=== PATIENT | male | born 1930 | race Caucasian/White ===

== ENCOUNTER 2017-08-23 04:38 | Inpatient (IN) | payer MEDICARE ==
[2017-08-23] VITALS (33 sets, daily range): BP systolic 50–165; BP diastolic 20–92
[~2017-08-23] VITALS: Ht 182.9 cm; Wt 110.2 kg
[~2017-08-23 04:38] MED LIST: ALLEGRA ALLERG180 MG PO; ASPIR 8181 MG PO; CRESTOR10 MG PO; FLOMAX0.4 MG PO; HYDROCODONE-AP1 EAC6 PO; LOVAZA1000 MG PO; NORCO 5-325 TA1 EACH PO; PROBENECID-COL1 EACH PO; SILVADENE20 GM TP; TOPROL XL25 MG PO
[2017-08-23 05:17] LABS: POC CA IONIZED 3.8 mg/dL (4.5-5.3); POC CREATININE 1.6 mg/dL (0.6-1.3); POC HEMOGLOBIN 13.3 g/dL (12.0-17.0); POC POTASSIUM 4.4 mmol/L (3.5-4.9)
[2017-08-23 05:17] LABS: ABSOLUTE EOSINOPHILS 0.1 thou/uL (0.0-0.7); ABSOLUTE LYMPHOCYTES 0.5 thou/uL (0.8-5.3); ABSOLUTE NEUTROPHILS 2.6 thou/uL (1.6-8.1); BASOPHILS 0.4 %; EOSINOPHILS 1.8 %; HEMATOCRIT 42.3 % (42.0-52.0); MCH 29.4 pg (26.0-34.0); MCV 89.1 fL (80.0-100.0); MONOCYTES 0.5 %; MPV 7.8 fl. (7.2-11.1); NUCLEATED RBCS 0 /100WBC; PLATELET COUNT* 182 thou/uL (150-400); POLYS 81.3 %; RBC 4.75 mil/uL (4.50-6.00); RDW-CV 14.2 % (10.5-14.5); WBC 3.2 thou/uL (4.0-11.0)
[2017-08-23] MEDS ORDERED: GABAPENTIN 100100 MG PO (05:26)
[2017-08-23 05:27] LABS: ANION GAP 8 mmol/L (7-16); BUN 28 mg/dL (7-18); CALCIUM 8.8 mg/dL (8.5-10.1); CHLORIDE 102 mmol/L (98-107); CO2 26 mmol/L (21-32); CREATININE 1.6 mg/dL (0.6-1.3); GLUCOSE 127 mg/dL (70-99); POTASSIUM 4.6 mmol/L (3.5-5.1); SODIUM 136 mmol/L (136-145)
[2017-08-23 05:28] LABS: PROTIME 10.2 Seconds (9.20-11.50)
[2017-08-23] MEDS ORDERED: ALEVE220 M1 PO (05:29)
[2017-08-23 05:38] LABS: ALBUMIN 3.2 g/dL (3.4-5.0); ALKALINE PHOSPHATASE 68 U/L (46-116); LIPASE 115 U/L (73-393); NT-PRO BRAIN NAT PEPTIDE 294 pg/mL (<300); SGOT 14 U/L (15-37); SGPT 16 U/L (30-65); TOTAL BILIRUBIN 0.6 mg/dL (<0.1-1.0); TOTAL PROTEIN 6.6 g/dL (6.4-8.2); TROPONIN-I LEVEL <0.06 ng/mL (<0.06)
[2017-08-23 07:57] LABS: URINE BILIRUBIN NEGATIVE (Negative); URINE BLOOD NEGATIVE (Negative); URINE CLARITY CLEAR; URINE COLOR YELLOW; URINE GLUCOSE-RANDOM NEGATIVE (Negative); URINE KETONES NEGATIVE (Negative); URINE LEUKOCYTES-REFLEX NEGATIVE (Negative); URINE NITRITE-REFLEX NEGATIVE (Negative); URINE PROTEIN NEGATIVE (Negative); URINE UROBILINOGEN 0.2 E.U./dl (0.2-1.0)
--- NOTE | 2017-08-23 08:39 | NUR ---
DR CALL RETURNED CALL. SPOKE WITH HIM IN REGARDS TO PATIENT UNABLE TO STAND AND DR CALL STATED TO DO THE STANDING XRAY WITH PATIENT IN UP RIGHT POSITION. INFORMATION FORWARDED TO [facility]
[2017-08-23 08:52] LABS: URINE POTASSIUM-RANDOM 50.2 mmol/L
--- NOTE | 2017-08-23 10:20 | EKG ---
[place] [address] ELECTROCARDIOGRAM REPORT Name: VICTORIA SANTIZO Room: [address] ADM IN 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
--- NOTE | 2017-08-23 11:50 | NUR ---
PATIENT ADMITTED TO THE UNIT AT 0951. PATIENT AOX4, ANXIOUS. PAIN RATED AT 8/10 IN ABDOMEN, GENERALIZED. ABDOMEN FIRM TO PALPATION. ORDERS FOR CENTRAL LINE AND MCQUEEN CATHETER NOTED FROM ER. ATTEMPTED MCQUEEN PLACEMENT X2. HOSPIALIST NOTIFIED THAT MCQUEEN WAS UNABLE TO BE OBTAINED. ORDERS FOR UROLOGY CONSULT, BRANDON MANJARREZ RETURNED CALL AND ORDERED TO TRY COUDE CATHETER, BUT PAITENT SOON AFTER LEFT FOR SURGERY AND WAS UNABLE TO ATTEMPT. CENTRAL LINE PLACEMENT POSSIBLY IN OR PER ANESTHESIOLOGY. CONSENT FOR SURGERY SIGNED. BLOOD CONSENT SIGNED IN CASE OF NEED. BLOOD PRESSURES SOFT, LEVOPHED ON STANDBY. RING AND GLASSES GIVEN TO PATIENT'S SPOUSE WHILE IN SURGERY. PATIENT'S FAMILY HAD TO STEP OUT OF ROOM FOR XRAYS, SURGERY CAME TO GET PATIENT BEFORE FAMILY COULD BE LET BACK IN. UPDATED THAT PHYSICIAN WILL TYPICALLY GIVE UPDATES POST SURGERY IN THE ICU WAITING ROOM. PATIENT LEFT UNIT AT 1053 IN BED WITH OR STAFF AND ALL SIDE RAILS UP.
[2017-08-23 13:08] LABS: HEMATOCRIT 35.5 % (42.0-52.0)
[2017-08-23 13:09] LABS: HEMOGLOBIN 11.9 gm/dL (14.0-18.0)
[2017-08-23 13:12] LABS: INR 1.1; PROTIME 10.8 Seconds (9.20-11.50)
[2017-08-23 16:09] LABS: HEMATOCRIT 35.2 % (42.0-52.0); HEMOGLOBIN 11.8 gm/dL (14.0-18.0); MCH 29.8 pg (26.0-34.0); MCHC 33.4 g/dL (28.0-37.0); MCV 89.1 fL (80.0-100.0); NUCLEATED RBCS 0 /100WBC; PLATELET COUNT* 169 thou/uL (150-400); RBC 3.95 mil/uL (4.50-6.00); RDW-CV 14.3 % (10.5-14.5); WBC 5.5 thou/uL (4.0-11.0)
[2017-08-23 16:13] LABS: BE -9.4 mmol/L (-2 to +3); HCO3 16.7 mmol/L (22.0-26.0); PO2 80.3 mmHg (75.0-100.0)
[2017-08-23 16:17] LABS: ALBUMIN 2.2 g/dL (3.4-5.0); CALCIUM 6.7 mg/dL (8.5-10.1); CREATININE 1.5 mg/dL (0.6-1.3); MAGNESIUM 1.3 mg/dL (1.8-2.4); POTASSIUM 5.6 mmol/L (3.5-5.1); TOTAL BILIRUBIN 0.6 mg/dL (<0.1-1.0); TOTAL PROTEIN 4.8 g/dL (6.4-8.2)
[2017-08-23 16:18] LABS: pH 7.272 (7.340-7.450)
[2017-08-23 16:49] LABS: ABSOLUTE LYMPHOCYTES 0.8 thou/uL (0.8-5.3); ABSOLUTE MONOCYTES 0.2 thou/uL (0.0-1.2); ABSOLUTE NEUTROPHILS 4.5 thou/uL (1.6-8.1)
[2017-08-23 16:50] LABS: PLATELET ESTIMATE ADEQUATE
[2017-08-23 19:25] LABS: HEMOGLOBIN 11.9 gm/dL (14.0-18.0); MCH 29.4 pg (26.0-34.0); MCV 89.2 fL (80.0-100.0); MPV 8.1 fl. (7.2-11.1); NUCLEATED RBCS 0 /100WBC; PLATELET COUNT* 234 thou/uL (150-400); RBC 4.04 mil/uL (4.50-6.00); RDW-CV 14.3 % (10.5-14.5); WBC 12.3 thou/uL (4.0-11.0)
[2017-08-23 19:28] LABS: CREATININE 1.8 mg/dL (0.6-1.3); POTASSIUM 5.3 mmol/L (3.5-5.1)
[2017-08-23 19:37] LABS: TROPONIN-I LEVEL 2.07 ng/mL (<0.06)
--- NOTE | 2017-08-23 19:37 | NUR ---
PATIENT RETURNED FROM SURGERY ON VENTILATOR. PULMONARY CONSULTED. ORDERS FOR XRAY AND ABG TO AND TO CALL THEM WITH RESULTS. ORDERS FOR RESTRAINTS AT THAT TIME, BILATERAL SOFT WRIST RESTRAINTS APPLIED. POST ABG, NO CHANGES TO VENTILATOR SETTINGS PER PULMONARY, BUT TO START D5 0.225 NS WITH 2 AMPS OF BICARB, INITIATED. PATIENT ON NEOSYNEPHRINE UPON ARRIVING TO THE FLOOR, BUT TITRATED OFF IMMEDIATELY FOR HYPERTENSION WITH SYSTOLIC >170. FAMILY ALLOWED TO SEE PATIENT, UPDATED BY SURGICAL TEAM. AROUND 1400, PATIENT MIDLY BRADYCARDIC WITH HYPOTENSION. LEVOPHED STARTED PER PRN ORDERS WITH IMPROVEMENTS. PATIENT AROUND 1615 BEGAN TO BERT TO LOW 40S WITH BLOOD PRESSURES 40S/20S. VASOPRESSIN INTITATED PER PRN ORDERS, QUICKLY MAXED OUT. DR MORRELL NOTIFIED. ORDERS FOR STAT EKG, CARDIOLOGY CONSULT. CARDIOLOGY CONSULTED WHO STATED TO SUPPORT PATIENT'S VITALS WITH PRESSORS FOR NOW, AND IF PATIENT CONTINUES TO BE BRADYCARDIC, DROP BELOW 40S TO EXTERNALLY PACE AND CALL THEM BACK FOR TEMPORARY PACER INSERTION. SURGERY NOTIFIED OF PATIENT DECLINE. ORDERS FOR AMP BICARB, CALCIUM GLUCONATE, STAT ECHO ENTERED. DRY MOP MAKER NOTIFIED ABOUT STAT ECHO TO PAGE TECH IN. EXTERNAL ELECTRODES PLACED ON PATIENT. ATROPINE IN CART CLOSE BY. PATIENT VITALS STABLE ON PRESSORS AT THIS TIME. REFER TO MEDICATION TITRATION. REPORT GIVEN TO BARRY Rose RN.
[2017-08-23 19:59] LABS: ABSOLUTE LYMPHOCYTES 1.4 thou/uL (0.8-5.3); ABSOLUTE MONOCYTES 0.6 thou/uL (0.0-1.2); ABSOLUTE NEUTROPHILS 10.3 thou/uL (1.6-8.1)
[2017-08-23 20:00] LABS: PLATELET ESTIMATE ADEQUATE
[2017-08-23 20:03] LABS: MAGNESIUM 1.4 mg/dL (1.8-2.4); PHOSPHORUS* 3.3 mg/dL (2.5-4.9)
[2017-08-24] VITALS (34 sets, daily range): BP systolic 91–158; BP diastolic 37–61
[2017-08-24 04:06] LABS: ABSOLUTE LYMPHOCYTES 0.5 thou/uL (0.8-5.3); ABSOLUTE MONOCYTES 0.4 thou/uL (0.0-1.2); ABSOLUTE NEUTROPHILS 14.3 thou/uL (1.6-8.1); BASOPHILS 0.2 %; EOSINOPHILS 0.2 %; HEMATOCRIT 34.3 % (42.0-52.0); HEMOGLOBIN 11.1 gm/dL (14.0-18.0); LYMPHOCYTES 3.3 %; MCH 29.2 pg (26.0-34.0); MCHC 32.4 g/dL (28.0-37.0); MCV 90.1 fL (80.0-100.0); MONOCYTES 2.8 %; MPV 8.3 fl. (7.2-11.1); NUCLEATED RBCS 0 /100WBC; PLATELET COUNT* 218 thou/uL (150-400); POLYS 93.5 %; RBC 3.81 mil/uL (4.50-6.00); RDW-CV 14.4 % (10.5-14.5); WBC 15.2 thou/uL (4.0-11.0)
[2017-08-24 04:38] LABS: CALCIUM 6.6 mg/dL (8.5-10.1); CREATININE 1.9 mg/dL (0.6-1.3); MAGNESIUM 2.3 mg/dL (1.8-2.4); TOTAL BILIRUBIN 0.4 mg/dL (<0.1-1.0); TOTAL PROTEIN 4.9 g/dL (6.4-8.2)
[2017-08-24 04:39] LABS: POTASSIUM 4.3 mmol/L (3.5-5.1)
[2017-08-24 04:40] LABS: PHOSPHORUS* 3.5 mg/dL (2.5-4.9)
--- NOTE | 2017-08-24 05:06 | NUR ---
PT. REMAINS SEDATED ON VERSED GTT ON VENTILATOR. EPI AND LEVOPHED GTT'S CONTINUE TO INFUSE. PT. CAN GET VERY RESTLESS/AGITATED WITH STIMULI. ARTERIAL LINE IS VERY POSITIONAL. PT. IS ABLE TO ANSWER QUESTIONS BY SHAKING HEAD YES/NO. IN AND OUT OF AFIB ON MONITOR. WILL CONTINUE TO MONITOR.
--- NOTE | 2017-08-24 08:22 | CON ---
[address] [address] CONSULTATION Name: VICTORIA SANTIZO Rose Room: [address] IN M.R.#: [id number] Admission: 08/23/17 Attend Phys: Bora Ortega Discharge: Date of : 31 Report #: [id number] THIS REPORT FOR: //name// CC: Eliot Rosenberg DATE OF SERVICE: 08/23/2017 Consult has been requested by Dr. Coburn. INDICATION FOR CONSULTATION: Acute respiratory failure, postop/ventilator management. HISTORY OF PRESENT ILLNESS: This is an 86-year-old gentleman with past medical history is as mentioned below. This does include a history of coronary artery disease and he has had stents in his heart. The patient, however, does not have a history of respiratory disease and there is no known history of smoking. The patient now presented to the Emergency Room overnight, was complaining of severe abdominal pain. There was some chest discomfort reported as well initially; however, primarily the patient had abdominal pain. The patient was evaluated with a CTA chest, abdomen and pelvis. There were no major abnormalities in his chest detected. The patient, however, was noted to have possible bowel perforation and did go to the OR and have an ex-lap today. 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 The patient is reported to have rather been hypotensive. At this time, he is maintaining blood pressure on 150/80. He is not on any pressors and he is ventilating and oxygenating adequately. He is on 50% FiO2 with 5 of PEEP on the ventilator. The patient is on the ventilator and therefore is unable to provide a further history or review of systems. PAST MEDICAL HISTORY: Coronary artery disease, status post stents. I do not have any measure of his left ventricular ejection fraction available at this time, hypertension, hyperlipidemia, syncope. SOCIAL HISTORY: There is no known history of smoking, ethanol abuse or drug abuse. Obviously, I am unable to ask the patient directly. No family was also available immediately. CURRENT MEDICATIONS: List in [employer] reviewed. HOME MEDICATIONS: List also is in [employer], reviewed. ALLERGIES: EGGS, PENICILLIN AND SULFONAMIDE ANTIBIOTICS ARE [place] [address] CONSULTATION Name: VICTORIA SANTIZO Room: [address]#: [id number] Admission: 08/23/17 Attend Phys: Bora Ortega Discharge: Date of : 31 Report #: [id number] FAMILY HISTORY: There is no pertinent family history known at this time. PHYSICAL EXAMINATION: GENERAL: He is drowsy, partially arousable, has just come from the OR. VITAL SIGNS: Has a pulse of 95 and a blood pressure of 150/80, he was saturating 100% on a tidal volume of 750 with an AC rate of 12, FiO2 of 50%, and PEEP of 5, O2 saturation was 100, he was overbreathing the ventilator at 14, afebrile with a temperature of 36.8. HEENT: Head is normocephalic and atraumatic. Pupils are equal and reactive. There is an endotracheal tube in place. NECK: Does not show raised JVP, asymmetry, mass or lymph nodes. CHEST: Symmetrical on inspection and palpation. Expansion on auscultation, chest is clear. HEART: Regular. There is no murmur. ABDOMEN: Soft. There is an open surgical wound noted. EXTREMITIES: Lower extremities show no edema, no calf tenderness. SKIN: Dry and intact. NEUROLOGICAL: He did move all extremities bilaterally equally and spontaneously. The neurological examination; however, is limited at this time. DIAGNOSTIC DATA: The patient's preop chest x-ray from this morning shows mild scarring with no other major abnormality. There may be mild atelectasis at bilateral lung bases as well. I have ordered a chest x-ray now postop, which is pending at this time. Postop arterial blood gases are also pending. ASSESSMENT AND PLAN: 1. Acute respiratory failure postoperative. At this time, I agree with keeping the patient on the ventilator. I understand he may need to go the OR again. We will continue current ventilator settings. Obtain a chest x-rays and ABGs and then reassess the ventilator. Recommend initially going ahead and starting him on a fentanyl drip as well as p.r.n. Versed. If this sedation is not sufficient, then can add propofol later. The patient is noted to have a central line. 2. 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 The patient is status post OR. He is on broad spectrum antibiotics, which are ordered by the Surgery Service. I understand the plan is to take him back to the OR in the next couple of days, would defer IV fluids to the surgery/primary service. The patient is noted to be on a Protonix infusion as well. I would defer to the primary service. 3. Deep vein thrombosis prophylaxis. Suggest sequential compression devices. 4. An upper gastrointestinal bleed may have been suspected. The patient is critically ill at this time. [address] [address] CONSULTATION Name: VICTORIA SANTIZO [facility]#: [id number] Admission: 08/23/17 Attend Phys: Bora Ortega Discharge: Date of : 31 Report #: [id number] Total time spent providing critical care to this patient today is 36 minutes. <ELECTRONICALLY SIGNED> By: Daniella Hein MD 08/24/17 0822 1559 0032Asrikanth Lowe MD /nt
[2017-08-24 09:20] LABS: BE -6.5 mmol/L (-2 to +3); HCO3 18.5 mmol/L (22.0-26.0); PCO2 34.8 mmHg (35.0-45.0); PO2 99.1 mmHg (75.0-100.0); pH 7.343 (7.340-7.450)
--- NOTE | 2017-08-24 10:15 | 2DMMODE ---
[place] [address] 2 D/M-MODE ECHOCARDIOGRAM Name: DARLYNVICTORIA M Room: [address] ADM IN [facility]#: [id number] Admission: 08/23/17 Attend Phys: Eric Rosenberg Discharge: Date of : 31 Date of Service: 08/24/17 1015 Report #: [id number] THIS REPORT FOR: //name// APPROVED REPORT Study performed: 08/23/2017 20:18:56 EXAM: Comprehensive 2D, Doppler, and color-flow Echocardiogram Patient Location: In-Patient Room #: 003 Status: stat BSA: 2.29 HR: 78 bpm BP: 135/41 mmHg Rhythm: NSR Other Information Study Quality: Good Indications Arrhythmia Bowel perforation 2D Dimensions LVEF(%): 57.71 (>50%) IVSd: 13.30 (7-11mm) LVOT Diam: 20.84 (18-24mm) LVDd: 37.44 mm PWd: 15.91 (7-11mm) Ascending Ao: 35.88 (22-36mm) LVDs: 26.29 (25-40mm) Aortic Root: 31.87 mm Aaron's LVEF: 57.71 % Volumes Left Atrial Volume (Systole) LA ESV Index: 24.10 mL/m2 Aortic Valve AoV Peak Chuckie.: 1.88 m/s AO Peak Gr.: 14.17 mmHg LVOT Max P.66 mmHg AO Mean Gr.: 7.74 mmHg LVOT Mean P.96 mmHg LVOT Max V: 1.47 m/s AO V2 VTI: 31.72 cm LVOT Mean V: 0.90 m/s NATY (VTI): 2.84 cm2 LVOT V1 VTI: 26.40 cm AI Cataño: 2.24 m/s2 AI PHT: 416.80 [place] [address] 2 D/M-MODE ECHOCARDIOGRAM Name: CLAUDIOENRIQUEVICTORIA M Room: [address] IN ..#: [id number] Admission: 08/23/17 Attend Phys: Eric Rosenberg Discharge: Date of : 31 Date of Service: 08/24/17 1015 Report #: [id number] Mitral Valve E/A Ratio: 0.82 MV Decel. Time: 186.47 ms MV E Max Chuckie.: 1.04 m/s MV PHT: 54.08 ms MVA (PHT): 4.07 cm2 TDI E/Lateral E': 9.45 E/Medial E': 8.00 Medial E' Chuckie.: 0.13 m/s Lateral E' Chuckie.: 0.11 m/s Pulmonary Valve PV Peak Chuckie.: 1.37 m/s PV Peak Gr.: 7.46 mmHg Tricuspid Valve TR Peak Gr.: 33.42 mmHg RVSP: 38.00 mmHg Left Ventricle The left ventricle is normal size. There is normal LV segmental wall motion. Mild concentric left ventricular hypertrophy. Left ventricular systolic function is normal. LVEF is 55-60%. Grade I - abnormal relaxation pattern. Right Ventricle The right ventricle is normal size. The right ventricular systolic function is normal. Atria Left atrium is mildly dilated. The right atrium size is normal. Aortic Valve The aortic valve is normal in structure. Mild aortic regurgitation. There is no aortic valvular stenosis. Mitral Valve The mitral valve is normal in structure. Trace mitral regurgitation. No evidence of mitral valve stenosis. Tricuspid Valve The tricuspid valve is normal in structure. Mild tricuspid regurgitation. The RVSP is 35-40 mmHg[place] [address] 2 D/M-MODE ECHOCARDIOGRAM Name: VICTORIA SANTIZO Room: [address]#: [id number] Admission: 08/23/17 Attend Phys: Eric Rosenberg Discharge: Date of : 31 Date of Service: 08/24/17 1015 Report #: [id number] The pulmonary valve is normal in structure. There is no pulmonic valvular regurgitation. Great Vessels The aortic root is normal in size. IVC is not well visualized. Pericardium There is no pericardial effusion. <Conclusion> The left ventricle is normal size. Mild concentric left ventricular hypertrophy. Left ventricular systolic function is normal. LVEF is 55-60%. Grade I - abnormal relaxation pattern. Left atrium is mildly dilated. Mild aortic regurgitation. Mild tricuspid regurgitation. The RVSP is 35-40 mmHg. <ELECTRONICALLY SIGNED> By: Narinder Jones MD, FACC 08/24/17 1015 1015 1015 Narinder Jones MD, FACC /INF
--- NOTE | 2017-08-24 10:50 | EKG ---
[place] [address] ELECTROCARDIOGRAM REPORT Name: CLAUDIOENRIQUEVICTORIA Rose Room: [address] ADM IN M.R.#: [id number] Admission: 08/23/17 Attend Phys: Bora Ortega Discharge: Date of : 31 Report #: [id number] THIS REPORT FOR: //name// [facility] Test Date: 2017-08-23 Test Time: 19:02:57 Pat Name: VICTORIA SANTIZO Department: Room: [address] Gender: M Emotionally Impaired Teacher: REPLACED BY [facility] : 1930 Requested By: Giuseppe Coburn Order Number: [id number] Juan MD: Nick Maldonado Measurements Intervals [place] Rate: 67 P: 16 MS: 143 QRS: 16 QRSD: 94 T: 1 QT: 395 QTc: 417 Interpretive Statements Sinus rhythm Inferior infarct, old Compared to ECG 08/23/2017 04:59:48 No significant changes Electronically Signed On 08-24-2017 10:50:04 CDT by Nick Maldonado [email or web address] <ELECTRONICALLY SIGNED> By: Nick Maldonado MD, [facility] 08/24/17 1050 01 01 Nick Maldonado MD, [facility] /EPI
--- NOTE | 2017-08-24 11:00 | NUR ---
SPOKE WITH SON HERMES AT BEDSIDE. PT LIVES AT HOME WITH HIS LINH. HERMES IS PT'S DPOA, COPY OF DOCUMENT ON THE CHART. HE SAID SEVERAL YEARS AGO THE PT WAS IN THE HOSPITAL FOR 4 DAYS AND AT DISCHARGE IT WAS RECOMMENDED THAT PT GO TO SNF, PT'S INSISTED HE COME HOME. HERMES WANTS TO MAKE SURE THAT HE IS INVOLVED WITH ANY DISCUSSIONS ABOUT DISCHARGE NEEDS, HE SAID THAT PT'S WON'T LET PT ANSWER ANY QUESTIONS IF SHE IS PART OF THE DISCUSSION. ASSURED SON THAT CASE MGT WILL WORK WITH PATIENT AND SON THRU OUT THIS HOSPITAL STAY.
[2017-08-24 13:17] LABS: BE -3.4 mmol/L (-2 to +3); HCO3 22.3 mmol/L (22.0-26.0); PCO2 42.4 mmHg (35.0-45.0); pH 7.338 (7.340-7.450)
--- NOTE | 2017-08-24 17:20 | NUR ---
PT TO SURGERY VIA BED ACCOMPANIED BY OR STAFF AT 1520.
[2017-08-25] VITALS (69 sets, daily range): BP systolic 82–152; BP diastolic 32–72
[2017-08-25 05:05] LABS: BE -2.5 mmol/L (-2 to +3); HCO3 22.3 mmol/L (22.0-26.0); PO2 103.8 mmHg (75.0-100.0); pH 7.376 (7.340-7.450)
--- NOTE | 2017-08-25 06:51 | NUR ---
SLOW PROGRESSION TOWARDS GOALS, SEE COMPUTERIZED ASSESSMENT CHARTING FOR FURTHER DETAILS, REMAINS ON VERSED GTT 6MG/HR VIA INFUSION PUMP FOR SEDATION, RESTING QUIELTY WITH EYES CLOSED, EXCEPT WITH ANY TYPE STIMULATION, RESTLESS/AGITATED GRIMACING AND FROWNING WITH TACTILE STIMULI, FENTANYL 50MCG IVP X3 PRN THIS SHIFT, FENTANYL SOMEWHAT HELPFUL TO DECREASE AGITATION, GRIMACING, AND RESTLESSNESS, B/P DECREASES WITH FENTANYL IVP, REMAINS ON LEVOPHED GTT TITRATED INCREASED DURING SHIFT FROM 14MCG/MIN TO 17MCG/MIN, HEPATIC STATLOCK AND DRESSING CHANGED DURING NOC, SEE I/O DOCUMENTATION FOR DRAINAGE AMOUNTS, SR WITH PVC TRACING BUNGY JUMP MASTER, NO CHANGE IN VENTILATOR SETTINGS DURING NOC BY RT, BED REMAINS IN LOW AND LOCKED POSITION, BED ALARM ON FOR SAFETY, TURNED/REPOSITONED Q2 AND PRN.
[2017-08-25 07:06] LABS: HEMATOCRIT 28.6 % (42.0-52.0); HEMOGLOBIN 9.7 gm/dL (14.0-18.0); MCH 29.8 pg (26.0-34.0); MCV 87.6 fL (80.0-100.0); MPV 8.6 fl. (7.2-11.1); NUCLEATED RBCS 0 /100WBC; RBC 3.26 mil/uL (4.50-6.00); RDW-CV 14.5 % (10.5-14.5); WBC 10.4 thou/uL (4.0-11.0)
[2017-08-25 07:09] LABS: CALCIUM 6.2 mg/dL (8.5-10.1); CREATININE 1.8 mg/dL (0.6-1.3)
--- NOTE | 2017-08-25 07:36 | CON ---
[address] [address] CONSULTATION Name: DARLYNVICTORIA Rose Room: [address] IN .R.#: [id number] Admission: 08/23/17 Attend Phys: Bora Ortega Discharge: Date of : 31 Report #: [id number] THIS REPORT FOR: //name// CC: Eliot Rosenberg DATE OF SERVICE: 08/24/2017 INFECTIOUS DISEASE CONSULTATION ATTENDING PHYSICIAN: Eric Rosenberg DO REASON FOR EVALUATION: Peritonitis as a result of transverse colon perforation complicated by septic shock. HISTORY OF PRESENT ILLNESS: Chart reviewed, the patient examined. This is an 86-year-old gentleman, with known vasculopathy, previous myocardial infarctions, who has a longstanding constipation as well apparently, who developed progressive and severe epigastric type pain over the course of the few hours prior to his admission. He was quite ill on presentation. Evaluation to exclude aortic dissection was undertaken and he was found to have a pneumoperitoneum that led to emergent surgery. He was confirmed to have a transverse colon perforation perhaps in the setting of malignancy. He was seen postoperatively in the intensive care unit. He is on pressor support ventilation. He has been started on broad spectrum therapy with ceftriaxone, metronidazole and fluconazole. He is scheduled to undergo additional operative second look procedure this afternoon. ALLERGIES: LISTED TO PENICILLIN AND SULFA. CURRENT MEDICATIONS: Include ceftriaxone, fluconazole, pantoprazole, insulin lispro, ipratropium and albuterol inhaler, metronidazole, p.r.n. analgesics and antiemetics, norepinephrine. PAST MEDICAL HISTORY: As described above, hypertension, high cholesterol, prostatic hypertrophy. SOCIAL HISTORY: Former smoker, 5-pack-year history. FAMILY HISTORY: Noncontributory. REVIEW OF SYSTEMS: Not obtainable. PHYSICAL EXAMINATION: GENERAL: He is supine. He is intubated at this point. He has got a central line in the left chest. He has got a Valdez catheter. [place] [address] CONSULTATION Name: VICTORIA SANTIZO Rose Room: [address]#: [id number] Admission: 08/23/17 Attend Phys: Bora Ortega Discharge: Date of : 31 Report #: [id number] drain. He has got a wound VAC in place. VITAL SIGNS: Temperature 98.7, pulse 77, respirations 13, blood pressure 135/49. SKIN: Warm. HEENT: Unremarkable. LUNGS: Diminished breath sounds. Few scattered crackles. HEART: Regular. I do not appreciate any murmur. ABDOMEN: Somewhat tense. He has got the wound VAC in place with some abdominal wall edema. GENITOURINARY: Deferred. RECTAL: Deferred. LABORATORY DATA: ABGs: pH 7.338, pCO2 of 42.4, pO2 of 87.0 and FiO2 of 35%. Blood cultures sterile thus far. Operative cultures in progress. CBC from this morning, white count of 15.2, H and H and 34.3, platelets of 218. Prealbumin of 16.8, lipase of 144. Electrolytes: Sodium 132, potassium 4.3, chloride 100, bicarbonate is 19, anion gap of 13, BUN and creatinine 27 and 1.9, glucose of 495, total protein 4.9, albumin of 2.0. Estimated GFR of 34. LFTs unremarkable. Lactic acid 5.6, it is actually down from 7.4. Intraabdominal operative fluid collection culture showed many white cells, no organisms seen. Chest x-ray, bibasilar linear subsegmental atelectasis, early infiltrate potentially. 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 ASSESSMENT: Peritonitis secondary to perforated abdominal viscus, agree with empiric broad spectrum therapy, certainly likely there has been breach of the sterility and likely slow healing of that site be concerned about polymicrobial infection. We will await those culture results and see how he does clinically, efforts to wean off support and we will follow perioperatively. <ELECTRONICALLY SIGNED> By: Sergio Adkins MD 08/25/17 0736 1345 [id number] Adkins MD /nt
--- NOTE | 2017-08-25 08:13 | NUR ---
PATIENT CARE ASSUMED AT 0700. PATIENT REMAINS SEDATED ON VERSED AT 6MG/HR ON VENTILATOR. LEVOPHED RUNNING AT 17 MCG/MIN UPON ASSUMING CARE. TITRATED TO 15 MCG/MIN AT THIS TIME. REFER TO VITAL SIGNS. AFEBRILE. PATIENT CALM AT THIS TIME, BUT DOES BECOME RESTLESS WITH MINOR STIMULATION. NO STOOL NOTED IN ILEOSTOMY AT THIS TIME. MIDLINE INCISION REMAINS APPROXIMATED WITH FAVIOLA VAC IN PLACE. CHOLEY TUBE WITH SMALL AMOUNT OF DARK BROWN LIQUID OUTPUT. BILATERAL SPENCER DRAINS WITH SMALL PINK DRAINAGE. NO SIGNS/SYMPTOMS OF INFECTION NOTED AROUND MULTIPLE DRAIN SITES. ANIA CATHETER CARE GIVEN. URINE NOTED TO BE DARK RUDOLPH IN COLOR. NOTED THAT HOSPITALIST WOULD LIKE TO ADDRESS IF SURGERY WANTS TO GO AHEAD WITH BREATHING TRIAL TODAY. WILL CONTINUE WITH CURRENT PLAN OF CARE.
[2017-08-25 08:23] LABS: ABSOLUTE EOSINOPHILS 0.1 thou/uL (0.0-0.7); ABSOLUTE LYMPHOCYTES 0.4 thou/uL (0.8-5.3); ABSOLUTE MONOCYTES 0.2 thou/uL (0.0-1.2); ABSOLUTE NEUTROPHILS 9.7 thou/uL (1.6-8.1); METAMYELOCYTES 2 %; MYELOCYTES 1 %
[2017-08-25 08:24] LABS: PLATELET COUNT* 133 thou/uL (150-400); PLATELET ESTIMATE ADEQUATE
--- NOTE | 2017-08-25 10:32 | CON ---
[facility] [address] [place] [address] CONSULTATION Name: VICTORIA SANTIZO Room: [address] IN ..#: [id number] Admission: 08/23/17 Attend Phys: Bora Ortega Discharge: Date of : 32 Report #: [id number] THIS REPORT FOR: //name// CC: Eliot Rosenberg INDICATION: Hypotension, shock, elevated troponin and history of coronary artery disease in patient with perforated bowel. HISTORY OF PRESENT ILLNESS: The patient is an 86-year-old gentleman who was admitted to the hospital yesterday with acute abdominal pain. Noninvasive studies confirmed a perforated viscus. The patient underwent emergent surgery. 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 He underwent right hemicolectomy and exploratory laparotomy as well as cholecystostomy with tube placement. Postoperatively, the patient had significant hypotension and episodes of bradycardia. The patient was placed on multiple pressors including vasopressin, Levophed and epinephrine. He remains on Levophed and epinephrine at this time at lower doses. He has a stable heart rate and blood pressure at this time. He is intubated and unresponsive. PAST MEDICAL HISTORY: 1. Coronary artery disease with percutaneous coronary intervention remotely. 2. . 3. Dyslipidemia. 4. BPH. ALLERGIES: PENICILLIN, SULFA and EGGS. HOME MEDICATIONS: Aspirin 325 mg daily, probenecid, colchicine tablets daily, Mily 180 mg daily, gabapentin 100 mg t.i.d., metoprolol succinate 25 mg as directed, Aleve one tablet p.r.n., Lovaza 1000 mg daily, Crestor 10 mg daily, Flomax 0.4 mg daily. REVIEW OF SYSTEMS: Not obtainable. PHYSICAL EXAMINATION: VITAL SIGNS: Blood pressure 135/49, pulse 77 and regular. GENERAL: The patient is intubated and unresponsive. HEENT: Head is normocephalic, atraumatic. NECK: Without obvious jugular venous distention. CHEST: Clear anteriorly. CARDIAC: Reveals a regular rhythm with normal S1 and S2. I do not appreciate gallop or murmur. ABDOMEN: Reveals absence of bowel sounds. EXTREMITIES: Show no edema. Peripheral pulses 2+ [place] [address] CONSULTATION Name: VICTORIA SANTIZO Room: [address] IN [facility]#: [id number] Admission: 08/23/17 Attend Phys: Bora Ortega Discharge: Date of : 31 Report #: [id number] SKIN: Warm and dry. LABORATORY DATA: A 12-lead EKG shows sinus rhythm with inferior Q-waves suggestive of old inferior infarct. Labs are reviewed. Electrolytes stable. BUN 29, creatinine 1.9. Troponin initially less than 0.06, subsequently 0.13, 2.07 and now 2.32. IMPRESSION AND RECOMMENDATIONS: 1. Elevated troponin, likely due to strain and underlying coronary artery disease. Doubt this represents true acute coronary syndrome. An echocardiogram verifies normal left ventricular systolic function at this time. The patient had been on daily aspirin prior to admission to the hospital. We will follow clinically at this time. No indication or need for catheterization or intervention. 2. Hypotension. The patient's blood pressure has been low in the setting of probable sepsis and septic shock. He has responded to pressor agents as well as volume resuscitation. I believe he could continue to receive volume resuscitation as needed. 3. History of dyslipidemia, currently not a problem. Would resume statin agent down the road when he is able to take oral medications. 4. Perforated viscus, status post operative intervention yesterday, the patient appears more stable today. There is a concern that he needs to have a reexploration and washout. Certainly, he is at higher risk due to his underlying coronary disease, although I do not believe he is in the setting of acute coronary syndrome at this time. I do not believe he is at prohibitive risk from a cardiac standpoint to proceed with washout. Would support blood pressure as you are doing now with pressor agents and continued volume resuscitation. We will follow. <ELECTRONICALLY SIGNED> By: Narinder Jones MD, FACC 08/25/17 1032 1027 1516Micsander Jones MD, FACC /nt
--- NOTE | 2017-08-25 11:00 | NUR ---
Nutrition: Pt sedated on versed, on vent. Admitted with bowel perf. Pt had surgery, is now closed up, ileostomy placed, 2 SPENCER drains, magan tube. Uday score 11. Per ICU rounds, will trial tomorrow. Apparently, physician does not want any IV nutrition for [address] will follow up for POC on 08/28/17.
--- NOTE | 2017-08-25 17:16 | NUR ---
PATIENT PROGRESSING TOWARDS GOALS. ABLE TO TITRATE LEVOPHED DOWN TO 2 MCG/MIN AND VERSED TO 3 MG/HR. PATIENT VERY AWAKE, RESTLESS. PRN ATIVAN GIVEN ONCE FOR AGITATION. ONE 500ML NS BOLUS GIVEN PER CARDIOLOGY. NO OTHER ACUTE EVENTS THIS SHIFT. WEANING TRIAL IN AM IF PATIENT CAN BE TITRATED OFF SEDATION.
[2017-08-26] VITALS (26 sets, daily range): BP systolic 95–136; BP diastolic 41–56
[2017-08-26 03:40] LABS: HEMATOCRIT 25.7 % (42.0-52.0); HEMOGLOBIN 8.8 gm/dL (14.0-18.0); MCHC 34.2 g/dL (28.0-37.0); MCV 87.6 fL (80.0-100.0); MPV 8.3 fl. (7.2-11.1); RBC 2.94 mil/uL (4.50-6.00); RDW-CV 14.6 % (10.5-14.5); WBC 10.4 thou/uL (4.0-11.0)
[2017-08-26 04:04] LABS: ALBUMIN 1.5 g/dL (3.4-5.0); CALCIUM 6.7 mg/dL (8.5-10.1); CREATININE 1.9 mg/dL (0.6-1.3); MAGNESIUM 2.3 mg/dL (1.8-2.4); POTASSIUM 4.1 mmol/L (3.5-5.1); TOTAL BILIRUBIN 0.3 mg/dL (<0.1-1.0); TOTAL PROTEIN 4.6 g/dL (6.4-8.2)
--- NOTE | 2017-08-26 06:23 | NUR ---
OXYGYEN SATURATION DECREASED HIGH 80'S WITH GOOD PLETH NOTED, SUCTIONED MULTIPLE TIMES VIA INLINE TUBE, THICK GREEN SECRETIONS SUCTIONED OUT, NO CHANGE IN OXYGEN SATURATION POST SUCTIONING, RT TO ROOM TO EVALUATE PT, FIO2 INCREASED FROM 30% TO 60% TO MAINTAIN SAO2 =>92%, ABG DRAWN FROM ART LINE BY RT, AWAITING RESULTS. LEVOPHED GTT REMAINS OFF, B/P MAP =>60, VERSED GTT OFF ALSO AT THIS TIME FOR AM T-TUBE WEANING TRIAL.
[2017-08-26 06:25] LABS: BE -3.7 mmol/L (-2 to +3); HCO3 20.3 mmol/L (22.0-26.0); PCO2 32.8 mmHg (35.0-45.0); PO2 66.7 mmHg (75.0-100.0); pH 7.409 (7.340-7.450)
[2017-08-26 12:43] LABS: BE -3.9 mmol/L (-2 to +3); HCO3 18.4 mmol/L (22.0-26.0); PCO2 24.5 mmHg (35.0-45.0); pH 7.493 (7.340-7.450)
[2017-08-26 12:51] LABS: PO2 184.6 mmHg (75.0-100.0)
[2017-08-26 16:50] LABS: BE -4.2 mmol/L (-2 to +3); HCO3 19.1 mmol/L (22.0-26.0); PCO2 29.2 mmHg (35.0-45.0); PO2 102.6 mmHg (75.0-100.0); pH 7.434 (7.340-7.450)
--- NOTE | 2017-08-26 20:02 | NUR ---
PT OFF SEDATION SINCE 39908/26/17. PT HAD 2 EPISODES OF AWAKENESS DURING THE DAY. PRN PAIN MEDICATION AND 1 IVP VERSED GIVEN THROUGHOUT THE DAY TO KEEP THE PATIENT COMFORTABLE. PT ABLE TO NOD HEAD AND SQUEEZE HANDS WHEN ASKED QUESTIONS. PT NODED THAT HE IS IN PAIN. ASSESSMENT CHARTED. VSS THROUGHOUT THE DAY. TUBE FEEDING STARTED THIS AFTERNOON WITH ZERO RESIDUAL AT THIS POINT. THE RATE IS SET AT 10 ML/HR AND PATIENT APPEARS TO BE TOLERATING WITHOUT DIFFICULTY. NO TRIAL TODAY DUE TO INCREASED OXYGEN DEMANDS THIS MORNING.
[2017-08-27] VITALS (19 sets, daily range): BP systolic 97–141; BP diastolic 36–62
[2017-08-27 03:49] LABS: HEMATOCRIT 28.9 % (42.0-52.0); HEMOGLOBIN 9.6 gm/dL (14.0-18.0); MCH 29.7 pg (26.0-34.0); MCHC 33.2 g/dL (28.0-37.0); MCV 89.4 fL (80.0-100.0); MPV 8.6 fl. (7.2-11.1); RBC 3.24 mil/uL (4.50-6.00); RDW-CV 14.9 % (10.5-14.5); WBC 9.6 thou/uL (4.0-11.0)
[2017-08-27 04:08] LABS: ALBUMIN 1.6 g/dL (3.4-5.0); CALCIUM 6.7 mg/dL (8.5-10.1); CREATININE 1.9 mg/dL (0.6-1.3); MAGNESIUM 2.6 mg/dL (1.8-2.4); POTASSIUM 5.4 mmol/L (3.5-5.1); TOTAL BILIRUBIN 0.5 mg/dL (<0.1-1.0); TOTAL PROTEIN 4.3 g/dL (6.4-8.2)
[2017-08-27 04:23] LABS: BE -8.7 mmol/L (-2 to +3); PCO2 30.6 mmHg (35.0-45.0); PO2 86.9 mmHg (75.0-100.0); pH 7.337 (7.340-7.450)
[2017-08-28] VITALS (17 sets, daily range): BP systolic 127–160; BP diastolic 56–80
[2017-08-28 03:10] LABS: HEMATOCRIT 27.2 % (42.0-52.0); HEMOGLOBIN 9.1 gm/dL (14.0-18.0); MCH 29.6 pg (26.0-34.0); MCHC 33.6 g/dL (28.0-37.0); MCV 88.1 fL (80.0-100.0); MPV 8.8 fl. (7.2-11.1); RBC 3.09 mil/uL (4.50-6.00); RDW-CV 14.7 % (10.5-14.5); WBC 9.5 thou/uL (4.0-11.0)
[2017-08-28 03:39] LABS: CALCIUM 7.7 mg/dL (8.5-10.1); CREATININE 1.8 mg/dL (0.6-1.3); POTASSIUM 4.5 mmol/L (3.5-5.1)
[2017-08-28 10:28] LABS: BE -6.5 mmol/L (-2 to +3); HCO3 18.2 mmol/L (22.0-26.0); PCO2 33.4 mmHg (35.0-45.0); PO2 95.8 mmHg (75.0-100.0); pH 7.355 (7.340-7.450)
--- NOTE | 2017-08-28 10:40 | NUR ---
SPOKE WITH AT BEDSIDE, DISCUSSED ROLE OF CASE MGT WITH HER. ASKING ABOUT DISCHARGE NEEDS, SHE SAID HE HAD HOME HEALTH LAST FALL AFTER A HOSPITAL STAY. EXPLAINED THAT PT WILL MOST LIKELY NEED A REHAB STAY SOMEWHERE PRIOR TO RETURNING HOME AND SHE IS IN AGREEMENT. SHE LIVES IN [place] AND WOULD LIKE HIM TO BE CLOSE BY SHE DOESN'T DRIVE LONG DISTANCES. TOLD HER WE WOULD DISCUSS OPTIONS IN MORE DETAIL PT IMPROVES. PT ON WEANING TRIAL NOW WITH POSSIBLE EXTUBATION TODAY. PT AWAKE AND NODDING TO QUESTIONS NOW.
--- NOTE | 2017-08-28 22:41 | NUR ---
RECEIVED REPORT AND ASSUMED CARE OF PT AT 1900. PT EXTUBATED AT 1130 AM TODAY. PT ALERT TO PERSON ONLY. FAMILY HERE TO SEE PT AND LEFT AT 2200. AT 2220 PT YELLING LOUDLY. ENTERED PT'S ROOM TO ASSESS. PT PULLUD OF OTOMY BAG. PT PULLED OUT CENTRAL LINE AND NG TUBE. PT COMPLETELY BATHED, BED CHANGE DONE, OSTOMY POUCH REPLACED. PT UNCOOPERATIVE ATTEMPTING TO GET OUT OF BED. ATTEMPTS TO REORIENT PT UNSUCESSFUL. PT PLACED IN BILATERAL SOFT WRIST RESTRAINTS TO MAINTAIN DRAINS, OSTOMIES, FOLY AND O2. DR MORRELL PAGED FOR ORDERS.
[2017-08-29] VITALS (13 sets, daily range): BP systolic 111–146; BP diastolic 50–98
[2017-08-29 04:38] LABS: HEMOGLOBIN 9.5 gm/dL (14.0-18.0); MCH 29.3 pg (26.0-34.0); MCV 86.4 fL (80.0-100.0); MPV 9.4 fl. (7.2-11.1); RBC 3.24 mil/uL (4.50-6.00); WBC 10.9 thou/uL (4.0-11.0)
[2017-08-29 04:47] LABS: CALCIUM 7.4 mg/dL (8.5-10.1); MAGNESIUM 2.8 mg/dL (1.8-2.4); POTASSIUM 3.6 mmol/L (3.5-5.1)
--- NOTE | 2017-08-29 07:48 | PATH ---
[address] [address] PATHOLOGY RPT PROCEDURE Name: VICTORIA SANTIZO Room: [address] IN .R.#: [id number] Admission: 08/23/17 Date of : 31 Discharge: Report #: [id number] Path Case #: [id number] [facility] Accession Number: [id number] . 01 Material submitted: . COLON AND DUODENUM . 01 Clinician provided ICD-10: n . 01 Clinical history: . Perforated bowel . 02 Diagnosis: Colon and duodenum: - ULCERATED COLONIC ADENOCARCINOMA FORMING A MASS MEASURING 3.2 X 1.3 CM IN TRANSVERSE COLON, WITH TRANSMURAL INVASION INTO PERICOLIC FAT AND INVOLVING PERFORATION SITE/INKED SURFACES OF TISSUES ADHESED TO GASTRIC ANTRUM/DUODENUM, WITH PROXIMAL AND DISTAL SURGICAL MARGINS WIDELY FREE OF INVOLVEMENT. - Nineteen benign pericolic lymph nodes (0/19). - Benign terminal ileum, and appendix. (see comment) . Surgical Pathology Cancer Case Summary . Colon and Rectum: Resection, Including Transanal Disk Excision of Rectal Neoplasms . Procedure Right hemicolectomy Other (specify): Partial gastric antral/duodenectomy . Tumor Site Right (ascending) colon . Tumor Size Greatest dimension (centimeters): 3.2 cm . Macroscopic Tumor Perforation Present . Histologic Type Adenocarcinoma . Histologic Grade G2: Moderately differentiated . Tumor Extension Tumor invades the visceral peritoneum ([place] [address] PATHOLOGY RPT PROCEDURE Name: VICTORIA SANTIZO Room: [address] IN [facility].#: [id number] Admission: 08/23/17 Date of : 31 Discharge: Report #: [id number] Path Case #: [id number] serosal surface through areas of inflammation) . Margins All margins are uninvolved by invasive carcinoma, high-grade dysplasia, intramucosal adenocarcinoma, and adenoma . Margins examined: Proximal, distal, and mesenteric Distance of invasive carcinoma from closest margin: 5.0 cm Specify closest margin: Mesenteric . Proximal Margin Uninvolved by invasive carcinoma Distance of tumor from margin: 15.0cm . Distal Margin Uninvolved by invasive carcinoma Distance of tumor from margin: 25.0 cm . Radial or Mesenteric Margin Uninvolved by invasive carcinoma Distance of tumor from margin (required only for rectal tumors): 5.0 cm . Treatment Effect No known presurgical therapy . Lymphovascular Invasion Present Small vessel lymphovascular invasion . Perineural Invasion Not identified . Tumor Budding > 10 Number of tumor buds in 1 "hotspot" field (specify total number in area=0.785 mm2): High score (10 or more) . Type of Polyp in Which Invasive Carcinoma Arose None identified . Tumor Deposits Not identified . Regional Lymph Nodes . Number of Lymph Nodes Involved: 0 . Number of Lymph Nodes Examined: [address] [address] PATHOLOGY RPT PROCEDURE Name: VICTORIA SANTIZO Room: 003- ADM IN M.R.#: [id number] Admission: 08/23/17 Date of : 31 Discharge: Report #: [id number] Path Case #: [id number] . Pathologic Stage Classification (pTNM, AJCC 8th Edition) . Primary Tumor (pT) pT4a: Tumor invades through the visceral peritoneum (including gross perforation of the bowel through tumor and continuous invasion of tumor through areas of inflammation to the surface of the visceral peritoneum) or invades or adheres to adjacent organ or structure . Regional Lymph Nodes (pN) pN0: No regional lymph node metastasis . Additional Pathologic Findings: Two adenomas . Other Polyps: One hyperplastic polyp QRQ/08/28/2017 . 02 Comment: The tumor has a cup-like endophytic nature and has extensive tumor budding. The tumor is staged as pT4a, as it is seen to extend directly into the perforation site, involving inked edges of tissues which is contiguous with the adhesed antral/duodenal tissues. Perforation/fistula does not extend completely through to the antral/duodenal luminal/mucosal aspect, although it extends into the submucosal tissues very close to it. Grossly visualized nodularity seen intraoperatively in the antral/duodenal mucosa, is seen to represent Keegan's glands hyperplasia. A hyperplastic polyp is noted incidentally in a section of the distal colonic margin (A2), and several tubular adenomas without high-grade dysplasia are seen in the "small colonic polyps" sections (A15). The tumor is noted to be associated with a prominent Crohn's-like response and if mismatch repair/microsatellite instability testing is desired, it can be subsequently requested and performed on any of blocks A9-A14. . The tumor site of transverse colon is confirmed per review of Dr. Ramirez's operative report dated 08/23/17. A[address] Andrew Santacruz, who agrees with the diagnosis. (JARROD:mgjennyfer/collin; 08/28/17) . 02 Electronically signed: . Reed Carson MD, Pathologist NPI- [id number] . 01 Gross description: . Received fresh from the operating room accompanied by a label marked "colon and duodenum" is a segment of colon and attached duodenum/antral tissue. Dr. 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 Dimensions of both segments of bowel will be obtained after fixation and there is no evidence of neoplasia on the serosal surfaces although the bowel is brownish to greenish discolored around the attachment site/fistula region. The segment of colon as well as duodenum/antral tissue are longitudinally opened and an ulcerated fairly flat but cup-like mass is noted in the colonic tissue with evidence of fistula through it to the attached duodenum/antrum. The specimen is demonstrated to Dr. Ramirez intraoperatively and is then submitted for fixation prior to further examination. . Gross Intraoperative Consultation: (Kirk Carson M.D.) . Colon and duodenum: - Ulcerated discrete mass in colon likely representing colonic adenocarcinoma, associated with fistula into attached benign-appearing duodenal/antral tissue. . Results are relayed to Dr. Ramirez intraoperatively, and a note entered into the medical record. (JARROD:db; 08/23/2017) . Gross intraoperative consultation performed at [facility], [address], [place] [address]. . The specimen has been previously opened by Dr. Carson prior to entering pathology. The segment of colon (cecum/ascending and transverse) measures 42.0 cm in length with a circumference ranging from 5.0 cm-11.5 cm. There is a stump of terminal ileum (2.5 cm in length by 2.3 cm in diameter). There is an appendix present (5.0 x 0.7 cm). The duodenal/antral tissue is attached to the distal ascending colon. The attached tissue measures 13.7 x 5.0 x 4.2 cm. There is prominent fat extending the entire length of colon which ranges in thickness from 4.0 cm-and 7.0 cm. There is prominent omentum attached to the distal end of colon, 30.0 x 13.0 x 3.0 cm. . The serosa of the attached stomach/duodenum, shows patchy steen-green exudate and fibrinous adhesions. The serosa of the colon is pink, glistening, with vague areas of green discoloration. . There is a slightly ulcerated, rough surfaced and red stout lesion of the distal ascending colon (possible hepatic flexure) that measures approximately 2.0 x 1.1 x 0.3 cm. The lesion is 15.0 cm distal to the proximal terminal ileum margin, 25.0 cm proximal to the distal colonic margin and 5.0 cm to the nearest mesenteric margin. There is a red-brown and slightly green and roughened appearance of the mucosa adjacent to the colonic lesion which spans 3.2 x 1.3 cm. [place] [address] PATHOLOGY RPT PROCEDURE Name: VICTORIA SANTIZO Room: [address] IN [facility]#: [id number] Admission: 08/23/17 Date of : 31 Discharge: Report #: [id number] Path Case #: [id number] contiguous duodenal/antral tissue. A probe is inserted into this region and there is a prominent macro perforation which is probed patent. There is no fistula between colon lumen and lumen of duodenum/antrum. The contiguous duodenum/antrum appears loosely attached to the serosa of the colon via suture material. Further examination of this area reveals minimal attachment via adhesions. The serosa surrounding the perforation is inked black. There are multifocal polyps of the distal colon that range in size from 0.1 cm-0.3 cm. The polyps clear the nearest distal margin by 5.0 cm or greater. There are no other mucosal lesions or masses of the colon. . The antral/duodenal mucosa is stout, brown and glistening. There are no masses or lesions grossly identified. There is no gross evidence of a fistula. Sectioning the appendix reveals no gross lesions. Sectioning the contiguous colonic fat reveals several lymph node candidates ranging in size from 0.2 cm-0.7 cm. Sectioning the omentum reveals no gross lesions. Central Office Equipment Installer sections are submitted A1-A26 . A1 proximal margin (terminal ileum) A2 distal colonic margin A3 mesenteric margin A4 probable proximal gastric margin A5 probable distal duodenal margin A6-A8 perforation A9-A14 colonic lesion and adjacent roughened mucosa, entire A15 small colonic polyps A16-A19 antral/duodenal A20 appendix A21-A25 whole lymph node candidates A26 omentum, direct sales representative . (CULLEN; 08/24/2017) /LBQ . 02 Pathologist provided ICD-10: C18.2, K63.3 . 02 CPT . 072371 Performed at: [address], [place] [address] MD Fei Minor MD Phone: [phone] Performed at: 02 [facility] [address], [place], [place] [address] MD Reed Carson MD Phone: [phone]
[2017-08-29 08:30] LABS: ALBUMIN 2.1 g/dL (3.4-5.0); DIRECT BILIRUBIN 0.1 mg/dL (<0.1-0.3); TOTAL BILIRUBIN 0.3 mg/dL (<0.1-1.0); TOTAL PROTEIN 5.3 g/dL (6.4-8.2)
--- NOTE | 2017-08-29 10:37 | NUR ---
PT EXTUBATED YESTERDAY. SPOKE WITH PT, HE IS ALERT AND ANSWERING QUESTIONS. BRIEFLY DISCUSSED ROLE OF CASE MGT WITH PATIENT. PT TOLERATING CLEAR LIQUIDS, HE SAID HE IS NOT HAVING ANY PAIN.
--- NOTE | 2017-08-29 11:17 | NUR ---
ASSUMED CARE FROM MYKE MCCOY AT 1100. PATIENT AWAKE, ALERT IN BED. DENIES PAIN/NEEDS FOR MEDICATIONS.
--- NOTE | 2017-08-29 17:23 | NUR ---
PATIENT PROGRESSING TOWARDS GOALS. MORE ORIENTED THROUGHOUT DAY. AOX4, BUT REMAINS FORGETFUL. 1:1 SITTER ORDERED FOR WHEN FAMILY IS NOT PRESENT TO ENSURE PATIENT DOES NOT PULL AT DRAINS. PAIN CONTROLLED THIS SHIFT. X2 PRN DOSES OF PO HYDROCODONE GIVEN. PATIENT UP IN CHAIR FROM LUNCH TO DINNER, AND TOLERATED WELL. TRACING NSR ON THERAPEUTIC RECREATION SPECIALIST. BLOOD PRESSURES NORMOTENSIVE. O2 SAT ADEQUATE ON 2L NC. AFEBRILE THROUGHOUT SHIFT. TOLERATING CLEAR LIQUIDS, ATE 75% OF LUNCH, THEN LATER ATE THE REMAINING. ATE 100% OF DINNER. NO NAUSEA/VOMITING NOTED. OSTOMY PRODUCING MODERATE LIQUID BROWN STOOL. REFER TO I&O FOR DRAIN OUTPUTS. MIDLINE INCISION REMAINS WELL APPROXIMATED, WITH SCANT AMOUNT OF SEROSANGUINOUS DRIANAGE, NO PINK OR IRRITATION AROUND SUTURES NOTED. FAMILY PRESENT THROUGHOUT THE DAY. DENIES FURTHER NEEDS FROM NURSING STAFF. AGREEABLE TO CARE PLAN AT THIS TIME.
[2017-08-30] VITALS (9 sets, daily range): BP systolic 104–156; BP diastolic 49–67
[2017-08-30 03:11] LABS: HEMATOCRIT 28.4 % (42.0-52.0); HEMOGLOBIN 9.5 gm/dL (14.0-18.0); MCH 29.3 pg (26.0-34.0); MCHC 33.6 g/dL (28.0-37.0); MCV 87.4 fL (80.0-100.0); MPV 8.9 fl. (7.2-11.1); RBC 3.25 mil/uL (4.50-6.00); RDW-CV 14.7 % (10.5-14.5); WBC 18.1 thou/uL (4.0-11.0)
[2017-08-30 03:20] LABS: CALCIUM 6.9 mg/dL (8.5-10.1); CREATININE 1.6 mg/dL (0.6-1.3); MAGNESIUM 2.3 mg/dL (1.8-2.4); POTASSIUM 3.7 mmol/L (3.5-5.1)
--- NOTE | 2017-08-30 09:29 | NUR ---
PATIENT CARE ASSUMED AT 0700. PATIENT AWAKE, AOX4, BUT FORGETFUL AND REPEATS HIMSELF FREQUENTLY. TRACING NSR ON STEAM CLEANER. ON 2L NC WITH SAT >94% UPON ASSUMING CARE. AFEBRILE. PO HYDROCODONE GIVEN FOR PAIN OF 2/10 THIS AM. PAIN NOT DECREASED, PRN FENTANTYL GIVEN. PATIENT O2 SAT DROPPED BELOW 90%. TITRATED TO 4L NC. OTHERWISE, PATIENT REMAINS ALERT, BPS STABLE. UP IN CHAIR FOR BREAKFAST. REMAINS ON CLEAR LIQUIDS AT THIS TIME PER SURGERY, BUT WILL ADVANCE TO FULL LIQUIDS FOR LUNCH. REQUIRED EXTENSIVE ASSISTANCE DURING MEALS PATIENT IS UNCOORDINATED AND WEAK. REPORTS HE HAS A ROTATOR CUFF ISSUE ON HIS RIGHT ARM, IS LESS ABLE TO USE THAT SIDE. TOLERATED CLEAR LIQUIDS FINE WITH NO NAUSEA/VOMITING. BATH GIVEN, HAIR WASHED, MCQUEEN CARE GIVEN. 1:1 SITTER PRESENT WHEN FAMILY IS NOT HERE PER SURGERY TO ENSURE PATIENT DOES NOT PULL AT DRAINS. DONWGRADED TO M/S TELEMETRY STATUS. FAMILY HERE AT THIS TIME. DENIES FURTHER CONCERNS ABOUT PATIENT CARE.
--- NOTE | 2017-08-30 10:07 | PATH ---
[address] [address] PATHOLOGY RPT PROCEDURE Name: VICTORIA SANTIZO Room: [address] IN M.R.#: [id number] Admission: 08/23/17 Date of : 31 Discharge: Report #: [id number] Path Case #: [id number] [facility] Accession Number: [id number] . 01 Material submitted: . PART A: EPIPLOIC APPENDAGE PART B: TERMINAL ILEUM . 01 Clinical history: . Pre-op diagnosis: Open abdominal wound Post-op diagnosis: Status post perforated bowel . 02 Diagnosis: A. Epiploic appendage: - Benign fat with mild acute and chronic serositis and fibrous encapsulated granulomatous and cystic nodular focus typical of fat necrosis. . B. Terminal ileum, segmental resection: - Segment of benign small intestine with moderate active inflammation and ischemic features at stapled marginal aspect and with mild acute serositis. See comment. LBQ/08/28/2017 . 02 Comment: Active inflammation and ischemic features of the mucosa are seen only in the section taken from the stapled margin (B1). (JARROD:db; 08/28/2017) . 02 Electronically signed: . Reed Carson MD, Pathologist NPI- [id number] . 01 Gross description: . A. The specimen is received in formalin, labeled "Victoria Santizo, epiploic appendage". Received is a segment of yellow-stout lobulated tissue measuring 2.7 x 1.7 x 1.3 cm in greatest dimensions. Sectioning reveals a unilocular cystic structure measuring 1.2 cm filled with yellow gelatinous fluid. The specimen is submitted representatively in cassette A1. . B. The specimen is received in formalin, labeled "Victoria Santizo, terminal ileum". Received is an unoriented segment of small bowel measuring 8.7 cm in length by up to 2.5 cm in diameter. One margin is stapled closed and the opposite margin is open. The serosal surface is dusky pink-steen and smooth in appearance. The attached mesenteric fat measures up to 2.9 cm in thickness. The specimen is opened along the antimesenteric line to reveal light stout mucosa with normal mucosal folding. No distinct nodules, lesions, or perfor[place] [address] PATHOLOGY RPT PROCEDURE Name: VICTORIA SATNIZO Room: [address] IN M.R.#: [id number] Admission: 08/23/17 Date of : 31 Discharge: Report #: [id number] Path Case #: [id number] The specimen is submitted representatively as follows: . B1 stapled margin B2 open margin B3 access service representative cross-sections of mucosa. (CAA; 08/25/2017) QAC/QAC . 02 Pathologist provided ICD-10: K65.8, K52.9 . 02 CPT . 236425, 416792 Performed at: 01 [facility] [address], [place] [id number] MD Fei Minor MD Phone: [phone] Performed at: 02 [facility] [address], [place], [place] [id number] MD Reed Carson MD Phone: [phone]
--- NOTE | 2017-08-30 11:55 | NUR ---
PER PREVIOUS DISCUSSION WITH , SHE IS AGRREABLE TO SNF AND HER FIRST CHOICE WOULD BE [facility]. CALLED AND LEFT FOR SON HERMES (WHO IS THE DPOA) OF 'S REQUEST. ASKED HIM TO CALL ME BACK TO DISCUSS OTHER SNF OPTIONS HE MIGHT HAVE. CALLED [facility], THEY MAY HAVE SEVERAL BEDS IN A FEW DAYS. FAXED PRELIMINARY REFERRAL INFO TO [facility].
--- NOTE | 2017-08-30 17:22 | NUR ---
PATIENT CONTINUES TO PROGRESS TOWARDS GOALS. REMAINS AOX4, FORGETFUL. PAIN MEDICATION GIVEN X1 THIS SHIFT. PATIENT DENIES PAIN AT THIS TIME. WAS ABLE TO REST THROUGHOUT SHIFT. UP IN CHAIR FROM BREAKFAST UNTIL AFTER DINNER. PATIENT DOWNGRADED TO MED/TELE STATUS. AWAITING BED PLACEMENT. DENIES FURTHER NEEDS AT THIS TIME.
--- NOTE | 2017-08-30 19:47 | NUR ---
LATE ENTRY 08/30/2017; 0530: PT A+O*4 AT HANDOFF, REPORT RECEIVED AT 1925 FROM [facility]. 1:1 SITTER AT BEDSIDE TO ENSURE PT DOES NOT PULL OUT LINES. SPENCER DRAINS TO RUQ AND LUQ, JERRY DRAIN AND BOTH OSTOMIES INTACT, MIDLINE INCISION DRSG CLEAN, DRY, INTACT. PT TRAING NSR W/ PACs AND PVCs ON THE MONITOR, BP WNL. UOP IN MCQUEEN RUDOLPH, ILEOSTOMY OUTPUT BROWN-GREENISH AND WATERY. PT FORGETFUL WHEN HE FIRST AWAKENS, BUT IS ABLE TO BE RE-ORIENTED EASILY. ABLE TO TOLERATE PO INTAKE, NO VOMITING OR COUGH. TURNS Q2H. FLANGE TO COLOSTOMY CHANGED THIS SHIFT. CALL JIMMY IN REACH.
[2017-08-31] VITALS: BP 139/56
[2017-08-31 04:00] VITALS: BP 159/71
--- NOTE | 2017-08-31 06:44 | NUR ---
ASSUMED CARE OF PT AFTER RECEIVING REPORT FROM FANY STRINGER. PT IN BED, A+O*4, CALM, DENIED ANY PAIN. REMAINS ON 2L NC 02, O2 SATS = 93-96% . RUQ JERRY DRAIN HAS SOME GREEN DRAINAGE. OSTOMY BAGS INTACT, MIDLINE INCISION INTACT, MCQUEEN INTACT. PT TRACING NSR WITH PVCS. PT DROWSY, FAMILY AT BEDSIDE. CALL LIGHT IN REACH, PT WILL CONT ON Q2H TURNS.
[2017-08-31 08:58] LABS: HEMATOCRIT 33.2 % (42.0-52.0); MCH 28.8 pg (26.0-34.0); MCV 87.2 fL (80.0-100.0); MPV 8.8 fl. (7.2-11.1); NUCLEATED RBCS 0 /100WBC; PLATELET COUNT* 241 thou/uL (150-400); RBC 3.81 mil/uL (4.50-6.00); WBC 18.9 thou/uL (4.0-11.0)
[2017-08-31 09:21] LABS: CALCIUM 7.7 mg/dL (8.5-10.1); CREATININE 1.4 mg/dL (0.6-1.3); MAGNESIUM 2.5 mg/dL (1.8-2.4); PHOSPHORUS* 2.8 mg/dL (2.5-4.9); POTASSIUM 3.7 mmol/L (3.5-5.1)
[2017-08-31 09:35] LABS: ABSOLUTE LYMPHOCYTES 1.9 thou/uL (0.8-5.3); ABSOLUTE MONOCYTES 0.8 thou/uL (0.0-1.2); ABSOLUTE NEUTROPHILS 16.3 thou/uL (1.6-8.1); ANISOCYTOSIS 1+; PLATELET ESTIMATE ADEQUATE; POIKILOCYTOSIS 1+
--- NOTE | 2017-08-31 11:26 | NUR ---
ASSUMED CARES OF PT AT 0754. REPORT FROM ICU CHRIS (NIGHT NURSE) AT 0708. PT ARRIVED IN BED AND LEFT IN HALLWAY ALONE SINCE ROOM WAS NOT READY AND IN PROCESS OF BEING CLEANED. PT ASSESSES AND VITALS TAKEN. PT TRANSFERRED TO BED/GLIDE SHEETS. PT A&O X4, OCC. FORGETFUL. REPORTED BY ICU PT HR SR/SB WITH PVC'S. O2 NC 2-4L TO KEEP STATS WNL. MCQUEEN CATH FOR BPH/RETENTION. MULTIPLE TUBES FROM ABD, 2 SPENCER DRAINS, ILIOSTOMY, COLOSTOMY, ALL PATENT AND FUNCTIONING. EDEMA LE BILATERALLY 2+, SCROTUM 3+ EDEMA. PT UP TO CHAIR 2-3 ASSIST. SCD'S AND YELLOW SOCKS IN PLACE. RIGHT UPPER ARM 20 GAUGE IV PATENT TO ABT THERAPY. ACCU CHECKS AND HOURLY ROUNDING CONTINUE. PAIN WELL CONTROLLED AT THIS TIME. AFEBRILE, PERRLA, PLEASANT, COOPERATIVE. MEDS TAKEN WELL PO. PT TO TRANSFER TO TELEMETRY FOR MONITORING. PT PROGRESSING TOWARDS GOAL. WILL CONTINUE TO MONITOR.
--- NOTE | 2017-08-31 12:40 | NUR ---
TX FROM [facility] RM 106 T0 RM 201 2W REPORT GIVEN PATIENT BROUGHT TO FLOOR FROM CT VIA BED FAMILY WAITNG IN RM PATIENT REPOSITIONED IN BED AND ORIENTED TO CALL LIGHT PATIENT DENIES PAIN AT THIS TIME
[2017-08-31 16:00] VITALS: BP 141/62
[2017-08-31 20:00] VITALS: BP 144/50
[2017-09-01] VITALS: BP 139/66
[2017-09-01 04:00] VITALS: BP 156/58
--- NOTE | 2017-09-01 04:16 | NUR ---
ASSUMED PT CARE AT 1930, PT IS A&OX4, PT DENIES ANY PAIN OR NEEDS AT THIS TIME. PT MOANS WHEN BEING REPOSITIONED, BUT DENIES THE WANT FOR PAIN MEDICATION. PT IS LETHARGIC BUT EASILY AROUSABLE. TRACING NSR ON THE MONITOR, ON 3L NC SATTING MID TO HIGH 90'S. PT HAS IVF INFUSING PER MAY. PT HAD MULTIPLE DRAINS, [address], RUQ AND LUQ. PT HAS A COLOSTOMY, WELL AN ILEOSTOMY. ILEOSTOMY IS NOT DRAINING ANYTHING. PT ALSO HAS A BILLIARY DRAIN, BILI DRAIN DRESSING IS SATURATED, DRESSING HAS BEEN CHANGED TWICE THIS SHIFT. DRESSING IS SATURATED LIGHT YELLOW TO GREEN IN COLOR, NO ODER PRESENT. PT HAS A MIDLINE INCSIION, INCISION IS CLEAN AND APROXIMATED WELL, INCISION HAS SMALL AMOUNTS OF DRAINAGE PRESENT NEAR UMBILICUS. PT IS ON A FULL LIQUID DIET AND TOLERATING IT WELL. BED IN LOW POSITION, CALL LIGHT IN REACH, BED ALARM ON, YELLOW ARM BAND AND SOCKS IN PLACE. HOURLY ROUNDING COMPLETED FOR PT SAFETY.
[2017-09-01 05:22] LABS: ALBUMIN 1.8 g/dL (3.4-5.0); CALCIUM 7.2 mg/dL (8.5-10.1); CREATININE 1.1 mg/dL (0.6-1.3); POTASSIUM 3.8 mmol/L (3.5-5.1); TOTAL BILIRUBIN 0.4 mg/dL (<0.1-1.0); TOTAL PROTEIN 4.2 g/dL (6.4-8.2)
[2017-09-01 12:00] VITALS: BP 144/50
--- NOTE | 2017-09-01 13:04 | NUR ---
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 HE THEN UNDERWENT 2ND SURGERY ON 08/24/17, WITH EXPLORATORY LAPAROTOMY, PERITONEAL LAVAGE, EGD, END ILEOSTOMY, SMALL BOWEL RESECTION, MUCOUS FISTULA AND REPAIR OF PRIMARY VENTRAL HERNIA - PER DR CROOKS. PATIENT WAS INITIALLY SITTING UP IN CHAIR, BUT THEN TRANSFERRED BACK TO BED WITH 2 PERSON MODERATE ASSISTANCE. HIS AND [id number] WERE AT BEDSIDE, AND INCLUDED WITH TEACHING. PATIENT FAIRLY DROWSY, WITH LIMITED ATTENTION TO TEACHING. FAMILY INSTRUCTED ON POUCH EMPTYING, POUCH CHANGE AND BRIEFLY REVIEWED DIETARY IMPLICATIONS & SUPPLIES. ENROLLED IN [facility] PROGRAM. HE WILL GO TO SNF, PRIOR TO HOME WITH HOME HEALTH. DR CROOKS IN DURING VISIT, ASSESSED INCISION AND ILEOSTOMY DURING POUCH CHANGE. HE ADVISED PATIENT AND FAMILY OF BIOPSY RESULTS, & THEY HAVE ALREADY TALKED TO DR. ZEPEDA (ONCOLOGY). ABDOMEN ROUNDED, SLIGHTLY DISTENDED, SOFT. MIDLINE ABDOMINAL INCISION WELL APPROXIMATED WITH MATILDA, WITH MODERATE AMOUNT OF SLIGHTLY CLOUDY SEROSANGUINEOUS DRAINAGE FROM DISTAL ASPECT OF INCISION. NO ODOR. NO ERYTHEMA. CHOLECYSTOMY TUBE RUQ WITH MODERATE AMOUNT OF BILE DRAINAGE. SPENCER DRAIN RUQ WITH SCANT BROWN DRAINAGE, SPENCER DRAIN LEFT ABDOMEN WITH LARGE AMOUNT OF YELLOW SEROUS DRAINAGE. INCISION & DRAINS CLEANSED WELL WITH WOUND CLEANSER, DRY DRESSINGS APPLIED. ILEOSTOMY STOMA RUQ APPROXIMATELY 1 1/4 INCHES, BEEFY RED, MOIST, SLIGHTLY EDEMATOUS, PROTRUDES WELL. MUCOCUTANEOUS INCISION WELL APPROXIMATED, PERISTOMAL SKIN INTACT. DRAINING MODERATE AMOUNTS OF LIQUID BROWN STOOL. MUCOUS FISTULA (NON-FUNCTIONING DISTAL LIMB) TO LEFT ABDOMEN IS APPROXIMATELY 1 INCH, PINK, MOIST, EDEMATOUS WITH MUCOCUTANEOUS INCISION INTACT. PERISTOMAL SKIN INTACT, NO OUTPUT. REAPPLIED POUCH FOR NOW, POSSIBLE RETAINED STOOL OR MUCUS TO DRAIN, BUT EXPLAINED TO FAMILY THAT HE WILL LIKELY JUST NEED A DRESSING OVER SITE. WHILE CHANGING POUCH, NOTED INTACT STOOLS IN POUCH. PATIENT CURRENTLY ON TOPROL XL. DR CROOKS & DR. DURBIN AWARE.
[2017-09-01 16:45] VITALS: BP 150/62
--- NOTE | 2017-09-01 18:42 | NUR ---
ASSUMED PT CARE AROUND 0900 PT IS ALERT AND ORIENTED X 4 PT DENIES PAIN OR SOA, PT IS UP WITH ASSIST X 2 TO CHAIR PT IS A FALL RISK BED ALARM IS ON, PT IS SR ON THE MONITOR, PT HAS 3 DRAINS MIDLINE INSICION WITH MATILDA NO SIGNS OF INFECTION NOTED, OSTOMY NURSE SAW PT AND EDUCATED PT AND FAMILY ON CARING FOR BOTH OSTOMYS, PT INFORMED THIS NURSE THAT PT TAKES GABAPENTIN AT NIGHT ONLY AND HAS A HOME MEDICATION THAT WAS NOT STARTED THIS NURSE PAGED PHYSICIAN AND OBTAINED ORDERS TO START HOME MEDICATION AND CHANGE GABAPENTIN TO HS, SENT HOME MED TO PHARMACY TO BE LABELED AND NOW IS IN PT BIN, PT IS Q 2 TURN, WILL CONTINUE TO MONITOR
[2017-09-01 20:00] VITALS: BP 136/57
[2017-09-02] VITALS (7 sets, daily range): BP systolic 123–154; BP diastolic 42–61
--- NOTE | 2017-09-02 05:03 | NUR ---
PT CARE ASSUMED AFTER REPORT. ASSESSMENT COMPLETE. SR ON MONITOR. O2 2L NC. ILEOSTOMY AND COLOSTOMY BAGS INTACT. DRAINS X3. MCQUEEN TO DD. MIDLINE INCISION DRESSING WITH MIN DRAINAGE. IV SL. FLUSHES WELL. FALL PRECAUTIONS IN PLACE INCLUDING BED ALARM. CALL LIGHT IN REACH. BED IN LOWEST POSITION. AT BEDSIDE. SLOW TO PROGRESS TOWARDS GOALS.
[2017-09-02 06:04] LABS: ABSOLUTE EOSINOPHILS 0.2 thou/uL (0.0-0.7); ABSOLUTE LYMPHOCYTES 1.1 thou/uL (0.8-5.3); ABSOLUTE MONOCYTES 0.7 thou/uL (0.0-1.2); ABSOLUTE NEUTROPHILS 9.5 thou/uL (1.6-8.1); BASOPHILS 0.2 %; EOSINOPHILS 1.9 %; HEMATOCRIT 28.9 % (42.0-52.0); HEMOGLOBIN 9.6 gm/dL (14.0-18.0); LYMPHOCYTES 9.4 %; MCH 29.1 pg (26.0-34.0); MCHC 33.2 g/dL (28.0-37.0); MCV 87.6 fL (80.0-100.0); MONOCYTES 5.8 %; MPV 8.8 fl. (7.2-11.1); NUCLEATED RBCS 0 /100WBC; PLATELET COUNT* 243 thou/uL (150-400); POLYS 82.7 %; RBC 3.29 mil/uL (4.50-6.00); RDW-CV 14.6 % (10.5-14.5); WBC 11.5 thou/uL (4.0-11.0)
[2017-09-02 06:11] LABS: ALBUMIN 1.6 g/dL (3.4-5.0); CALCIUM 7.3 mg/dL (8.5-10.1); CREATININE 1.2 mg/dL (0.6-1.3); MAGNESIUM 1.8 mg/dL (1.8-2.4); PHOSPHORUS* 2.6 mg/dL (2.5-4.9); POTASSIUM 3.7 mmol/L (3.5-5.1); TOTAL BILIRUBIN 0.3 mg/dL (<0.1-1.0); TOTAL PROTEIN 4.8 g/dL (6.4-8.2)
--- NOTE | 2017-09-02 09:27 | NUR ---
ASSUMED CARE OF PT THIS AM AROUND 0715- CARDICA MONITOR IN PLACE ORDERED, TRACING SR- UPON ASSESSMENT PT NOTED TO BE RESTING IN BED, AT SIDE- PT A&O X4, BUT DROWSY- OSTOMY BAG IN PLACE WITH BROWN/DARK LIQUID STOOL NOTED, STOMA BEEFY RED, WITH NOMAL PROTRUSION- ILEOSTOMY IN RUQ INTACT DRANINNG APPROPRIATELY-CHOLECYSTOSTOMY DRAIN IN PLACE WITH BILIOUS DRAINAGE NOTED- MUCOUS FISTULA NOTED TO LUQ- BED REST IN PLACE WITH Q 2 HOUR TURNS INDICATED- MCQUEEN IN PLACE D/D BLODD TINGED URINE- LCTA, DIMINSHED IN BASES- RESP EVEN AND UN-LABORED- OCCASSIONAL COUGH NOTED- VSS, 91% ON 3L VA NC- ABDOMEN WITH SLIGHT DISTENTION, SOFT, TENDER- MIDLINE INCISSION NOTED WITH DRESSING INTACT, MINIMAL DRAINGE NOTED TO BOTTOM- FULL LIQUID DIET IN PALCE, POOR PO INTAKE NOTED THIS AM, WITH ASSISTANCE-IV NOTED TO RIGHT UE INTACT AND SL- BS MONITORED ORDERED, SSI PRESCRIBED- PT C/O PAIN TO ABDOMEN THIS AM, PRN HYDROCODONE GIVEN THIS AM AT 0823- PT REPORTS MEDICATIONS TO BE EFFECTIVE- CALL LIGHT AND PERSONAL BELONGINGS WITH IN REACH- HOURLY ROUNDS IN PLACE R/T SAFETY/NEEDS- ALL NEEDS MET AT THIS TIME-WCTM
--- NOTE | 2017-09-02 17:00 | NUR ---
PT CURRENTLY RESTING IN BED, AT SIDE VISITING- HANDBELL CHOIR DIRECTOR IN PLACE ORDERED, TRACING SR- IV NOED TO RUE INTACT AND SL, IV ABT GIVEN THIS SHIFT PRESCIBED- DRAINS IN PLACE AND DRAINGING EFFECTIVLY INDICATED-CLOSTOMY IN PLACE WITH LOOSE STOOL CONTINUED-Q [address] INDICATED- POOR PO INTAKE NOTED THIS SHIFT WITH MEALS, BOOST WITH MEALS AND ENCOURAGED- SURGERY PHYSICIAN HERE TO ASSESS AND CHANGED DRESSING TO MID LINE INCISSION- CALL LIGHT AND PERSONAL BELONGINGS WITH IN REACH- HOURLY ROUNDS IN PLACE R/T SAFETY/NEEDS- ALL NEEDS MET AT THIS TIME-WCTM
[2017-09-03] VITALS: BP 146/61
[2017-09-03 04:00] VITALS: BP 166/64
--- NOTE | 2017-09-03 05:26 | NUR ---
PT CARE ASSUMED AFTER REPORT. ASSESSMENT COMPLETE. SR ON MONITOR. MID LINE INCISION DRESSING C/D/I. DRAINS X3 IN PLACE AND DRAINING FLUIDS. MCQUEEN TO DD WITH BLOOD TINGED URINE. O2 3L NC. DENIES NEED FOR PAIN MEDICATION. FALL PRECUTIONS IN PLACE INCLUDING BED ALARM. CALL LIGHT IN REACH. BED IN LOWEST POSITION. SLOW TO PROGRESS TOWARDS GOALS.
[2017-09-03 07:48] VITALS: BP 164/69
[2017-09-03 08:05] LABS: HEMATOCRIT 31.4 % (42.0-52.0); HEMOGLOBIN 10.4 gm/dL (14.0-18.0); MCH 28.9 pg (26.0-34.0); MCV 87.6 fL (80.0-100.0); MPV 8.7 fl. (7.2-11.1); RBC 3.58 mil/uL (4.50-6.00); RDW-CV 15.2 % (10.5-14.5); WBC 11.8 thou/uL (4.0-11.0)
[2017-09-03 08:10] LABS: CALCIUM 7.6 mg/dL (8.5-10.1); CREATININE 1.2 mg/dL (0.6-1.3); MAGNESIUM 1.7 mg/dL (1.8-2.4); POTASSIUM 4.2 mmol/L (3.5-5.1)
--- NOTE | 2017-09-03 08:48 | NUR ---
ASSUMED CARE OF PT THIS AM AROUND 0715- AFTER SCHOOL COORDINATOR IN PLACE ORDERED, TRACING SR- UPON ASSESSMENT PT NOTED TO BE RESTING IN BED, AT SIDE VISTING- PT A&O X3- MCQUEEN IN PLACE D/D BLOOD TINGED URINE- COLOSTOMY IN PLACE WITH LIQUID BROWN STOOL NOTED- BED REST IN PLACE WITH Q 2HOUR TURNS- LCTA, DIMINISHED IN BASES- RESP EVEN AND UN-LABORED- VSS, O2 SAT 95% ON 3L VIA NC- ABDOMEN TENDER/SLIGHT DISTENTION- RIGHT CHOLECYSTOSTOMY DRIN WITH BILOUS DRAINGE- MIDLINE INCISSION WITH DRESSING IN PLACE, NO VISIBLE DRAINAGE NOTED- +1 BLE EDEMA NOTED, LEG ELEVATION IN PLACE- SCD'S IN PLACE INDICATED- IV NOTED TO RUE INTACT AND SL- VANC TROUGH THIS AM NOTED AT 19, SCHEDULED VANC IV GIVEN PRESCIBED- BS MONITORED ORDERED, SSI PRESCIBED- ASSISTANCE WITH MEALS PER NOTED, POOR PO INTAKE NOTED THIS AM WITH BREAKAST-PT C/O PAIN TO ABDOMEN THIS AM, PRN HYDROCODONE GIVEN AT 0812- CALL LIGHT AND PERSONAL BELONGINGS WITH IN REACH- HOURLY CHECKS IN PLACE R/T SAFETY/NEEDS- ALL NEEDS MET AT THIS TIME-WCTM
[2017-09-03 11:30] VITALS: BP 139/55
--- NOTE | 2017-09-03 12:17 | NUR ---
OSTOMY NURSE- PATIENT REMAINS DROWSY, MINIMAL PARTICIPATION IN OSTOMY CARE & TEACHING. AT BEDSIDE, ATTENTIVE DURING TEACHING. FAMILY HAD MISUNDERSTOOD, & TOOK ALL SUPPLIES & PATTERN HOME, REPLACED SUPPLIES, PATTERN & INSTRUCTIONS AT BEDSIDE. ABDOMEN REMAINS ROUNDED, SOFT. MIDLINE ABDOMINAL INCISION WELL APPROXIMATED WITH MATILDA. MINIMAL TO MODERATE PINK SEROSANGUINEOUS DRAINAGE FROM UPPER ASPECT & LOWER ASPECT. DR NOLAN IN DURING DRESSING CHANGE, ASSESSED INCISION AND STOMAS. CHOLECYSTOSTOMY TUBE RUQ DRAINING MODERATE AMOUNTS OF BILOUS FLUID. SPENCER DRAIN RUQ DRAINING SMALL AMOUNTS DARK REDDISH BROWN DRAINAGE. SPENCER DRAIN LEFT ABDOMEN DRAINING SMALL AMOUNTS OF YELLOW SEROUS FLUID. ILEOSTOMY STOMA APPROXIMATELY 1 1/4 INCHES, PROTRUDES SLIGHTLY, BEEFY RED, MOIST. MUCOCUTANEOUS INCISION WELL APPROXIMATED, PERISTOMAL SKIN INTACT. DRAINING MODERATE AMOUNTS OF BROWN LIQUID STOOL, AND LARGE AMOUNT OF FLATUS. MUCOUS FISTULA LUQ WITH SCANT STOOL & MUCUS. AREA CLEANSED WELL, VASELINE AND GAUZE ISLAND DRESSING APPLIED. REVIEWED DIETARY IMPLICATIONS AGAIN WITH . HE IS ADVANCING TO SOFT FOOD AT LUNCH. DISCUSSED MEASURES TO REDUCE FLATUS, INCLUDING AVOIDING STRAWS IF POSSIBLE, AND FOODS TO THICKEN STOOL. ANTICIPATE DISCHARGE TO SNF SOON FOR REHAB, THEN HOME WITH HOME HEALTH.
--- NOTE | 2017-09-03 15:14 | NUR ---
PT SHANAEJim RESTING IN BED SIDE RECLINER, AT SIDE VISTING- PT NOTED TO BE WORKING WITH PT PRESCIBED, TOLERATING WELL- BEVERAGE DISTILLER IN PLACE ORDERED, TRACING SR- IV TO RUE IN PLACE, IV ABT GIVEN THIS SHIFT PRESCIBED-OSTOMY NURSE HERE THIS SHIFT TO CHANGE COLOSTOMY BAG WITH EDUCATION GIVEN TO AND WRITTEN EDUCATION PROVIDED-ALL DRESSINGS TO ABDOMEN CHANGED PER OSTOMY NURSE THIS SHIFT- COLOSTOMY CONTINUES WITH BROWN LIQUID, STOMA PROTRUDING/BEEFTY RED- MUCOUS FISTULA PPLIANSE REMOVED PER OSOMY NURSE THIS SHIFT WITH VASALINE GAUZE APPLIED AND SECURED WITH TAPE- BLOOD CULTURES REMAIN NEGATIVE THIS SHIFT, NO GROWTH RESULTED WIT UA- DIET ADVANCED PER SURGERY THIS SHIFT TO SOFT/LOW RESIDULE DIET, FAIR PO INTAKE NOTED- BS CONTINUE TO BE MONITORED WITH SSI PRESCIBED- CALL LIGHT AND PERSONAL BELONGINGS WITH IN REACH- FREQUENT CHECKS IN PLACE R/T SAFETY/NEEDS- ALL NEEDS MET AT THIS TIME-WCTM
[2017-09-03 16:00] VITALS: BP 108/52
[2017-09-03 20:00] VITALS: BP 118/55
[2017-09-04] VITALS (8 sets, daily range): BP systolic 102–168; BP diastolic 51–72
--- NOTE | 2017-09-04 05:12 | NUR ---
PT CARE ASSUMED AFTER REPORT. ASSESSMENT COMPLETE. SR ON MONITOR. COLOSTOMY INTACT AND FUNCTIONING. DRAINS X3 DRAINING. MIDLINE INCISION DRESSING WITH SMALL AMOUNT OF DRAINAGE. O2 2L NC. PT REMOVES O2 AND DESATS TO MID TO UPPER 80'S. MCQUEEN TO DD. BLOOD TINGED. PT REPORTS HE IS ALLERGIC TO EGG WHITES. NOTED IN DIET ORDER. FALL PRECAUTIONS IN PLACE INCLUDING BED ALARM. CALL LIGHT IN REACH. BED IN LOWEST POSITION. PRN PAIN MEDICATION GIVEN PER PT REQUEST. FEBRILE OVERNIGHT. SLOW TO PROGRESS TOWARDS GOALS.
[2017-09-04 09:02] LABS: ABSOLUTE BASOPHILS 0.1 thou/uL (0.0-0.2); ABSOLUTE EOSINOPHILS 0.3 thou/uL (0.0-0.7); ABSOLUTE LYMPHOCYTES 1.2 thou/uL (0.8-5.3); ABSOLUTE NEUTROPHILS 8.6 thou/uL (1.6-8.1); BASOPHILS 0.5 %; EOSINOPHILS 2.4 %; HEMATOCRIT 31.5 % (42.0-52.0); HEMOGLOBIN 10.3 gm/dL (14.0-18.0); LYMPHOCYTES 10.6 %; MCH 28.7 pg (26.0-34.0); MCHC 32.6 g/dL (28.0-37.0); MONOCYTES 9.3 %; MPV 8.5 fl. (7.2-11.1); NUCLEATED RBCS 0 /100WBC; PLATELET COUNT* 336 thou/uL (150-400); POLYS 77.2 %; RBC 3.58 mil/uL (4.50-6.00); RDW-CV 14.7 % (10.5-14.5); WBC 11.1 thou/uL (4.0-11.0)
[2017-09-04 09:30] LABS: ALBUMIN 1.9 g/dL (3.4-5.0); CALCIUM 7.3 mg/dL (8.5-10.1); CREATININE 1.3 mg/dL (0.6-1.3); MAGNESIUM 1.6 mg/dL (1.8-2.4); PHOSPHORUS* 2.6 mg/dL (2.5-4.9); POTASSIUM 4.2 mmol/L (3.5-5.1); TOTAL BILIRUBIN 0.5 mg/dL (<0.1-1.0); TOTAL PROTEIN 5.1 g/dL (6.4-8.2)
--- NOTE | 2017-09-04 09:33 | NUR ---
Anticipate dc within the next few days. CM left VM for Pt's son, Jose Martin, to confirm choice of skilled facility at dc. Awaiting call back. wants [facility]. Following.
--- NOTE | 2017-09-04 19:30 | NUR ---
PT HAD COUGHED AND PINKISH DRAINAGE NOTED SOAKING THROUGH BANDAGES CALLED SURGERY AND TOLD DR MORAN WELL THAT THE PT FELT A 'POP' SURGEON CAME UP AND CHANGED DRESSING ABD PADS DENIES ANY REAL 'PAIN' AT THIS TIME NO EVIDENCE OF DEHISCENCE AT THIS TIME BUT POSSIBLITY SO CT TO BE DONE PT NEEDS NEW LINE D/T IV IN RAKESH INFILTRATED PT IS A VERY HARD STICK AND NO 'GOOD' ONES TO GET AT THIS TIME PLAN FOR A PICC OR CENTRAL, RIGHT SUBCLVAIAN PUT IN BY SURGEON FLUSHES WELL WITH BLOOD RETURN IV ABT STARTED AGAIN CT WAITING ON PT AFTER BUT PT IS 2 PERSON TRANSFER ANOTHER BOTTLE OF CONTRAST GIVEN TO PT BEFORE [address] CAME UP TO GET PT PT DID NOT GET BACK UNTIL ABOUT 1845, [address]
--- NOTE | 2017-09-04 19:46 | NUR ---
PT WITH EMESIS THIS EVENING PROBABLY AFTER CONTRAST FOR CT PT IS ALERT AND ORIENTED X2-3 VERY WEAK C/O ABD PAIN TEACHING TO USE SPLINT WITH COUGHING CONT WITH 2-3 L OF O2 NC HOB ELEVATED ALL DRAINS DRAINING APPROPRIATELY AT BEDSIDE RIGHT TRIPLE SUBCLAVIAN DONE D/T POOR PERIPHERAL ACCESS RIGHT ARM WITH SWELLING FROM INFILTRATED IV CALL LIGHT IN REACH NO CONCERNS FROM PT HAS A LOT OF QUESTIONS
[2017-09-05] VITALS (19 sets, daily range): BP systolic 120–168; BP diastolic 42–89
--- NOTE | 2017-09-05 00:13 | NUR ---
ASSUMED PT CARE AT 1930, PT IS A&OX4, CAN BE CONFUSED AND FORGETFUL. BUT IS EASILY REDIRECTED. PT IS TRACING NSR ON THE MONITOR, ON 3L NC SATTING MID TO LOW 90'S. PT HAS A MIDLINE INCISION CLOSED BY MATILDA. DRESSING WAS SATURATED AT THE START OF THIS RN'S SHIFT. THIS RN UNCOVERED WOUND TO CHANGE DRESSING AND SAW WOUND TO BE MORE OPENED THAN EXPECTED. AND STILL SEEPING PINK DRAINAGE. THIS RN RECOVERED WOUND AND CALLED STANDPIPE TENDER SURGEON. TO REPORT FINDINGS AND NEW CT RESULTS THAT STATED ABDOMINAL WOUND WAS "NEAR COMPLETE DEHISENCE" SURGEON GAVE ORDERS AND STATED SHE WOULD BE IN TO SEE THE PT. ABDOMINAL BINDER IN PLACE PER ORDERS. PT HAS 2 SPENCER DRAINS IN PALCE, WELL A BILIARY DRAIN. THOSE DRESSING WERE CHANGED WELL. PT SIGNED CONSENT FORMS. PT WAS TAKEN DOWN FOR EMERGENCY SURGERY AT 2340.
--- NOTE | 2017-09-05 04:25 | NUR ---
PT O ICU AT 0315 FROM PACU. PT HAS PREVENA PUMP OVER MILINE INCISION. MUCUS FISTULA, ILEOSTOMY, BILATERAL SPENCER DRAINS AND CHOLEY TUBE INTACT. ABDOMINAL BINDER ON. PT N BIPAP, O2 SAT > 96%. HEART RATE AND BLOOD PRESSURE WITHIN NORMAL LIMITS. SITTER AT BEDSIDE TO MAINTAIN CENTRAL LINE, MCQUEEN CATHETER, OSTOMIES AND MEDICAL EQUIPMENT INTACT. PT FREQUENTLY PULLS OFF BIPAP. DOES NOT REDIRECT.
[2017-09-05 07:52] LABS: HEMATOCRIT 34.3 % (42.0-52.0); HEMOGLOBIN 11.2 gm/dL (14.0-18.0); MCH 28.7 pg (26.0-34.0); MCHC 32.5 g/dL (28.0-37.0); MCV 88.3 fL (80.0-100.0); MPV 7.8 fl. (7.2-11.1); NUCLEATED RBCS 0 /100WBC; PLATELET COUNT* 369 thou/uL (150-400); RBC 3.89 mil/uL (4.50-6.00); WBC 19.1 thou/uL (4.0-11.0)
[2017-09-05 08:02] LABS: CALCIUM 7.4 mg/dL (8.5-10.1); CREATININE 1.4 mg/dL (0.6-1.3)
--- NOTE | 2017-09-05 08:12 | NUR ---
[facility] is unable to accept Pt at dc.
[2017-09-05 09:03] LABS: ABSOLUTE EOSINOPHILS 0.2 thou/uL (0.0-0.7); ABSOLUTE LYMPHOCYTES 0.4 thou/uL (0.8-5.3); ABSOLUTE MONOCYTES 0.6 thou/uL (0.0-1.2); PLATELET ESTIMATE ADEQUATE
--- NOTE | 2017-09-05 09:31 | NUR ---
AT 0730 PT DROWSY, ALERT TO PERSON. BIPAP IN PLACE PT SATTING AT 99%. AT 0905 PT ALERT TO PERSON, PLACE AND TIME. BIPAP TAKEN OFF. PT PLACED ON 4L NC SATTING AT 95%. PT MOANING SAYING "OH BOY". PT C/O OF ABDOMINAL PAIN. PRN FENTANYL ADMININSTERED PER MAY. PT HAS THE HICCUPS. FAMILY REPORTS PT GETS THEM AT HOME FREQUENTLY. VSS. TEMP 99.0 AXILLARY. BED REFRIGERATION ENGINEER IN PLACE. TRACING ST HR 104. ABDOMINAL BINDER IN PLACE PER ORDERS. WILL CONTINUE PLAN OF CARE.
--- NOTE | 2017-09-05 10:03 | NUR ---
PT TITRATED UP TO 5L NC CURRENT OXYGEN SATURATION 93%. PT USING MOUTH SWABS. CALLED SURGERY ASKED IF PT CAN BE STARTED ON CLEAR LIQUIDS TODAY, ORDERS RECEIVED FOR CLEAR LIQUIDS. WILL CONTINUE PLAN OF CARE.
--- NOTE | 2017-09-05 10:30 | NUR ---
PT RETURNED TO SURGERY LAST NIGHT AND TRANSFERRED TO ICU FOR RECOVERY. SPOKE WITH DTR-IN-LAW AT THE BEDSIDE, SHE HAS NO QUESTIONS ABOUT PLAN OF CARE. FAMILY CONTINUES TO PLAN ON PT GOING TO SNF WHEN STABLE FOR DISCHARGE.
--- NOTE | 2017-09-05 11:42 | NUR ---
PT VOMITED ABOUT 10-15ML GREEN BILE. SURGERY CALLED. RECEIVED ORDERS TO MAKE NPO AND IF MORE VOMITING OCCURS INSERT AN NG TUBE. PT HAS HAD 2 SIPS OF WATER OTHERWISE HAS BEEN NPO. PT HAD REFUSED WATER WHEN OFFERED. WILL CONTINUE TO MONITOR
--- NOTE | 2017-09-05 17:11 | NUR ---
PT NPO. NG DRAINING. PT A/O X'S 3. PT MOANING AT TIMES IN PAIN. PRN FENTANYL ADMININSTERED PER MAY. HOLES INSERTED INTO ABDOMINAL BINDER PER SURGERY ORDERS. PT 92-94% ON 4L NC. PT IMPULSIVE, STARTED TO PULL OUT NG TUBE.
[2017-09-06] VITALS (19 sets, daily range): BP systolic 105–139; BP diastolic 43–69
[2017-09-06 04:09] LABS: ABSOLUTE BASOPHILS 0.2 thou/uL (0.0-0.2); ABSOLUTE LYMPHOCYTES 0.7 thou/uL (0.8-5.3); ABSOLUTE MONOCYTES 1.8 thou/uL (0.0-1.2); ABSOLUTE NEUTROPHILS 15.4 thou/uL (1.6-8.1); BASOPHILS 0.9 %; EOSINOPHILS 0.1 %; HEMATOCRIT 31.5 % (42.0-52.0); HEMOGLOBIN 10.3 gm/dL (14.0-18.0); LYMPHOCYTES 4.1 %; MCH 28.7 pg (26.0-34.0); MCHC 32.7 g/dL (28.0-37.0); MCV 87.6 fL (80.0-100.0); MONOCYTES 9.8 %; MPV 8.4 fl. (7.2-11.1); NUCLEATED RBCS 0 /100WBC; PLATELET COUNT* 334 thou/uL (150-400); POLYS 85.1 %; RBC 3.59 mil/uL (4.50-6.00); RDW-CV 15.1 % (10.5-14.5); WBC 18.1 thou/uL (4.0-11.0)
[2017-09-06 04:26] LABS: CALCIUM 7.1 mg/dL (8.5-10.1); CREATININE 1.9 mg/dL (0.6-1.3); MAGNESIUM 1.8 mg/dL (1.8-2.4); PHOSPHORUS* 4.2 mg/dL (2.5-4.9); POTASSIUM 4.6 mmol/L (3.5-5.1)
--- NOTE | 2017-09-06 10:20 | NUR ---
PATIENT IS NOW TELE STATUS PER SURGERY AND PETROS
--- NOTE | 2017-09-06 11:47 | NUR ---
DR CROOKS ROUNDED ON PATIENT, WOULD LIKE TO KEEP PATIENT IN ICU ONE MORE DAY, CHANGED BACK TO ICU STATUS
--- NOTE | 2017-09-06 12:48 | NUR ---
PATIENT CONTINUALLY REPEATING THAT DR CROOKS WANTS PATIENT TO STAY IN ICU, EXPLAINED TO HER THAT HE WASN'T MOVING TODAY AND NURSE IS AWRE OF DR RICE ORDERS, PATIENT COMPLAINS OF TROUBLE BREATHING, SATS 96%, RECEIVING BREATHING TREATMENT NOW, PATIENT SEEMS TO BE ANXIOUS, INSTRUCTED TO TAKE SLOW DEEP BREATHS AND CALM HIMSELF. COUGHING UP GREEN THICK MUCOUS, SUCTIONING SELF. FENTANYL AVAILABLE FOR PAIN BUT PATIENT BECOMES LOOPY AND STARTLES FROM SLEEP AFTER HAVING, WILL CONTINUE TO MONITOR.
--- NOTE | 2017-09-06 13:53 | NUR ---
Nutrition: Per RN, surgery ordered TPN (without lipids) to start tonight. Would recommend goal of 100mL/hr to meet 85% of caloric needs and up to 114% of protein needs. See RD Assessment form for details.
--- NOTE | 2017-09-06 16:16 | NUR ---
PATIENT IS PROGRESSING WELL TOWARDS GOALS. NO DRAINAGE FROM MUCOUS FISTULA OR COLOSTOMY BAG. RIGHT SPENCER DRAIN DRAINING A LOT, LEFT SPENCER DRAIN MINIMAL DRAINAGE. PATIENT HAS HAD SOME NAUSEA AND HEARTBURN TODAY, ZOFRAN GIVEN ONE TIME. FENTANYL GIVEN FOR PAIN THROUGHOUT THE DAY BUT MAKES PATIENT LOOPY. AT BEDSIDE KEEPING PATIENT CALM AND NOT PULLING AT TUBES. NG TO LIS AND STARTING TO SLOW DOWN ON OUTPUT BY END OF SHIFT. SUGARS HAVE REMAINED NORMAL THROUGHOUT SHIFT AND PATIENT HAS BEEN ORIENTED X 4 BUT FORGET AT TIMES ESPEICIALLY WITH PAIN MEDS. SLEEPING AT THIS TIME, DENIES PAIN, NAUSEA OR SHORTNESS OF AIR. VITALS WNL, 4 LITERS O2. BED IN LOWEST POSITION, CALL LIGHT IN REACH, BED ALARM ON, WILL CONTINUE TO MONITOR.
--- NOTE | 2017-09-06 17:30 | NUR ---
ASSUMED CARE OF PATIENT AT BEDSIDE NO DITRESS NOTED.
[2017-09-07] VITALS (18 sets, daily range): BP systolic 113–148; BP diastolic 38–80
--- NOTE | 2017-09-07 03:37 | NUR ---
PT. SUDDENLY BECAME CONFUSED/AGGRESSIVE, GRABBED THIS NURSES ARM WHEN ATTEMPTING TO PREVENT PT. FROM PULLING NG TUBE OUT. ABLE TO COMMUNICATE HIS NAME AND UNDERSTANDS HE IS AT [facility]. RESTRAINED DUE TO AGGRESSION/CONFUSION. WILL CONTINUE TO MONITOR.
--- NOTE | 2017-09-07 04:16 | NUR ---
PT. VERY UPSET ABOUT NOT BEING ABLE TO DRINK WATER. ALSO STATED HE FEELS LIKE A "DONKEY". GARBLED SPEECH, HARD TO UNDERSTAND. RESTRAINED AT THIS TIME, HALDOL GIVEN PER PRN ORDER.
[2017-09-07 04:25] LABS: ABSOLUTE BASOPHILS 0.1 thou/uL (0.0-0.2); ABSOLUTE EOSINOPHILS 0.2 thou/uL (0.0-0.7); ABSOLUTE LYMPHOCYTES 0.9 thou/uL (0.8-5.3); ABSOLUTE MONOCYTES 1.3 thou/uL (0.0-1.2); ABSOLUTE NEUTROPHILS 10.4 thou/uL (1.6-8.1); BASOPHILS 0.6 %; EOSINOPHILS 1.3 %; HEMATOCRIT 25.8 % (42.0-52.0); HEMOGLOBIN 8.4 gm/dL (14.0-18.0); LYMPHOCYTES 7.1 %; MCH 28.4 pg (26.0-34.0); MCHC 32.5 g/dL (28.0-37.0); MCV 87.2 fL (80.0-100.0); MONOCYTES 10.3 %; NUCLEATED RBCS 0 /100WBC; PLATELET COUNT* 308 thou/uL (150-400); POLYS 80.7 %; RBC 2.96 mil/uL (4.50-6.00); RDW-CV 15.5 % (10.5-14.5); WBC 12.9 thou/uL (4.0-11.0)
[2017-09-07 04:39] LABS: CALCIUM 6.6 mg/dL (8.5-10.1); CREATININE 1.9 mg/dL (0.6-1.3); PHOSPHORUS* 3.4 mg/dL (2.5-4.9); POTASSIUM 3.8 mmol/L (3.5-5.1)
--- NOTE | 2017-09-07 06:18 | NUR ---
PT. HAS FILLED UP 4 PREVANA WOUND VAC CANISTERS WITHIN THIS SHIFT. HAS FILLED THE LAST 3 WITHIN 1.5 HOURS. SURGERY NOTIFIED.
[2017-09-07 08:08] LABS: URINE BILIRUBIN NEGATIVE (Negative); URINE BLOOD 3+ (Negative); URINE CLARITY CLEAR; URINE COLOR YELLOW; URINE GLUCOSE-RANDOM NEGATIVE (Negative); URINE KETONES NEGATIVE (Negative); URINE LEUKOCYTES-REFLEX NEGATIVE (Negative); URINE NITRITE-REFLEX NEGATIVE (Negative); URINE PROTEIN 1+ (Negative); URINE SPECIFIC GRAVITY 1.025 (1.005-1.030); URINE UROBILINOGEN 0.2 E.U./dl (0.2-1.0)
[2017-09-07 08:15] LABS: BACTERIA-REFLEX 1-9 Few /HPF (None Seen); CASTS None Seen /LPF (None Seen); CRYSTALS None Seen /LPF (None Seen); MUCUS None Seen strn/LPF (None Seen); SQUAMOUS 4-10 Moderate /LPF (0-3); URINE RBC >20 Many /HPF (0-2); URINE WBC-REFLEX 0-5 Rare /HPF (0-5)
[2017-09-07 08:17] LABS: URINE POTASSIUM-RANDOM 34.1 mmol/L
[2017-09-07 12:17] LABS: HEMATOCRIT 24.9 % (42.0-52.0); HEMOGLOBIN 8.2 gm/dL (14.0-18.0)
--- NOTE | 2017-09-07 17:53 | NUR ---
PATIENT SOMEWHAT PROGRESSING TOWARDS GOALS. REMAINS AOX4, STILL RESTLESS AND AGITATED AT TIMES. PULLS AT LINES AT TIMES, BUT REORIENTED BETTER THROUGHOUT THE DAY. PATIENT APPEARS TO BE FRUSTRATED WITH BEING IN THE HOSPITAL FOR A LENGTHY PERIOD OF TIME. ONE 3 SECOND RUN OF SVT NOTED. METOPROLOL ORDERED AND GIVEN, NO RUNS OF SVT NOTED SINCE. TRACING NSR ON WEB DEVELOPMENT DIRECTOR WITH RATE 70-90. NORMOTENSIVE. AFEBRILE THROUGHOUT SHIFT. PAIN AT TIMES, CONTROLLED WITH PRN FENTANYL X3 DOSES TODAY. MIDLINE INCISION WITH LION VAC CANNISTER CHANGED X3 THIS SHIFT. SURGERY PRESENT AT THIS TIME AND IS AWARE. RESEARCH PROGRAM COORDINATOR NOTIFIED FOR MORE CANNISTERS. ILEOSTOMY BAG CHANGED THIS EVENING. AT BEDSIDE TODAY, 1:1 SITTER PRESENT FOR DIE POLISHER.
[2017-09-08] VITALS (19 sets, daily range): BP systolic 116–1321; BP diastolic 36–83
--- NOTE | 2017-09-08 02:03 | NUR ---
ASSUMED CARE OF PT FROM [facility]. PT HAS SITTER AT BESIDE, INTERMITTENT EPISODES OF FRUSTRATION AND AGGRESSIVE BEHAVIOR, HALDOL ADMIN, NOW PT APPEARS NOT REALITY BASED. KEEPS REACHING FOR NGT. REDIRECTED BY STAFF, ALTHOUGH IN ONE INSTANCE STRUCK AT STAFF. BED BATH GIVEN IN AN EFFORT TO PROVIDE COMFORT. PT WANTED TO CALL THE SON, REORIENTED TO TIME. IV ABX PER ORDERS, TPN AT 70ML/HR. TURNS Q2H, R SPENCER DRAIN EMPTIED, PREVENA CANNISTER CHANGED, DRAINAGE SEROSANGUINOUS; BINDER REMAINS INTACT. IRRREGULAR SINUS ARRHYTHMIA ON THE MONITOR WITH MULTI-FOCAL PVCs.
[2017-09-08 04:20] LABS: ALBUMIN 1.4 g/dL (3.4-5.0); CALCIUM 7.1 mg/dL (8.5-10.1); CREATININE 1.9 mg/dL (0.6-1.3); MAGNESIUM 2.2 mg/dL (1.8-2.4); POTASSIUM 3.8 mmol/L (3.5-5.1); TOTAL BILIRUBIN 0.3 mg/dL (<0.1-1.0)
[2017-09-08 04:37] LABS: HEMATOCRIT 25.8 % (42.0-52.0); HEMOGLOBIN 8.4 gm/dL (14.0-18.0); MCH 28.7 pg (26.0-34.0); MCHC 32.5 g/dL (28.0-37.0); MCV 88.3 fL (80.0-100.0); MPV 8.5 fl. (7.2-11.1); RBC 2.92 mil/uL (4.50-6.00); RDW-CV 15.1 % (10.5-14.5); WBC 9.9 thou/uL (4.0-11.0)
--- NOTE | 2017-09-08 08:56 | NUR ---
SURGERY OKAY IT PT SITS IN CHAIR. PT ORDERS PLACED.
--- NOTE | 2017-09-08 10:10 | NUR ---
WOUND CARE NOTE: DUE TO A HIGH OUTPUT FROM THE PREVENA WOUND VAC. ADAPTOR WAS USED AND PLACED PATIENT ON A VAC ULTA. PREVENA DRESSING LEFT IN PLACE. JUST SWITCHED TO A VAC ULTA.
--- NOTE | 2017-09-08 10:27 | NUR ---
PT 100% ON 3L NC. PT TITRATED TO 2L NC. SURGERY OKAY WITH PT TO GET OUT OF BED. PT CONSULT PLACED. PT UP WITH MAX ASSIST TO CHAIR. WAFFLE CUSHION IN PLACE. PT GIVEN BATH. NEW ABDOMINAL BINDER APPLIED PREVIOUS BINDE SOILED. HOLES CUT IN BINDER PER SURGER FOR OSTOMIES. PT DENIES PAIN. PT IS IMPULSIVE ATTEMPTING TO PULL OUT NG TUBE. NG TUBE DID SUCTION ABOUT 5-10 ML CLEAR FLUID AFTER PT HAD CONGESTED COUGH. OTHERWISE NO DRANINAGE FROM NG TUBE. SURGERY OKAY WITH CLAMPING NG TUBE, ORDERS ARE TO KEEP NG TUBE IN PLACE. AT BEDSIDE. 50 ML PREVINA WOUND VAC TAKEN OFF BY WOUND CARE NURSE AND 500ML WOUND VAC APPLIED PER SURGERY REQUEST.
--- NOTE | 2017-09-08 14:12 | NUR ---
PT. HAS BEEN ON HOLD SINCE 09/05 DUE TO TRANSFER TO ICU. CALLED ICU TO CHECK ON HIS STATUS AND HE IS NOT APPROPRIATE FOR O.T. AT THIS TIME BUT P.T. HAS BEEN RESUMED. WILL CHECK ON PT. NEXT WEEK TO SEE IF HE IS APPROPRIATE.
--- NOTE | 2017-09-08 14:29 | NUR ---
500ML PREVENA WOUND VAC SUCTION AT 75 PER SURGERY.
--- NOTE | 2017-09-08 15:20 | NUR ---
PT TITRATED TO 2L NC SATTING AT 92-94% WHILE SLEEPING.
--- NOTE | 2017-09-08 17:40 | NUR ---
PT SAT IN CHAIR FOR ABOUT 3.5 HOURS. LITTLE OUTPUT FROM WOUND VAC. NG TUBE CLAMPED. SURGERY NOTIFIED F WOUND VAC OUTPUT AND SETTINGS. PT SLEPT OFF AND ON THIS SHIFT. PT SHOWS SOME IMPULSIVITY. AT BEDSIDE FROM 0700 TO ABOUT [address] WILL ATTEMT SWALLOW EVAL TOMORROW.
[2017-09-09] VITALS (18 sets, daily range): BP systolic 91–159; BP diastolic 44–92
[2017-09-09 03:55] LABS: ABSOLUTE BASOPHILS 0.1 thou/uL (0.0-0.2); ABSOLUTE EOSINOPHILS 0.2 thou/uL (0.0-0.7); ABSOLUTE LYMPHOCYTES 1.1 thou/uL (0.8-5.3); ABSOLUTE NEUTROPHILS 7.3 thou/uL (1.6-8.1); BASOPHILS 0.6 %; EOSINOPHILS 2.2 %; HEMATOCRIT 24.6 % (42.0-52.0); HEMOGLOBIN 8.2 gm/dL (14.0-18.0); LYMPHOCYTES 11.2 %; MCH 29.1 pg (26.0-34.0); MCHC 33.3 g/dL (28.0-37.0); MCV 87.5 fL (80.0-100.0); MONOCYTES 10.7 %; MPV 8.4 fl. (7.2-11.1); NUCLEATED RBCS 0 /100WBC; PLATELET COUNT* 276 thou/uL (150-400); POLYS 75.3 %; RBC 2.81 mil/uL (4.50-6.00); RDW-CV 15.2 % (10.5-14.5); WBC 9.7 thou/uL (4.0-11.0)
[2017-09-09 04:07] LABS: CALCIUM 7.6 mg/dL (8.5-10.1); CREATININE 1.7 mg/dL (0.6-1.3); MAGNESIUM 2.2 mg/dL (1.8-2.4); PHOSPHORUS* 2.3 mg/dL (2.5-4.9); POTASSIUM 3.7 mmol/L (3.5-5.1)
--- NOTE | 2017-09-09 05:52 | NUR ---
PROGRESSING TOWARDS GOALS, AWAKE ALL NOC, SITTER REMAINS AT BEDSIDE 1:1 FOR SAFETY AND EMOTIONAL SUPPORT, ATTEMPTING TO PULL AT NG TUBE, EASILY REDIRECTABLE MOST OF THE TIME, FREQUENT VERBAL REDIRECTION PROVIDED TO PRENT PULLING OUT TUBES AND LINES, DIVERSIONAL ACTIVITIES PROVIDED, ALERT TO SELF, STATES YEAR IS "1799", FOLLOWING SIMPLE COMMANDS, MUMBLING WITH GARBLED SPEECH AT TIMES, CONVERSATIVE PLACES RESIDED IN PAST AND PAST FAMILY HISTORY, REQUESTING H20 TO DRINK AND FOOD, EDUCATED NPO STATUS MULTIPLE TIMES PRN, NON COMBATIVE THIS SHIFT, SAO2 =>90% ON OXYGEN 2L PER NC, ILEOSTOMY WITH GREEN MUCOUS THICK STOOL EMPTIED 200CC THIS AM, BILIARY TUBE 300CC BROWN STICKY DRAINAGE EMPTIED THIS AM, RIGHT SPENCER DRAIN EMPTIED X2 THIS SHIFT FOR TOTAL OUTPUT OF 190CC SANGUINOUS FLUID, MINIMAL LESS THAN 10CC DRAINAGE LEFT SPENCER DRAIN, DRESSING MIDLINE INCISION REMAINS C/D/I WITH WOUND VAC WITHOUT LEAK NOTED, LOW GRADE TEMP 99.5 AXILLARY MIDDLE NOC NORMALIZED TEMP THIS AM WITHOUT INTERVENTIONS, FREQUENT ORAL CARE PROVIDED Q2 AND PRN, REPOSITIONING Q2 AND PRN TO PROMOTE COMFORT AND PROMOTE SKIN INTEGRITY, C/O ABD PAIN X1 UNABLE TO RATE PAIN USING NUMERICAL PAIN SCALE, STATED PAIN TO ABD "BURING LIKE FIRE" FENTANYL 50MCG IVP GIVEN X1 EFFECTIVE FOR PAIN CONTROL PER PT VERBALIZATION. REMAINS NSR WITH OCCASIONAL PVC'S TRACING [employer] INSTALLER. CALL LIGHT REMAINS IN REACH.
--- NOTE | 2017-09-09 08:12 | NUR ---
PT ALERT TO PERSON AND YEAR. PT STATES HE IS IN AN "ADMINISTRATIVE BUILDING" PT REORIENTED AND ENCOURAGED TO USE COMMUNICATION BOARD. WHEN CAME IN PT ORIENTED TO PERSON , YEAR AND MONTH. PT MORE TALKATIVE THIS AM. VSS. AFEBRILE. NG TUBE CLAMPED. NPO. ABDOMINAL BINDER IN PLACE. SITTER AT PT'S BEDSIDE FOR IMPULSIVETY. PO MEDICATIONS HELD PT NPO. PT 96% ON 2L . PT HAS CONGESTED/LOOSE COUGH WITH CLEAR MUCOUS.
--- NOTE | 2017-09-09 13:37 | NUR ---
PT SAT IN CHAIR FOR ABOUT 2 HOURS. WORKED WITH PT AND WENT BACK TO CHAIR. PT C/O OF ABDOMINAL PAIN DURING PT. PRN FENTANYL ADMININSTERED PER EMAR.
--- NOTE | 2017-09-09 18:27 | NUR ---
JONNA USED TEMORARILY TO PREVENT PT FROM PICKING AT TUBES. TUBE FEEDING INFUSING PER DR ORDERS.
--- NOTE | 2017-09-09 21:26 | OP ---
[facility] [address] [place] [address] OPERATIVE REPORT Name: VICTORIA SANTIZO Room: [address] IN .R.#: [id number] Admission: 08/23/17 Attend Phys: Bora Ortega Discharge: Date of : 31 Report #: [id number] THIS REPORT FOR: //name// CC: Eliot Rosenberg DATE OF SERVICE: 09/05/2017 PREOPERATIVE DIAGNOSIS: Fascial dehiscence. POSTOPERATIVE DIAGNOSIS: Fascial dehiscence. PROCEDURES: 1. Reopening of recent laparotomy. 2. Ventral hernia repair with biologic mesh. SURGEON: Angi Ramirez M.D. GLUE MOUNTER OPERATOR: Odalys Benjamin DO. ESTIMATED BLOOD LOSS: 5 mL. COMPLICATIONS: None intraoperatively. ANESTHESIA: GET. SPECIMENS: None. DESCRIPTION OF PROCEDURE: Full informed consent obtained preoperatively. Full discussion of risks, benefits and alternatives and questions answered. The patient and family understood the risk of bleeding, infection, reoperation, hernia recurrence, injury to surrounding structures, bowel injury, anastomotic leak, missed pathology, chronic pain, mesh complications and catastrophic complications up to . They understood and wished to proceed. The patient was taken to the operating room. We chose for this procedure because with dehiscence, I wanted to make sure it did not progress to full evisceration, and therefore, I scheduled emergent procedure. The patient was taken to the operating room. We prepped and draped in standard sterile fashion. Timeout performed, all in agreement. We began by removing phong from the midline and open the abdomen. Of note, all contents were serosanguineous. I mobilized the small bowel, which had begun forming thick adhesions at this time. Around the contents of the small bowel and back towards the GJ and duodenal stump, I saw no evidence of [place] [address] OPERATIVE REPORT Name: VICTORIA SANTIZO Room: [address] IN [facility].#: [id number] Admission: 08/23/17 Attend Phys: Bora Ortega Discharge: Date of : 31 Report #: [id number] I returned my attention to the midline hernia. Given the wide separation of the fascia, I chose to proceed with ventral hernia repair with mesh. The Phasix was chosen, 20 x 25 cm. Given matching size of the hernia and the hernia being somewhat smaller at 2 cm, smaller in all dimensions. I placed Prolene at 8 places on the mesh and then I used stab incisions to take full-thickness bites, brought out with a NickLuana at all places. This will bring it in an underlay manner. I felt this was prudent given the very weak appearance of the fascia to what was seen and my desire to not create very extremely large soft tissue flaps. Prior to anchoring these down, I did place 2 pieces of Seprafilm beneath it to prevent adhesions to the midline mesh. A small angle was trimmed in to make sure there was no entrapment around the ileostomy. Next, I placed additional interrupted full-thickness bites wherever there were large gaps through the peritoneum, posterior fascia and the mesh. Next, I made sure there were no entrapped contents by palpation. I used 0 PDS to close the fascia in a running manner. It came together well. I irrigated the wound copiously. I brought the skin together with phong and placed a Prevena wound VAC over the top. Sponge, needle and instrument counts were correct at the end of the case. The patient tolerated it well. <ELECTRONICALLY SIGNED> By: Angi Ramirez MD 09/09/17 2126 [id number] Ramirez MD /nt
--- NOTE | 2017-09-09 21:29 | OP ---
[facility] [address] [place] [address] OPERATIVE REPORT Name: VICTORIA SANTIZO Room: [address] IN M.R.#: [id number] Admission: 08/23/17 Attend Phys: Bora Ortega Discharge: Date of : 31 Report #: [id number] THIS REPORT FOR: //name// CC: Eliot Rosenberg DATE OF SERVICE: 08/24/2017 PREOPERATIVE DIAGNOSES: Recent laparotomy and sepsis with perforation. POSTOPERATIVE DIAGNOSES: Recent laparotomy and sepsis with perforation. PROCEDURES: 1. Exploratory laparotomy with opening of recent laparotomy-THIS WAS A PLANNED SECOND LOOK PROCEDURE 2. Peritoneal lavage. 3. EGD. 4. End ileostomy. 5. Small bowel resection. 6. Mucous fistula. 7. Repair of primary ventral hernia. SURGEON: Angi Ramirez MD FIELD TECH: Odalys Benjamin DO ESTIMATED BLOOD LOSS: 20. COMPLICATIONS: None. ANESTHESIA: GET. SPECIMENS: 1. Small bowel. 2. Peritoneal culture for fungus. FINDINGS: No evidence of leak on EGD at level of gastrojejunostomy. DESCRIPTION OF PROCEDURE: Full informed consent obtained preoperatively. Full discussion of risks, benefits, alternatives and questions answered. The patient and family understood. They wished to proceed. He was taken to the operating room. We prepped and draped in standard sterile fashion. We removed the ABThera wound VAC. Timeout performed, all in agreement. I explored the abdomen. I saw no evidence of any ongoing succuss or drainage. We irrigated with several liters of warm normal saline after first taking peritoneal cultures [address] [place] [address] OPERATIVE REPORT Name: VICTORIA SANTIZO Room: [address] IN .R.#: [id number] Admission: 08/23/17 Attend Phys: Bora Ortega Discharge: Date of : 31 Report #: [id number] for fungus. Next, we performed EGD advancing the Olympus EGD down to the esophagus and stomach. Up to and through the anastomosis, I pushed the anastomosis beneath saline and insufflated the stomach with good distension. There was no leak anywhere around the anastomosis. Next, we reexplored the abdomen. Duodenal stump appeared okay without any evidence of injury or ischemia. There was no ischemia around the anastomosis either. Next, I made stab incisions to bring out the ileostomy and the mucous fistula on the right and left sides of the abdomen respectively. Additional small bowel did need to be resected in order for the ileostomy to lay with good profile. I used clamps and 0 silk ties to take small bowel mesentery and would later transect small bowel sharply with scissors to send off a portion of small bowel. We closed the fascia with 0 PDS. Near the umbilicus, there was a ventral hernia approximately 4 x 5 cm. This was closed with [id number] stitches of 0 PDS and it did come together securely. We irrigated the abdomen copiously and closed with phong and placed a Prevena wound VAC. Prior to this, a 19-Belizean SPENCER was laid on the right side at the level of the duodenal stump and on the left side just above the gastrojejunostomy. I performed a methodical wound exploration and saw no evidence of any retained foreign bodies and our count was correct. Next, we matured the ileostomy in Ashlyn manner with 3-0 Vicryl on the mucous fistula as well and they laid flat. Sponge, needle, instrument counts correct at the end of the case. The patient tolerated well. <ELECTRONICALLY SIGNED> By: Angi Ramirez MD 09/09/17 2129 [id number] [id number] Solo Ramirez MD /nt
--- NOTE | 2017-09-09 21:32 | OP ---
[facility] [address] [place] [address] OPERATIVE REPORT Name: VICTORIA SANTIZO Room: [address] IN .R.#: [id number] Admission: 08/23/17 Attend Phys: Bora Ortega Discharge: Date of : 31 Report #: [id number] THIS REPORT FOR: //name// CC: ADEBAYO Rosenberg DATE OF SERVICE: 08/23/2017 PRIMARY PHYSICAN: Dr. Adebayo Kaye. PREOPERATIVE DIAGNOSIS: Perforated viscus. 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 SURGEON: Angi Ramirez M.D. GLOBAL POSITION SYSTEM TECHNICIAN: Odalys Benjamin DO. ESTIMATED BLOOD LOSS: 350. COMPLICATIONS: None. FINDINGS: Focal ulcer of transverse colon with fistula at the duodenum with perforation and adebayo stool spillage as well as diffuse mesenteric adenopathy at the root of the mesentery and a distended gallbladder. PROCEDURES: 1. Exploratory laparotomy. 2. Extended right hemicolectomy, left in discontinuity. 3. Antrectomy and Billroth II with handsewn gastrojejunostomy anastomosis. 4. Cholecystostomy tube placement. 5. Washout of the abdomen. 6. Peritoneal lavage. 7. The ABThera wound VAC placement. ANESTHESIA: GET. SPECIMENS: As above. Open intraoperatively with Dr. Carson, suggestive of colon cancer with perforation. DESCRIPTION OF PROCEDURE: Full informed consent obtained preoperatively. Full discussion of the risks, benefits, alternatives with family and the patient. They understood and wished to proceed. He was taken to the operating room. We prepped and draped in standard sterile fashion. We began with a midline [facility] [address] [place] [address] OPERATIVE REPORT Name: VICTORIA SANTIZO Room: [address] IN .R.#: [id number] Admission: 08/23/17 Attend Phys: Bora Ortega Discharge: Date of : 31 Report #: [id number] incision, entered safely into the abdomen. After pulling back omentum, adebayo stool was noted, which was covering the superior side of the colon and duodenum. We entered into this cavity, assessed the area. It appeared to be likely a very firm rock hard process within the colon. I explored the remainder of the abdomen. I did not feel any liver or abdominal wall evidence of metastasis, however, diffuse mesenteric firmness small bowel mesentery also was noted . I began with right hemicolectomy taking down the white line of Toldt, lateral to medial, took down the mesoappendix, ligated the ileocolic pedicle after first identifying the duodenum with 0 Vicryl and vessel sealer. Transverse colon was from the omentum. I made a small window beneath the terminal ileum as well as the transverse colon. They were divided with a green load BYRON stapler. Mesentery was taken up to that point of critical dissection. Next, I turned my attention to the duodenum, the short gastrics from the stomach, entered in the lesser sac, lesser omentum was taken down, kocherized with the duodenum. With very meticulous dissection to its full extent head of the pancreas was revealed small mesenteric bleed from the loop with Joshua was tied off with 3-0 Vicryl. Relatively vigorous bleeding from the loop of Joshua tied off with 3-0 Vicryl without complication. I was able to take the first portion of the duodenum and he had a plane around it. Common bile duct was visualized and protected. A green load BYRON stapler was fired across this to transect it as well as across the greater curvature of the stomach to transect the stomach. Specimen was opened up on the back table with Dr. Carson suggestive of colon cancer, perforating into the duodenum. We irrigated copiously, made sure it was hemostatic. Next brought over a loop of small bowel approximately 20 cm distal to the ligament of Treitz up to the greater curvature. A 2-layer handsewn gastrojejunostomy was performed with 3-0 silk for the back wall 3-0 Vicryl for the anterior and posterior interval in running fashion and interrupted 3-0 silks for the anterior outer wall. It was palpably patent. I milked contents past it without any evidence of leak. I ran the small bowel, saw no evidence of any other injuries. The ileostomy and transverse colon were left in discontinuity given his relatively critical status, and my wish to return to the OR in 24 hours for repeat irrigation. Gallbladder appeared very inflamed. I could tell, this would become an issue during his hospital stay, which likely will be very long. A cholecystostomy tube 12-Belarusian was placed within this and brought out through the right anterior abdominal wall. We irrigated with several liters of warm normal saline, made sure there was no evidence of any bleeding. ABThera wound VAC was placed without complication. Sponge, needle, instrument counts were correct at the end of the case. The patient tolerated well. <ELECTRONICALLY SIGNED> By: Angi Ramirez MD 09/09/17 2132 1535 [id number] Ramirez MD /nt
[2017-09-10] VITALS (18 sets, daily range): BP systolic 122–181; BP diastolic 41–83
--- NOTE | 2017-09-10 01:25 | NUR ---
NOVASOURCE RENAL 10CC/HR TRICKLE FEED VIA NG VIA TUBE FEEDING PUMP INFUSING PER ORDER, GASTRIC RESIDUAL INCREASING THROUGHOUT SHIFT, FROM 145CC TO 220CC, DENIES NAUSEA, NO EMESIS, REGLAN 10MG IVP GIVEN X1 PRN TO INCREASE GASTRIC EMPTYING. WILL CONTINUE TO MONITOR.
[2017-09-10 05:41] LABS: HEMOGLOBIN 8.2 gm/dL (14.0-18.0); MCH 28.7 pg (26.0-34.0); MCHC 32.9 g/dL (28.0-37.0); MCV 87.3 fL (80.0-100.0); MPV 8.8 fl. (7.2-11.1); RBC 2.87 mil/uL (4.50-6.00); RDW-CV 15.2 % (10.5-14.5); WBC 11.4 thou/uL (4.0-11.0)
--- NOTE | 2017-09-10 05:58 | NUR ---
PROGRESSING TOWARDS GOALS, ALERT TO SELF, ALSO TO PLACE AND TIME INTERMITTENTLY, RESTLESS, CONFUSED, IMPULSIVE BEGINNING NOC, DIFFICULT TO REDIRECT, ATIVAN 0.5MG IVP GIVEN X1 WITH MINIMAL RESULTS, ATIVAN APPEARED TO INCREASE CONFUSION, SITTER REMAINS AT BEDSIDE 1:1 THROUGHOUT NOC TO PROVIDE SAFETY, C/O ABD PAIN X2 WITH GAURDING NOTED, PT UNABLE TO RATE PAIN LEVEL USING NUMERICAL PAIN SCALE, DESCRIBED PAIN "BURNING LIKE FIRE", FENTANYL 50MCG IVP X2 WITH EFFECTIVE RESULTS PER PT VERBALIZED NO FURTHER PAIN ON RE-EVALUATION AND DECREASED RESTLESSNESS NOTED, REGLAN 10MG IVP PRN GIVEN X1 FOR INCREASED GASTRIC RESIDUALS 220CC, REGLAN HELPFUL GASTRIC RESIDUAL DECREASED THIS AM TO 80CC, DENIES NAUSEA, NO EMESIS THIS SHIFT, NOVASOURCE RENAL TRICKLE FEEDING VIA NG CONTINUES THROUGHOUT NOC VIA NG TUBE, CHEST XRAY DONE THIS AM PER ORDER, SAO2 =>96% ON 2L PER NC, COUGHING UP THICK WHITE SPUTUM, NSR TRACING IC DESIGNER STANDARD CELLS, FREQUENT ORAL CARE PROVIDED Q2 AND PRN, RESTING QUIELTY WITH EYES CLOSED INTERMITTENTLY DURING NOC FOR APROX 15 MIN INTERVERALS, EMOTIONAL SUPPORT PROVIDED, DIVERSIONAL ACTIVITIES PROVIDED. ABDOMINAL MIDLINE DRESSING WITH WOUND VAC REMAINS C/D/I,
[2017-09-10 06:00] LABS: ALBUMIN 1.7 g/dL (3.4-5.0); CALCIUM 7.7 mg/dL (8.5-10.1); CREATININE 1.7 mg/dL (0.6-1.3); MAGNESIUM 2.1 mg/dL (1.8-2.4); POTASSIUM 3.9 mmol/L (3.5-5.1); TOTAL BILIRUBIN 0.3 mg/dL (<0.1-1.0); TOTAL PROTEIN 4.7 g/dL (6.4-8.2)
--- NOTE | 2017-09-10 07:41 | NUR ---
PATIENT CARE ASSUMED AT 0700. PAITENT AT THIS TIME ONLY ALERT TO SELF, RESTLESS BY REDIRECTABLE. DENIES PAIN AT THIS TIME. WHEN ASKED "HOW ARE YOU DOING?" PATIENT STATED "IM DOING WONDERFUL." MULTIPLE DRAINS NOTED AND ARE STILL IN PLACE. NG TUBE REMAINS MARKED AT 60 CM. SKIN CHECKED AND REMAINS FREE OF PRESSURE INJURY. HEELS FLOATED OFF THE BED, HEELS REMAIN INTACT. TPN RUNNING @85 ML/HR PER EMAR. TUBE FEEDING AT 10 ML/HR PER ORDERS, RESIDUAL 125 AND REMAIN INFUSING AT THIS TIME. MOST OF RESIDUAL APPEARS TO BE STOMACH BILE. GOALS FOR TODAY INCLUDE INCREASING ACTIVITY (GET UP INTO CHAIR), TOLERATING NUTRITION, MAINTAINING DRAINS, AND MAINTAINING SAFETY/COMFORT.
--- NOTE | 2017-09-10 12:06 | NUR ---
DR CROOKS ORDERED TO DECREASE TPN TO 75 ML/HR, INCREASE TUBE FEEDING TO 20ML/HR. RESIDUAL 100. IMPLEMENTED.
--- NOTE | 2017-09-10 17:25 | NUR ---
PATIENT PROGRESSING TOWARDS GOALS. UP IN CHAIR THROUGHOUT MOST OF SHIFT. WAS ATTEMPTING TO REORIENT PATIENT TO NIGHTS/DAYS, BUT PATIENT HAD DEEP CONTINUOUS SLEEP FOR THE FIRST TIME IN MANY DAYS SITTING UP IN CHAIR. UP IN CHAIR MOST OF SHIFT, STILL REMAINS IN CHAIR AT THIS TIME WITH WAFFLE CUSHION UNDERNEATH HIM. NO NEW ACUTE CONCERNS NOTED THIS SHIFT. PRESENT AT BEDSIDE ALL DAY.
[2017-09-11] VITALS (8 sets, daily range): BP systolic 119–143; BP diastolic 39–60
--- NOTE | 2017-09-11 06:17 | NUR ---
PROGRESSING TOWARDS GOALS, SITTER REMAINS AT BEDSIDE FOR SAFETY, INTERMITTENT CONFUSION, EASILY REORIENTED MOST OF THE TIME, NEEDS REDIRECTION KEEP NG TUBE AND LINES IN PLACE, MELATONIN GIVEN PER ORDER X1 VIA NG TUBE FOR SLEEP, RESTING INTERMITTENTLY WITH EYES CLOSED DURING NOC FOR APROX 20 MIN TIME INTERVALS, HYDROCODONE 10/325MG VIA NG TUBE GIVEN X2 FOR ABDOMINAL PAIN WITH EFFECTIVE PAIN MANAGEMENT, TRICKLE TUBE FEEDING VIA NG INFUSING BY PUMP AT 20CC/HR PER ORDER, HIGH GASTRIC RESIDUAL 345CC NOTED, DENIES NAUSEA, NO EMESIS, REGLAN GIVEN IVP PRN X2 TO INCREASE GASTRIC EMPTYING, REGLAN HELPFUL TO DECREASE GASTRIC RESIDUAL TO 135CC THIS AM, ABLE TO COUGH UP MODERATE AMOUNT OF THICK WHITE SPUTUM, SA02 =>96% THIS SHIFT WITH OXYGEN 2L PER NC, NSR OCCASIONAL PAC'S AND PVC'S TRACING FELTER TENNIS BALLS, MIDLINE ABD DRESSING WITH WOUND VAC REMAINS C/D/I, DIVERSIONAL ACTIVITIES PROVIDED, FREQUENT ORAL CARE Q2 HOURS AND PRN, REPOSITIONING Q2 AND PRN TO PROMOTE SKIN INTEGRITY AND COMFORT.
[2017-09-11 07:39] LABS: CALCIUM 7.7 mg/dL (8.5-10.1); CREATININE 1.7 mg/dL (0.6-1.3); POTASSIUM 3.7 mmol/L (3.5-5.1)
--- NOTE | 2017-09-11 07:58 | NUR ---
RESIDUAL FROM NG TUBE FEEDING WAS 30ML.
--- NOTE | 2017-09-11 09:23 | NUR ---
TRANSFER PT TO ROOM [address].
--- NOTE | 2017-09-11 16:18 | NUR ---
INSTRUCTED BY DR. ORLANDO TO STOP TPN WHEN THIS BAG IS FINISHED.
--- NOTE | 2017-09-11 23:44 | NUR ---
[facility] CARE OF PT AT 1900. PT IS ALERT BUT CONFUSED AT TIMES. VSS. PERRLA. NO COMPLAINTS OF PAIN. PT HAS A SITTER OR FAMILY MEMBER WITH HIM AT ALL TIMES. PT IS ON 2 LITERS O2. PT HAS AN NG TUBE IN PLACE AND IS GETTING NEPRO TUBE FEEDING AT 35 ML/HR WITH 150 ML H2O FLUSH EVERY 6 HOURS. PT HAS AN ILEOSTOMY WITH A SMALL AMOUNT OF GREEN DRAINAGE. PT ALSO HAS A MUCOUS FISTULA WITH A SMALL AMOUNT OF GREEN DRAINAGE. PT HAS A SPENCER DRAIN ON UPPER LEFT AND UPPER RIGHT ABDOMAN WITH A SMALL AMOUNT OF SEROUS DRAINAGE IN EACH ONE OF THEM. PT HAS A MIDLINE INCISION THAT HAS NOT BEEN ASSESSED YET BUT DRESSING IS SATURATED. PT IS IN SINUS RYTHM ON THE TELEMETRY. PT IS RESTING COMFORTABLY IN BED. RESPIRATIONS ARE EVEN AND NONLABORED. WILL CONTINUE TO MONITOR PT.
[2017-09-12 00:10] VITALS: BP 160/68
--- NOTE | 2017-09-12 02:01 | NUR ---
PTS TUBE FEEDING RESIDUAL WAS 500 ML AT 0100. TUBE FEEDING STOPPED AT 200 ML PUT BACK INTO PTS STOMACH.
[2017-09-12 04:04] VITALS: BP 143/66
[2017-09-12 04:49] LABS: MCH 28.8 pg (26.0-34.0); MPV 8.8 fl. (7.2-11.1); RBC 2.97 mil/uL (4.50-6.00); RDW-CV 15.2 % (10.5-14.5)
[2017-09-12 04:53] LABS: HEMATOCRIT 25.9 % (42.0-52.0); HEMOGLOBIN 8.5 gm/dL (14.0-18.0); MCHC 33.1 g/dL (28.0-37.0); NUCLEATED RBCS 0 /100WBC; PLATELET COUNT* 257 thou/uL (150-400); WBC 10.4 thou/uL (4.0-11.0)
[2017-09-12 04:56] LABS: CALCIUM 8.3 mg/dL (8.5-10.1); CREATININE 1.6 mg/dL (0.6-1.3); MAGNESIUM 1.9 mg/dL (1.8-2.4); PHOSPHORUS* 3.4 mg/dL (2.5-4.9); POTASSIUM 3.5 mmol/L (3.5-5.1)
[2017-09-12 05:40] LABS: ABSOLUTE EOSINOPHILS 0.4 thou/uL (0.0-0.7); ABSOLUTE LYMPHOCYTES 1.2 thou/uL (0.8-5.3); ABSOLUTE MONOCYTES 0.3 thou/uL (0.0-1.2); ABSOLUTE NEUTROPHILS 8.4 thou/uL (1.6-8.1); ANISOCYTOSIS 1+; PLATELET ESTIMATE ADEQUATE; POIKILOCYTOSIS 1+
--- NOTE | 2017-09-12 06:25 | NUR ---
TUBE FEEDING RESTARTED AT 0500
[2017-09-12 11:30] VITALS: BP 149/63
[2017-09-12 16:00] VITALS: BP 105/47
--- NOTE | 2017-09-12 19:21 | NUR ---
PATIENT RESTING IN BED. AROUSABLE BUT SLEEPY TODAY. TOLERATING FEEDINGS AT 30ML/HR. VITAL SIGNS STBAEL ANDPATIENT IN NO APPARENT DISTRESS. WOUND CARE PER SURGERY. DRAINS DOCUMENTED. HOURLY ROUNDING COMPLETED FOR PATIENT SAFETY.
[2017-09-13] VITALS (7 sets, daily range): BP systolic 115–132; BP diastolic 48–63
--- NOTE | 2017-09-13 00:33 | NUR ---
ASSUMED CARE OF PT AT 1900. PT IS VERY SLEEPY. NO COMPLAINTS OF PAIN. PERRLA. VSS. DRESSING ON ABDOMAN WAS CHANGED DO TO SATURATION. MOSTLY SEROUS DRAINAGE FROM SURGICAL WOUND. CENTRAL LINE DRESSING CHANGED WELL. PT IS ON A 1:1 SITTER. PT IS BEING TURNED EVERY 2 HOURS. PT HAS A MCQUEEN. PT IS IN SINUS RYTHM ON THE TELEMETRY. PT IS RESTING COMFORTABLY IN BED. RESPIRATIONS ARE EVEN AND NONLABORED. WILL CONTINUE TO MONITOR PT.
--- NOTE | 2017-09-13 16:25 | NUR ---
CM SPOKE TO THE PATIENT AND SPOUSE TO DISCUSS ANY QUESTIONS OR CONCERNS THAT THEY MAY HAVE, AND DISCARGE PLANNING NEEDS. PATIENT'S SPOUSE INFORMS THAT SHE WOUL STILL LIKE TO HAVE THE PATIENT GO TO [facility] AT D/C, BUT IT IS UNCLEAR WHEN HE WILL DISCHARGE AT THIS POINT. CM WILL REMAIN AVAILABLE TO ASSIST AND FOLLOW NEEDED.
--- NOTE | 2017-09-13 17:22 | NUR ---
PT SOMEWHAT PROGRESSING TOWARDS GOALS THIS SHIFT. ABLE TO INCREASE TUBE FEEDING TO 35ML/HR. PT HAVING RESIDUALS AROUND 150-180 MLS. PT UP TO RECLINER THIS SHIFT WITH MAX ASSIST X2. PT TOLERATED FOR ABOUT 20 MINUTES AND DEMANDED TO BE BACK IN BED. PT UNABLE TO STAND TO HELP WITH TRANSFER BACK TO BED AND REQUIRED LIFT DEVICE FOR TRANSFER. AT BEDSIDE. SITTER AT BEDSIDE UNTIL 1450 TODAY AND NO SITTER PROVIDED THE REMAINDER OF SHIFT. NO OTHER CONCERNS AT THIS TIME. CLWR. WCTM.
[2017-09-14 04:00] VITALS: BP 112/53
[2017-09-14 05:10] LABS: CALCIUM 7.7 mg/dL (8.5-10.1); CREATININE 1.8 mg/dL (0.6-1.3); MAGNESIUM 1.7 mg/dL (1.8-2.4); PHOSPHORUS* 2.8 mg/dL (2.5-4.9); POTASSIUM 3.6 mmol/L (3.5-5.1)
--- NOTE | 2017-09-14 07:54 | NUR ---
Pt had some restlessness overnight. Medicated for c/o pain at 2200, appeared comfortable afterwards on reassessment. VSS. Checked residuals twice: 170 mls at 2230, and 150 mls at 0600. Repositioned q2h, sitter at bedside for online banking specialist. stayed in room overnight. Will continue to monitor.
[2017-09-14 08:20] VITALS: BP 116/49
[2017-09-14 13:17] VITALS: BP 117/58
--- NOTE | 2017-09-14 16:41 | NUR ---
ASSUMED CARE OF PT SAT 0730. PT RESTING IN BED. AT BEDSIDE. PT A&0X3-4, FORGETFUL AND CONFUSED AT TIMES. PT TRACING SR THROUGHOUT SHIFT. ON 2L NC SAT UPPER 90'S. DENIES ANY SHORTNESS OF BREATH. PT COMPLAINED OF RUQ PAIN. TREATED WITH PRN HYDROCODONE WITH COMPLETE RELIEF. NG IN PLACE WELL MULTIPLE DRAINS. REFER TO CHARTING. TUBE FEEDING RUNNING AT 35 ML/HR. RESIDUALS 100-125. UNABLE TO ADVANCE TO GOAL OF 50 ML/HR. 1:1 SITTER AT BEDSIDE WHEN FAMILY IS NOT AROUND DUE TO PT BEING IMPULSIVE AND PULLING AT TUBES, ETC. SURGERY HERE THIS AM AND CHANGED MIDLINE INCISION DRESSING. LITTLE DRAINAGE NOTED. MCQUEEN TO DEPENDENT DRAINAGE. PT WORKED WITH PHYSICAL THERAPY TODAY. TOLERATED FAIR. PT SAT ON EDGE OF BED FOR SHORT PERIOD OF TIME. PT UP WITH MAX ASSIST. SPEECH THERAPY SEEN PT AND HOPES TO DO A VIDEO SWALLOW TOMORROW 09/15. PT SLOWLY PROGRESSING TOWARDS GOALS. MAGNESIUM REPLACED PER IV. AWAITING REDRAW AT THIS TIME. PT RESTED MOST OF AFTERNOON. AM ASSESSMENT CHARTED. MEDICATIONS PER MAY. PT REPOSITIONED EVERY 2 HOURS FOR COMFORT. HOURLY ROUNDING OBSERVED. BED IN LOW POSITION. BED ALARM IN PLACE. FALL PRECAUTIONS IN PLACE. CALL LIGHT WITHIN REACH. WILL CONTINUE PLAN OF CARE.
[2017-09-14 16:42] VITALS: BP 131/56
[2017-09-14 20:19] VITALS: BP 112/57
[2017-09-15] VITALS: BP 112/45
[2017-09-15 04:00] VITALS: BP 127/47
[2017-09-15 05:31] LABS: ABSOLUTE BASOPHILS 0.1 thou/uL (0.0-0.2); ABSOLUTE EOSINOPHILS 0.5 thou/uL (0.0-0.7); ABSOLUTE LYMPHOCYTES 1.3 thou/uL (0.8-5.3); ABSOLUTE MONOCYTES 1.1 thou/uL (0.0-1.2); ABSOLUTE NEUTROPHILS 8.5 thou/uL (1.6-8.1); BASOPHILS 0.9 %; EOSINOPHILS 4.5 %; HEMATOCRIT 24.8 % (42.0-52.0); HEMOGLOBIN 8.1 gm/dL (14.0-18.0); LYMPHOCYTES 11.3 %; MCH 28.3 pg (26.0-34.0); MCHC 32.8 g/dL (28.0-37.0); MCV 86.3 fL (80.0-100.0); MONOCYTES 9.2 %; MPV 8.9 fl. (7.2-11.1); NUCLEATED RBCS 0 /100WBC; PLATELET COUNT* 371 thou/uL (150-400); POLYS 74.1 %; RBC 2.87 mil/uL (4.50-6.00); RDW-CV 15.7 % (10.5-14.5); WBC 11.5 thou/uL (4.0-11.0)
[2017-09-15 05:45] LABS: ALBUMIN 1.8 g/dL (3.4-5.0); CALCIUM 7.8 mg/dL (8.5-10.1); CREATININE 1.7 mg/dL (0.6-1.3); MAGNESIUM 2.3 mg/dL (1.8-2.4); PHOSPHORUS* 2.7 mg/dL (2.5-4.9); POTASSIUM 3.2 mmol/L (3.5-5.1); TOTAL BILIRUBIN 0.2 mg/dL (<0.1-1.0); TOTAL PROTEIN 5.7 g/dL (6.4-8.2)
--- NOTE | 2017-09-15 07:44 | NUR ---
Pt restless for much of the night, but did sleep for about an hour straight on at least 2 occasions. stayed in room overnight. Medicated once for c/o Rt flank pain; see MAR. Good cough effort, productive of mod amt sputum on occasion. Continues to have 150 ml residual. TF remains at 35 ml/hr with goal of 50. Will continue to monitor.
[2017-09-15 08:00] VITALS: BP 132/52
[2017-09-15 11:30] VITALS: BP 130/66
[2017-09-15 16:00] VITALS: BP 132/51
--- NOTE | 2017-09-15 18:12 | NUR ---
VSS, PT IS PROGRESSING TOWARDS GOAL, PT IS A&O3 AND IS SLEEPIY, PT IS HAS MCQUEEN ON PLACE AND IS DRAING, PT IS ON RA AND IS TRACING SR ON THE MONITOR, TUBE FEEDING IS RUNNING IN AT 40 ML/HR, PT DENIES ANY PAIN,, HAS BEEN UP TO CHAIR FOR LUNCH, HOURLY ROUNDS COMPLETED, PT IS UP TO BEDSIDE WITH 1-2,
--- NOTE | 2017-09-15 18:56 | NUR ---
VSS, PT IS PROGRESSING TOWARDS GOAL, SITTER IN ROOM, HOURLY ROUNDS COMPLETED.
[2017-09-15 20:00] VITALS: BP 132/56
--- NOTE | 2017-09-15 20:00 | NUR ---
RECEIVED REPORT AND ASSUMED CARE OF PT. ASSESSMENT COMPLETED. PT ALERT AND COOPERATIVE. ORIENTED TO PERSON BUT WANTING TO KNOW WHEN HE COULD BE PUT INTO THE CAR. NG INPLACE WITH TUBE FEEDING INFUSING AT 40 CC/HR. T-TUBE TO DD, BILE DRAINAGE NOTED. SPENCER X2 COMPRESSED WITH YELLOW CLOUDY FLUID. ILEOSTOMY PATENT WITH LT BROWN LIQ STOOL. DRAINAGE BAG TO LT ABD EMTRY. MIDLINE DRSG WITH SEROUS DRAINAGE NOTED. TELEMETRY ON SHOWING SR. STAYING AT BED ASSISTING NEEDED. WILL HAVE SITTER IN ROOM WHEN PT GOES TO SLEEP. WILL CONT TO MONITOR AND ASSIST NEEDED.
--- NOTE | 2017-09-15 21:00 | NUR ---
MCQUEEN WITH DK RED URINE AND LOW URINE OUTPUT. MANUALLY IRRIGATED CATHETER UNTIL CLEAR PINK TINGED, NO CLOTS NOTED. CONCERNED THAT CATHETER GOT PULLED WHEN PT HAD TEST EARLIER. REASSURANCE GIVEN.
--- NOTE | 2017-09-15 22:30 | NUR ---
TUBE FEEDING RESIDUAL CHECKED FOR 150 CC. HS MEDS GIVEN PER NG. HOLDING FEEDING NOW AND DID NOT REINSTILL THE RESIDUAL.
[2017-09-16] VITALS: BP 132/59
[2017-09-16 04:00] VITALS: BP 144/47
[2017-09-16 05:28] LABS: HEMOGLOBIN 8.3 gm/dL (14.0-18.0); MCH 28.9 pg (26.0-34.0); MCHC 33.3 g/dL (28.0-37.0); MCV 86.8 fL (80.0-100.0); MPV 9.4 fl. (7.2-11.1); RBC 2.89 mil/uL (4.50-6.00); RDW-CV 15.7 % (10.5-14.5); WBC 10.6 thou/uL (4.0-11.0)
[2017-09-16 05:55] LABS: ALBUMIN 1.9 g/dL (3.4-5.0); CALCIUM 7.9 mg/dL (8.5-10.1); CREATININE 1.7 mg/dL (0.6-1.3); MAGNESIUM 2.1 mg/dL (1.8-2.4); POTASSIUM 3.4 mmol/L (3.5-5.1); TOTAL BILIRUBIN 0.2 mg/dL (<0.1-1.0); TOTAL PROTEIN 5.9 g/dL (6.4-8.2)
--- NOTE | 2017-09-16 07:01 | NUR ---
AWAKE FREQ TALKING, ABLE TO CARRY ON A CONVERSATION BUT NOT ORIENTED. CONCERNED THAT PT IS IN PAIN DUE TO RESTLESSNESS AND TALKING, REASSURANCE GIVEN TO HER. URINE IN MCQUEEN CONT TO BE DK RED. HELD TUBE FEEDING X 2HR AND THEN RESTARTED. TELEMETRY SHOWING SR. NO CHANGE IN ASSESSMENT. HOURLY ROUNDING OBSERVED. ACHEIVED HS GOALS OF COMFORT AND SAFETY.
[2017-09-16 08:00] VITALS: BP 120/49
--- NOTE | 2017-09-16 08:00 | NUR ---
VSS, ASSUMED CARE IN THE AM, ASSESSMENT PERFORMED AND CHARTED, FALL PRECAUTION IN PLACE AND CALL LIGHT IN REACH, PT IS UP WITH WITH 1-2 WITH GAIT BELT AND WALKER, PT HAS NG TUBE FEEDING GOING IN AT 40ML/HR, RESEIDUAL IN NG TUBE WAS 220ML THIS AM, PT IS ALERT TO SELF BUT OTHERWISE IS CONFUSED, PT IS ON RA AND TRACING SR ON THE MONITOR, PT SEEMS TO HAVE SOME PAIN IN HIS RIGHT ARM BUT UNABLE TO RATE THAT PAIN, PT GOAL IS TO SIT UP IN CHAIR, IMPROE FEEDING RATE AND IMPROVE WOUND HEALING WILL FOLLOW WITH PLAN OF CARE.FOLLOW IN PLACE AND IS DRAINING,
[2017-09-16 11:31] VITALS: BP 133/49
[2017-09-16 15:46] VITALS: BP 131/47
[2017-09-16 16:25] LABS: BE -4.9 mmol/L (-2 to +3); HCO3 18.3 mmol/L (22.0-26.0); PCO2 27.6 mmHg (35.0-45.0); PO2 73.5 mmHg (75.0-100.0); pH 7.439 (7.340-7.450)
[2017-09-16 20:00] VITALS: BP 142/55
[2017-09-17] VITALS: BP 118/41
[2017-09-17 04:00] VITALS: BP 134/59
--- NOTE | 2017-09-17 04:59 | NUR ---
A&O X2, IMPUSIVE AND CONFUSED. NG TUBE WITH CONSTITANT FEEDING AT 40ML/H. SR SR ON THE MONITOR. RA. UP WITH MAX ASSIST. VITALS WNL. SEE MAR. SEE CHARTING. FALL PRECAUTIONS IN PLACE. HOURLY ROUNDING FOR SAFETY.
[2017-09-17 05:33] LABS: HEMOGLOBIN 8.5 gm/dL (14.0-18.0); MCH 28.3 pg (26.0-34.0); MCHC 32.8 g/dL (28.0-37.0); MCV 86.3 fL (80.0-100.0); MPV 9.5 fl. (7.2-11.1); NUCLEATED RBCS 0 /100WBC; PLATELET COUNT* 422 thou/uL (150-400); RBC 3.01 mil/uL (4.50-6.00); RDW-CV 16.2 % (10.5-14.5); WBC 12.7 thou/uL (4.0-11.0)
[2017-09-17 05:59] LABS: MAGNESIUM 2.1 mg/dL (1.8-2.4)
[2017-09-17 06:24] LABS: ALBUMIN 2.1 g/dL (3.4-5.0); CALCIUM 7.9 mg/dL (8.5-10.1); CREATININE 1.6 mg/dL (0.6-1.3); POTASSIUM 4.2 mmol/L (3.5-5.1); TOTAL BILIRUBIN 0.2 mg/dL (<0.1-1.0); TOTAL PROTEIN 5.7 g/dL (6.4-8.2)
[2017-09-17 06:35] LABS: ABSOLUTE EOSINOPHILS 0.4 thou/uL (0.0-0.7); ABSOLUTE LYMPHOCYTES 1.3 thou/uL (0.8-5.3); ABSOLUTE MONOCYTES 0.6 thou/uL (0.0-1.2); ABSOLUTE NEUTROPHILS 10.4 thou/uL (1.6-8.1); ATYPICAL LYMPHS 1 %; PLATELET ESTIMATE ADEQUATE
[2017-09-17 08:11] VITALS: BP 125/69
--- NOTE | 2017-09-17 08:30 | NUR ---
VSS, ASSUMED CARE IN THE AM, ASSESSMENT PERFORMED AND CHARTED, FALL PRECAUTIONS INPLACE AND CALL LIGHT IN REACH, PT IS ALET TO SELF BUT OTHERWISE IS CONFUSED, PT SEEMS TO BE IN SOME DISCOMFURT BUT IS UNABLE TO TELL ME, IS AT BEDSIDE AND NG TUBE FEEDING IS IN PLACE AND IS RUNNING 40 ML/HR, MCQUEEN IN PLACE AND IS DRAINING, PT IS TRACING SR ON THE MONITOR, ON RA AND IS UP TO BSC WITH 1-2 HELP, PT GOAL IS TO WORK WITH PT/OT/SP ANS ALSO SIT UP TO CHAIR,
[2017-09-17 11:35] VITALS: BP 134/54
[2017-09-17 15:31] VITALS: BP 141/57
--- NOTE | 2017-09-17 17:30 | NUR ---
VSS, PT IS PROGRESSING TOWARDS GOAL, PT IS A&O2 BUT IS SLEEPY AND FORGETFUL, NG TUBE IS RUNNIG AT 40HR AND RESIDUAL CHECK WAS 250 ML. PT IS TRACING SR ON THE MONITOR, ON RA AND IS A Q2 TURN, PTHAS MCQUEEN IN PLACE AND IS DRAINING, PT IS IN BED WITH CALL LIGHT IN REACH AND IS AT BEDSIDE, WILL FOLLOW WITH PLAN OF CARE AND HOURLY ROUNDS COMPLETED.
[2017-09-17 20:10] VITALS: BP 137/51
[2017-09-18] VITALS: BP 140/50
[2017-09-18 04:00] VITALS: BP 128/66
[2017-09-18 05:04] LABS: ABSOLUTE BASOPHILS 0.1 thou/uL (0.0-0.2); ABSOLUTE EOSINOPHILS 0.6 thou/uL (0.0-0.7); ABSOLUTE MONOCYTES 0.9 thou/uL (0.0-1.2); ABSOLUTE NEUTROPHILS 8.8 thou/uL (1.6-8.1); EOSINOPHILS 4.8 %; HEMATOCRIT 25.8 % (42.0-52.0); HEMOGLOBIN 8.5 gm/dL (14.0-18.0); LYMPHOCYTES 15.9 %; MCH 28.5 pg (26.0-34.0); MCHC 32.9 g/dL (28.0-37.0); MCV 86.5 fL (80.0-100.0); MONOCYTES 7.1 %; MPV 9.2 fl. (7.2-11.1); NUCLEATED RBCS 0 /100WBC; PLATELET COUNT* 396 thou/uL (150-400); POLYS 71.2 %; RBC 2.98 mil/uL (4.50-6.00); RDW-CV 15.9 % (10.5-14.5); WBC 12.4 thou/uL (4.0-11.0)
[2017-09-18 05:30] LABS: MAGNESIUM 1.9 mg/dL (1.8-2.4); PHOSPHORUS* 2.1 mg/dL (2.5-4.9)
--- NOTE | 2017-09-18 05:44 | NUR ---
PT ALERT TO SELF, CONFUSED AT TIMES NEEDS REORITATION. PT SR ON THE MONITOR. PT MAX ASSIST TO CHAIR.Q2 TURNS. RA. IVF. NG TUBE. VITALS WNL. SEE MAR. SEE CHARTING. FALL PRECAUTIONS IN PLACE. HOURLY ROUNDING FOR SAFETY.
[2017-09-18 06:00] LABS: ALBUMIN 2.1 g/dL (3.4-5.0); CALCIUM 8.3 mg/dL (8.5-10.1); CREATININE 1.6 mg/dL (0.6-1.3); POTASSIUM 3.8 mmol/L (3.5-5.1); TOTAL BILIRUBIN 0.2 mg/dL (<0.1-1.0); TOTAL PROTEIN 5.7 g/dL (6.4-8.2)
[2017-09-18 08:00] VITALS: BP 136/83
--- NOTE | 2017-09-18 11:21 | NUR ---
CM faxed intial referral to [facility]. Roxana from [facility] here to eval, Pt continues to be acutely ill, [facility] [place]
[2017-09-18 11:30] VITALS: BP 152/61
[2017-09-18 16:00] VITALS: BP 138/57
--- NOTE | 2017-09-18 19:12 | NUR ---
ASSUMED PT CARE AT 0730, FULL ASSESMENT DONE CHARTED. A/O X1-2, FORGETFUL OF SITUATION, DENIES PAIN, VSS, SR ON THE MONITOR. MCQUEEN IN PLACE DRAINING DARK YELLOW URINE, SPENCER DRAINS DRAINING VERY SMALL AMOUNT OF SANCHEZ LIQUID, ILIOSTOMY DRAINING LIGHT BROWN LIQUID STOOL, MUCUS DRAIN DRAINING BRWONISH GREEN LIQUID. NG IN PLACE TO RIGHT NARE WITH TUBE FEEDING AT 40/HR. PT UP TO CHAIR WITH PT TODAY, TOLERATING IT WELL. PT PLEASANT TODAY, TIRED, NOT PULLING AT TUBES, AT BEDSIDE MOST OF THE DAY. PT RESTING IN THE CHAIR AT THIS TIME. FALL PRECATUIONS IN PLACE.
[2017-09-18 20:40] VITALS: BP 140/61
[2017-09-19] VITALS: BP 136/55
[2017-09-19 04:00] VITALS: BP 133/61
--- NOTE | 2017-09-19 08:12 | NUR ---
PT IS ABLE TO COMMUNICATE HIS NEEDS TO STAFF WITH MINOR DIFFICULTY; HE IS CONFUSED AT TIMES. HE HAS DENIED THE NEED FOR PAIN MEDICATION UP TO THIS TIME. MCQUEEN, SPENCER DRAINS X2, ILEOSTOMY, BILI-DRAIN, AND MUCUS FISTULA DRAIN ARE ALL PATENT. ABD BINDER IS PATENT; ABD DRESSINGS ARE C/D/I UP TO THIS TIME. NG TUBE IS PATENT; NEPRO TUBE FEEDING IS RUNNING AT 50/HR AT HTIS TIME PER MD ORDER FOR MAX GOAL INTAKE HOURLY AMOUNT.
[2017-09-19 08:20] VITALS: BP 130/55
[2017-09-19 11:30] VITALS: BP 117/46
--- NOTE | 2017-09-19 11:37 | NUR ---
ASSUMED CARE OF PT AT 0730. PT RESTING IN BED. AT BEDSIDE. PT A&0X3, FORGETFUL AT TIMES. PT DENIES ANY PAIN OR SHORTNESS OF BREATH AT THIS TIME. PT TRACING SR ON THE CLOSING COORDINATOR. ON RA SAT UPPER 90'S. ILLEOSTOMY TO DEPENDENT DRAINAGE. MCQUEEN TO DEPENDENT DRAINAGE. IVF. PT UP WITH MAX ASSIST OF 2, HOB AT 30 DEGREES AT ALL TIMES. SURGERY HERE THIS AM AND CHANGED MIDLINE DRESSING. SPENCER DRAINS AND MUCOUS FISTULA IN PLACE. NEPRO TUBE FEEDS AT 50ML/HR-GOAL MET. AM ASSESSMENT CHARTED. MEDICATIONS PER MAR IN NG TUBE. PT REPOSITIONED EVERY 2 HOURS FOR COMFORT. HOURLY ROUNDING OBSERVED. BED IN LOW POSITION. BED ALARM IN PLACE. FALL PRECAUTIONS IN PLACE. CALL LIGHT WITHIN REACH. WILL CONTINUE PLAN OF CARE.
[2017-09-19 15:48] LABS: URINE BILIRUBIN NEGATIVE (Negative); URINE BLOOD 3+ (Negative); URINE CLARITY CLOUDY; URINE COLOR RED; URINE GLUCOSE-RANDOM NEGATIVE (Negative); URINE KETONES NEGATIVE (Negative); URINE LEUKOCYTES 1+ (Negative); URINE NITRITE NEGATIVE (Negative); URINE PROTEIN 2+ (Negative); URINE SPECIFIC GRAVITY <= 1.005 (1.005-1.030); URINE UROBILINOGEN 0.2 E.U./dl (0.2-1.0)
[2017-09-19 15:52] LABS: ABSOLUTE BASOPHILS 0.1 thou/uL (0.0-0.2); ABSOLUTE EOSINOPHILS 0.7 thou/uL (0.0-0.7); ABSOLUTE LYMPHOCYTES 1.8 thou/uL (0.8-5.3); ABSOLUTE MONOCYTES 0.8 thou/uL (0.0-1.2); BASOPHILS 0.5 %; HEMATOCRIT 27.1 % (42.0-52.0); HEMOGLOBIN 8.5 gm/dL (14.0-18.0); LYMPHOCYTES 13.7 %; MCHC 31.3 g/dL (28.0-37.0); MCV 89.7 fL (80.0-100.0); MONOCYTES 6.3 %; MPV 9.3 fl. (7.2-11.1); NUCLEATED RBCS 0 /100WBC; PLATELET COUNT* 408 thou/uL (150-400); POLYS 74.5 %; RBC 3.02 mil/uL (4.50-6.00); RDW-CV 17.2 % (10.5-14.5); WBC 13.4 thou/uL (4.0-11.0)
[2017-09-19 15:56] LABS: CALCIUM 7.7 mg/dL (8.5-10.1); CREATININE 1.5 mg/dL (0.6-1.3); POTASSIUM 3.8 mmol/L (3.5-5.1)
[2017-09-19 16:00] VITALS: BP 125/50
[2017-09-19 16:25] LABS: URINE RBC >20 Many /HPF (0-2)
[2017-09-19 16:26] LABS: AMORPHOUS URATES Moderate /LPF (None Seen); BACTERIA 1-9 Few /HPF (None Seen); CASTS None Seen /LPF (None Seen); MUCUS None Seen strn/LPF (None Seen); SQUAMOUS 0-3 Few /LPF (0-3); URINE WBC 0-5 Rare /HPF (0-5)
--- NOTE | 2017-09-19 17:07 | NUR ---
NO ACUTE CHANGES THROUGHOUT SHIFT. REFER TO CHARTING. UROLOGY CONSULTED FOR HEMATURIA. BRANDON MANJARREZ HERE TO SEE PT AND REPLACED MCQUEEN CATHETER WITH 16F COUDE AND IRRIGATED IT. URINALYSIS SENT DOWN WELL. AWAITING RESULTS. INTERVENTIONAL RADIOLOGY CONSULTED FOR POSSIBLE G TUBE OR J TUBE. PT TOLERATING NEPRO TUBE FEEDS AT 50ML/HR. RESIDUALS ARE BELOW 90. MULTIPLE DRAINS IN PLACE. REFER TO CHARTING. PT UP WITH MAX ASSIST OF 2. PT UP TO RECLINER TODAY WITH PHYSICAL THERAPY AND PHYSICAL THERAPY PUT PT BACK IN BED THIS EVENING. IVF. MCQUEEN AND ILLEOSTOMY TO DEPENDENT DRAINAGE. PT CONTINUES TO BE ON RA SAT UPPER 90'S. DENIES ANY SHORTNESS OF BREATH. CONTINUES TO TRACE SR ON THE DINING ROOM MANAGER. PT A&0X2-3, FORGETFUL AND CONFUSED AT TIMES. AT BEDSIDE THROUGHOUT SHIFT. PT SON HERE THIS AFTERNOON AND HAD QUESTIONS FOR SURGERY, STATING PT IS NOT RELAYING INFORMATION ACCURATELY. SURGERY NOTIFIED AND DR MORAN UP HERE TO SPEAK WITH FAMILY AND ANSWER QUESTIONS. MEDICATIONS PER MAR. PT REPOSITIONED EVERY 2 HOURS FOR COMFORT. HOURLY ROUNDING OBSERVED. BED IN LOW POSITION. BED/CHAIR ALARM IN PLACE. FALL PRECAUTIONS IN PLACE. CALL LIGHT WITHIN REACH. WILL CONTINUE PLAN OF CARE.
[2017-09-19 19:45] VITALS: BP 120/42
[2017-09-20] VITALS: BP 139/47
[2017-09-20 04:00] VITALS: BP 101/58
[2017-09-20 05:23] LABS: CALCIUM 7.4 mg/dL (8.5-10.1); CREATININE 1.6 mg/dL (0.6-1.3); POTASSIUM 3.8 mmol/L (3.5-5.1)
--- NOTE | 2017-09-20 05:43 | NUR ---
RECEIVED REPORT AND ASSUMED CARE AT 1900. VSS. CARDIAC MONITOING IN PLACE. PT DENIES ANY COMPLAINTS OF PAIN. PT HAS NG TUBE IN R NARE, SPENCER DRAIN X2, BILI-DRAIN, ILLEOSTOMY. PT BEING SEEN BY SURGERY FOR INCISION CARE. PT REPOSITIONED EVERY 2 HOURS, MEDICATIONS ADMINISTERED PER ORDERS. PT HAVING PRODUCTIVE COUGH AND HICCUPS PERIODICALLY THROUGH THE NIGHT. PT HOB KEPT ELEVATED 30 DEGREES OR MORE. HOURLY ROUNDING COMPLETED AND ALL NEEDS MET. PT HAS MAG-3 RENAL SCAN ORDERED, NO LASIX 24HRS PRIOR TO PROCEDURE. WILL CONTINUE TO MONITOR FOR REMAINDER OF THE SHIFT
[2017-09-20 08:00] VITALS: BP 115/42
--- NOTE | 2017-09-20 11:06 | NUR ---
Roxana from [facility] here to check in on Pt. Plan to continue to follow, Pt does not qualify for SNF at this time d/t, the fact that Pt has 2 SPENCER drains, Pt continues to have a NG tube (facility can accept Peg tube), Pt has been requiring a sitter when his is not in the room. GI consult placed for possible tube feeding leaking through SPENCER drain. Spoke with Dr Rosenberg regarding LTAC, CM to discuss with surgery to determine POC. Following.
[2017-09-20 12:33] VITALS: BP 130/42
--- NOTE | 2017-09-20 12:35 | NUR ---
ASSUMED CARE OF PATIENT THIS AM AT 0730. PATIENT IS ALERT AND ORIENTED X 3. PATIENT REORIENTED TO SITUATION. PATIENT INITALLY DENIED PAIN BUT LATER C/O A HEADACHE. PATIENT MEDICATED FOR HOBSON THIS AM AND LATER VERBALIZED RELIEF. PATIENT WORKED WITH PT AND OT AND IS UP UN THE CHAIR AT THIS TIME. IR CONTACTED TO PLACE J TUBE. IR NOT ALBE TO PLACE JTUBE AND DR KNIGHT NOTIFIED. GI CONSULTED AND IN TO SEE PATIENT. THEY WERE ALSO UNABLE TO PLACE TUBE. SURGERY NOTIFIED. PLANS FOR PATIENT TO SEE SPEECH THERAPIST TO ATTEMPT ORAL FEEDINGS. FAMILY IS IN AT THE BEDSIDE. TELE SHOWS NSR. TUBE FEEDING IS OFF AT THIS TIME. RADIOLOGY SCAN SCHEDULED FOR TODAY. ALL DRAINS PRESENT AND TO DD. MUCOUS OSTOMY BAG CHANGED. WILL CONTINUE TO MONITOR.
[2017-09-20 16:02] VITALS: BP 127/73
[2017-09-20 19:30] VITALS: BP 113/51
[2017-09-21] VITALS (7 sets, daily range): BP systolic 104–140; BP diastolic 44–51
--- NOTE | 2017-09-21 03:39 | NUR ---
RECEIVED REPORT AND ASSUMED CARE AT 1900. VSS. CARDIAC MONITORING IN PLACE. PT DENIES ANY COMPLAINTS OF PAIN. ASSESSMENT COMPLETED CHARTED. DISCUSSED PLAN OF CARE WITH PT, VERBALIZED UNDERSTANDING. MEDICATION ADMINISTERED PER ORDERS. POSITION CHANGED EVERY 2 HOURS. HOURLY ROUNDING COMPLETED AND ALL NEEDS MET. PT HAS NG TUBE, SPENCER DRAIN X2, BILI-DRAIN, ILLEOSTOMY, COLOSTOMY/MUCOUS FISTULA, MCQUEEN CATH. PT UP MAX ASSIST, ON RA. PT REPORTS HICCUPS, PRN MEDICATION ADMIN. PT REPORTS DECREASE IN HICCUPS. PT IS ACCU CHECK Q6H. NURSING WILL CONTINUE TO MONITOR FOR REMAINDER OF THE SHIFT
--- NOTE | 2017-09-21 11:00 | NUR ---
ASSUMED CARE OF PT AFTER REPORT AT 0730.PT IS ALERT AND ORIENTED X 2-3.PT ON ROOM AIR. SR ON TELE. PT CENTRAL LINE INFUSING WELL. PT NGT PATENT AND INTACT. PT WITH ILEOSTOMY AND COLOSTOMY.SPENCER DRAIN X2 AND BILI DRAIN MAINTAINED ON NEGATIVE PRESSURE.SEEN BY SURGERY FOR INCISION CARE. COMPLAINS OF GENERALIZED PAIN WITH PAIN SCALE OF 3/10 AND PT DOES NOT WANT PAIN MEDS OF THE MOMENT. CALL LIGHT WITHIN REACH. WILL CONTINUE TO MONITOR PT.
--- NOTE | 2017-09-21 14:50 | NUR ---
RECEIVED CONSULT FOR POSSIBLE REHAB ADMISSION. CONSULT HAS BEEN ACKNOWLEDEGED BY SALES ROUTE DRIVER AND DR. MALDONADO. PATIENT HAS HAD LONG HOSPITAL STAY AND IS S/P MULTIPLE ABDOMINAL SXS FOR COLON CA NOW WITH COLOSTOMY AND ILEOSTOMY. PT HAS DYSPHAGIA AND HAS AN NG TUBE FOR FEEDING NOW WITH ASPIRATION PNUEMONIA. FEEDING TUBE NEEDED BUT GI CANNOT PLACE BECAUSE OF ABDOMINAL ANATOMY CHANGES AFTER SX AND OPEN ABDOMINAL WOUND WITH MESH CLOSURE. POSSIBLE SX PLACEMENT OF G TUBE PENDING. PT IS EXTREMELY DEBILITATED HE HAS BEEN PARTICIPATING IN THERAPIES ABLE HOWEVER IS STILL REQUIRING A SITTER WHEN IS NOT PRESENT. PT WILL NEED REHAB ONCE MEDICALLY STABLE. WILL FOLLOW ALONG WITH PT TO SEE HOW HE PROGRESSES MEDICALLY AND WITH THERAPIES TO SEE IF PT ABLE TO TOLERATE ACUTE REHAB ONCE MEDICALLY STABLE. THANK YOU FOR THIS REFERRAL.
--- NOTE | 2017-09-21 18:47 | NUR ---
PT A&0 X3. PT ON RA WITH 02 SAT OF 95%. PT IV LINE PATENT AND INTACT. CONTINUOUS FEEDING TOLERATED WELL.RELATIVE CLAIMED PT HAD A ONE TIME EPISODE OF PROJECTILE VOMITING AND WITH BRIGHT YELLOW VOMITUS NOTED-DR KNIGHT INFORMED. SEEN BY SPEECH THERAPIST. TRIED ICE CHIPS BUT CANNOT BE TOLERATED.ABDOMINAL XRAY DONE. PT REQUEST FOR GENERALIZED PAIN AND PAIN MEDS GIVEN. FOR VIDEO SWALLOW VASHTI. CALL LIGHT WITHIN REACH. WILL CONTINUE TO MONITOR PT.
--- NOTE | 2017-09-21 19:45 | NUR ---
RECEIVED REPORT AND ASSUMED CARE OF PT, ASSESSMENT COMPLETED. ASSISTED REPOSITIONING IN BED. ILEOSTOMY PATENT. MUCOUS FISTULA WITH DRAINAGE BAG, NO DRAINAGE. T-TUBE WITH BILE DRAINAGE. SPENCER X2 SM AMT CLOUDY DRAINAGE. ABD BINDER ON. HAVING FREQ COUGH WITH CLEARING THROAT. STATES HE IS HAVING SM AMT OF THROW UP BUT ATTEMPTED TO REASSURE HER IT IS SECRETIONS FROM LUNGS. TOLERATING TUBE FEEDING AT 50 CC/HR. TELEMETRY ON SHOWING SR. STAYING AT BEDSIDE. WILL CONT TO MONITOR AND ASSIST NEEDED.
[2017-09-22 03:30] VITALS: BP 126/44
[2017-09-22 04:54] LABS: ABSOLUTE BASOPHILS 0.1 thou/uL (0.0-0.2); ABSOLUTE EOSINOPHILS 0.3 thou/uL (0.0-0.7); ABSOLUTE LYMPHOCYTES 1.6 thou/uL (0.8-5.3); ABSOLUTE MONOCYTES 0.8 thou/uL (0.0-1.2); ABSOLUTE NEUTROPHILS 7.1 thou/uL (1.6-8.1); BASOPHILS 0.9 %; HEMATOCRIT 22.7 % (42.0-52.0); HEMOGLOBIN 7.7 gm/dL (14.0-18.0); LYMPHOCYTES 16.3 %; MCH 29.2 pg (26.0-34.0); MCV 85.9 fL (80.0-100.0); MPV 8.5 fl. (7.2-11.1); NUCLEATED RBCS 0 /100WBC; POLYS 71.8 %; RBC 2.64 mil/uL (4.50-6.00); RDW-CV 15.9 % (10.5-14.5); WBC 9.9 thou/uL (4.0-11.0)
[2017-09-22 04:58] LABS: PLATELET COUNT* 269 thou/uL (150-400)
[2017-09-22 05:21] LABS: ALBUMIN 1.9 g/dL (3.4-5.0); CALCIUM 7.6 mg/dL (8.5-10.1); CREATININE 1.5 mg/dL (0.6-1.3); POTASSIUM 3.2 mmol/L (3.5-5.1); TOTAL BILIRUBIN 0.3 mg/dL (<0.1-1.0)
[2017-09-22 05:23] LABS: MAGNESIUM 1.8 mg/dL (1.8-2.4); PHOSPHORUS* 2.7 mg/dL (2.5-4.9)
--- NOTE | 2017-09-22 07:12 | NUR ---
PT CONFUSED AND TALKING TO SELF. 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 NO SITTER AT BEDSIDE, PT IS NOT PULLING AT TUBES. TOLERATING TUBE FEEDING. PASSING LG AMT OF FLATUS PER ILEOSTOMY. TELEMETRY CONT TO SHOW SR. NO CHANGE IN ASSESSMENT. HS GOALS OF REST AND SAFETY ACHIEVED. HOURLY ROUNDING OBSERVED.
[2017-09-22 08:00] VITALS: BP 186/51
--- NOTE | 2017-09-22 11:00 | NUR ---
ASSUMED CARE OF PT AFTER REPORT AT 0730. PT A&OX4. VSS, PHYSICAL ASSESSMENT COMPLETED AND CHARTED. PT ON RA WITH O2 SAT OF 95%. SR ON TELE. PT IV LINE INFUSING WELL. WITH NASOGASTRIC TUBE PATENT AND INTACT CONNECTED TO CONTUINUOS FEEDING. WITH COLOSTOMY AND ILEOSTOMY BAG IN PLACED. WITH BILI BAG DRAINING TO YELLOWISH OUTPUT. WITH SPENCER X2 MAINTAINED ON NEGATIVE PRESSURE-CREAMY COLORED DISCHARGE NOTED. WITH FC DRAINING TO BLOODY URINE. FOR VIDEO SWALLOW TODAY. COMPLAINED OF GENERALIZED PAIN WITH PAIN SCALE OF 3/10.CALL LIGHT WITHIN REACH. WILL CONTINUE TO MONITOR PT.
--- NOTE | 2017-09-22 14:11 | NUR ---
CM spoke with surgery, plan drain removal soon, Pt passed swallow study. Plan SNF v rehab dc early next week. Updated Roxana with [facility] of Pt's progress.
[2017-09-22 15:26] VITALS: BP 130/45
--- NOTE | 2017-09-22 18:45 | NUR ---
PT A&OX4. VSS. SR ON TELE. CHANGED STATUS TO MED SURG.PT PASSED VIDEO SWALLOW. NGT REMOVED PER ORDER. STARTED ON PUREE WITH NECTAR -THICK LIQUIDS-ABLE TO TOLERATE WELL. MEDS CRUSHED IN AND GIVEN WITH PUREE.PERIPHERAL LINE INSERTED PER ORDER. SEEN BY OT & PT. SEEN BY URO-BLOODY URINE ON MCQUEEN CATHETER AWARE. CALL LIGHT WITHIN REACH. WILL CONTINUE TO MONITOR PT.
[2017-09-22 20:00] VITALS: BP 126/49
[2017-09-23] VITALS: BP 121/71
--- NOTE | 2017-09-23 05:32 | NUR ---
ASSUMED PT CARE AT 1930. ASSESSMENT COMPLETED CHARTED. NO C/O PAIN OR DISCOMFORT EXCEPT WHILE GIVING HIM POTASSIUM IV AND MADE PT NAUSEOUS. IN ROOM WITH PATIENT, MIDLINE STILL IN PER HIMS DOC, RIGHT WRIST IV PATIENT AND IVF RUNNING. PT RESTING IN BED, A & O X 4, SLIGHTLY CONFUSED YET MORE ORIENTATED THAN A FEW WEEKS AGO. WILL CONTINUE TO MONITOR.
[2017-09-23 07:58] VITALS: BP 170/59
--- NOTE | 2017-09-23 09:46 | NUR ---
ASSUMED CARE OF PT THIS AM AROUND 0715- M/S STATUS MAINTAINED- UPON ASSESSMENT PT NOTED TO BE RESTING IN BED SLEEPING, BUT ARROUSABLE- PT A&O 2-3 WITH NOTED INTERMITENT CONFUSSION- PT STATES THIS MORNING THAT HEN IS TIRED AND IS SLOWLEY SLIPPING AWAY- MAX ASIST X2 WITH TRANSFERS, Q [address] INDICATED- EXPIRATORY WHEEZING NOTED, BR TX PER RT PRESCIBED THIS AM- VSS, O2 SAT 97% ON RA- ABDOMEN FIRM/ROUND/NO-TENDER- MIDLINE INCISSION WITH DRESSIGN IN PLACE, MINIMAL SATURATION NOTED WITH BINDER IN PLACE, DRESSING TO BE CHANGED PER SURGERY- RLQ COLOSTOMY NOTED INTACT WITH YELLOW/BROWN LIQUID STOOL NOTED- ILEOSTOMY IN PLACE NO DRAINAGE NOTED-MCQUEEN IN PLACE DRAINING BLOOD TINGED URINE, REPORTED TO HAVE HAD CLOT ON PRIOR SHIFT IN CATH TUBING- BILARY DRIN IN PLACE, BROWN DRAINAGE NOTED- SPENCER DRAINS IN PLACE, NO DRAINGE NOTED THIS AM- PUREE DIET WITH NECTAR LIQUIDS IN PLACE PRESCIBED, ASSIST WITH MEALS PER , POOR PO INTAKE NOTED THIS AM WITH BREAKFAST- PT DENIES ANY C/O PAIN/DISCOMFORT THIS AM- CALL LIGHT AND PERSONAL BELONGINGS WITH IN REACH- HOURLY ROUNDS IN PLACE R/T SAFETY/NEEDS- ALL NEEDS MET AT THIS TIME-WCTM
--- NOTE | 2017-09-23 10:57 | NUR ---
PT TRANSFERED FROM 205 TO 305 VIA BED AT 1030. REPORT HAS BEEN RECEIVED. ASSESSMENT CHARTED. PT IS RESTING. AT THE BEDSIDE. WILL CONTINUE TO MONITOR.
[2017-09-23 11:33] LABS: HEMATOCRIT 23.2 % (42.0-52.0); HEMOGLOBIN 7.7 gm/dL (14.0-18.0); MCH 28.9 pg (26.0-34.0); MCHC 33.2 g/dL (28.0-37.0); MPV 9.4 fl. (7.2-11.1); NUCLEATED RBCS 0 /100WBC; PLATELET COUNT* 255 thou/uL (150-400); RBC 2.66 mil/uL (4.50-6.00); RDW-CV 16.3 % (10.5-14.5); WBC 8.4 thou/uL (4.0-11.0)
[2017-09-23 12:00] VITALS: BP 131/55
[2017-09-23 12:47] LABS: ABSOLUTE EOSINOPHILS 0.5 thou/uL (0.0-0.7); ABSOLUTE LYMPHOCYTES 1.3 thou/uL (0.8-5.3); ABSOLUTE MONOCYTES 1.1 thou/uL (0.0-1.2); ABSOLUTE NEUTROPHILS 5.5 thou/uL (1.6-8.1); PLATELET ESTIMATE ADEQUATE
[2017-09-23 12:49] LABS: ANISOCYTOSIS 1+
[2017-09-23 16:00] VITALS: BP 119/45
[2017-09-23 21:00] VITALS: BP 138/58
[2017-09-24] VITALS: BP 130/55
--- NOTE | 2017-09-24 05:54 | NUR ---
RESTING QUIETLY IN BED AT THIS TIME AT BEDSIDE. TYLENOL GIVEN X1 AND HELPFUL. HAS ABD BINDER ON AROUND FISTULA BAG AND ILEOSTOMY BAG. ILEOSTOMY BAG HAD 250ML OF LOOSE LIGHT BROWN STOOL. MEDIUM AMOUNT OF DARK BROWN FORMED STOOL NOTED UNDER FISTULA BAG. SMALL AMOUNT OF DRAINAGE NOTED IN SPENCER DRAINS. BILI DRAINAGE BAG HAD LARGE AMOUNT OF DARK GREEN DRAINAGE. MCQUEEN CATHETER PATENT WITH CLEAR YELLOW URINE. REPOSITIONED SEVERAL TIME DURING NIGHT. INCISIONAL DRESSING HALF SATURATED WITH YELLOWISH DRAINAGE, CHANGED. CALL LIGHT WITHIN REACH.
[2017-09-24 08:00] VITALS: BP 140/61
[2017-09-24 08:15] LABS: HEMATOCRIT 24.5 % (42.0-52.0); HEMOGLOBIN 8.2 gm/dL (14.0-18.0); MCH 28.8 pg (26.0-34.0); MCHC 33.5 g/dL (28.0-37.0); MPV 8.5 fl. (7.2-11.1); RBC 2.84 mil/uL (4.50-6.00); RDW-CV 16.1 % (10.5-14.5); WBC 7.9 thou/uL (4.0-11.0)
[2017-09-24 08:18] LABS: CALCIUM 8.1 mg/dL (8.5-10.1); CREATININE 1.5 mg/dL (0.6-1.3); POTASSIUM 3.7 mmol/L (3.5-5.1)
--- NOTE | 2017-09-24 16:33 | NUR ---
PT UP IN CHAIR MOST OF AFTERNOON. PT PLEASANTLY CONFUSED AT TIMES BUT EASILY REDIRECTED. MUCUS FISTULA AND ILEOSTOMY DRAINING APPROPRIATELY. ABD BINDER IN PLACE. POOR APPETITE. PT REPORTS OCASSIONAL ABD PAIN. IVF INFUSING
[2017-09-24 17:00] VITALS: BP 117/57
[2017-09-24 23:41] VITALS: BP 118/56
--- NOTE | 2017-09-25 05:50 | NUR ---
ASSESSMENT COMPLETE. PT SLEPT MOST OF THE NIGHT. TURNED Q2 FOR SKIN INTEGRITY. PT IS ON ROOM AIR WITH ADEQAUTE SATS. DENIES NEED FOR PAIN MEDS. IV FLUIDS INFUSING. DRAINS AND ABDOMINAL BINDER IN PLACE. ACCU CHECK QS. MCQUEEN IN PLACE WITH ADEQAUTE OUTPUT. PT IS UP ONE ASSIST WITH GAIT BELT TO CHAIR. SEE ASSESSMENT AND VITALS FOR OTHER DETAILS. BED ALARM ON, CALL LIGHT WITHIN REACH. WILL CONTINUE PLAN OF CARE
[2017-09-25 07:40] VITALS: BP 140/60
--- NOTE | 2017-09-25 13:02 | NUR ---
SW followed up with pt and pt as pt moved to med surg from [facility]. Pt expressed not feeling well today; pt mentioned that pt was able to participate in therapies but that he was worn out now. SW discussed dc planning/placement and pt said she'd heard about inpt rehab and pt said she did not feel pt would be able to tolerate 3 hrs of therapy a day, pt said she would rather [facility] SNF because pt felt pt would need more time and that pt has been through more medically now than before.... SW discussed referral for SNF with Roxana from [facility] and they are continuing to follow pt situation but said that they weren't able to meet pt needs initially. Pt said that Roxana was going to meet with them but said she would meet with them tomorrow. SW to continue to follow to assist with safe dc planning/finalizing dc placement.
[2017-09-25 17:27] VITALS: BP 127/56
--- NOTE | 2017-09-25 17:32 | NUR ---
PATIENT IS ALERT AND ORIENTED TIMES 2-3, PLEASANT AND COOPERATIVE. AT BEDSIDE TODAY. IV FLUIDS RUNNING IM LEFT WRIST. NO COMPLAINTS OF PAIN TODAY. VITAL SIGNS STABLE ON ROOM AIR. UP TO CHAIR PART OF THE DAY. CALL LIGHT IS IN REACH, BED ALARM ON, AT BEDSIDE. WILL CONTINUE TO MONITOR.
[2017-09-25 23:45] VITALS: BP 115/46
--- NOTE | 2017-09-26 05:54 | NUR ---
ASSESSMENT COMPLETE. PT SLEPT THROUGH THE NIGHT WITHOUT ANY CONCERNS. AT BEDSIDE. IV FLUIDS INFUSING. Q2 TURN. FALL RISK, BED ALARM ON. SEE ASSESSMENT AND VITALS FOR OTHER DETAILS. CALL LIGHT WITHIN REACH, WILL CONTINUE PLAN OF CARE.
[2017-09-26 09:00] VITALS: BP 129/63
--- NOTE | 2017-09-26 15:02 | NUR ---
Pt not ready to dc today due to medical status and pending inpt rehab or SNF acceptance. SW to continue to follow to assist with finalizing safe dc plan/placement.
--- NOTE | 2017-09-26 16:10 | NUR ---
PATIENT SITTING UP IN CHAIR FROM AFTERNOON TILL EVENING. CHOLEY TUBE DC'D BY SURGERY THIS AM. FREQUENT CHECKS TO ABD REGARDING WHERE CHOLEY TUBE WAS DC'D, REQUEST MADE PER SURGERY. DC OF SPENCER DRAINS IN THE NEXT FEW DAYS PER SURGERY. MCQUEEN DC'D PER UROLOGY AT APPROX 1000, PATIENT BLADDER SCANNED AT 1500 AND ONLY 168MLS NOTED IN BLADDER. PATIENT COUGHING UP CLEAR SPUTUM THIS AM, SURGERY WAS AWARE THAT THIS FINDING WAS NOT NEW WHILE ROUNDING. PATIENT THIS AFTERNOON COUGHING UP YELLOW BILE. DR. DOWELL WAS NOTIFIED AND CAME TO SEE PATIENT. DR. DOWELL STATED HE WOULD NOTIFY DR. CROOKS, NO NEW ORDERS RECEIVED AT THIS TIME. DR. MORRELL ALSO MADE AWARE, NO NEW ORDERS. PATIENT EVAULATED FOR REHAB THIS AFTERNOON.
--- NOTE | 2017-09-26 16:12 | NUR ---
CONTINUEING TO FOLLOW PT ALONG WITH DR. MALDONADO. PT NOW PARTICIPATING BETTER WITH THERAPIES AND IS OOB SITTING UP AND AMBULATING SHORT DISTANCES. SPOKE WITH PT AND SPOUSE BOTH STATE THEY ARE INTERESTED IN ACUTE REHAB AND UNDERSTAND QUALIFICATIONS AND ARE IN AGREEMENT. PT WOULD BENEFIT FROM ACUTE REHAB ONCE MEDICALLY STABLE AND IF ABLE TO TOLERATE 3 HOURS OF THERAPY. WILL CONTINUE TO FOLLOW.
[2017-09-26 16:16] VITALS: BP 126/50
[2017-09-27 01:02] VITALS: BP 126/59
--- NOTE | 2017-09-27 05:41 | NUR ---
ASSESSMENT COMPLETE. PT SLEPT GOOD THROUGH THE NIGHT. PT TURNED Q2 FOR SKIN INTEGRITY. PT UNABLE TO URINATE DURING THE NIGHT. LAST BLADDER SCAN AT 0500 SHOWED GREATER THAN 700ML OF URINE. MCQUEEN PLACED, 16F COUDE USED. PT REPORTS FEELING BETTER AFTER PLACEMENT. PT NPO FOR SWALLOW STUDY TODAY. PT HAS IV IN LEFT WRIST WITH FLUIDS INFUSING. DRAINS AND ABD BINDER IN PLACE. PT IS FALL RISK, BED ALARM ON. AT BEDSIDE. SEE ASSESSMENT AND VITALS FOR OTHER DETAILS. CALL LIGHT WITHIN REACH, WILL CONTINUE PLAN OF CARE
[2017-09-27 08:59] VITALS: BP 139/61
[2017-09-27 15:41] VITALS: BP 110/47
--- NOTE | 2017-09-27 17:24 | NUR ---
PATIENT CAME TO THE FLOOR TODAY FROM THE ICU IN STABLE CONDITION. MO COMPLAINTS OF ANY KIND AT THIS TIME. PATIENT IS UP ANGEL IN ROOM AND HAS BEEN AMBULATING IN THE [place]ALLWAYS WITH . FLUIDS RUNNING IN LEFT FORARM ALONG WITH ANTIBIOTICS. VITAL SIGNS ARE STABLE ON ROOM AIR. CALL LIGHT IS IN REACH, WILL CONTINUE TO MONITOR.
--- NOTE | 2017-09-27 17:26 | NUR ---
PATIENT HAS BEEN ALERT TODAY, VERY PLEASANT. UP IN THE CHAIR MOST OF THE DAY. AND FAMILY HAVE BEEN AT BEDSIDE. SOME COMPLAINTS OF DISCOMFORT AROUND MCQUEEN, LEVSIN HAS BEEN GIVEN AND SEEMS TO HELP. VITAL SIGNS HAVE BEEN STABLE ON ROOM AIR. CALL LIGHT IS IN REACH, CHAIR ALARM IS ON, WILL CONTINUE TO MONITOR.
[2017-09-27 20:00] VITALS: BP 128/52
[2017-09-28 05:06] LABS: ALBUMIN 2.2 g/dL (3.4-5.0); CALCIUM 7.7 mg/dL (8.5-10.1); CREATININE 1.5 mg/dL (0.6-1.3); TOTAL BILIRUBIN 0.4 mg/dL (<0.1-1.0); TOTAL PROTEIN 6.1 g/dL (6.4-8.2)
--- NOTE | 2017-09-28 05:55 | NUR ---
ASSUMED CARE OF PATIENT AT 1900 THE PATIENT O2 SAT IS MAINTAINED ON RA SPOUSE REMAINS AT BEDSIDE THE ROUTINE REGIMEN CONTINUES TO BE EFFECTIVE FOR SX MANAGEMENT NIGHT UNEVETFUL PATIENT CONTINUES TO PROGRESS TOWARDS GOALS ABDOMEN BINDER REMAINS IN PLACE OSTOMY X 2 PRESENT RECEIVED PRN FOR BLADDER SPASM X 1 DOSE AT 0200 SAFETY INTERVENTIONS CONTINUE BED LOWERED WHEELS LOCKED CALL LIGHT IN REACH SIDE RAILS UP REPORT TO BE GIVEN TO ONCOMING MYKE
[2017-09-28 10:26] VITALS: BP 123/50
--- NOTE | 2017-09-28 11:02 | NUR ---
SW followed up on pt dc planning for today. SW spoke with Roxana from [facility] who said that they would be able to accept pt today. SW spoke with [facility] who said that they will be able to confirm if pt is accepted to rehab this afternoon. Pt nurse aware. SW to continue to follow.
[2017-09-28] MEDS ORDERED: ARICEPT 5 MG TAB5 MG PO (12:23)
[2017-09-28] MEDS ORDERED: CHLORASEPTIC20 M1 PO (12:24)
[2017-09-28] MEDS ORDERED: NAMENDA 10 MG T10 MG PO (12:25)
[2017-09-28] MEDS ORDERED: LEVSIN0.125 MG PO (12:25)
[2017-09-28] MEDS ORDERED: PROTONIX40 M1 PO (12:26)
[2017-09-28] MEDS ORDERED: TUMS PO (12:27)
[2017-09-28 15:02] VITALS: BP 123/50
--- NOTE | 2017-09-28 16:00 | NUR ---
PATIENT IS ALERT AND ORINETED TO SELF AND SITUATION MOST OF THE TIME. COMPLAINS OF PAIN AT TIMES WITH MCQUEEN. VITAL SIGNS ARE STABLE ON ROOM AIR. DISCHARGE INSTRUCTIONS GIVEN. REPORT CALLED TO REHAB UNIT. BELONGINGS GATHERED UP BY FAMILY AND NURSING STAFF. TRANSPORTED TO ROOM 322.
[2017-09-28 16:03] VITALS: BP 123/50
--- NOTE | 2017-10-10 16:58 | CON ---
[address] [address] CONSULTATION Name: VICTORIA SANTIZO Room: [address] [place] .R.#: [id number] Admission: 08/23/17 Attend Phys: Bora Ortega Discharge: 09/28/17 Date of : 32 Report #: [id number] THIS REPORT FOR: //name// CC: Eliot Rosenberg DICTATED BY: Eda Souza [facility] DATE OF SERVICE: 09/20/2017 Please note, at the time of this dictation, the patient was seen and physically examined by myself. REASON FOR CONSULTATION: Placement of a PEG tube. HISTORY OF PRESENT ILLNESS: This is an 86-year-old male who presented to the Emergency Room on 08/23/2017 with evaluation of his abdominal pain and near syncopal episode. He had been having significant abdominal pain after eating dinner. He tried some Pepto-Bismol, had a lot of gas. He went to the bathroom in the middle of the night and when he got back in bed, he had kind of fell into bed and his then called 911 with that. The patient had been having a lot of epigastric pain on a daily basis for several months and he was taking Aleve twice a day along with the baby aspirin daily. In asking the patient, he has never had an EGD or colonoscopies done in the past. It was noted on admission that he had some free air in his abdomen, but he was very reluctant to have surgery. Once patient then underwent surgery in which they found a malignant-appearing transverse colon perforation with fistulization to the duodenum. When they performed an exploratory laparotomy, they did an extended right hemicolectomy, antrectomy and Billroth II with handsewn gastrojejunostomy anastomosis. Cholecystostomy tube was placed, washout of the abdomen and peritoneal lavage and ABThera wound VAC was placed. At the time of surgery, it was highly suggestive of colon cancer. 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 In reviewing the patient's chart, it was noted also too that a complete mesh was placed over his abdomen and Surgery initially had consulted IR. IR deferred back to the hospitalist saying that they would not be able to do it. So, therefore, they deferred back to GI. 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 Therefore, GI would not be able to place this gastrostomy tube. ALLERGIES: PENICILLIN, SULFA, AND EGG. MEDICATIONS: From home included Neurontin, naproxen, omega-3, aspirin, Mily, Toprol, Crestor, [place]chicine [place] [address] CONSULTATION Name: DARLYNVICTORIA Rose Room: [address] [place] M.R.#: [id number] Admission: 08/23/17 Attend Phys: Bora Ortega Discharge: 09/28/17 Date of : 31 Report #: [id number] PAST MEDICAL HISTORY: Heart disease and hypertension. PAST SURGICAL HISTORY: Tonsillectomy. FAMILY HISTORY: Noncontributory. SOCIAL HISTORY: Lives with his . Denies any alcohol, tobacco or illegal drug use. REVIEW OF SYSTEMS: Twelve-point review of systems is essentially negative except what is mentioned in the HPI. PHYSICAL EXAMINATION: VITAL SIGNS: Temperature 37, pulse 89, respirations 20, blood pressure 101/58. HEART: Regular rate and rhythm. LUNGS: Diminished with some crackles. ABDOMEN: Soft with some tenderness noted with the left fistula with an ostomy bag over it. Midline incision into the right colostomy bag noted. He is currently n.p.o. and has a nasogastric tube through his nose for tube feedings at the present time. He had a video swallow done, which showed silent aspiration. LABORATORY DATA: Hemoglobin 8.5, hematocrit 27.1, white count is 13.4, platelets 403. Sodium 142, potassium 3.8, chloride 110, CO2 23, BUN is 34, creatinine was 1.6, GFR is 41 and glucose of 140. IMPRESSION: 1. Aspiration pneumonia. 2. Perforated adenocarcinoma of the transverse colon. 3. nutrition. PLAN: 1. Placement of gastrostomy tube or jejunostomy tube was going to have to be done by IR or surgical placement because of the mesh and unable to disrupt that placing a gastrostomy tube. We would have to go through the mesh plus he has altered anatomy of the antrectomy as well as the Billroth II procedure that was performed. 2. We will discuss this with Dr. Guerra and he can intervene with surgery or IR [place] the [place] [address] CONSULTATION Name: VICTORIA SANTIZO Room: [address] [place] M.R.#: [id number] Admission: 08/23/17 Attend Phys: Bora Ortega Discharge: 09/28/17 Date of : 31 Report #: [id number] Thank you for allowing us to participate in this patient's care. Please do not hesitate to call with any questions in regard to this consult. <ELECTRONICALLY SIGNED> By: Rocky Guerra MD 10/10/17 1658 [id number] 1908Rocky Guerra MD /nt
== END 2017-09-28 15:59 | DRG 853 ==
LOC: M.ERS 04:38 → M.3W 06:39 → M.ICU 06:39 → M.TBA-ER 06:39 → M.ICU 09:20 → M.ORTHSURG 08-31 09:06 → M.2W 08-31 12:09 → M.ICU 09-05 03:35 → M.2W 09-11 09:42 → M.3W 09-23 10:34
PROVIDERS: Emergency Medicine; Family Medicine; Internal Medicine; Internal Medicine Critical Care Medicine; Internal Medicine Infectious Disease; Internal Medicine Pulmonary Disease; Otolaryngology Otolaryngology/Facial Plastic Surgery; Physician Assistant; Radiology Diagnostic Radiology; Specialist; Surgery; Urology; ADMIT Internal Medicine
PROC: 4A133B1 Monitoring of Arterial Pressure, Peripheral, Percutaneous Approach (ICD-10-PCS; principal; 2017-08-23)
PROC: 5A1955Z Respiratory Ventilation, Greater than 96 Consecutive Hours (ICD-10-PCS; principal; 2017-08-23)
PROC: 0DTF0ZZ Resection of Right Large Intestine, Open Approach (ICD-10-PCS; principal; 2017-08-23)
PROC: 03HY32Z Insertion of Monitoring Device into Upper Artery, Percutaneous Approach (ICD-10-PCS; principal; 2017-08-23)
PROC: 0D160ZA Bypass Stomach to Jejunum, Open Approach (ICD-10-PCS; principal; 2017-08-23)
PROC: 0BH17EZ Insertion of Endotracheal Airway into Trachea, Via Natural or Artificial Opening (ICD-10-PCS; principal; 2017-08-23)
PROC: 0DT70ZZ Resection of Stomach, Pylorus, Open Approach (ICD-10-PCS; principal; 2017-08-23)
PROC: 4A133J1 Monitoring of Arterial Pulse, Peripheral, Percutaneous Approach (ICD-10-PCS; principal; 2017-08-23)
PROC: 0F943ZZ Drainage of Gallbladder, Percutaneous Approach (ICD-10-PCS; principal; 2017-08-23)
PROC: 0DJ08ZZ Inspection of Upper Intestinal Tract, Via Natural or Artificial Opening Endoscopic (ICD-10-PCS; 2017-08-24)
PROC: 3E1M38Z Irrigation of Peritoneal Cavity using Irrigating Substance, Percutaneous Approach (ICD-10-PCS; 2017-08-24)
PROC: 0D1B0Z4 Bypass Ileum to Cutaneous, Open Approach (ICD-10-PCS; 2017-08-24)
PROC: 0DT80ZZ Resection of Small Intestine, Open Approach (ICD-10-PCS; 2017-08-24)
PROC: 0WQF0ZZ Repair Abdominal Wall, Open Approach (ICD-10-PCS; 2017-08-24)
PROC: 5A09357 Assistance with Respiratory Ventilation, Less than 24 Consecutive Hours, Continuous Positive Airway Pressure (ICD-10-PCS; 2017-09-05)
PROC: 0WUF0JZ Supplement Abdominal Wall with Synthetic Substitute, Open Approach (ICD-10-PCS; 2017-09-05)
PROC: 02H633Z Insertion of Infusion Device into Right Atrium, Percutaneous Approach (ICD-10-PCS; 2017-09-08)
DX: A41.9 Sepsis, unspecified organism (principal); R65.21 Severe sepsis with septic shock; K27.5 Chronic or unspecified peptic ulcer, site unspecified, with perforation; N17.0 Acute kidney failure with tubular necrosis; I21.4 Non-ST elevation (NSTEMI) myocardial infarction; J96.01 Acute respiratory failure with hypoxia; K63.1 Perforation of intestine (nontraumatic); J69.0 Pneumonitis due to inhalation of food and vomit; G92 Toxic encephalopathy; K83.1 Obstruction of bile duct; E43 Unspecified severe protein-calorie malnutrition; K31.6 Fistula of stomach and duodenum; J98.11 Atelectasis; K81.0 Acute cholecystitis; E87.0 Hyperosmolality and hypernatremia; K56.7 Ileus, unspecified; E78.00 Pure hypercholesterolemia, unspecified; E78.5 Hyperlipidemia, unspecified; N40.0 Benign prostatic hyperplasia without lower urinary tract symptoms; I25.10 Atherosclerotic heart disease of native coronary artery without angina pectoris; I95.9 Hypotension, unspecified; K59.00 Constipation, unspecified; D64.9 Anemia, unspecified; I11.0 Hypertensive heart disease with heart failure; N13.5 Crossing vessel and stricture of ureter without hydronephrosis; E87.6 Hypokalemia; E87.8 Other disorders of electrolyte and fluid balance, not elsewhere classified; R31.0 Gross hematuria; I50.9 Heart failure, unspecified; R13.10 Dysphagia, unspecified; F03.90 Unspecified dementia, unspecified severity, without behavioral disturbance, psychotic disturbance, mood disturbance, and anxiety; R33.9 Retention of urine, unspecified; I25.2 Old myocardial infarction; Z88.0 Allergy status to penicillin; Z88.2 Allergy status to sulfonamides; Z91.012 Allergy to eggs; Z87.891 Personal history of nicotine dependence; Z68.32 Body mass index [BMI] 32.0-32.9, adult

== ENCOUNTER 2017-09-28 15:02 | Inpatient (IN) | payer MEDICARE ==
[~2017-09-28] VITALS: Ht 188 cm; Wt 91.5 kg
--- NOTE | ~2017-09-28 | EKG ---
[place] [address] ELECTROCARDIOGRAM REPORT Name: VICTORIA SANTIZO Room: [address] IN [facility].#: [id number] Admission: 09/28/17 Attend Phys: Edna Cardenas DO Discharge: 10/18/17 Date of : 32 Report #: [id number] THIS REPORT FOR: //name// [facility] ED Test Date: 2017-10-19 Test Time: 09:38:00 Pat Name: VICTORIA SANTIZO Department: Room: Gender: Elevating Grader Operator: Owen TOBAR : 1930 Requested By: Melanie Mercedes Order Number: [id number] MD: Measurements Intervals [place] Rate: 71 P: 8 VA: 157 QRS: -8 QRSD: 103 T: -1 QT: 407 QTc: 443 Interpretive Statements Sinus rhythm Abnormal R-wave progression, early transition Inferior infarct, old Baseline wander in lead(s) V3,V4 Compared to ECG 08/23/2017 19:02:57 No significant changes [email or web address] By: 0938 [address] [place], [place] /EPI
[~2017-09-28 15:02] MED LIST changes: +ALEVE220 M1 PO; +ARICEPT 5 MG TAB5 MG PO; +CHLORASEPTIC20 M1 PO; +GABAPENTIN 100100 MG PO; +LEVSIN0.125 MG PO; +NAMENDA 10 MG T10 MG PO; +PROTONIX40 M1 PO; +TUMS PO
[2017-09-28 16:30] VITALS: BP 111/48
--- NOTE | 2017-09-28 18:40 | NUR ---
86 YEAR OLD MALE PT ADMITTED TO ROOM 322 WITH DEBILITY AND ENCEPHALOPATHY. 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 ADMISSIION PROCESS COMPLETED. FAMILY AND PT HAVE BEEN ORIENTED TO THE REHAB SCHEDULE AND PLAN OF CARE. FALL PRECAUTIONS AND HOURLY ROUNDING IMPLEMENTED. NO ACUTE DISTRESS.
[2017-09-28 19:50] VITALS: BP 110/49
--- NOTE | 2017-09-29 01:38 | NUR ---
ASSUMED CARE @ 1939-09/28-.SITS IN RECLINER W/ & DAUGHTER VISITING @ THIS TIME.WATCHING TV ALSO.CHAIR ALARM PUT ON @ 1939.MCQUEEN CATHETER -PATENT. ILEOSTOMY BAG & MUCUS BAG BOTH IN PLACE.ABDOMINAL BINDER INTACT.WEARS LEFT KNEE SUPPORT FROM HOME & OFF @ HS.MEDICATIONS CRUSHED & MIXED W/ APPLE SAUCE. WANTS SCD'S @ HS & APPLIED. WENT HOME @ 2199.TRANSFER W/ 2 PERSONS FROM RECLINER TO BED @ 2129.HOB UP.BED ALARM PUT ON @ 2129.ANIA CARE DONE @ 2129. HEELS OFF BED @ 2139.SEE POSITION CHANGE CHARTING.PRODUCTIVE COUGHING PRESENT W/ CLEAR PHLEGM.EDEMA-+1 PITTING FEET & ANKLES.C/O PAIN BLADDER AREA @ 0035. PRN LEVSIN SL GIVEN @ 0035.MIDLINE ABDOMINAL DRSG CHANGED @ 49-09/29-MONDAY. ON HOURLY ROUNDS.
[2017-09-29 04:00] LABS: HEMATOCRIT 25.5 % (42.0-52.0); HEMOGLOBIN 8.5 gm/dL (14.0-18.0); MCH 28.9 pg (26.0-34.0); MCHC 33.4 g/dL (28.0-37.0); MCV 86.3 fL (80.0-100.0); MPV 7.9 fl. (7.2-11.1); RBC 2.95 mil/uL (4.50-6.00); RDW-CV 16.3 % (10.5-14.5); WBC 9.7 thou/uL (4.0-11.0)
[2017-09-29 04:13] LABS: CALCIUM 7.7 mg/dL (8.5-10.1); CREATININE 1.7 mg/dL (0.6-1.3)
--- NOTE | 2017-09-29 05:38 | NUR ---
SLEEPING SINCE 2199.TOOK ONLY 70 ML NECTAR THICK ICED TEA HS SNACK.EMPTIED ILEOSTOMY BAG X3 W/ GAS & X5 W/ STOOLS.
[2017-09-29 08:00] VITALS: BP 109/52
--- NOTE | 2017-09-29 15:14 | NUR ---
SW met with pt to complete initial rehab assessment, introduce self, and SW role. Pt was sleepy. Pt known to CM from acute stay and previous record of prolonged hospital stay. Pt lives at home with spouse and has son Jose Martin, DPOA and dtr in law support/involvement. SW to continue to follow to assist with safe dc planning.
--- NOTE | 2017-09-29 15:30 | NUR ---
I have reviewed the documentation by EVELYNE MIRZA from 09/29/17 to 09/29/17 and I concur with it. RUSTAM PABON.
--- NOTE | 2017-09-29 18:43 | NUR ---
ASSUMMED CARE OF PT AT 0730, PT ALERT, FORGETFUL, TRANSFERS WITH ASSIST OF 1, GB AND WALKER, NEEDS CUEING, PT TOLERATING FOOD AND THICKEND LIQUIDS, PT NEEDS ENCOURAGEMENT TO INCREASE FLUID INTAKE, ABDOMINAL DRESSING INTACT, MUCOUS BAG INTACT, ILEOSTOMY HAD MODERATE AMOUNT OF LIQUID STOOL OUT, BAG LEAKED AND APPLIANCE CHANGED, PT COMPLAINS OF BLADDER SPASMS, MEDICATED PER ORDER X 1, MCQUEEN HAS DARK BLOOD RETURNS, 250CC OUT, IRRIGATED CATH PER ORDER WITH YELLOW RETURNS AT 1700, ORDER TO CONSULT UROLOGY IF BLOODY URINE CONTINUES, PT TOLERATES MEDICATIONS CRUSHED IN APPLESAUCE, PARTICIPATED IN ALL THERAPIES, HOURLY ROUNDING COMPLETED, TO DININGROOM FOR MEALS, PT REPOSTIONED EVERY 2 HOURS, ASSESSMENT COMPLETE, WILL CONTINUE TO MONITOR.
[2017-09-29 20:50] VITALS: BP 109/46
--- NOTE | 2017-09-29 21:05 | NUR ---
ASLEEP IN RECLINER WITH LEGS ELEVATED. AWAKENED FOR HS REASSESSMENT, MED PASS AND TO TRANSFER PT TO BED. EMPTIED 75CC OF LIGHT BROWN LIQUID STOOL FROM ILEOSTOMY. MCQUEEN TO DEPENDENT DRAINAGE WITH TEA COLORED URINE. ABD BINDER DRY/INTACT. NO DRANIAGE NOTED FROM LUQ DRAINAGE BAG. TRANFERS WITH CGA, GAITBELT, WALKER, CUEING. TOOK MEDS CRUSHED IN APPLESAUCE FOLLOWED WITH APPLESAUCE.
--- NOTE | 2017-09-30 05:42 | NUR ---
RESTED ON/OFF. TALKS IN HIS SLEEP AT TIMES. PATIENT ABLE TO TURN HIMSELF WHEN REMINDED. HOURLY ROUNDING IN PROGRESS.
[2017-09-30 08:00] VITALS: BP 109/49
--- NOTE | 2017-09-30 16:47 | NUR ---
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
[2017-09-30 20:45] VITALS: BP 103/55
--- NOTE | 2017-09-30 20:45 | NUR ---
SITTING UP IN RECLINER VISITING WITH . ILESTOMY AND LUQ DRAINAGE BAG INTACT. ABD BINDER DRY/INTACT. TOOK MEDS CRUSHED IN APPLESAUCE AND FOLLOWED WITH NECTAR THICKENED CRANBERRY JUICE. TRANSFERRED FROM CHAIR TO BED WITH CGA, GAITBELT, WALKER, CUEING. MCQUEEN TO DEPENDENT DRAINAGE WITH TEA COLORED URINE.
[2017-10-01 05:09] LABS: ALBUMIN 2.1 g/dL (3.4-5.0); CALCIUM 7.8 mg/dL (8.5-10.1); CREATININE 1.8 mg/dL (0.6-1.3); TOTAL BILIRUBIN 0.4 mg/dL (<0.1-1.0); TOTAL PROTEIN 6.1 g/dL (6.4-8.2)
--- NOTE | 2017-10-01 05:30 | NUR ---
RESTED SOUNDLY. NO COMPLAINTS VOICED. HOURLY ROUNDING IN PROGRESS.
--- NOTE | 2017-10-01 16:19 | NUR ---
ASSUMMED CARE OF PT AT 0730, PT ALERT FORGETFUL, PT TRANSFERS WITH MODERATE ASSIST TO STAND NEEDS SLIGHT LIFTING ASSIST, THEN MIN ASSIST TO TRANSFER TO CHAIR, PT DENIES PAIN EXCEPT SOME BURNING AT CATHETER SITE OCCASIONALLY, HAS DENIED BLADDER SPASMS THIS SHIFT, ILEOSTOMY DRAINING LIQUID LIGHT BROWN STOOL, APPLIANCE CHANGED X 1 AFTER LEAKAGE NOTED, MIDLINE ABDOMINAL DRESSING CHANGED , MATILDA INTACT EXCEPT FOR DEHEISANCE AT BOTTOM OF INCISION LINE, PACKING AND DRESSING CHANGED PER ORDER, OLD DRAIN SITE ABOVE ILEOSTOMY DRAINING THICK WHITE YELLOW DRAINAGE, CLEANSED AND DRESSING APPLIED, MUCOUS FISTULA DRAIN INTACT, NO NEW DRAINAGE NOTED, PT DID GROOMING WITH SET UP, TOLERATING ALTERED DIET WELL, NEEDS ENCOURAGEMENT TO INCREASE FLUID INTACKE, PT HAS "HICCOUGH COUGH" EXPLAINED BY PT AND , PT COUGHING HARD AT INTERVALS THIS SHIFT AT TIMES COUGHING UP PHLEGM AND BILE, PT STATES HAS HAD THIS PROBLEM FOR A LONG TIME, PT REPOSTIONS HIS WEIGHT IN CHAIR FREQUENTLY AND TURNED WHEN IN BED, ABDOMINAL BINDER ON FOR SUPPORT, HOURLY ROUNDING COMPLETED, ASSESSMENT COMPLETE, WILL CONTINUE TO MONITOR.
[2017-10-01 19:54] VITALS: BP 123/49
--- NOTE | 2017-10-01 22:28 | NUR ---
ASSUMED CARE AT 1930. PATIENT RESTING IN RECLINER WITH LEGS ELEVATED AND HEELS OFFLOADED. ABD BINDER WITH CUTOUTS FOR OSTOMY BAGS INTACT. ILEOSTOMY DRAINING LIQUID STOOL, MUCUS FISTULA C/D/I. ABD DRESSING C/D/I. UP WITH ONE, MIN LIFTING ASSIST, GAIT BELT, CUEING, WALKER. APPEARS TO BE HAVING HICCUPS AT TIMES, AND COUGHS OFTEN, YELLOWISH PHLEGM. MCQUEEN DRAINING RUDOLPH URINE. CONFUSED AT TIMES, WONDERED WHY IT WAS SO DARK OUT (AT 2030) FOR IT BEING MORNING. REORIENTED. DENIES PAIN. NO BLADDER SPASMS NOTED. HOURLY ROUNDS CONTINUE. BED ALARM ON. CALL LITE IN REACH.
--- NOTE | 2017-10-02 06:11 | NUR ---
SLEPT MOST OF THE NIGHT. ASSISTED WITH TURNS. MCQUEEN DRAINING RUDOLPH URINE. HOURLY ROUNDS CONTINUE. BED ALARM ON. CALL LITE IN REACH
[2017-10-02 08:00] VITALS: BP 106/52
--- NOTE | 2017-10-02 09:41 | NUR ---
RAQUEL called pt son Jose Martin at [phone] in preparation for team conference on Monday and Jose Martin did not answer so RAQUEL left a detailed message encouraging call back with any questions or comments. SW to continue to follow to assist with safe dc planning.
--- NOTE | 2017-10-02 15:15 | NUR ---
AM ASSESSMENT AND VITAL SIGNS COMPLETED DOCUMENTED. PT HAS C/O BEING WEAK AND TIRED BUT CONTINUES TO WORK WITH ALL THERAPIES. WOUND CARE NURSE HERE THIS AFTERNOON, NEW WOUND CARE ORDERS REC'D. PT IS HAVING A BARIUM SWALLOW EVAL DONE BECAUSE HE CONTINUES TO C/O BELCHING, HICCUPS AND OCCASIONAL EMESIS. FALL PRECAUTIONS AND HOURLY ROUNDING CONTINUE.
--- NOTE | 2017-10-02 15:54 | NUR ---
WOUND NURSE: PATIENT SEEN FOR WOUND ASSESSMENT PERTAINING TO DRAIN SITE OBSCURED BY ILEOSTOMY APPLIANCE. PLAN TO TREAT USING AQUACEL AG UNDER TRANSPARENT DRAPE OR EXUDERM EACH TIME ILEOSTOMY BAG CHANGED. UNABLE TO FULLY ASSESS THE SITE PATIENT INVOLVED WITH THERAPY. WILL PASS THIS ALONG TO WOUND NURSE WORKING TOMORROW. PATIENT ALSO HAS ABDOMINAL INCISION WHICH WAS COVERED WITH ABD AND AQUACEL AG PACKED INTO A SMALL SPACE ALONG THE INFERIOR ASPECT OF THIS INCISION. RECOMMENDED AQUACEL AG UNDER ABD UNDER TAPE TO THIS SITE. SITE WAS CLEAN, DRY, AND INTACT WITH INTACT MATILDA, EDGES APPEARED WELL APPROXIMATED. STAFF NURSE TO CHANGE DRESSING ONCE PATIENT RETURNS TO BED AND HAS COMPLETED HIS WORK WITH THERAPISTS.
[2017-10-02 20:00] VITALS: BP 111/54
--- NOTE | 2017-10-03 05:09 | NUR ---
ASSUMED CARES AT 1920. PT ALERT AND ORIENTED. PLEASANT. OCCASIONAL HICCUPS AND BELCHING NOTED. DENIED ANY NEED FOR PAIN MED. ABD BINDER ON. TOOK PILLS WHOLE IN APPLESAUCE WITH NECTAR THICK LIQUIDS. MCQUEEN CATHETER DD RUDOLPH URINE. ILEOSTOMY WITH LIQUID STOOL EMPTIED. PT REFUSED TO CHANGE OUT OF REGULAR CLOTHES AT BEDTIME. PT IS ABLE TO TURN SELF IN BED. SLEPT BETTER TONIGHT. CALL LIGHT IN REACH AND BED ALARM ON.
[2017-10-03 07:47] VITALS: BP 135/46
--- NOTE | 2017-10-03 09:25 | NUR ---
AM ASSESSMENT AND VITAL SIGNS COMPLETED DOCUMENTED. PT WAS DROWSY THIS AM, STATED HE SLEPT REALLY WELL, DENIES DISCOMFORT. ILEOSTOMY AND FISTULA APPLIANCES INTACT. PT ASSISTED OUT OF BED AND INTO THE RECLINER FOR BREAKFAST. FALL PRECAUTIONS AND HOURLY ROUNDING CONTINUE.
--- NOTE | 2017-10-03 17:11 | NUR ---
ALL THERAPY SESSIONS COMPLETED, PT CONTINUES TO DENY HAVING PAIN. APPETITE HASN'T BEEN VERY GOOD, OFFERED SNACKS BETWEEN MEALS. PT CONTINUES TO MAKE PROGRESS TOWARD DISCHARGE GOALS.
[2017-10-03 20:00] VITALS: BP 115/51
--- NOTE | 2017-10-04 05:24 | NUR ---
ASSUMED PT CARE AT 1930. PT SITTING UP IN RECLINER VISITING WITH HIS . WITH 'S ENCOURAGEMENT [facility]. PT ALERT AND ORIENTED, POLITE AND COOPERATIVE WITH CARES. TAKES PILLS WHOLE IN APPLESAUCE WITH NECTAR THICK LIQUIDS. NO COMPLAINT OF PAIN. MCQUEEN CATHETER DRAINING RUDOLPH URINE. ABDOMINAL BINDER ON. ILEOSTOMY WITH SOFT STOOL EMPTIED. TRANSFERS TO BED WITH MIN ASSIST, GAIT BELT AND WALKER. PT ABLE TO TURN SELF IN BED. SLEPT WELL OVERNIGHT. CALL LIGHT AND FREQUENTLY USED ITEMS WITHIN REACH. HOURLY ROUNDING IN PROGRESS, WILL CONTINUE TO MONITOR.
[2017-10-04 08:08] VITALS: BP 103/52
--- NOTE | 2017-10-04 16:58 | NUR ---
SW attempted to review team conference with pt and pt but they were out of the room and then pt was sleeping soundly, pt had left the hospital for a while. SW called and spoke with pt to review team conference summary and discussed plan for pt to remain on rehab unit and for team to reassess pt length of stay during team conference next Wednesday 10/11. Pt in agreement with plan. SW called pt son Jose Martin who did not answer, SW left detailed message and encouraged call back with any questions or comments.
--- NOTE | 2017-10-04 17:52 | NUR ---
PT HAS PARTICIPATED WITH THERAPIES BUT HAS BEEN SLEEPY. MEDICATIONS DISCUSSED WITH PT AND AND PT ONLY TAKES NEURONTIN AT NIGHT. AWARE AND HAS CHANGED DIRECTIONS. DRESSINGS TO ABDOMEN CHANGED THIS AM BY ENTRY LEVEL CIVIL ENGINEER WITH MATILDA NOTED TO MIDLINE INCISION AND BASE OPENING PACKED WITH AQUACEL,DRESSINGS AND BINDER APPLIED. PT ASSISTED WITH EMPTING OF ILEOSTOMY BAG WITH LARGE AMOUNT SOFT LIGHT BROWN STOOL EMPTIED. PT OBSERVES PROCEDURE. PT DENIES PAIN OR NAUSEA AND TOLERATES MEALS WELL WITH LIGHT APPETITE. PT REMAINS ALERT AND ORIETNATED AND PROGRESSES TOWARDS GOALS. HOURLY ROUNDING CONTINUES.
[2017-10-04 20:00] VITALS: BP 106/47
--- NOTE | 2017-10-05 05:20 | NUR ---
ASSUMED PT CARE AT 1930. PT SITTING UP IN RECLINER WATCHING TELEVISION WITH . PT ALERT AND ORIENTED X4, POLITE AND COOPERATIVE WITH CARES. PT STATED HE WAS VERY TIRED TONIGHT AND EXPRESSED HIS FRUSTRATION WITH TODAY'S THERAPIST. PT TOOK PILLS WHOLE WITH SIPS OF NECTAR THICK LIQUIDS. NO COMPLAINT OF PAIN. MCQUEEN CATHETER DRAINING RUDOLPH URINE. ABDOMINAL BINDER ON. ILEOSTOMY WITH SOFT STOOL EMPTIED. TRANSFERRED TO BED WITH MIN ASSIST, GAIT BELT AND WALKER. PT ABLE TOTURN SELF IN BED. SLEPT WELL OVERNIGHT. CALL LIGHT AND FREQUENTLY USED ITEMS WITHIN REACH. HOURLY ROUNDING IN PROGRESS, WILL CONTINUE TO MONITOR.
[2017-10-05 08:00] VITALS: BP 117/54
--- NOTE | 2017-10-05 19:34 | NUR ---
EXT ASSIST WITH GB/WALKER FOR TRANSFERS, UNABLE TO AMBULATE MUCH OF A DISTANCE, EARLY FATIGUE. BEVERLEY THERAPIES WELL, COMPLIANT WITH MEDS AND CARES, BATHED WITH THERAPY, CARE PLAN REVIEWED WITH PATIENT, DENIES QUESTIONS, PROGRESSING TOWARD GOALS.
[2017-10-05 20:00] VITALS: BP 117/56
--- NOTE | 2017-10-05 23:51 | NUR ---
ASSUMED CARES AT 1920. PT ALERT AND ORIENTED. PLEASANT. AT BEDSIDE FOR SHORT TIME. EXPRESSES FRUSTRATION ABOUT WHY UROLOGY WAS NOT CONSULTED FOR PT'S "BLADDER SPASMS" TODAY. TOLD AND PT THAT CAN DISCUSS WITH PROVIDER IN AM. PT C/O OCCSASIONAL BLADDER SPASMS THAT LASTS 30 SEC - 1 MIN. PT REFUSED PAIN MEDS AND SO LEVSIN GIVEN. FOUND MCQUEEN CATH STAT LOCK NOT IN PLACE AND SO THIS WAS CHANGED. ILEOSTOMY APPLIANCE COMLPETELY CHANGED DUE TO LEAKING. DRESSING TO OLD DRAIN SITE CHANGED. DRESSING TO MIDLINE INCISION REPACKED AND CHANGED. REPLACED ABD BINDER WITH CLEAN ONE. PT RESTING AT THIS TIME. WILL CONTINUE TO MONITOR.
--- NOTE | 2017-10-06 05:02 | NUR ---
PT ALERT AND ORIENTED. PLEASANT. GROIN AREAS RED. BARRIER CREAM APPLIED. TOOK PILLS WHOLE IN APPLESAUCE AND NECTAR THICK LIQUIDS. HE IS A MIN ASSIST WITH GAIT BELT AND WALKER. SLEPT WELL AFTER MIDNIGHT. MCQUEEN CATHETER DD RUDOLPH URINE. NO FURTHER COMPLAINTS. CALL LIGHT IN REACH AND BED ALARM ON.
[2017-10-06 08:00] VITALS: BP 109/49
--- NOTE | 2017-10-06 15:29 | NUR ---
I have reviewed the documentation by EVELYNE MIRZA from 10/02/12 to 10/06/17 and I concur with it. JOSE GRAHAM
--- NOTE | 2017-10-06 15:50 | NUR ---
ASSUMMED CARE OF PT AT 0730, PT ALERT FORGETFUL,PT TRANSFERS WITH MIN ASSIST OF 1, GB WALKER CUEING, PT COMPLAINS OF FATIGUE AND BECAME WEEPY ONCE TODAY HE DOES NOT FEEL HE IS MAKING ANY IMPROVEMENT, PT ENCOURAGED THRU OUT SHIFT, PT APETITE DECREASED ENCOURAGED TO EAT AND INCREASE FLUID INTAKE, TOLERATES THICKENED FLUIDS WELL, MCQUEEN PATENT AND DRAINING YELLOW URINE WITH OCCASIONAL BLOOD NOTED IN TUBING, PT COMPLAINED OF BLADDER SPASMS THIS SHIFT, DISCUSSED WITH HOSPITALIST AND ORDER FOR UROLOGY CONSULT OBTAINED, UROLOGIST ASSESSED PT AND NEW MEDICATIONS ORDERS RECIEVED AND GIVEN TO PT. REDNESS NOTED IN GROIN AND SCROTAL AREA, ORDER FOR NYSTATIN CREAM OBTAINED AND APPLIED, ILEOSTOMY DRAINING SMALL AMOUNT OF LIGHT BROWN STOOL, APPLIANCE INTACT, DRESSING TO ABDOMEN SITE C/D/I, ABDOMINAL BINDER ON, REPOSTIONED EVERY 2 HOURS IN CHAIR/BED, PARTICIPATED IN ALL THERAPIES, TO DININGROOM FOR MEALS, HOURLY ROUNDING COMPLETED, ASSESSMENT COMPLETE, WILL CONTINUE TO MONITOR.
[2017-10-06 20:00] VITALS: BP 111/48
--- NOTE | 2017-10-06 23:45 | NUR ---
ASSUMED CARE AT 1930. PATIENT RESTING IN RECLINER WITH LEGS ELEVATED AND HEELS OFFLOADED UNTIL AROUND 1999. UP WITH MIN ASSIST, GAIT BELT, CUEING, WALKER. HERE UNTIL AROUND 2099, AND WROTE ABOUT HIS DAY IN HIS JOURNAL. MCQUEEN DRAINING TEA COLORED URINE. NO C/O SPASMS TONIGHT, EDUCATION REINFORCED FROM WHAT [facility] PHYSICIAN TOLD THEM REGARDING CATHETERS AND SPASMS. NYSTATIN CREAM APPLIED TO BILAT GROINS AND SCROTUM. ILEOSTOMY BAG INTACT, DRAINING SOFT BROWN STOOL. MUCUS BAG TO LT ABD C/D/I. DSSG C/D/I. ABDOMINAL BINDER IN PLACE. TAKES PILLS WHOLE IN APPLESAUCE AND DRINKS NECTAR THICKENED FLUIDS. HOURLY ROUNDS CONTINUE. BED ALARM ON. CALL LITE IN REACH.
--- NOTE | 2017-10-07 06:21 | NUR ---
OBSERVED SLEEPING ON HOURLY ROUNDS AFTER MIDNIGHT. MOVED IN THE BED BUT REFUSED ASSIST WITH TURNS. MCQUEEN DRAINING RUDOLPH URINE WITH BLOOD SPECKS AT TIMES. ILEOSTOMY DRAINING GOOD AMOUNT OF STOOL. DSSG C/D/I. HOURLY ROUNDS CONTINUE. BED ALARM ON. CALL LITE IN REACH.
[2017-10-07 08:33] VITALS: BP 111/51
--- NOTE | 2017-10-07 16:21 | NUR ---
pt calls for assist with transferrs and has been up to recliner this afternoon and visits with family. ileostomy with moderate soft bn noted and dressing to abdomen dry and intact with binder inplace. pt tolerates meals and eats in dinningroom and continues to drink nector thick liquids. davis to dd with heather urine noted pt is encouraged to drink plenty of fluids. pt transferrs with gaitbelt, walker and min assist of 1 but reports tireing easily.pt remains alert and orientated and continues to progress towards goals. hourly rounding continues.
[2017-10-07 20:00] VITALS: BP 115/53
--- NOTE | 2017-10-08 05:23 | NUR ---
ASSUMED PT CARE AT 1930. PT ALERT AND ORIENTED BUT OCCASIONALLY FORGETFUL. PT SITTING UP IN RECLINER WITH LEGS ELEVATED AND HEELS OFFLOADED WATCHING TELEVISION WITH HIS . PER PT HE HAS THE BLUES WONDERING IF HE WILL EVER BE DISCHARGED. UP WITH MIN ASSIST, GAIT BELT, CUEING AND WALKER, TO BED AROUND 2100. MCQUEEN DRAINING RUDOLPH URINE. ISLOSTOMY BAG INTACT WITH GOOD AMOUNT OF SOFT STOOL. ABDOMINAL DRESSING C/D/I AND ABDOMINAL BINDER IN PLACE. NYSTATIN CREAM TO GROIN AND SCROTUM. PT TAKES PILLS WHOLE IN APPLESAUCE AND DRINKS NECTAR THICKENED FLUIDS. CALL LIGHT AND FREQUENTLY USED ITEMS WITHIN REACH. HOURLY ROUNDING IN PROGRESS, WILL CONTINUE TO MONITOR.
[2017-10-08 08:00] VITALS: BP 109/56
--- NOTE | 2017-10-08 16:38 | NUR ---
ASSUMMED CARE OF PT AT 0730, PT ALERT, ORIENTED, FORGETFUL, PT TRANSFERS WITH MIN/SBA GB AND WALKER, PT TAKING FOOD AND FLUIDS WELL, STATES HE DOES NOT FEEL HUNGRY AT MEALTIME BUT EATS WELL, TOLERATING THICKENED LIQUIDS WELL, PT MIN/MOD ASSIST FOR DRESSING, DOES GROOMING WITH SET UP, PT PROPELLED HIS WHEELCHAIR TO DININGROOM FOR LUNCH, PT DENIES PAIN, DENIES NAUSEA, ILEOSTOMY INTACT WITH SMALL AMOUNT OF STOOL OUT, NO DRAINAGE NOTED FROM MUCOUS FISTULA, MCQUEEN PATENT AND DRAINING CLOUDY YELLOW URINE, PT FREQUENTLY STATES HE IS NOT DOING WELL, APPEARS DEPRESSED AT TIMES, WORDS OF ENCOURAGEMENT GIVEN TO PT THRUOUT SHIFT, PT UP IN CHAIR ALL SHIFT, ENCOURAGED PT TO SHIFT HIS WEIGHT IN CHAIR FREQUENTLY, SEVERAL VISITORS HERE THRUOUT SHIFT. ABDOMEN INCISION INTACT WITH MATILDA WITH OPEN AREA ON DISTAL END, DRESSING INTACT, HOURLY ROUNDING COMPLETED, ASSESSMENT COMPLETE WILL CONTINUE TO MONITOR.
[2017-10-08 19:45] VITALS: BP 128/48
--- NOTE | 2017-10-09 05:30 | NUR ---
PT UP IN CHAIR AT START OF SHIFT WATCHING TV WITH . ABD BINDER IN PLACE, ILEOSTOMY WITH MUSHY STOOL PRESENT, L ABD FISTULA BAG INTACT. MIDLINE ABD INCISION WITH MATILDA WELL APPROXIMATED, BOTTOM OF INCISION WITH GAUZE DRSG CDI. MCQUEEN DRAINING CLOUDY YELLOW URINE. UP WITH GB, WALKER AND SBA FOR TRANSFER FROM CHAIR TO BED. AOX4, FORGETFUL. NO BLADDER SPASMS THIS SHIFT OR CO PAIN OR PROBLEMS. TAKING PILLS WHOLE IN APPLESAUCE WITHOUT DIFFICULTY, FOLLOWED BY NECTAR THICK LIQUID. CALL LITE IN EASY REACH, BED ALARM ON FOR SAFETY. CALL LITE IN EASY REACH, BED ALARM ON FOR SAFETY.
[2017-10-09 08:30] VITALS: BP 102/54
[2017-10-09 11:55] VITALS: BP 102/49
[2017-10-09 13:00] VITALS: BP 116/47
[2017-10-09 13:12] VITALS: BP 104/49
--- NOTE | 2017-10-09 17:36 | NUR ---
PT HAS BEEN UP TO RECLINER AND PO FLUIDS ENCOURAGED TODAY DUE TO LOW BP THIS AM WITH GOOD EFFECT. PT DENIES PAIN OR NAUSEA AND REPORTS POOR APPETITE DUE TO FOOD NOT HAVING TASTE TO HIM. BP BETTER THIS AFTERNOON AND PT NOW IN DINNINGROOM FOR SUPPER AND IS ALERT AND ORIENTATED. LOOSE STOOL EMPTIED FROM ILEOSTOMY AND MCQUEEN WITH 400 ML CLOUDY YELLOW URINE EMPTIED. DRESSING DRY AND INTACT TO ABDOMEN WITH BINDER INPLACE. NO DRAINAGE NOTED TO LT ABDOMEN BAG.PT TRANSFERRS WITH USE OF WALKER,GAITBELT AND MIN ASSIST. PT PROGRESSES TOWARDS GOALS AND HOURLY ROUNDING CONTINUES.
[2017-10-09 19:51] VITALS: BP 111/54
--- NOTE | 2017-10-10 05:21 | NUR ---
ASSUMED PT CARE AT 1930. PT SITTING UP IN CHAIR, AND OTHER VISITORS IN ROOM. ALERT AND ORIENTED X4, POLITE AND COOPERATIVE WITH CARES. PT TO BED WITH ASSIST OF ONE, GAIT BELT AND WALKER. ABDOMINAL BINDER IN PLACE. ILEOSTOMY WITH SOFT STOOL ON RIGHT AND ABD FISTULA BAG INTACT ON LEFT. MIDLINE ABDOMINAL INCISION WITH MATILDA WELL APPROXIMATED, BOTTOM OF INCISION WITH GAUZE DRESSING C/D/I. MCQUEEN DRAINING CLOUDY YELLOW URINE. NO C/O PAIN OR BLADDER SPASMS THIS SHIFT. PT NOT RESTLESS PREVIOUS SHIFTS. TAKES PILLS WHOLE IN APPLESAUCE WITHOUT DIFFICULTY FOLLOWED BY NECTAR THICK LIQUID. PT UNDERSTANDS HE NEEDS TO INCREASE LIQUID PO INTAKE. CALL LIGHT AND FREQUENTLY USED ITEMS WITHIN REACH. HOURLY ROUNDING IN PROGRESS, WILL CONTINUE TO MONITOR.
[2017-10-10 05:32] LABS: CALCIUM 8.2 mg/dL (8.5-10.1); CREATININE 2.1 mg/dL (0.6-1.3); MAGNESIUM 1.5 mg/dL (1.8-2.4); POTASSIUM 4.7 mmol/L (3.5-5.1)
[2017-10-10 07:30] VITALS: BP 121/54
[2017-10-10 07:35] VITALS: BP 110/49
[2017-10-10 07:40] VITALS: BP 79/39
[2017-10-10 13:37] LABS: URINE BILIRUBIN NEGATIVE (Negative); URINE BLOOD 3+ (Negative); URINE CLARITY CLEAR; URINE COLOR YELLOW; URINE GLUCOSE-RANDOM NEGATIVE (Negative); URINE KETONES NEGATIVE (Negative); URINE PROTEIN 2+ (Negative); URINE SPECIFIC GRAVITY 1.025 (1.005-1.030); URINE UROBILINOGEN 0.2 E.U./dl (0.2-1.0)
[2017-10-10 13:39] LABS: URINE LEUKOCYTES-REFLEX 2+ (Negative); URINE NITRITE-REFLEX POSITIVE (Negative)
[2017-10-10 13:48] LABS: BACTERIA-REFLEX >30 Many /HPF (None Seen); COARSE GRANULAR CASTS 0-3 Few /LPF (None Seen); HYALINE CASTS 4-10 Moderate /LPF (None Seen); MUCUS 0-3 Light strn/LPF (None Seen); SQUAMOUS 0-3 Few /LPF (0-3); URIC ACID CRYSTALS 4-10 Moderate /LPF (None Seen); URINE RBC 3-10 Few /HPF (0-2); URINE WBC-REFLEX >25 Many /HPF (0-5)
--- NOTE | 2017-10-10 16:13 | NUR ---
SW attempted to contact family in preparation for team conference tomorrow. SW called pt son Jose Martin and left detailed message requesting call back to follow up as well as to present any questions or concerns. SW called pt Varsha and left a message as well. SW to continue to follow to assist with safe dc planning.
--- NOTE | 2017-10-10 17:39 | NUR ---
ASSUMMED CARE OF PT AT 0730, PT ALERT, FORGETFUL, TRANSFER WITH MIN/SBA GB WALKER, ORTHOSTATICS PRESSURES DONE AND POSTITIVE FOR DROP IN BLOOD PRESSURE WITH STANDING, 500 CC BOLUS GIVEN X1, SALINE LOCK STARTED IN LEFT FOREARM, MUCOUS FISTULA ON RIGHT, ILEOSTOMY DRAINING MODERATE AMOUNT OF BROWN STOOL, APPLIANCE CHANGED THIS SHIFT, MCQUEEN PATENT AND DRAINING CLOUDY YELLOW URINE, UA SENT, PHYSICIAN NOTIFIED OF RESULTS, ABDOMINAL INCISION INTACT WITH MATILDA AND DEHIESCED AREA PACKING CHANGED, PT ENOCURAGED TO DRINK MORE FLUIDS BUT DOES NOT LIKE THE THICKENED FLUIDS, APETITE DECREASED BUT DOES EAT WITH ENCOURAGEMENT, STATES HAS HAD BLADDER SPASMS A FEW TIME THIS SHIFT, MEDICATED PER ORDER FOR SPASMS, UP IN CHAIR ALL SHIFT, PT REPOSTIONED IN CHAIR FREQUENTLY, CUSHION IN CHAIR, PARTICIPATED IN ALL THERAPIES, HOURLY ROUNDING COMPLETED, ASSESSMENT COMPLETE WILL CONTINUE TO MONITOR.
[2017-10-10 19:53] VITALS: BP 104/48
--- NOTE | 2017-10-10 20:05 | NUR ---
RESTING QUIETLY IN BED. AT BEDSIDE. ILEOSTOMY INTACT WITH MODERATE AMOUNT OF LOOSE BROWN STOOL. ABD BINDER DRY/INTACT. MUCOUS BAG INTACT. MCQUEEN TO DEPENDENT DRAINAGE WITH CLOUDY/RUDOLPH URINE. DENIES DISCOMFORT. TOOK MEDS A FEW AT A TIME WITH APPESAUCE FOLLOWED WITH NECTAR THICKENED WATER. TRANSFERED FROM CHAIR TO BED WITH SBA, GAITBELT, WALKER.
--- NOTE | 2017-10-11 05:50 | NUR ---
RESTED QUIETLY. TURNS SELF. NO COMPLAINTS VOICED. HOURLY ROUNDING IN PROGRESS.
[2017-10-11 07:35] VITALS: BP 99/54
--- NOTE | 2017-10-11 14:00 | NUR ---
RAQUEL and Dr Cardenas met with pt and reviewed team conference summary and plan for pt to remain on rehab unit at least one more week with team to reteam and tentative dc home with on next Wednesday 10/18. Pt/ preference for [facility] at dc. SW to continue to follow to assist with safe dc planning.
--- NOTE | 2017-10-11 14:07 | NUR ---
I have reviewed the documentation by EVELYNE MIRZA from 10/09/17 to 10/13/17 and I concur with it. JOSE GRAHAM
--- NOTE | 2017-10-11 18:02 | NUR ---
PATIENT UP IN CHAIR. PATIENT DENIES ANY PAIN. PATIENT HAS MCQUEEN CATHERTER DRAINING YELLOW URINE. PATIENT HAS ILEOSTOMY WITH MODERATE LIGHT BROWN OUTPUT. PATIENT AND NOT RECEPTIVE TO OSTOMY TRAINING THIS EVENING. PATIENT IS TOLERATING THIN LIQUID WATER INBETWEEN MEALS. PATIENT WALKED TO DINING [place] THIS EVENING WITH MINIMAL ASSISTANCE WITH GAIT BELT AND WALKER. PATIENT DENIES ANY NEED AT THIS TIME. WILL CONTINUE TO MONITOR.
[2017-10-11 19:55] VITALS: BP 132/50
--- NOTE | 2017-10-11 22:14 | NUR ---
ASSUMED CARE AT 1930. RESTING IN RECLINER UNTIL AROUND 2029. STAYED WITH PATIENT UNTIL AROUND 2100. UP WITH SBA, CUEING, GAIT BELT, WALKER. TAKES PILLS WHOLE FOLLOWED BY NECTAR THICK LIQUIDS, CAN HAVE THIN LIQUIDS OTHERWISE. MCQUEEN SECURED, DRAINING RUDOLPH URINE. ILEOSTOMY DRAINING LIQUID BROWN STOOL, APPLIANCE D/I. MUCUS BAG TO LT ABD D/I. ABDOMONAL INCISION AND DRESSING C/D/I. ABDOMINAL BINDER IN PLACE. INSTRUCTED THAT THEY WILL RECEIVE EXTENSIVE MEDICATION LIST FOR HOME AT TIME OF DISCHARGE. ATTEMPTED TO HAVE PARTICIPATE IN STOMA CARE. STATES THAT "MO" WAS SUPPOSED TO COME AND TEACH HER OSTOMY CARE. STATED THAT THE "HOME CARE NURSE WOULD CARE FOR IT." INSTRUCTED THAT SHE NEEDS TO BE ABLE TO CHANGE BAG AND CARE FOR OSTOMY BECAUSE HOME CARE NURSE IS NOT THERE 17/10. VERBALIZED UNDERSTANDING BUT WAS NOT INTERESTED IN EDUCATION AT THIS TIME. PATIENT REFUSES ASSIST WITH TURNS STATES HE WILL USE LT ARM TO PULL HIMSELF ONTO RT SIDE. OBSERVED SLEEPING AT 0, DID NOT AWAKEN WHEN THIS NURSE TURNED OFF LIGHT, AND ALSO SLEEPING AT 2200. HOURLY ROUNDS CONTINUE. BED ALARM ON. CALL LITE IN REACH.
--- NOTE | 2017-10-12 06:15 | NUR ---
SLEPT MOST OF THE NIGHT AFTER ABOUT 2200 OBSERVED ON HOURLY ROUNDS. PATIENT TURNED HIMSELF TO RIGHT SIDE AND PREFERS SLEEPING ON RIGHT SIDE. DID CHANGE POSITIONS SLIGHTLY THROUGH NIGHT. NO FURTHER C/O PAIN. MCQUEEN DRAINING RUDOLPH URINE, ILEOSTOMY DRAINING LIQUID STOOL. DRESSING AND ABD BINDER D/I. HOURLY ROUNDS CONTINUE. BED ALARM ON. CALL LITE IN REACH.
[2017-10-12 09:30] VITALS: BP 112/50
--- NOTE | 2017-10-12 17:50 | NUR ---
pt has been up to recliner and calls for assist to transferr with steady gait, walker and gaitbelt. pt has felt good today untill this afternoon and reports feeling nauseated. ostomy bag emptied with stool appearing to have barrium from vidio swallow this afternoon. davis to dd with 300ml cloudy urine emptied. pt now drinking thin liquids with lowering chin to swallow and is encouraged to drink for better output. dressing changed this am by wound nurse with phong intact and incision well healed. pt denies pain. pt ate excellant breakfast this am but was not hungry for lunch but did eat some of supper. pt remains alert and orientated and progresses towards goals and hourly rounding continues. here and is informed of plans for ostomy nurse to come and visit pt tomorrow for education.
[2017-10-12 19:30] VITALS: BP 126/44
--- NOTE | 2017-10-13 05:26 | NUR ---
PT SLEPT ON AND OFF THIS SHIFT. ASSESSMENT DOCUMENTED. MEDS GIVEN PER E-MAY. NAUSEA MEDS GIVEN PER E-MAY WITH SOME RELIEF. MUCUS FISTULA DRAIN CHANGED. ILLIOSTOMY DRAINING ADEQUATLY, MCQUEEN DRAINING DEPENTANTLY. PT TOOK SHIRT OFF WITH MIN ASSIST AND BUTTONED SPA RECEPTIONIST BY HIMSELF. WILL CONTINUE WITH PLAN OF CARE.
[2017-10-13 07:44] VITALS: BP 140/67
[2017-10-13 10:48] LABS: ALBUMIN 2.7 g/dL (3.4-5.0); CALCIUM 8.6 mg/dL (8.5-10.1); CREATININE 2.3 mg/dL (0.6-1.3); POTASSIUM 4.1 mmol/L (3.5-5.1); TOTAL BILIRUBIN 0.3 mg/dL (<0.1-1.0); TOTAL PROTEIN 7.6 g/dL (6.4-8.2)
--- NOTE | 2017-10-13 16:08 | NUR ---
PT HAS BEEN UP TO CHAIR MOIST OF DAY AND HAS REFUSED MOST THERAPIES DUE TO NAUSEA LATE MORNING. PT WAS GIVEN ZOFRAN PER WITH GOOD EFFECT THIS AFTERNOON. PT DID HAVE SMALL YELLOW EMISIS MID MORNING. PRN FOR BACH GIVEN THIS AM WITH GOOD EFFECT. ILEOSTOMY AND MUCOS PLUG BAG INTACT TO ABDOMEN WITH BINDER ON. RESIDENT HAD SEEN PT EARLY THIS AM AND WAS TO CHECK WITH SURGEN ABOUT REMOVAL OF MATILDA WITH NO ORDERS GIVEN YET. PT IS ALERT AND ORIENTATED THIS AFTERNOON BUT HAS BEEN IRRITABLE AND NOT WANTING TO DO THERAPIES EARLIER BUT DID WORK WITH OT THIS AFTERNOON. MCQUEEN TO DD WITH COLUDY URINE PRESENT. PT ENCOURAGED TO DRINK FLUIDS FOR GOOD OUTPUT. LABS DRAWN THIS AFTERNOON WITH AWARE OF RESULTS. PT DID NOT HAVE GOOD DAY BUT DOES PROGRESS TOWARDS GOALS AND HOURLY ROUNDING CONTINUES.
--- NOTE | 2017-10-13 19:13 | NUR ---
PT DID AMBULATE TO AND FROM DINNINGROOM FOR SUPPER AND ATE 3/4 OF MEAL WITH NO FURTHER C/O NAUSEA. MCQUEEN WITH GOOD OUTPUT AND ILEOSTOMY WITH GOOD LOOSE STOOL OUTPUT.PT FEELS BETTER THIS EVENING.
[2017-10-13 20:00] VITALS: BP 124/52
--- NOTE | 2017-10-13 20:05 | NUR ---
SITTING UP IN RECLINER VISITING WITH AND WATCHING TV. DENIES DISCOMFORT. STATES STILL NOT SLEEPING WELL AT NIGHT. DOESN'T WANT TO TAKE MELATONIN. ILEOSTOMY INTACT WITH LOOSE LIGHT BROWN STOOL. MUCUOS BAG INTACT. ABDOMINAL BINDER DRY/INTACT. TOOK MEDS WHOLE ONE AT A TIME WITH APPLESAUCE FOLLOWED WITH WATER.
--- NOTE | 2017-10-14 05:04 | NUR ---
ALISHA BARNHART. TURNS SELF IN BED. HOURLY ROUNDING IN PROGRESS.
[2017-10-14 08:00] VITALS: BP 122/59
--- NOTE | 2017-10-14 18:19 | NUR ---
AM ASSESSMENT AND VITAL SIGNS COMPLETED DOCUMENTED. PT HAS C/O FEELING WEAK THROUGHOUT THE DAY. VITAL SIGNS HAVE BEEN WNL. PT COMPLETED ALL THERAPY SESSIONS AND RESTED IN THE RECLINER THIS AFTERNOON. AT DINNER PT AMBULATED TO AND FROM THE DINING ROOM WITHOUT DIFFICULTY. FC TO DD, URINE OUTPUT IS LIGHT YELLOW AND LESS CLOUDY. ILEOSTOMY APPLIANCE CHANGED THIS AM BECAUSE IT WAS LEAKING. HOURLY ROUNDING AND FALL PRECAUTIONS CONTINUE.
[2017-10-14 20:00] VITALS: BP 120/56
--- NOTE | 2017-10-15 06:14 | NUR ---
ASSUMED CARES AT 1920. PT ALERT AND ORIENTED. PLEASANT. HE IS A MIN ASSIST WITH GAIT BELT AND WALKER. TAKES PILLS WHOLE WIHTOUT ISSUES. PT AWOKE AT 0500 WAS FOUND SITTING UP ON OPPOSITE SIDE OF BED PULLING ON MCQUEEN CATHETER. URINE WAS PINK TINGED 650 CC OUTPUT. DID HAVE SMALL AMOUNT OF BLOOD CLOTTED TO URETRAL MEATUS. AREA CLEANED. PT DENIED ANY PAIN TO PENIS. NO ACTIVE BLEEDING NOTED AFTER CLEANING. PT INSTEAD C/O BELCHING. NO EMESIS. TUMS AND MYLANTA GIVEN WITH LITTLE RELIEF. SITTING UPRIGHT IN RECLINER. CALL LIGHT IN REACH. WILL CONTINUE TO MONITOR.
[2017-10-15 08:00] VITALS: BP 125/59
--- NOTE | 2017-10-15 18:10 | NUR ---
AM ASSESSMENT AND VITAL SIGNS COMPLETED DOCUMENTED. PT AMBULATED TO AND FROM THE DINING ROOM AT LUNCH AND DINNER, NEEDS TO BE REMINDED TO KEEP THE WALKER CLOSER TO HIS BODY. PT EATS AT LEAST HALF OF HIS MEAL WITH ENCOURAGEMENT, ENSURE ALSO PROVIDED. FC TO DD WITH PINK TINGED URINE, PT INADVERTANTLY STRETCHED THE TUBING THIS AM. PT CONTINUES TO MAKE GRADUAL PROGRESS TOWARD THE DISCHARGE GOALS.
--- NOTE | 2017-10-15 18:46 | NUR ---
ILEOSTOMY BAG EMPTIED, PT AND HIS BOTH WATCHED AND, EDUCATION PROVIDED. HOURLY ROUNDING AND FALL PRECAUTIONS IN PLACE.
[2017-10-15 20:00] VITALS: BP 127/67
--- NOTE | 2017-10-16 05:05 | NUR ---
ASSUMED CARES AT 1915. PT ALERT AND ORIENTED. IN BETTER MOOD IN EVENING. NO LONGER HAS ABD BINDER DUE TO IT BEING SOILED. HE IS A MIN ASSIST WITH GAIT BELT AND WALKER. MCQUEEN CATHETER DD RUDOLPH URINE. MATILDA/DRESSING INTACT TO MIDLINE INCISION. ILEOSTOMY BAG INTACT WITH SOFT STOOL. MUCOUS FISTULA BAG INTACT. PT TURNS SELF DURING THE NIGHT. SLEPT OFF AND ON. NO COMPLAINTS AT THIS TIME. WILL CONTINUE TO MONITOR. CALL LIGHT IN REACH. BED ALARM ON.
[2017-10-16 08:00] VITALS: BP 112/60
--- NOTE | 2017-10-16 18:09 | NUR ---
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 INITIAL OSTOMY TEACHING WITH PATIENT AND ON 09/01/17 & 09/03/17. HE WAS TRANSFERRED TO INPATIENT REHAB ON 09/28/17, WITH ANTICIPATED DISCHARGE ON 10/18/17. ASKED TO COME BY & FOLLOW-UP WITH PATIENT & REGARDING TEACHING. PATIENT MUCH MORE ALERT NOW, BUT LIMITED SHORT TERM MEMORY. HE ATTEMPTED TO PARTICIPATE IN OSTOMY CARE, BUT LIMITED ABILITY TO COMPREHEND & REMEMBER. DEMONSTRATED POUCH EMPTYING, & INSTRUCTED PATIENT TO MONITOR POUCH, & CALL FOR ASSISTANCE WITH EMPTYING WHEN 1/3 TO 1/2 FULL. ALSO INSTRUCTED PATIENT & ON POUCH CHANGE AGAIN, STRESSING THAT GOAL IS FOR PATIENT TO CHANGE POUCH INDEPENDENTLY, WITH INITIAL ASSISTANCE FROM . THEY HAVE RECEIVED THEIR [employer] STARTS PACKET, & WILL HAVE HOME HEALTH. ABDOMEN NON-DISTENDED, SOFT. ILEOSTOMY STOMA RIGHT ABDOMEN APPROXIMATELY 1 INCH, BUDDED SLIGHTLY, PINK & MOIST WITH MUCOCUTANEOUS INCISION HEALED. PERISTOMAL SKIN INTACT. DRAINING MODERATE AMOUNTS OF SOFT BROWN STOOL. MUCUS FISTULA LEFT ABDOMEN APPROXIMATELY 1/2 INCH, FLUSH WITH SKIN, PINK & MOIST WITH NO OUTPUT - SO CLEANSED & COVERED WITH VASELINE & SMALL GAUZE DRESSING. MIDLINE ABDOMINAL INCISION WELL HEALED, WITH MATILDA REMOVED EARLIER - WITH SMALL AREA OF DEHISENCE NEAR UMBILICUS, APPROXIMATELY 1 X 0.5 CM, WITH ADHERENT CREAM COLORED SLOUGH IN BASE, NO DRAINAGE OR ERYTHEMA.
--- NOTE | 2017-10-16 18:38 | NUR ---
PT HAS BEEN UP TO RECLINER AND AMBULATES TO DINNINGROOM FOR MEALS WITH WALKER AND MIN ASSIST. OSTOMY NURSE HERE THIS EVENIING AND HAS EDUCATED PT AND ON CARE. SUPERANNUATION FUNDS MANAGER HERE THIS AFTERNOON AND HAS REMOVED MATILDA WITH INCISION WELL HEALED. MCQUEEN TO DD AND ILEOSTOMY WITH BROWN,GREEN STOOL EMPTIED. PT ALERT AND ORIENTATED BUT FORGETFULL AT TIMES.PT OFTEN STATES HE FEELS WEAK BUT DOES PARTICIPATE WITH THERAPIES. HOURLY ROUNDING CONTINUES.
[2017-10-16 19:50] VITALS: BP 110/48
--- NOTE | 2017-10-17 05:31 | NUR ---
ASSUMED CARE AT 1920. PT ALERT AND ORIENTED. PLEASANT MOOD. TAKES PILLS WHOLE WITHOUT ISSUES. HE IS A MIN ASSIST WITH GAIT BELT AND WALKER. MCQUEEN CATHETER DD YELLOW URINE. ILEOSTOMY BAG HAS DARK BROWN SOFT/LIQUID STOOL. DRESSING OVER MUCOUS FISTULA SITE AND MIDLINE INCISION. PT SLEPT BETTER. NOT RESTLESS DURING THE NIGHT. NO COMPLAINTS. CALL LIGHT IN REACH.
[2017-10-17 08:22] VITALS: BP 135/59
--- NOTE | 2017-10-17 11:40 | NUR ---
SW called and spoke with pt Varsha in preparation for team conference tomorrow. SW discussed possibility that pt dc home tomorrow after team conference and SW discussed if pt felt comfortable with ostomy care and also discussed HH follow up services with pt/family preference for [facility]. Pt shared that there are grab bars being installed today and that they already have a ramp, pt wanted pt to practice walking up a ramp prior to pt dc home. SW to express to team and SW to provide initial referral to [facility]. SW to continue to follow to assist with safe dc planning and will inform pt son Jose Martin of dc plans as well.
--- NOTE | 2017-10-17 17:01 | NUR ---
PT DID WORK WITH THERAPIES THIS AM AFTER EATING BREAKFAST BUT REFUSED TO WORK WITH THERAPIES THIS AFTERNOON. PT DENIES PAIN OR NAUSEA. PT IS ALERT AND ORIENTATED BUT FORGETFULL. MCQUEEN TO DD WITH CLEAR YELLOW URINE PRESENT. ILEOSTOMY WITH LOOSE BROWN STOOL PRESENT.DRESSING TO MUCOS SITE INTACT AND BINDER ON. PT CONTINUES TO FEEL WEAK AND THAT HE IS NOT GETTING BETTER. PT IS ENCOURAGED THAT HE IS DOING WELL AND PLANS FOR DISCHARGE TOMORROW DISCUSSED. HERE TODAY AND REPORTS GRAB BARS FOR BATHROOM BEING INSTALLED TODAY. HOURLY ROUNDING CONTINUES.
--- NOTE | 2017-10-17 19:40 | NUR ---
SITTING UP IN CHAIR VISITING WITH MULTIPLE FAMILY MEMBERS. DENIES DISCOMFORT. MCQUEEN TO DEPENDENT DRAINAGE WITH SEDIMENT AND YELLOW URINE. ILEOSTOMY INTACT WITH SOFT BROWN STOOL. ABD BINDER DRY/INTACT. TOOK MEDS WHOLE WITH WATER - ONE BIG PILL AT A TIME AND TWO SMALL PILLS AT A TIME.
[2017-10-17 20:30] VITALS: BP 122/53
[2017-10-18 05:11] LABS: ALBUMIN 2.4 g/dL (3.4-5.0); CALCIUM 8.1 mg/dL (8.5-10.1); CREATININE 1.6 mg/dL (0.6-1.3); POTASSIUM 4.6 mmol/L (3.5-5.1); TOTAL BILIRUBIN 0.2 mg/dL (<0.1-1.0); TOTAL PROTEIN 6.2 g/dL (6.4-8.2)
--- NOTE | 2017-10-18 05:15 | NUR ---
HAD DIFFICULTY GETTING TO SLEEP THEN RESTED QUIETLY. TURNS SELF IN BED. NO COMPLAINTS VOICED. TO BE DISCHARGED TO HOME TODAY.
[2017-10-18 08:00] VITALS: BP 128/65
--- NOTE | 2017-10-18 11:22 | H ---
[facility] [address] [place] [address] HISTORY AND PHYSICAL Name: VICTORIA SANTIZO Room: [address] IN [facility].#: [id number] Admission: 09/28/17 Attend Phys: Edna Cardenas DO Discharge: Date of : 31 Report #: [id number] THIS REPORT FOR: //name// CC: Eliot Cardenas HISTORY OF PRESENT ILLNESS: This is an 86-year-old male admitted to inpatient rehabilitation to facilitate safe discharge home. He is known from previous consultation. He is status post toxic encephalopathy, admitted on 08/23/2017. Surgical dates are 08/23/2017, 08/24/2017 and 09/05/2017. No significant changes since the preadmission screening. Previous level of function was independent to modified independent with activities of daily living. Current level of function is independent to modified independent of 1-2 depending on therapy, activity and time of day. Estimated length of stay is 14-16 days with discharge to the home setting with supportive family. Family is at the bedside at the time of the history and physical. PAST MEDICAL HISTORY: Hypertension, coronary artery disease, hyperlipidemia, BPH, ATN, dysphagia, constipation, syncope, obesity, anemia, N-STEMI, urinary incontinence, lactic acidosis, acute hypoxic respiratory failure, obstipation and severe PCM, peritonitis. PAST SURGICAL HISTORY: Includes cardiac stents x 6, tonsillectomy. ALLERGIES: EGGS, PENICILLIN AND SULFA. SOCIAL HISTORY: Tobacco: Former smoker, greater than 1 year. No alcohol or illicit drug use. MEDICATIONS: Reviewed and reconciled by myself and are available in the MAR. REVIEW OF SYSTEMS: A 14-point review of systems is done today, is negative except as mentioned in the HPI, specifically no fever, chest pain, shortness of breath, abdominal pain or distention. PHYSICAL EXAMINATION: GENERAL: Alert, oriented, in no apparent distress. VITAL SIGNS: Reviewed and are stable. HEENT: Head: Atraumatic, normocephalic. Pupils equal, round, reactive. ABDOMEN: Soft, nontender, nondistended. NEUROLOGIC: Cranial nerves 2-12 are grossly intact with no focal neuro deficits. 5/5 strength in the bilateral upper and lower extremities. SKIN: Warm and dry. No rashes or lesions noted. ASSESSMENT: 1. Toxic encephalopathy. 2. Alterations in activities of daily living and [place] [address] HISTORY AND PHYSICAL Name: VICTORIA SANTIZO Rose Room: [address] IN [facility]#: [id number] Admission: 09/28/17 Attend Phys: Edna Cardenas DO Discharge: Date of : 31 Report #: [id number] 3. Multiple medical comorbidities, requiring acute daily medical care. PLAN: 1. Admission to inpatient rehabilitation. 2. PT, OT, speech, language, case management, nursing and HIMS to make evaluations and recommendations. 3. Plan of care is pending. We will team him weekly. 4. Medications were reviewed and reconciled. <ELECTRONICALLY SIGNED> By: Edna Cardenas DO 10/18/17 1122 [id number] Cardenas DO /nt
--- NOTE | 2017-10-18 11:22 | PLAN ---
[facility] [address] [place] [address] REHAB UNIT PLAN OF CARE Name: VICTORIA SANTIZO Room: [address] IN [facility].#: [id number] Admission: 09/28/17 Attend Phys: Edna Cardenas DO Discharge: Date of : 31 Report #: [id number] THIS REPORT FOR: //name// CC: Eliot Cardenas OVERALL PLAN OF CARE SUBJECTIVE: This is an 86-year-old male admitted to inpatient rehabilitation to facilitate safe discharge home, status post acute hospitalization for toxic encephalopathy alterations in activities of daily living and changes in mobility requiring acute hospitalization and now acute rehabilitation. MEDICAL PROGNOSIS: Good. REHABILITATION PROGNOSIS: Good. Previous level of function is modified independent to independent with activities of daily living. Current level of function is minimum to moderate assistance of 1-2 depending on therapy, activity and time of day. Estimated length of stay is 16-18 days depending on therapy, activity and time of day. Physical therapy will see the patient 60-90 minutes per day, 5 days per week, working on upper and lower body strength, balance, coordination, navigation. Occupational therapy will work with the patient 60-90 minutes per day, 5 days per week, working on upper and lower body strength, balance, coordination, navigation, bathing, dressing, and toileting. Speech and language pathology will work with the patient 60-90 minutes per day, 5 days per week, working on cognition, expression, memory and strategies 5 days per week. This is an overall plan of care, it may change from time to time. We will team weekly and make changes to the plan of care as needed. <ELECTRONICALLY SIGNED> By: Edna Cardenas DO 10/18/17 1122 1549 Lela Cardenas DO /nt
[2017-10-18 14:00] VITALS: BP 128/65
[2017-10-18 14:50] VITALS: BP 128/65
--- NOTE | 2017-10-18 14:52 | NUR ---
RAQUEL and Dr. Cardenas reviewed team conference summary with pt and plan for pt to dc home with today with HH services to follow. Pt SBA to Mod I with mobility and ADLs; pt son and pt dtr in law were with pt at time of review as well. RAQUEL faxed final orders and med list to [facility] and received call from intake that pt has been accepted and services will begin. Pt family to provide pt ride home.
[2017-10-18] MEDS ORDERED: OXYBUTYNIN 5 MG5 M2 PO (15:05)
[2017-10-18] MEDS ORDERED: SERTRALINE HCL50 MG PO (15:05)
[2017-10-18] MEDS ORDERED: PROSCAR 5MG TABL5 MG PO (15:05)
--- NOTE | 2017-10-18 17:51 | NUR ---
PATIENT DISCHARGED HOME, ALL INSTRUCTIONS/MEDS REVIEWED WITH PATIENT/, ALL QUESTIONS ANSWERED, PRESCRIPTIONS GIVEN. PATIENT LEFT FLOOR WITH FAMILY AND STAFF TO CARE, ALL BELONGINGS SENT WITH PATIENT
--- NOTE | 2018-01-08 10:19 | D ---
[facility] [address] [place] [address] DISCHARGE SUMMARY Name: DARLYNVICTORIA Rose Room: [address] IN [facility].#: [id number] Admission: 09/28/17 Attend Phys: Edna Cardenas DO Discharge: 10/18/17 Date of : 31 Report #: [id number] THIS REPORT FOR: //name// CC: Eliot Cardenas DATE OF SERVICE: 10/18/2017 DISCHARGE DIAGNOSIS: Toxic encephalopathy. DISCHARGE DISPOSITION: To home with home health PT, OT and nursing. Follow with primary care physician within 1 week. Follow up with Neurology within 2-4 weeks. Maintain a low-sodium diet. Maintain fall precautions. Monitor weight gain. MEDICATIONS: Reviewed and reconciled by myself and are available in the MAR. DISCHARGE PHYSICAL EXAMINATION: GENERAL: Alert, oriented, no apparent distress. VITAL SIGNS: Reviewed and are stable. HEENT: Head atraumatic, normocephalic. Pupils equal, round, reactive. ABDOMEN: Soft, nontender, nondistended. NEUROLOGIC: Cranial nerves 2-12 are grossly intact. No focal neuro deficits, 5/5 strength in bilateral upper and lower extremities. <ELECTRONICALLY SIGNED> By: Edna Cardenas DO 01/08/18 1019 [id number] Cardenas DO /nt
== END 2017-10-18 15:31 | disposition home health service (06) | DRG 91 ==
LOC: M.REH 15:02
PROVIDERS: Internal Medicine; ADMIT Physical Medicine & Rehabilitation
DX: G92 Toxic encephalopathy (principal); A41.9 Sepsis, unspecified organism; R65.21 Severe sepsis with septic shock; K65.9 Peritonitis, unspecified; N17.0 Acute kidney failure with tubular necrosis; E43 Unspecified severe protein-calorie malnutrition; J96.01 Acute respiratory failure with hypoxia; I21.A1 Myocardial infarction type 2; C18.9 Malignant neoplasm of colon, unspecified; E87.2 Acidosis; K56.7 Ileus, unspecified; Z48.815 Encounter for surgical aftercare following surgery on the digestive system; Z98.0 Intestinal bypass and anastomosis status; R13.10 Dysphagia, unspecified; I10 Essential (primary) hypertension; K59.09 Other constipation; K31.89 Other diseases of stomach and duodenum; E78.5 Hyperlipidemia, unspecified; I25.10 Atherosclerotic heart disease of native coronary artery without angina pectoris; N40.0 Benign prostatic hyperplasia without lower urinary tract symptoms; E66.9 Obesity, unspecified; F03.90 Unspecified dementia, unspecified severity, without behavioral disturbance, psychotic disturbance, mood disturbance, and anxiety; N32.89 Other specified disorders of bladder; E86.9 Volume depletion, unspecified; N13.5 Crossing vessel and stricture of ureter without hydronephrosis; R53.81 Other malaise; E78.00 Pure hypercholesterolemia, unspecified; Z68.25 Body mass index [BMI] 25.0-25.9, adult; Z88.0 Allergy status to penicillin; Z88.2 Allergy status to sulfonamides; Z91.012 Allergy to eggs; Z95.5 Presence of coronary angioplasty implant and graft; Z87.891 Personal history of nicotine dependence; Z90.49 Acquired absence of other specified parts of digestive tract; Z93.2 Ileostomy status; Z79.82 Long term (current) use of aspirin; Z79.899 Other long term (current) drug therapy

== ENCOUNTER 2017-10-19 09:19 | Inpatient (IN) | payer MEDICARE ==
[~2017-10-19] VITALS: Ht 185.4 cm; Wt 81.6 kg
[~2017-10-19 09:19] MED LIST changes: +OXYBUTYNIN 5 MG5 M2 PO; +PROSCAR 5MG TABL5 MG PO; +SERTRALINE HCL50 MG PO
[2017-10-19 09:20] VITALS: BP 127/51
[2017-10-19 10:00] LABS: ABSOLUTE BASOPHILS 0.1 thou/uL (0.0-0.2); ABSOLUTE EOSINOPHILS 0.5 thou/uL (0.0-0.7); ABSOLUTE LYMPHOCYTES 1.4 thou/uL (0.8-5.3); ABSOLUTE MONOCYTES 0.6 thou/uL (0.0-1.2); ABSOLUTE NEUTROPHILS 5.8 thou/uL (1.6-8.1); BASOPHILS 1.2 %; EOSINOPHILS 6.1 %; HEMATOCRIT 25.8 % (42.0-52.0); HEMOGLOBIN 8.7 gm/dL (14.0-18.0); LYMPHOCYTES 16.7 %; MCH 28.7 pg (26.0-34.0); MCHC 33.8 g/dL (28.0-37.0); MCV 84.8 fL (80.0-100.0); MONOCYTES 7.4 %; NUCLEATED RBCS 0 /100WBC; PLATELET COUNT* 318 thou/uL (150-400); POLYS 68.6 %; RBC 3.04 mil/uL (4.50-6.00); RDW-CV 16.3 % (10.5-14.5); WBC 8.4 thou/uL (4.0-11.0)
[2017-10-19 10:10] LABS: ANION GAP 9 mmol/L (7-16); BUN 21 mg/dL (7-18); CALCIUM 8.5 mg/dL (8.5-10.1); CHLORIDE 94 mmol/L (98-107); CO2 25 mmol/L (21-32); CREATININE 1.7 mg/dL (0.6-1.3); GLUCOSE 131 mg/dL (70-99); POTASSIUM 4.2 mmol/L (3.5-5.1); SODIUM 128 mmol/L (136-145)
[2017-10-19 10:11] LABS: APTT 24.8 Seconds (25.0-31.3)
[2017-10-19 10:21] LABS: ALBUMIN 2.4 g/dL (3.4-5.0); ALKALINE PHOSPHATASE 114 U/L (46-116); NT-PRO BRAIN NAT PEPTIDE 902 pg/mL (<300); SGOT 20 U/L (15-37); SGPT 16 U/L (30-65); TOTAL BILIRUBIN 0.2 mg/dL (<0.1-1.0); TOTAL PROTEIN 6.7 g/dL (6.4-8.2); TROPONIN-I LEVEL <0.06 ng/mL (<0.06)
[2017-10-19 11:10] LABS: BE -0.4 mmol/L (-2 to +3); HCO3 23.2 mmol/L (22.0-26.0); PCO2 35.5 mmHg (35.0-45.0); pH 7.434 (7.340-7.450)
[2017-10-19 11:13] LABS: PO2 155.9 mmHg (75.0-100.0)
[2017-10-19 11:40] VITALS: BP 123/53
[2017-10-19 16:25] VITALS: BP 120/52
--- NOTE | 2017-10-19 16:31 | 2DMMODE ---
[place] [address] 2 D/M-MODE ECHOCARDIOGRAM Name: VICTORIA SANTIZO Room: [facility] ADM IN [facility]#: [id number] Admission: 10/19/17 Attend Phys: Vic Hernandez, Discharge: Date of : 31 Date of Service: 10/19/17 1631 Report #: [id number] THIS REPORT FOR: //name// APPROVED REPORT Study performed: 10/19/2017 15:39:32 EXAM: Limited 2D Echocardiogram Patient Location: In-Patient Room #: [facility] Status: routine BSA: 2.06 HR: 67 bpm BP: 123/53 mmHg Rhythm: NSR Other Information Study Quality: Good Indications Question of PE, weakness Tricuspid Valve RAP Estimate: 5.00 mmHg TR Peak Gr.: 28.40 mmHg RVSP: 33.40 mmHg PA Pressure: 33.40 mmHg Left Ventricle The left ventricle is normal size. There is normal LV segmental wall motion. Borderline concentric left ventricular hypertrophy. The left ventricular systolic function is normal. The left ventricular ejection fraction is within the normal range. LVEF is 55-60%. Right Ventricle The right ventricle is normal size. The right ventricular systolic function is normal. Atria Left atrium is mildly dilated. The right atrium size is normal. Aortic Valve Mild aortic valve sclerosis. Mild aortic regurgitation. Mitral Valve The mitral valve is normal in [place] [address] 2 D/M-MODE ECHOCARDIOGRAM Name: VICTORIA SANTIZO Room: [address] IN [facility].R.#: [id number] Admission: 10/19/17 Attend Phys: Vic Hernandez, Discharge: Date of : 31 Date of Service: 10/19/17 1631 Report #: [id number] regurgitation. Tricuspid Valve The tricuspid valve is normal in structure. Mild tricuspid regurgitation. Mild pulmonary hypertension. Pulmonic Valve The pulmonary valve is normal in structure. Great Vessels The aortic root is normal in size. IVC is normal in size and collapses >50% with inspiration. Pericardium There is no pericardial effusion. <Conclusion> The left ventricle is normal size. Borderline concentric left ventricular hypertrophy. The left ventricular systolic function is normal. The left ventricular ejection fraction is within the normal range. LVEF is 55-60%. The right ventricle is normal size. Left atrium is mildly dilated. Mild aortic valve sclerosis. Mild aortic regurgitation. The mitral valve is normal in structure. Trace mitral regurgitation. The tricuspid valve is normal in structure. IVC is normal in size and collapses >50% with inspiration. There is normal LV segmental wall motion. <ELECTRONICALLY SIGNED> By: Benjamin Barksdale MD, [facility] 10/19/17 1631 [id number] Benjamin Barksdale MD, [facility] /INF
--- NOTE | 2017-10-19 20:39 | NUR ---
ADMITTED TO ROOM 317 WITH FAMILY AT BEDSIDE THIS AFTERNOON, SEE ASSESSMENT FOR DETAILS, ORIENTED TO ROOM, DIAGNOSTICS COMPLETE, EEG TO BE COMPLETED IN AM, NEW IV ACCESS TO LAC X 1 ATTEMPT, NS @ 80, MEDS GIVEN AFTER SUPPER, BEVERLEY WELL, WOUNDS TO ABDOMEN UNCHANGED FROM 10/16, DRESSINGS DATED, CHANGED. BEVERLEY SOME PUDDING FOR LUNCH, BEVERLEY 20% OF SUPPER, INDWELLING CATH PATENT TO CLEAR YELLOW URINE, CALL LIGHT IN REACH, CARE PLAN REVIEWED WITH PATIENT AND FAMILY, NO QUESTIONS AT THIS TIME.
[2017-10-19 22:27] VITALS: BP 113/55
[2017-10-20 04:22] LABS: ABSOLUTE BASOPHILS 0.1 thou/uL (0.0-0.2); ABSOLUTE EOSINOPHILS 0.5 thou/uL (0.0-0.7); ABSOLUTE LYMPHOCYTES 1.4 thou/uL (0.8-5.3); ABSOLUTE MONOCYTES 0.6 thou/uL (0.0-1.2); ABSOLUTE NEUTROPHILS 5.5 thou/uL (1.6-8.1); BASOPHILS 0.8 %; EOSINOPHILS 6.6 %; HEMATOCRIT 25.5 % (42.0-52.0); HEMOGLOBIN 8.5 gm/dL (14.0-18.0); LYMPHOCYTES 17.7 %; MCH 28.7 pg (26.0-34.0); MCHC 33.4 g/dL (28.0-37.0); MONOCYTES 7.1 %; MPV 7.2 fl. (7.2-11.1); NUCLEATED RBCS 0 /100WBC; PLATELET COUNT* 311 thou/uL (150-400); POLYS 67.8 %; RBC 2.96 mil/uL (4.50-6.00); RDW-CV 16.9 % (10.5-14.5); WBC 8.1 thou/uL (4.0-11.0)
[2017-10-20 04:32] LABS: CALCIUM 8.8 mg/dL (8.5-10.1); CREATININE 1.5 mg/dL (0.6-1.3); POTASSIUM 4.5 mmol/L (3.5-5.1)
--- NOTE | 2017-10-20 06:44 | NUR ---
PATIENT SLEPT WELL DURING THIS SHIFT; AT BEDSIDE. PT ALERT/ORIENTED BUT CONFUSED AND FORGETFUL. PT TURNED Q2H PER PROTOCAL. PT WITH DSG OVER MUCOUS FISTULA. PT HAS TWO PIECE ILEOSTOMY WITH THICK DARK BROWN STOOL. PT PULLED APPLIANCE OFF DURING THE NIGHT. NEW APPLIANCE APPLIED. SKIN AROUND STOMA APPEARS HEALTHY WITH NO BREAKDOWN. STOMA PINK, NOT QUITE FLUSH WITH ABDOMEN. PT HAS CLEAR YELLOW URINE IN MCQUEEN CATHETER. FREQUENTLY USED ITEMS AND CALL LIGHT WITHIN PLACE. SIDERAILS UPX4 PER FAMILY REQUEST AND BED ALARM ON. WILL CONTINUE TO MONITOR.
[2017-10-20 12:02] VITALS: BP 118/50
--- NOTE | 2017-10-20 12:17 | CON ---
[address] [address] CONSULTATION Name: VICTORIA SANTIZO Room: [address] IN .R.#: [id number] Admission: 10/19/17 Attend Phys: Vic Hernandez MD Discharge: Date of : 31 Report #: [id number] THIS REPORT FOR: //name// CC: Vic Kaye DATE OF SERVICE: 10/19/2017 HISTORY OF PRESENT ILLNESS: This is an 86-year-old male patient who was evaluated by me to determine any neurological etiology for the patient's syncope. The history is poor because neither the patient nor the is a very good historian. Apparently, he had an episode of syncope about a year ago and he was in [facility], then he had a prolonged course here and he was in the rehab and in fact just left the rehab and had an episode where he had syncope. It is not clear what the episode was, but the patient said he felt weak all over, he had some shaking, he had no tone in his extremities and then lost some consciousness. It is not clear whether there was some focal deficit in this patient or not. He was brought to emergency room and from where he was admitted. I do not think he had any imaging study done there. REVIEW OF SYSTEMS: This patient had an episode of syncope. He had prior stent. He has a history of high cholesterol. He has a history of urinary retention and ileostomy. Clinically, his memory is not very good. He is on donepezil, so I suspect he has dementia. I carried out the 14-point review of system and this is a relevant 14-point review of system. PAST MEDICAL HISTORY: Pretty extensive and he had a prolonged course. FAMILY HISTORY: Negative for early age stroke. SOCIAL HISTORY: The patient lives with his and I talked to him and he has been sick and he has been in the hospital. He does not smoke or drink alcohol. PHYSICAL EXAMINATION: The patient's examinations indicate when asked what month it is, he indicates it is October. He does not know what hospital he is in, so his memory and fund of knowledge is very poor. Cranial nerve examination 2-12 was attempted. He is not very cooperative with examination, but I do not see any focality. Neuromuscular examinations appear noncontributory, but I cannot tell about position sense because he cannot cooperate. He could not cooperate with the rest of the neurological examination. He is a well-developed individual. He still has a scar in the abdomen. Cardiac examination is unremarkable. No respiratory difficulty was noticed. Blood pressure is 123/53, respirations 15, pulse is 69. LABORATORY DATA: White count is 8.4. [place] [address] CONSULTATION Name: VICTORIA SANTIZO Room: [address] IN [facility]#: [id number] Admission: 10/19/17 Attend Phys: Vic Hernandez MD Discharge: Date of : 31 Report #: [id number] IMPRESSION: This patient does appear to have underlying dementia. He had pretty prolonged illnesses that may have decompensated him or he may have some encephalopathy. I think it will be desirable to do some further workup. I am not sure he will cooperate with MRI, so I will start with the CAT scan and an EEG. Later on, we may have to do the MRI and MRA in this patient depending on the results of that and how the patient does. Dr. Cruz will follow up this patient with you from tomorrow. Thank you very much for this referral. <ELECTRONICALLY SIGNED> By: Elpidio Castellanos MD 10/20/17 1217 [id number] Castellanos MD /nt
--- NOTE | 2017-10-20 13:13 | NUR ---
MET WITH PT AND /LOGAN TO DISCUSS HOME SITUATION/DC PLANNING. PT JUST DC'D FROM IN REHAB UNIT 10/18 HOME WITH [facility]. PER , HE DID WELL IN THE EVENING BUT 'PASSED OUT' IN THE MORNING WHILE AT THE SINK. PT WAS TO HAVE [facility] FOR HH. HAS WALKER, BATH SEAT, RAMP. AT THIS TIME THEY ARE INTERESTED IN GOING TO [facility] [place] FOR SNF. CALLED AND FAXED REFERRAL TO [facility], AWAIT CALL BACK
[2017-10-20 14:11] LABS: URINE BILIRUBIN NEGATIVE (Negative); URINE BLOOD 1+ (Negative); URINE CLARITY CLEAR; URINE COLOR YELLOW; URINE GLUCOSE-RANDOM NEGATIVE (Negative); URINE KETONES NEGATIVE (Negative); URINE NITRITE-REFLEX NEGATIVE (Negative); URINE PROTEIN NEGATIVE (Negative); URINE SPECIFIC GRAVITY <= 1.005 (1.005-1.030); URINE UROBILINOGEN 0.2 E.U./dl (0.2-1.0)
[2017-10-20 14:12] LABS: URINE LEUKOCYTES-REFLEX 2+ (Negative)
[2017-10-20 14:31] LABS: BACTERIA-REFLEX 1-9 Few /HPF (None Seen); CASTS None Seen /LPF (None Seen); CRYSTALS None Seen /LPF (None Seen); MUCUS 0-3 Light strn/LPF (None Seen); SQUAMOUS 4-10 Moderate /LPF (0-3); URINE RBC 3-10 Few /HPF (0-2); URINE WBC-REFLEX >25 Many /HPF (0-5)
[2017-10-20 17:03] VITALS: BP 129/54
[2017-10-20 20:00] VITALS: BP 126/73
[2017-10-21] VITALS: BP 143/56
[2017-10-21 04:00] VITALS: BP 124/52
[2017-10-21 04:20] LABS: ABSOLUTE BASOPHILS 0.1 thou/uL (0.0-0.2); ABSOLUTE EOSINOPHILS 0.5 thou/uL (0.0-0.7); ABSOLUTE LYMPHOCYTES 1.6 thou/uL (0.8-5.3); ABSOLUTE MONOCYTES 0.6 thou/uL (0.0-1.2); ABSOLUTE NEUTROPHILS 6.4 thou/uL (1.6-8.1); BASOPHILS 0.9 %; EOSINOPHILS 5.7 %; HEMATOCRIT 25.2 % (42.0-52.0); HEMOGLOBIN 8.2 gm/dL (14.0-18.0); LYMPHOCYTES 17.2 %; MCH 28.3 pg (26.0-34.0); MCHC 32.7 g/dL (28.0-37.0); MCV 86.7 fL (80.0-100.0); MONOCYTES 6.2 %; MPV 7.2 fl. (7.2-11.1); NUCLEATED RBCS 0 /100WBC; PLATELET COUNT* 313 thou/uL (150-400); RBC 2.91 mil/uL (4.50-6.00); WBC 9.2 thou/uL (4.0-11.0)
[2017-10-21 04:26] LABS: CREATININE 1.3 mg/dL (0.6-1.3); POTASSIUM 4.3 mmol/L (3.5-5.1)
[2017-10-21 08:00] VITALS: BP 136/56
--- NOTE | 2017-10-21 11:15 | NUR ---
Spoke with Pt's , updated on POC.
[2017-10-21 12:00] VITALS: BP 126/51
[2017-10-21 16:26] VITALS: BP 130/68
--- NOTE | 2017-10-21 16:59 | NUR ---
PATIENT A&OX4, ROOM AIR, IV LEFT FOREARM SALINE LOCK. UP WITH ASSISTX1 TO BSC, WEAKNESS. LEFT SIDE ILLIOSTOMY, RIGHT SIDE MUCUS PLUG. INDWELLING URINARY CATHETER. NO OTHER CONCERNS AT THIS TIME. APPROPRIATE AND COOPORATIVE WT CARE.
[2017-10-21 21:00] VITALS: BP 139/64
[2017-10-22] VITALS: BP 140/66
[2017-10-22 04:18] VITALS: BP 125/54
--- NOTE | 2017-10-22 05:26 | NUR ---
PATIENT REMAINS ALERT AND ORIENTED X4 THROUGHOUT SHIFT. VITAL SIGNS STABLE ON ROOM AIR. TELE MONITOR IN PLACE. IV PATENT IN THE LEFT FOREARM SALINE LOCKED. ANTIBIOTICS INFUSED PER ORDERS. DENIES PAIN OR NAUSEA. SPOUSE IS AT BEDSIDE. NURSING REMINDED PATIENT TO REPOSITION EVERY TWO HOURS. PATIENT IS ABLE TO MOVE INDEPENDENTLY. ILEOSTOMY AND MCQUEEN IN PLACE AND PATENT. SCD'S REMAIN OFF DUE TO DVT'S. RESTING COMFORTABLY THROUGHOUT THE NIGHT. FALL PRECAUTIONS IN PLACE. CALL LIGHT WITHIN REACH. WILL CALL FOR ASSISTANCE.
[2017-10-22 08:56] VITALS: BP 138/61
[2017-10-22 12:07] VITALS: BP 117/56
[2017-10-22 15:49] VITALS: BP 149/60
--- NOTE | 2017-10-22 18:09 | NUR ---
ASSUMED CARES OF PT AT 0700. PT IN BED, BED IN LOW LOCKED POSITION. CALL BUTTON AND PERSONAL ITEMS IN PT REACH. PT A&O X4, AT BEDSIDE. PT ON TELE MONITOR, HRRR, LCTAB, DIMINISHED. OCC NON PRODUCTIVE COUGH. ILIOSTOMY AND MCQUEEN CHECKED AND DRAINED. SCD'S CONTRAINDICATED R/T MULTIPLE DVT'S IN LE. DRESSINGS ON ABD (2) C/D/I. Q2 TURNS AND HOURLY ROUNDING CONTINUE. PT PROGRESSING TOWARDS GOAL. IV ABT THERAPY TOLERATED. OLGA CABRALES TODAY CH AND CALLED TO DR. CHAMBERS. VANCO DOSE CHANGED PER PHARMACY. PT DENIES PAIN THIS SHIFT. REPORT TO BE GIVEN TO REHANGER FOR CONTINUED CARES. PT UP 1-2 ASSIST. WILL CONTINUE TO MONITOR PT PROGRESS AND STATUS.
[2017-10-23 00:23] VITALS: BP 108/48
[2017-10-23 04:27] VITALS: BP 130/53
--- NOTE | 2017-10-23 06:08 | NUR ---
PATIENT SLEPT MOST OF THE NIGHT. IV VANC WAS GIVEN ORDERED. PATIENT HAD NO COMPLAINTS OF PAIN. PATIENT HAS BEEN SINUS RHYTHM WITH PVC'S ON THE MONITOR. WILL CONTINUE TO MONITOR.
[2017-10-23 12:00] VITALS: BP 116/46
--- NOTE | 2017-10-23 15:08 | NUR ---
Following for d/c planning needs. Spoke with taxicab coordinator at [facility]. They have reviewed information and are able to accept pt on d/c from hospital. Will remain available to assist as needed.
[2017-10-23 16:00] VITALS: BP 120/49
--- NOTE | 2017-10-23 19:09 | NUR ---
RESUMED CARE THIS AM, MCQUEEN DISCONTINUED ORDERED, DID VOID 100 ML BLOOD TINGED URINE, COLOSTOMY INTACT, REFERRAL TO [facility] FOR SKILLED STAY ANTICIPATED FOR TOMORROW, CARE PLAN REVIEWED WITH PATIENT AND , DENIES QUESTION, CALL LIGHT IN REACH, CONT POC.
[2017-10-23 21:00] VITALS: BP 141/54
[2017-10-24 00:07] VITALS: BP 135/59
[2017-10-24 04:04] VITALS: BP 131/62
--- NOTE | 2017-10-24 07:06 | NUR ---
PATIENT HAS SLEPT WELL THROUGHOUT THE NIGHT WITHOUT ANY ISSUES. NO C/O PAIN. VSS ON RA. PATIENT IS UP WITH ASSIST X 2 WITH WALKER AND GAITBELT FROM CHAIR TO BED. PATIENT HAS BEEN INCONTINENT OF BLADDER MOST OF THE TIME. ANIA CARE PERFORMED. PATIENT HAS BEEN TURNED EVERY 2 HRS AND REPOSITIONED. COLOSTOMY EMPTIED NEEDED AND IS IN PLACE. DRESSING TO MUCOUS FISTULA ON LEFT UPPER QUADRANT IS C/D/I. IV IN LEFT AC-NS @ 100ML/HR. IV ABT GIVEN WITHOUT ANY ADVERSE SIDE EFFECTS. FALL PRECAUTIONS IN PLACE AND PATIENT INSTRUCTED TO USE CALL LIGHT WHEN NEEDING ASSISTANCE. HOURLY ROUNDS MADE. IN ROOM AT BEDSIDE DURING SHIFT. NURSING TO CONTINUE MONITORING.
[2017-10-24 08:10] VITALS: BP 128/66
[2017-10-24 12:00] VITALS: BP 141/51
[2017-10-24 13:04] LABS: ABSOLUTE BASOPHILS 0.1 thou/uL (0.0-0.2); ABSOLUTE EOSINOPHILS 0.7 thou/uL (0.0-0.7); ABSOLUTE LYMPHOCYTES 1.4 thou/uL (0.8-5.3); ABSOLUTE MONOCYTES 0.7 thou/uL (0.0-1.2); ABSOLUTE NEUTROPHILS 6.2 thou/uL (1.6-8.1); BASOPHILS 0.6 %; EOSINOPHILS 7.4 %; HEMOGLOBIN 8.6 gm/dL (14.0-18.0); LYMPHOCYTES 15.5 %; MCH 28.3 pg (26.0-34.0); MCHC 33.1 g/dL (28.0-37.0); MCV 85.3 fL (80.0-100.0); MONOCYTES 7.8 %; MPV 7.2 fl. (7.2-11.1); NUCLEATED RBCS 0 /100WBC; PLATELET COUNT* 306 thou/uL (150-400); POLYS 68.7 %; RBC 3.04 mil/uL (4.50-6.00); RDW-CV 16.8 % (10.5-14.5)
[2017-10-24 13:26] LABS: CALCIUM 7.9 mg/dL (8.5-10.1); CREATININE 1.4 mg/dL (0.6-1.3); POTASSIUM 4.2 mmol/L (3.5-5.1); TOTAL BILIRUBIN 0.3 mg/dL (<0.1-1.0); TOTAL PROTEIN 6.2 g/dL (6.4-8.2)
--- NOTE | 2017-10-24 14:50 | NUR ---
Following for d/c planning needs. Pt is not ready to d/c today. Notified [facility] [place] of possibility of admission to their facility on 10/25. Will remain available to assist as needed.
[2017-10-24 16:00] VITALS: BP 130/56
--- NOTE | 2017-10-24 18:45 | NUR ---
RELUCTANT TO REPOSITION SELF, DOES FOLLOW INSTRUCTION WELL, POOR MOTIVATION FOR ADL. PERSISTENTLY IN ROOM. INC OF B/B, BEVERLEY MEDS/CARES WELL, NO C/O PAIN, NO DISTRESS NOTED, ANTICIPATE TRANSFER TO SKILLED UNIT @ [facility] TOMORROW.
[2017-10-24 20:30] VITALS: BP 94/48
[2017-10-25] VITALS: BP 132/50
[2017-10-25 04:00] VITALS: BP 177/64
--- NOTE | 2017-10-25 07:37 | NUR ---
PATIENT HAS SLEPT OFF AND ON BUT RESTLESS AT TIMES DURING THE NIGHT. VSS ON RA. PATIENT DOES HAVE SOME C/O SLIGHT BURNING UPON URINATION AT TIMES. PATIENT IS BEING TREATED FOR UTI AND HAD MCQUEEN REMOVED APPROXIMATELY 48HRS AGO. PATIENT HAS BEEN USING URINAL MUCH BETTER AND HAD LESS INCONTINENT EPISODES DURING THE NIGHT. ILEOSTOMY IN PLACE WITH DARK BROWN SOFT UNFORMED STOOL. DRESSING TO MUCOUS FISTULA IS C/D/I. IV IN LEFT AC-SL. IV ABT GIVEN WITHOUT ANY ADVERSE SIDE EFFECTS NOTED. PATIENT REPOSITIONED EVERY 2HRS. FALL PRECAUTIONS IN PLACE AND HOURLY ROUNDS MADE. WILL CONTINUE WITH PLAN OF CARE AND NURSING TO MONITOR.
[2017-10-25 08:15] VITALS: BP 155/56
--- NOTE | 2017-10-25 10:26 | NUR ---
Pt apparently had new blood cultures drawn and are waiting on results. Spouse said that doctor told her pt would not be ready for d/c until 10/26. Spoke with PT, pt and spouse. Encouraged pt to participate in therapy in order to qualify for SNF at [facility]. Will remain available to assist as needed.
[2017-10-25 12:33] VITALS: BP 120/51
[2017-10-25 16:15] LABS: URINE BILIRUBIN NEGATIVE (Negative); URINE BLOOD 2+ (Negative); URINE CLARITY CLEAR; URINE COLOR YELLOW; URINE GLUCOSE-RANDOM NEGATIVE (Negative); URINE KETONES NEGATIVE (Negative); URINE NITRITE-REFLEX NEGATIVE (Negative); URINE PROTEIN NEGATIVE (Negative); URINE SPECIFIC GRAVITY <= 1.005 (1.005-1.030); URINE UROBILINOGEN 0.2 E.U./dl (0.2-1.0)
[2017-10-25 16:16] LABS: URINE LEUKOCYTES-REFLEX 2+ (Negative)
[2017-10-25 16:33] LABS: SQUAMOUS 0-3 Few /LPF (0-3); URINE WBC-REFLEX >25 Many /HPF (0-5)
[2017-10-25 16:34] LABS: BACTERIA-REFLEX 1-9 Few /HPF (None Seen); CASTS None Seen /LPF (None Seen); CRYSTALS None Seen /LPF (None Seen); URINE RBC 3-10 Few /HPF (0-2)
[2017-10-25 16:44] VITALS: BP 131/64
--- NOTE | 2017-10-25 17:05 | NUR ---
PATIENT RESTING IN BED. PATIENT WORKED WITH PHYSICAL THERAPY THIS AFTERNOON AND WAS UP IN RECLINER MOST OF AFTERNOON. PATIENT HAD COMPLAINTS OF LOWER ABDOMINAL PAIN AND WAS HAVING INCREASING DIFFICULTLY O URINATE. BLADDER SCAN SHOWED 851ML, DR CHAMBERS NOTIFIED AND ORDERS FOR STRAIGHT CATH RECEIVED, WITH 850ML OBTAINED WITH STRAIGHT CATH. ORDERS FOR MCQUEEN AND UROLOGY CONSULT IF RETENTION RETURNS WITH > 200ML WITH BLADDER SCAN. PATIENT STATES RELIEF OF ABDOMINAL PAIN AFTER BLADDER EMPTIED. PATIENT HAS FAIR APPETITE WITH ENSURE SUPPLEMENTS. PATIENT TRANSFERED TO BED WITH MINIMAL ASSIST. PATIENT DENIES ANY NEEDS AT THIS TIME. CALL LIGHT WITHIN REACH. AT BEDSIDE. WILL CONTINUE TO MONITOR.
--- NOTE | 2017-10-25 20:20 | CON ---
[address] [address] CONSULTATION Name: VICTORIA SANTIZO Room: [address] IN [facility].#: [id number] Admission: 10/19/17 Attend Phys: Vic Hernandez MD Discharge: Date of : 31 Report #: [id number] THIS REPORT FOR: //name// CC: Vic Kaye DATE OF SERVICE: 10/24/2017 CONSULTATION: Infectious diseases. HISTORY OF PRESENT ILLNESS: is an 86-year-old white male, returns to the hospital on 10/19 after a syncopal episode. The patient was initially admitted on 08/23 with perforated colon cancer. He had a very complex hospitalization requiring several procedures including repair of abdominal wall fascia due to dehiscence. Mesh was used. The patient developed toxic encephalopathy and severe debilitation. He was discharged to rehab on 09/28 after approximately 6 weeks in the hospital. He stayed in rehab until 10/18 and then went home. The noted during the last week, he seemed to be deteriorating at rehab. He then at home suffered a witnessed fall. The is able to help him gently to the ground. He was readmitted to the hospital. Blood cultures times 2 were drawn as part of the syncope workup. Infectious disease consultation was requested when 1 out of the 2 blood cultures is growing Gram-positive cocci. The patient has had progressive weakness, but did not give a history of fevers, chills, sweats. He has postoperative discomfort, but really no other focal pain. He has been generally weak consistent with his recent hospitalization. His biggest complaint actually has been hiccups, which have made it difficult to eat and difficult to sleep. PAST MEDICAL HISTORY: In addition to above, includes coronary artery disease, myocardial infarction, hypertension, hyperlipidemia, dementia, prostatic hypertrophy, depression, hypothyroidism, hypertension, deep vein thrombosis. PROCEDURES: Include the abdominal surgeries. The patient had coronary artery stenting prior to this. ALLERGIES: The patient notes allergy to PENICILLIN and SULFA DRUGS. MEDICATION RECONCILIATION: The patient's current medication list is as follows: Oxybutynin 5 mg daily, vancomycin IV q.i.d., gabapentin 100 mg daily, iron 325 mg b.i.d., thyroid 0.05 mg daily, finasteride 5 mg daily, memantine 5 mg daily, donepezil 5 mg daily, metoprolol 25 mg daily, loratadine 10 mg daily, aspirin 81 mg daily, pantoprazole 40 mg daily, tamsulosin 0.4 mg daily, rivaroxaban 50 mg b.i.d., calcium carbonate 500 mg q. 6 hours p.r.n., metoprolol 5 mg IV push q. 6 hours p.r.n., ondansetron 4 mg IV q. 6 hours p.r.n., docusate 100 mg daily, [place] [address] CONSULTATION Name: CLAUDIOENRIQUEVICTORIA Rose Room: [address]#: [id number] Admission: 10/19/17 Attend Phys: Vic Hernandez MD Discharge: Date of : 31 Report #: [id number] MiraLax 17 grams daily, Tylenol 650 mg q. 6 hours p.r.n. FAMILY HISTORY: Noncontributory. SOCIAL HISTORY: The patient is . 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 He did smoke in the past, but quit years ago. No history of alcohol. REVIEW OF SYSTEMS: CONSTITUTIONAL: The patient denies fevers, chills, sweats. He has significant weakness. He has hiccups. ENT: The patient denies headache, sinus congestion, sore throat, trouble swallowing. CHEST: The patient denies cough, chest pain or shortness of breath. GASTROINTESTINAL: The patient has nausea, poor appetite. His colostomy is functioning well. He has remarkably little abdominal pain. GENITOURINARY: No complaints. EXTREMITIES: No complaints. PHYSICAL EXAMINATION: GENERAL: The patient appears his stated age, weak, and debilitated, but awake, alert, oriented, and pleasant, not in any distress. VITAL SIGNS: Showed the patient has been afebrile since coming to the hospital. SKIN: Shows postsurgical changes. There are number of ecchymoses from phlebotomies and IVs, but no significant wounds, no cellulitis, no phlebitis. ENT: Negative. The patient seemed to have some hearing deficits. NECK: Supple. CARDIOVASCULAR: Heart sounds S1, S2. LUNGS: Clear to anterior auscultation. ABDOMEN: Obese, soft without any real tenderness. The surgical wounds are well healed except for just the most inferior aspect of the midline wound, which has been invagination, which may have some granulation tissue at the bottom. Mucous fistula is present in the left upper quadrant, colostomy in the right lower quadrant. The belly is somewhat bloated with gas, but otherwise unremarkable. EXTREMITIES: Unremarkable. LABORATORY STUDIES: White count is 9.0, hemoglobin 8.6, platelets [id number]. Electrolytes are normal. BUN 30, creatinine 1.4, glucose 136. Liver function tests are normal. Albumin is low at 2.0. TSH is high at 9.7. Blood cultures times 2 were done on admission on 10/19. One of two is growing Gram-positive cocci. Identification pending. IMPRESSION: The patient really does not appear to be septic, but just debilitated after his 2-month hospital ordeal. He has not been having typical fever, chills, sweats, leukocytosis multisystem failure, which one could expect an 86-year-old debilitated gentleman with true bacteremia. [place] [address] CONSULTATION Name: VICTORIA SANTIZO Rose Room: [address] IN [facility]#: [id number] Admission: 10/19/17 Attend Phys: Vic Hernandez MD Discharge: Date of : 31 Report #: [id number] probably find that this is a contaminated culture. I would like to order 2 followup blood cultures. If we are looking at 1/4 blood cultures with coagulase negative Staph or diphtheroid, this would most certainly suggest a contaminated culture rather than true bacteremia. If the cultures come back Staph aureus or multiple positive cultures, then we will probably need to deal with additional antibiotic therapy. The patient is trying to maximize protein. We may want to consider some intravenous supplement while the patient is in the hospital. Also I note the TSH is high. I wonder if he is not absorbing his thyroid replacement or if the dose needs to be increased. For now, we will continue the patient on vancomycin pending results of cultures. If this looks like a contaminated cultures, I will discontinue the vancomycin. Thank you for this consultation. <ELECTRONICALLY SIGNED> By: Benjamin Grimes MD 10/25/172019 [id number] Grimes MD /nt
[2017-10-25 20:45] VITALS: BP 123/74
[2017-10-26 00:09] VITALS: BP 125/64
--- NOTE | 2017-10-26 00:24 | NUR ---
PT ATTEMPTED TO VOID IN BED ON WHILE STANDING AFTER 8 HOUR OF ITNTIAL STRAITH CATH , PT WAS UNABLE TO VOID BLADDER SCANNED SHOW >657 . 16 MALAGASY MCQUEEN CATH PLACED USING STERILE TECHNIQUE WITH 10 ML BALLON ORANGE COLORED URINE RETURNED PT TOLERATED WELL. AT BEDSIDE
[2017-10-26 04:18] VITALS: BP 120/44
[2017-10-26 08:00] VITALS: BP 136/47
[2017-10-26] MEDS ORDERED: FOLBIC RF TABL1 EACH PO (13:12)
[2017-10-26] MEDS ORDERED: MACROBID 100 M100 M2 PO (13:13)
[2017-10-26] MEDS ORDERED: PHENAZOPYRIDIN200 M2 PO (13:18)
[2017-10-26] MEDS ORDERED: SYNTHROID50 MCG PO (13:19)
[2017-10-26] MEDS ORDERED: TOPROL XL25 MG PO (13:20)
[2017-10-26] MEDS ORDERED: IRON325 PO (13:23)
[2017-10-26] MEDS ORDERED: CHLORTHALIDONE25 MG PO (13:23)
[2017-10-26] MEDS ORDERED: LEVSIN0.125 MG SUBLING (13:26)
--- NOTE | 2017-10-26 13:34 | NUR ---
PRINCESS RECIEVED A CALL FROM ZAHIRA WITH [facility] ADMISSIONS AND SHE INFORMS THAT THE FACILITY IS ABLE TO ACCEPT THE PATIENT TODAY, AND WILL PROVIDE TRANSPORTATION AT 1400. CM SPOKE TO THE PATIENT AND SPOUSE TO INFORM OF THIS INFO AND BOTH ARE IN AGREEMENT. CM SPOKE TO THE RN IN-CHARGE OF THE PATIENT TO INFORM OF THE FACILITIES ACCEPTANCE, TIME OF TRANSPORT, AND WHERE TO CALL REPORT. RN IN-AGREEMENT. CM WILL REMAIN AVAILABLE TO ASSIST AND FOLLOW NEEDED.
[2017-10-26 13:37] VITALS: BP 136/47
[2017-10-26] MEDS ORDERED: VITAMIN B-12500 MCG PO (13:53)
[2017-10-26] MEDS ORDERED: XARELTO15 MG PO (13:58)
[2017-10-26] MEDS ORDERED: XARELTO20 MG PO (13:59)
--- NOTE | 2017-10-26 15:08 | NUR ---
PATIENT A&OX4, ROOM AIR, IV LEFT AC SALINE LOCK. UP WITH MAX ASSISTX1-2 WITH WALKER AND GIATBELT. NO C/O PAIN/N/V. NO OTHER CONCERNS AT THIS TIME. PATIENT DISCHARGED TO [facility], WILL CALL REPORT. PATIENT LEFT UNIT [id number] VIA W/C WITH TRANSPORTER AND ALL BELONGINGS. APPROPRAITE AND COOPORATIVE WITH CARE.
== END 2017-10-26 14:10 | DRG 70 ==
LOC: M.ERS 09:19 → M.3W 11:09 → M.TBA-ER 11:09 → M.3W 11:52
PROVIDERS: Personal Emergency Response Attendant; ADMIT Internal Medicine
DX: G93.40 Encephalopathy, unspecified (principal); R65.11 Systemic inflammatory response syndrome (SIRS) of non-infectious origin with acute organ dysfunction; N17.9 Acute kidney failure, unspecified; I82.413 Acute embolism and thrombosis of femoral vein, bilateral; E87.1 Hypo-osmolality and hyponatremia; E44.0 Moderate protein-calorie malnutrition; I82.433 Acute embolism and thrombosis of popliteal vein, bilateral; E86.0 Dehydration; I10 Essential (primary) hypertension; F03.90 Unspecified dementia, unspecified severity, without behavioral disturbance, psychotic disturbance, mood disturbance, and anxiety; E78.5 Hyperlipidemia, unspecified; F32.9 Major depressive disorder, single episode, unspecified; E03.9 Hypothyroidism, unspecified; E78.00 Pure hypercholesterolemia, unspecified; E66.9 Obesity, unspecified; D63.8 Anemia in other chronic diseases classified elsewhere; N40.1 Benign prostatic hyperplasia with lower urinary tract symptoms; R33.8 Other retention of urine; I25.10 Atherosclerotic heart disease of native coronary artery without angina pectoris; I25.2 Old myocardial infarction; Z95.5 Presence of coronary angioplasty implant and graft; Z68.23 Body mass index [BMI] 23.0-23.9, adult; Z93.2 Ileostomy status; Z88.0 Allergy status to penicillin; Z88.2 Allergy status to sulfonamides; Z91.012 Allergy to eggs; Z86.718 Personal history of other venous thrombosis and embolism; Z87.891 Personal history of nicotine dependence; Z79.82 Long term (current) use of aspirin; Z79.899 Other long term (current) drug therapy; Z85.038 Personal history of other malignant neoplasm of large intestine

== ENCOUNTER → 2017-11-03 | Outpatient (CLI) | payer MEDICARE ==
[~2017-11-03] MED LIST changes: +CHLORTHALIDONE25 MG PO; +FOLBIC RF TABL1 EACH PO; +IRON325 PO; +LEVSIN0.125 MG SUBLING; +MACROBID 100 M100 M2 PO; +PHENAZOPYRIDIN200 M2 PO; +SYNTHROID50 MCG PO; +VITAMIN B-12500 MCG PO; +XARELTO15 MG PO; +XARELTO20 MG PO
[2017-11-03 14:02] VITALS: BP 109/37; BP 117/57; BP 120/50; BP 122/51
--- NOTE | 2017-11-03 15:34 | NUR ---
ARRIVED PER WHEELCHAIR. MADE SELF COMFORTABLE IN RECLINER. LUNCH ORDERED AND WARM BLANKET FOR COMFORT. TRANSFUSION STARTED AND RUNNING WELL. TRANSFERED TO PACU TO FINISH RELATED TO OT PT CLINIC HOURS.
--- NOTE | 2017-11-03 15:35 | NUR ---
RECEIVED PT FROM INFUSION. PT ASSISTED INTO RECLINER. MADE SELF COMFORTABLE. PT TOLERATED BOTH UNITS OF PRBC'S W/NO ADVERSE REACTIONS. REVIEWED OUTPATIENT POST BLOOD TRANSFUSION INSTRUCTIONS W/PT AND SPOUSE. BOTH PT AND SPOUSE VERBALIZED UNDERSTANDING. PT LEFT VIA W/CHAIR FOR DISCHARGE BACK TO [facility]. DISCHARGED AT 1845. ACCOMPANIED BY SPOUSE. REPORT GIVEN TO NURSE AT [facility].
[2017-11-03 16:10] VITALS: BP 114/50; BP 117/57; BP 121/51; BP 122/51
== END ==
LOC: M.INFUS 11:30
DX: D64.9 Anemia, unspecified (principal); I25.10 Atherosclerotic heart disease of native coronary artery without angina pectoris

== ENCOUNTER → 2018-04-17 | Outpatient (CLI) | payer MEDICARE ==
[2018-04-13 15:31] LABS: CALCIUM 9.1 mg/dL (8.5-10.1); CREATININE 2.7 mg/dL (0.6-1.3); POTASSIUM 4.9 mmol/L (3.5-5.1)
== END ==
LOC: M.LAB 04-13 14:58 → M.CT 15:00
PROVIDERS: Urology
DX: K80.20 Calculus of gallbladder without cholecystitis without obstruction (principal); N13.4 Hydroureter; N13.5 Crossing vessel and stricture of ureter without hydronephrosis

== ENCOUNTER 2018-07-30 16:59 | Inpatient (IN) | payer MEDICARE ==
[~2018-07-30] VITALS: Ht 180.3 cm; Wt 97.5 kg
--- NOTE | ~2018-07-30 | CON ---
[address] [address] CONSULTATION Name: DARLYNVICTORIA Rose Room: [address] IN [facility].#: [id number] Admission: 07/30/18 Attend Phys: Giuseppe Coburn MD Discharge: Date of : 31 Report #: [id number] THIS REPORT FOR: //name// CC: Giuseppe Mathews DATE OF SERVICE: 07/31/2018 CONSULTING PHYSICIAN: Dr. Giuseppe Coburn. REASON FOR NEPHROLOGY CONSULTATION: Hyperkalemia, acute kidney injury REASON FOR ADMISSION: Weakness. HISTORY OF PRESENT ILLNESS: This is an 87-year-old male with past medical history of colon cancer according to family now in remission, status post surgical resection in July of last year, complicated by peritonitis and E. coli sepsis and chronic UTI after that as well ATN, needing ileostomy and mucous fistula, came in yesterday because he was having increasing lower extremity weakness, which started just 2 or 3 days before presenting to the hospital. The patient has been on trimethoprim for about last 3 months and was supposed to take it for 6 months prescribed by the Infectious Disease physician for UTI, which is chronic in nature. The patient also follows with Urology. Apparently, he has had this right UPJ obstruction for a few months now and he was supposed to get a stent placed today by Dr. Mathews in Urology, but the patient was delaying, did not want to get the procedure done. According to the patient's last week, the patient has agreed for the procedure and they were going to schedule the procedure with Urology office. The patient does not take any NSAIDs. He does love to eat bananas. He came in yesterday with a critical potassium of 9.1 with a junctional rhythm and creatinine of 4.3. His baseline creatinine seems to be 1.3-1.6. According to the patient's , the patient had an appointment to see me in my office because his kidney function was worsening, so his primary doctor, Dr. Clemente had made an appointment to see us. He was started on IV fluids in the form of a bicarbonate drip and he was also retaining more than 1 liter of urine in his bladder and a Valdez catheter was placed, so with fluids and Valdez his potassium has come down to 6.1 and his creatinine has come down from 4.3 to 3.9. His blood pressure is also soft and now improving, it was as low as 98/43 overnight. He is currently feeling okay, does not have any acute complaints. He also reports history of kidney stones, which have always been found in which he has never passed any. ALLERGIES: PENICILLIN, SULFA AND EGG. REVIEW OF SYSTEMS: As mentioned in history of present illness. [place] [address] CONSULTATION Name: VICTORIA SANTIZO Room: [address] IN [facility]#: [id number] Admission: 07/30/18 Attend Phys: Giuseppe Coburn MD Discharge: Date of : 31 Report #: [id number] some weakness in his lower extremities, which has improved with having some numbness in his lower extremities, which have improved. Otherwise, 10-point review of systems are negative. HOME MEDICATIONS: Include fexofenadine, trimethoprim, colchicine, omega 3 fatty acid, B12, calcium, donepezil, finasteride, rosuvastatin, gabapentin, metoprolol, ferrous sulfate, cyanocobalamin, Xarelto, aspirin, and tamsulosin. PAST MEDICAL AND SURGICAL HISTORY: Includes hypertension, colon cancer, status post resection last year, complicated with peritonitis, ileostomy and mucous fistula, right ureteropelvic junction obstruction going on for at least the last few months; coronary artery disease, status post 6 stents, dyslipidemia, syncope, BPH, obesity, recurrent E. coli infections, dementia according to the patient's chart, chronic kidney disease stage 3 with baseline creatinine 1.3-1.6. FAMILY HISTORY: No history of kidney disease in the family. SOCIAL HISTORY: Lives at home with his . He is a former smoker, does not use illicit drugs and does not use alcohol. PHYSICAL EXAMINATION: VITAL SIGNS: Blood pressure is 119/47 now, temperature 36.4, pulse rate is 74, respiratory rate is 13 and pulse ox is 98% on room air. GENERAL: He is awake, alert, oriented x 3. HEAD AND EYES: Normal conjunctivae. Atraumatic, normocephalic. No cyanosis. EARS, NOSE, AND THROAT: Mucous membranes are moist. NECK: There is no JVD. CHEST: Bilateral diminished breath sounds anteriorly. No crackles or wheezes. CARDIOVASCULAR: S1, S2 normal. No murmurs heard. ABDOMEN: Soft, scaphoid, nondistended. Bowel sounds are present. He has an ileostomy, which is intact in the right lower quadrant and left upper quadrant. Mucous fistula has a dressing on it. It looks very clean. LOWER EXTREMITIES: No edema, symmetrical lower extremities. SKIN: Warm and dry. NEUROLOGIC: Neurological function seems to be intact. PSYCHOLOGICAL: Mood and affect seem to be normal. LABORATORY DATA: Hemoglobin is 12.3, platelet count is 280. Potassium was 9.19, down to 6.1, creatinine was 4.3, now down to 3.9. Uric acid was 8.8, calcium was 10.5, now down to 9.6. CK was 57. Other labs were reviewed. IMAGING: Renal ultrasound and head CT and chest x-ray reviewed. ASSESSMENT: 1. Acute kidney injury in the setting of volume depletion, uses trimethoprim, [address] [address] CONSULTATION Name: VICTORIA SANTIZO Room: [address] IN [facility].#: [id number] Admission: 07/30/18 Attend Phys: Giuseppe Coburn MD Discharge: Date of : 31 Report #: [id number] he does have chronic kidney disease, baseline creatinine 1.3-1.6. Creatinine was 4.3 on admission at this time. UA has no protein, no blood in it. Renal ultrasound shows right UPJ obstruction, which is stable from before and left-sided nonobstructive kidney stone and 2 renal cysts. We will check serum immunofixation, serum kappa to lambda light chain ratio 2. Acute kidney injury. So far, improving with IV fluids. 3. Severe metabolic acidosis in the setting of acute kidney injury, improving with IV bicarbonate drip. 4. Hyperkalemia in the setting of urinary retention and acute kidney injury and trimethoprim use, improving, was 9.1 on admission. Also, acute kidney injury also because of acute urinary retention and right UPJ obstruction could also be contributing. 5. Chronic right UPJ obstruction, not sure about the onset, but the patient was needing to get a procedure done by Dr. Mathews, which included stent placement, which the patient had refused in the past, but recently agreed to. 6. Hyperuricemia in the setting of volume depletion 8.8, it also seems like that he could be having history of gout, since he is on colchicine and probenecid. Colchicine could have also contributed to kidney injury. 7. History of colon cancer, status post resection, and mucous fistula and ileostomy. This was last year according to the patient's , the patient does not have cancer anymore. 8. Two simple left renal cyst. 9. History of chronic E. coli UTI on trimethoprim for that. PLAN: 1. Continue bicarbonate fluids at 125 mL an hour. 2. Urology consult for the right UPJ obstruction. 3. Low potassium diet, labs to be checked again in the form of basic metabolic panel this afternoon. I have asked nursing to call me if creatinine is worsening and if potassium is going up. There is no acute need for dialysis. 4. Maintain Valdez catheter for urinary retention. 5. We will check serum immunofixation, serum kappa to lambda light chain ratio as well. 6. Maintain mean arterial pressure around 65-70 and avoid nephrotoxic agents. Thank you for this consultation. Discussed with the patient, patient's son and and the patient's nurse. We will continue to follow along with you. More than 35 minutes of critical care time spent. By: [id number] Witt MD /nt
[2018-07-30 17:08] VITALS: BP 127/74
[2018-07-30] MEDS ORDERED: ALLEGRA ALLERG180 MG PO (17:23)
[2018-07-30] MEDS ORDERED: PROLOPRIM100 MG PO (17:25)
[2018-07-30] MEDS ORDERED: PROBENECID-COL1 EACH PO (17:26)
[2018-07-30] MEDS ORDERED: NAMENDA 5 MG TAB5 M1 PO (17:26)
[2018-07-30] MEDS ORDERED: OMEGA-31000 M1 PO (17:27)
[2018-07-30] MEDS ORDERED: FOLBIC RF TABL1 EACH PO (17:27)
[2018-07-30 17:41] LABS: ABSOLUTE BASOPHILS 0.1 thou/uL (0.0-0.2); ABSOLUTE EOSINOPHILS 0.1 thou/uL (0.0-0.7); ABSOLUTE LYMPHOCYTES 2.2 thou/uL (0.8-5.3); ABSOLUTE MONOCYTES 0.6 thou/uL (0.0-1.2); ABSOLUTE NEUTROPHILS 5.1 thou/uL (1.6-8.1); BASOPHILS 0.6 %; EOSINOPHILS 1.3 %; HEMATOCRIT 38.1 % (42.0-52.0); HEMOGLOBIN 12.3 gm/dL (14.0-18.0); LYMPHOCYTES 26.7 %; MCH 27.9 pg (26.0-34.0); MCHC 32.3 g/dL (28.0-37.0); MCV 86.5 fL (80.0-100.0); MONOCYTES 7.8 %; MPV 8.5 fl. (7.2-11.1); NUCLEATED RBCS 0 /100WBC; PLATELET COUNT* 280 thou/uL (150-400); POLYS 63.6 %; RBC 4.41 mil/uL (4.50-6.00); RDW-CV 15.9 % (10.5-14.5); WBC 8.1 thou/uL (4.0-11.0)
[2018-07-30 17:46] LABS: ANION GAP 8 mmol/L (7-16); BUN 53 mg/dL (7-18); CALCIUM 9.2 mg/dL (8.5-10.1); CHLORIDE 105 mmol/L (98-107); CO2 19 mmol/L (21-32); CREATININE 4.6 mg/dL (0.6-1.3); GLUCOSE 92 mg/dL (70-99); SODIUM 132 mmol/L (136-145)
[2018-07-30 17:51] LABS: POTASSIUM 9.1 mmol/L (3.5-5.1)
[2018-07-30 17:57] LABS: ALBUMIN 3.6 g/dL (3.4-5.0); ALKALINE PHOSPHATASE 112 U/L (46-116); LIPASE 158 U/L (73-393); NT-PRO BRAIN NAT PEPTIDE 2594 pg/mL (<300); SGOT 14 U/L (15-37); SGPT 28 U/L (30-65); TOTAL BILIRUBIN 0.3 mg/dL (<0.1-1.0); TOTAL PROTEIN 7.9 g/dL (6.4-8.2); TROPONIN-I LEVEL <0.06 ng/mL (<0.06)
[2018-07-30 19:20] LABS: MAGNESIUM 2.3 mg/dL (1.8-2.4); PHOSPHORUS* 4.7 mg/dL (2.5-4.9)
[2018-07-30 19:27] LABS: APTT 37.5 Seconds (25.0-31.3); INR 1.1; PROTIME 11.2 Seconds (9.20-11.50)
[2018-07-30 19:41] LABS: URINE BILIRUBIN NEGATIVE (Negative); URINE BLOOD NEGATIVE (Negative); URINE CLARITY CLEAR; URINE COLOR YELLOW; URINE GLUCOSE-RANDOM NEGATIVE (Negative); URINE KETONES NEGATIVE (Negative); URINE LEUKOCYTES-REFLEX NEGATIVE (Negative); URINE NITRITE-REFLEX NEGATIVE (Negative); URINE PROTEIN NEGATIVE (Negative); URINE UROBILINOGEN 0.2 E.U./dl (0.2-1.0)
[2018-07-30 20:03] LABS: CREATININE 4.4 mg/dL (0.6-1.3)
[2018-07-30 20:05] LABS: POTASSIUM 8.1 mmol/L (3.5-5.1)
[2018-07-30 21:23] VITALS: BP 134/53
[2018-07-30 21:36] VITALS: BP 142/69
[2018-07-30 22:36] VITALS: BP 114/56
[2018-07-30 23:35] VITALS: BP 126/51
[2018-07-31] VITALS (9 sets, daily range): BP systolic 98–130; BP diastolic 43–66
[2018-07-31 00:17] LABS: CALCIUM 10.5 mg/dL (8.5-10.1); CREATININE 4.3 mg/dL (0.6-1.3)
[2018-07-31 00:18] LABS: POTASSIUM 7.2 mmol/L (3.5-5.1)
--- NOTE | 2018-07-31 00:29 | NUR ---
CALLED DR. MAGALLANES FOR CRITICAL K+ LEVEL OF 7. ORDERS TO INCREASE D5W WITH 3 AMPS SODIUM BICARB TO RUN AT 175ML/HR. PT CURRENT VITAL SINGS STABLE. PT SLEEPING IN BED.
--- NOTE | 2018-07-31 04:46 | NUR ---
PATIENT PROGRESSING TOWARDS GOALS. NO ACUTE HEMODYNAMIC CHANGES. NSR ON MONITOR. PT ILIOSTOMY HAS BEEN CHANGED FREQUENTLY THROUGH THE NIGHT. ILIOSTOMY BAG WAS CHANGED TODAY. HAS BROUGHT EXTRA MATERIAL FOR HIS OSTOMY. SHE LEFT IN ROOM IN A BLUE BAG. PT K+ TRENIDNG DOWN. DR. ELMORE AND ORDERS GIVEN. CURRENTLY SLEEPING. NO VOICED CONCERNS AT THIS TIME. WILL CONTINUE TO MONITOR. CALL LIGHT WITHIN REACH. BED TO LOWEST POSITION.
[2018-07-31 06:17] LABS: CALCIUM 9.6 mg/dL (8.5-10.1); CREATININE 3.9 mg/dL (0.6-1.3); MAGNESIUM 2.4 mg/dL (1.8-2.4)
[2018-07-31 06:19] LABS: POTASSIUM 6.1 mmol/L (3.5-5.1)
--- NOTE | 2018-07-31 11:00 | NUR ---
PT.IN BED. AT BEDSIDE. HE WAS ALERT AND ORIENTED. STATED HE HADN'T FELT GOOD FOR ABOUT 3 DAYS. HE DIDN'T WANT TO COME TO THE HOSPITAL BUT INSISTED AND 'I GUESS IT WAS GOOD SHE DID'. FEELING BETTER TODAY. HE USUALLY DOESN'T USE ANY DME AT HOME. HE HAS A WALKER IF NEEDED. HE IS INDEPENDENT. STATED SHE HELPS HIM CHANGE HIS ILEOSTOMY BUT HE EMPTIES IT BY HIMSELF. HE HAS USED [facility] IN THE PAST AND HAS BEEN AT [facility] BEFORE. HE IS AWARE HE WILL TRANSFER UPSTAIRS LATER TODAY.
[2018-07-31 11:11] LABS: CALCIUM 9.4 mg/dL (8.5-10.1); CREATININE 3.9 mg/dL (0.6-1.3); POTASSIUM 5.5 mmol/L (3.5-5.1)
--- NOTE | 2018-07-31 11:34 | NUR ---
PT A/O X'S 4. AM MEDICATIONS ADMININSTERED PER MAY. VSS. AFEBRILE. UROLOGY CONSULT PLACED PER NEPHROLOGY. PT REPORTS FEELING ABLE TO EAT. PER ORDERS PT STARTED ON CLEAR LIQUID DIET AND ADVANCE TOLERATED.
--- NOTE | 2018-07-31 17:00 | EKG ---
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: : 1930 Requested By: Luther Lewis Order Number: [id number] MD: Narinder Jones Measurements Intervals [place] Rate: 42 P: DC: QRS: 57 QRSD: 149 T: -16 QT: 436 QTc: 365 Interpretive Statements Junctional rhythm Right bundle branch block Inferior infarct, age indeterminate Compared to ECG 10/19/2017 09:38:00 Junctional rhythm now present Right bundle-branch block now present Sinus rhythm no longer present Myocardial infarct finding still present Electronically Signed On 07-31-2018 17:00:19 CDT by Narinder Jones [email or web address] <ELECTRONICALLY SIGNED> By: Narinder Jones MD, FAC 07/31/18 1700 1716 1716 Narinder Jones MD, [facility] /EPI
--- NOTE | 2018-07-31 17:05 | EKG ---
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: : 1930 Requested By: Sravani Tirado Order Number: [id number] Reading MD: Narinder Jones Measurements Intervals [place] Rate: 58 P: -25 TX: 161 QRS: -5 QRSD: 102 T: -2 QT: 433 QTc: 426 Interpretive Statements Sinus rhythm Abnormal R-wave progression, early transition Inferior infarct, old Baseline wander in lead(s) V4 Compared to ECG 10/19/2017 09:38:00 No significant changes Electronically Signed On 07-31-2018 17:05:26 CDT by Narinder Jones [email or web address] <ELECTRONICALLY SIGNED> By: Narinder Jones MD, FAC 07/31/18 1705 1022 1022 Narinder Jones MD, [facility] /EPI
--- NOTE | 2018-07-31 17:09 | NUR ---
PT TRANSFERRED FROM ICU. PT IS ALERT AND ORIENTED, FORGETFUL AT TIMES. PT TOLERATING MEALS. UP IN CHAIR MOST OF THE DAY. PT IS FALL RISK, ALARM IN PLACE. PT IS UP WITH ONE ASSIST. SODIUM BICARB INFUSING. PT IS BERT TO NSR ON TELE MONITOR. DENIES PAIN. PT IS ON ROOM AIR, VSS. MCQUEEN IN PLACE. ILEOSTOMY EMPTIED NEEDED. SEE ASSESSMENT AND VITALS FOR OTHER DETAILS. CALL LIGHT WITHIN REACH, WILL CONTINUE PLAN OF CARE
[2018-08-01] VITALS: BP 153/57
[2018-08-01 04:01] VITALS: BP 102/41
--- NOTE | 2018-08-01 04:57 | NUR ---
PATIENT SLEPT WELL DURING THIS SHIFT. PT WITH FLUIDS INFUSING PER DR ORDER. PT WITH MCQUEEN TO DEPENDENT DRAIN. PT DENIES PAIN ON THIS SHIFT. PT IS ALERT/ORIENTED BUT A LITTLE MORE CONFUSED AT NIGHT. PT'S HERE UNTIL ABOUT 2200 THEN WENT HOME. PT DENIES NEEDS AT THIS TIME. FREQUENTLY USED ITEMS AND CALL LIGHT WITHIN REACH. SIDERAILS UPX4 PER FAMILY'S REQUEST AND BED ALARM ON. WILL CONTINUE TO MONITOR.
[2018-08-01 05:40] LABS: HEMATOCRIT 31.4 % (42.0-52.0); HEMOGLOBIN 10.6 gm/dL (14.0-18.0); MCH 28.7 pg (26.0-34.0); MCHC 33.9 g/dL (28.0-37.0); MCV 84.7 fL (80.0-100.0); MPV 7.9 fl. (7.2-11.1); RBC 3.71 mil/uL (4.50-6.00); WBC 6.5 thou/uL (4.0-11.0)
[2018-08-01 06:06] LABS: CALCIUM 8.4 mg/dL (8.5-10.1); CREATININE 3.1 mg/dL (0.6-1.3); MAGNESIUM 1.8 mg/dL (1.8-2.4); POTASSIUM 4.6 mmol/L (3.5-5.1)
[2018-08-01 08:20] VITALS: BP 116/45
[2018-08-01] MEDS ORDERED: SYNTHROID50 MCG PO (08:27)
[2018-08-01 12:00] VITALS: BP 114/55
[2018-08-01 16:00] VITALS: BP 115/49
--- NOTE | 2018-08-01 17:18 | NUR ---
PATIENT RESTING IN BED. PATIENT HAS NOT BEEN OUT OF BED TODAY AND HAS BEEN REPOSTIONED IN BED. PATIENT HAS COMPLAINTS OF NOT FEELING WELL, BUT NO PAIN OR NAUSEA. VITAL SIGNS ARE STABLE AND AFEBRILE. PATIENT HAS GOOD APPETITE. PATIENT DENIES ANY NEEDS AT THIS TIME. CALL LIGHT WITHIN REACH. WILL CONTINUE TO MONITOR.
[2018-08-01 20:46] VITALS: BP 129/49
[2018-08-02 00:01] VITALS: BP 116/51
[2018-08-02 04:02] VITALS: BP 126/56
[2018-08-02 05:03] LABS: CALCIUM 8.1 mg/dL (8.5-10.1); CREATININE 2.8 mg/dL (0.6-1.3); POTASSIUM 4.8 mmol/L (3.5-5.1)
--- NOTE | 2018-08-02 05:45 | NUR ---
PT SLEPT ON AND OFF THIS SHIFT. ASSESSMENT DOCUMENTED. MEDS GIVEN PER E-MAY. IV PATENT, FLUIDS INFUSING. NO REPORTS OF PAIN OR NAUSEA THIS SHIFT. MCQUEEN IN PLACE. ILLIOSTOMY CARED FOR THIS SHIFT. TELE MONITOR READING SR. WILL CONTINUE WITH PLAN OF CARE.
[2018-08-02] MEDS ORDERED: NAMENDA 5 MG TAB5 M1 PO (06:20)
[2018-08-02 07:55] VITALS: BP 126/57
[2018-08-02 10:06] LABS: IgA 212 mg/dL (61-437); IgG 921 mg/dL (700-1600); IgM 26 mg/dL (15-143)
[2018-08-02 13:45] VITALS: BP 112/76
[2018-08-02 14:06] LABS: KAPPA FREE LIGHT CHAINS 54.7 mg/L (3.3-19.4); LAMBDA FREE LIGHT CHAINS 30.7 mg/L (5.7-26.3)
[2018-08-02 17:28] VITALS: BP 108/41; BP 114/81
--- NOTE | 2018-08-02 17:58 | NUR ---
PATIENT RESTING IN BED. PATIENT WAS UP TO CHAIR X 2 TODAY. PATIENT WORKED WITH THERAPIES.PATIENT WAS ABLE TO GET SOME SLEEP THIS AFTERNOON AFTER NOT SLEEPING WELL LAST NIGHT. PATIENT DENIES ANY PAIN. PATIENT HAS GOOD APPETITE. PATIENT DENIES ANY NEEDS AT THIS TIME. AT BEDSIDE. WILL CONTINUE TO MONITOR.
[2018-08-02 21:40] VITALS: BP 154/59
[2018-08-03] VITALS: BP 146/51
[2018-08-03 04:00] VITALS: BP 106/41
[2018-08-03 04:52] LABS: CALCIUM 8.3 mg/dL (8.5-10.1); CREATININE 2.5 mg/dL (0.6-1.3); POTASSIUM 4.9 mmol/L (3.5-5.1)
--- NOTE | 2018-08-03 04:52 | NUR ---
PT ORIENTED TO SELF. CONFUSED. VSS ON RA. ASSESSMENT COMPLETED. NSR ON ON THE MONITOR. MEDS GIVEN PER EMAR. IN THE ROOM WITH PT. NPO AT MIDNIGHT. MCQUEEN TO URINE OUTPUT. BED IN LOW POSTION. CALL LIGHT WITHIN REACH. WILL CONTINUE TO MONITOR.
[2018-08-03 07:50] VITALS: BP 108/57
[2018-08-03 10:37] VITALS: BP 108/57
[2018-08-03 14:40] VITALS: BP 148/49
--- NOTE | 2018-08-03 16:26 | NUR ---
D/C VENDETTE SPOKE TO THE PATIENT AND SPOUSE TO DISCUSS DISCHARGE PLANNING NEEDS AND THEY INFORM THAT THE PLAN IS FOR THE PATIENT TO RETURN HOME AT D/C, AND DO NOT ANTICIPATE ANY D/C PLANNING NEEDS. CM WILL REMAIN AVIALABLE TO ASSIST AND FOLLOW NEEDED.
--- NOTE | 2018-08-03 16:37 | NUR ---
PATIENT HAD A STENT PLACED THIS AFTERNOON. VITALS STABLE AFTER SURGERY. TOLERATING CLEARS. IVF INFUSING ORDERED. MCQUEEN DRAINING BLOOD TINGED URINE. PRN PYRIDIUM GIVEN THIS EVENING FOR BURNING.
[2018-08-03 16:50] VITALS: BP 127/47
[2018-08-04 00:26] VITALS: BP 123/49
[2018-08-04 04:10] VITALS: BP 114/50
[2018-08-04 04:59] LABS: CALCIUM 8.5 mg/dL (8.5-10.1); CREATININE 2.4 mg/dL (0.6-1.3); POTASSIUM 4.5 mmol/L (3.5-5.1)
[2018-08-04 05:00] LABS: % SATURATION 13 % (20-39); IRON 27 ug/dL (50-175)
--- NOTE | 2018-08-04 05:34 | NUR ---
PT LAERT AND ORIENTED. MINIMAL CONFUSION NOTED THIS SHIFT. VSS ON RA. SINUS RHYTHM ON THE MONITOR. PT MEDS GIVEN PER EMAR. PRESENT IN ROOM THIS SHIFT. PT WAS AWAKE MOST OF SHIFT. PT COMPLAINED OF BURNING SENSATION AT TIP OF PENIS DURING URINATION. LIDOCAINE GEL APPLIED THIS AM. PT TO FOELY FOR URINE OUTPUT. RED COLORED OUTPUT NOTED IN MCQUEEN. FALL PRECAUTION IN PLACE. HOURLY ROUNDINGS MADE. Q2 TURN. PT PLEASANT AND APPRORPIATE. WILL CONTINUE PLAN OF CARE.
[2018-08-04 09:56] VITALS: BP 114/50
[2018-08-04 12:32] VITALS: BP 129/53
[2018-08-04 18:04] VITALS: BP 128/38
--- NOTE | 2018-08-04 18:27 | NUR ---
PATIENT RESTING UP IN CHAIR. PATIENT IS UP WITH STANDBY ASSIST WITH GAITBELT AND WALKER. PATIENT WORKED WITH THERAPIES THIS AFTERNOON. PATIENT DENIES ANY PAIN. PATIENT HAS MCQUEEN WITH BLOOD TINGED URINE. PATIENT DENIES ANY NEEDS AT THIS TIME. AT BEDSIDE. CALL LIGHT WITHIN REACH. WILL CONTINUE TO MONITOR.
[2018-08-04 20:20] VITALS: BP 142/53
[2018-08-05 00:35] VITALS: BP 132/45
[2018-08-05 04:30] VITALS: BP 116/36
--- NOTE | 2018-08-05 07:33 | NUR ---
PT ALERT AND ORIENTED. VSS ON RA. ASSESSMENT COMPLETED AND DOCUMENTED. PT WAS MORE CONFUSED THAN PREVIOUS NIGHT. PT WAS HEARING SOUNDS AND SEEMED AGITATED THAT NO ONE ELSE COULD HEAR IT. MCQUEEN DC'D WITH 1700ML BLOOD THINGED OUTPUT NOTED. PT VOIDED AND WAS BLADDER SCANNED 112ML NOTED. IN THE ROOM WITH PT THIS SHIFT. FALL PRECAUTION IN PLACE. WILL CONTINUE TO MONITOR
[2018-08-05 07:55] VITALS: BP 118/42
[2018-08-05 09:33] LABS: CALCIUM 8.2 mg/dL (8.5-10.1); CREATININE 2.1 mg/dL (0.6-1.3); POTASSIUM 4.8 mmol/L (3.5-5.1)
[2018-08-05 15:45] VITALS: BP 107/46
--- NOTE | 2018-08-05 16:22 | NUR ---
PATIENT RESTING IN BED. PATIEN THAS BEEN UP TO CHAIR WITH MINIMAL ASSIST. PATIENT DENIES ANY PAIN. PATIENT HAS BEEN URINATING WELL TODAY. PATIENT HAS GOOD APPETITE. PATIENT DENIES ANY NEEDS AT THIS TIME. AT BEDSIDE. WILL CONTINUE TO MONITOR.
[2018-08-05 20:25] VITALS: BP 124/58
[2018-08-06 00:06] VITALS: BP 147/38
[2018-08-06 04:04] VITALS: BP 106/39
[2018-08-06 04:35] LABS: ABSOLUTE BASOPHILS 0.1 thou/uL (0.0-0.2); ABSOLUTE EOSINOPHILS 0.2 thou/uL (0.0-0.7); ABSOLUTE LYMPHOCYTES 1.4 thou/uL (0.8-5.3); ABSOLUTE MONOCYTES 0.6 thou/uL (0.0-1.2); ABSOLUTE NEUTROPHILS 5.1 thou/uL (1.6-8.1); BASOPHILS 0.7 %; EOSINOPHILS 3.3 %; HEMATOCRIT 28.9 % (42.0-52.0); HEMOGLOBIN 9.6 gm/dL (14.0-18.0); LYMPHOCYTES 18.9 %; MCH 28.9 pg (26.0-34.0); MCHC 33.4 g/dL (28.0-37.0); MCV 86.6 fL (80.0-100.0); MONOCYTES 8.4 %; MPV 8.8 fl. (7.2-11.1); NUCLEATED RBCS 0 /100WBC; PLATELET COUNT* 209 thou/uL (150-400); POLYS 68.7 %; RBC 3.34 mil/uL (4.50-6.00); RDW-CV 15.3 % (10.5-14.5); WBC 7.4 thou/uL (4.0-11.0)
[2018-08-06 05:05] LABS: CALCIUM 8.2 mg/dL (8.5-10.1); CREATININE 2.3 mg/dL (0.6-1.3); MAGNESIUM 1.6 mg/dL (1.8-2.4); POTASSIUM 5.5 mmol/L (3.5-5.1)
--- NOTE | 2018-08-06 05:17 | NUR ---
PT AWAKE MOST OF SHIFT. ASSESSMENT DOCUMENTED. MEDS GIVEN PER E-MAY. NO IV ACCESS THIS SHIFT. PT EMPTIED ILLIOSTOMY SEVERAL TIMES THIS SHIFT STATING THAT HE IS HAVING DIARRHEA THROUGH IT AND IS UNSURE WHY, STATING THAT IT IS ALSO FILLING UP WITH GAS A LOT MORE OFTEN. PT STATES HE IS AFRAID TO GO TO SLEEP BECAUSE HE THINKS IT WILL EXPLODE. PT REPORTS GENERALIZED JOINT PAIN BUT DOES NOT WANT ANYTHING FOR PAIN AT THIS TIME. NO REPORTS OF NAUSEA THIS SHIFT. REMAINED AT BEDSIDE. WILL CONTINUE WITH PLAN OF CARE.
[2018-08-06 07:20] VITALS: BP 126/42
[2018-08-06] MEDS ORDERED: ELIQUIS2.5 MG PO (11:07)
[2018-08-06] MEDS ORDERED: ALLOPURINOL 10100 M3 PO (11:14)
--- NOTE | 2018-08-06 11:50 | NUR ---
SW met with pt and pt to discuss pt dc home with today. Pt and pt pleased with pt strength now and both do not feel any HH follow up is necessary and did not express any dc needs. Pt has all needed DME and support already.
--- NOTE | 2018-08-06 13:55 | NUR ---
PATIENT UP TO CHAIR THIS AM AND INTO AFTERNOON. MG REPLACED PER PROTOCOL, DR. KNIGHT AWARE AND OK FOR DISCHARGE. IV WAS PREVIOUSLY DC'D. VERBALIZES UNDERSTANDING OF PAPERWORK AND SCRIPTS. PATIENT TAKEN OUT VIA WHEELCHAIR WITH ALL BELONGINGS.
--- NOTE | 2018-08-08 18:31 | OP ---
[address] [address] OPERATIVE REPORT Name: VICTORIA SANTIZO Room: [address] IN M.R.#: [id number] Admission: 07/30/18 Attend Phys: Giuseppe Coburn MD Discharge: 08/06/18 Date of : 31 Report #: [id number] THIS REPORT FOR: //name// CC: Giuseppe Mathews DATE OF SERVICE: 08/03/2018 PREOPERATIVE DIAGNOSES: 1. Chronic right ureteropelvic junction obstruction. 2. Acute kidney injury. POSTOPERATIVE DIAGNOSES: 1. Chronic right ureteropelvic junction obstruction. 2. Acute kidney injury. PROCEDURES PERFORMED: 1. Cystoscopy with right retrograde pyelogram. 2. Right 6 x 22 double-J ureteral stent placement. SURGEON: Juan Mathews MD. ANESTHESIA: General endotracheal. BRIEF HISTORY: The patient is an 87-year-old male with a known history of chronic right ureteropelvic junction obstruction. He also has a history of recurrent urinary tract infections. The patient presented to the [facility] Emergency Room with generalized weakness x 3 days. He was found to be in acute renal failure. He was resuscitated on the floor and the recommendation was made for cystoscopy with right retrograde pyelogram and right ureteral stent placement. The risks of the procedure including the risks of bleeding, infection, damage to surrounding structures, need for additional procedures, and anesthetic risks were discussed with the patient and he wished to proceed. PROCEDURE IN DETAIL: The risks and benefits of surgery were discussed with the patient and he wished to proceed. Informed consent was obtained and the patient was transferred to the operating room where he was laid supine on the operating room table. After the induction of adequate general endotracheal anesthesia and the administration of appropriate preoperative antibiotics, the patient's legs were placed in a modified dorsal lithotomy position, taking care to pad all pressure points and avoid any hyperextension or hyperflexion of his joints. The patient's existing Valdez catheter was removed and his genitalia were prepped and draped in the usual sterile fashion. At this time, [place] [address] OPERATIVE REPORT Name: CLAUDIOENRIQUEVICTORIA M Room: [address]#: [id number] Admission: 07/30/18 Attend Phys: Giuseppe Coburn MD Discharge: 08/06/18 Date of : 31 Report #: [id number] ensure correct patient and procedure. A 22-Faroese cystoscope sheath with a 30-degree lens was then advanced under direct vision and irrigation into the anterior urethra. There were no anterior urethral abnormalities identified. As the prostatic urethra was approached, there was noted to be bilobar hyperplasia with occlusion of his lateral lobes in the midline. The prostatic urethra was relatively short, however. There was no significant median lobe enlargement. The cystoscope was advanced into the bladder where it was disarticulated and the bladder was drained. Cystoscopy was then performed under direct vision and irrigation with both a 30-degree and 70-degree lens. The patient was found to have moderate to severe bladder wall trabeculations with scattered cellules throughout. There was hyperemia and erythema of the posterior bladder wall in the midline consistent with Valdez catheter trauma. The patient's ureteral orifices were identified in their normal anatomic location. There were no papillary bladder tumors or suspicious mucosal lesions identified. At this time, a 5-Faroese Pollack catheter was placed in the patient's right ureteral orifice and a right retrograde pyelogram was performed. Contrast could be seen filling the distal, mid, and proximal right ureter as well as a severely dilated right renal pelvis. There was some mild distal J hooking of the ureter; however, there were no intraluminal filling defects or signs of ureteral obstruction other than the UPJ. There were no filling defects noted within the right collecting system. At this time, a 0.038 ZIPwire was advanced into the right ureter and up into the kidney under fluoroscopic guidance. A 6 x 22 double-J ureteral stent was then advanced over the wire, through the cystoscope, and into position using a metal tipped pusher. The wire was withdrawn, deploying the stent. A good coil of the stent was identified within the right renal pelvis under fluoroscopy and a good coil of the stent was identified within the bladder under direct vision with the cystoscope. The cystoscope was then removed. The patient's urethra was anesthetized with 2% lidocaine jelly. An 18-Faroese Valdez catheter was lubricated and advanced into the bladder without difficulty. The catheter balloon was inflated with 10 mL of sterile water. The catheter was placed to gravity drainage system. The patient was then returned to a supine position, awakened from anesthesia, and transferred to the postoperative care unit in stable condition. The patient tolerated the procedure well. COMPLICATIONS: None. ESTIMATED BLOOD LOSS: None. INTRAVENOUS FLUIDS: Crystalloid. DRAINS: 1. Right 6 x 22 double-J ureteral stent. 2. An 18-Faroese Valdez catheter. SPECIMENS: None. [address] [address] OPERATIVE REPORT Name: VICTORIA SANTIZO Room: [address] IN .R.#: [id number] Admission: 07/30/18 Attend Phys: Giuseppe Coburn MD Discharge: 08/06/18 Date of : 31 Report #: [id number] FINDINGS: 1. Normal anterior urethra. 2. 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 Short prostatic urethra without significant median lobe enlargement. 3. Moderate to severe bladder wall trabeculations with scattered cellules. 4. No papillary bladder tumors or suspicious mucosal lesions identified. 5. Right retrograde pyelogram demonstrating a right ureteropelvic junction obstruction. 6. Right 6 x 22 JJ ureteral stent in good position by fluoroscopy and direct vision at the conclusion of the procedure. <ELECTRONICALLY SIGNED> By: Juan Mathews MD 08/08/18 1831 1331 [id number] Mathews MD /nt
== END 2018-08-06 13:56 | disposition home or self-care (01) | DRG 659 ==
LOC: M.ERS 16:59 → M.ICU 18:10 → M.TBA-ER 18:10 → M.ICU 21:23 → M.3W 07-31 12:17
PROVIDERS: Emergency Medicine; Family Medicine; Internal Medicine; Internal Medicine Nephrology; Urology; ADMIT Internal Medicine
PROC: BT1D1ZZ Fluoroscopy of Right Kidney, Ureter and Bladder using Low Osmolar Contrast (ICD-10-PCS; principal; 2018-08-03)
PROC: 0T768DZ Dilation of Right Ureter with Intraluminal Device, Via Natural or Artificial Opening Endoscopic (ICD-10-PCS; principal; 2018-08-03)
DX: N13.0 Hydronephrosis with ureteropelvic junction obstruction (principal); G92 Toxic encephalopathy; E87.2 Acidosis; E87.5 Hyperkalemia; N17.0 Acute kidney failure with tubular necrosis; N18.4 Chronic kidney disease, stage 4 (severe); R00.1 Bradycardia, unspecified; I25.10 Atherosclerotic heart disease of native coronary artery without angina pectoris; E78.00 Pure hypercholesterolemia, unspecified; N40.0 Benign prostatic hyperplasia without lower urinary tract symptoms; E66.9 Obesity, unspecified; E78.5 Hyperlipidemia, unspecified; E79.0 Hyperuricemia without signs of inflammatory arthritis and tophaceous disease; N28.1 Cyst of kidney, acquired; I12.9 Hypertensive chronic kidney disease with stage 1 through stage 4 chronic kidney disease, or unspecified chronic kidney disease; E86.9 Volume depletion, unspecified; D63.8 Anemia in other chronic diseases classified elsewhere; D50.9 Iron deficiency anemia, unspecified; Z85.038 Personal history of other malignant neoplasm of large intestine; Z90.49 Acquired absence of other specified parts of digestive tract; Z68.30 Body mass index [BMI] 30.0-30.9, adult; Z93.3 Colostomy status; Z79.82 Long term (current) use of aspirin; Z79.899 Other long term (current) drug therapy; Z88.0 Allergy status to penicillin; Z88.2 Allergy status to sulfonamides; Z91.012 Allergy to eggs; Z87.891 Personal history of nicotine dependence; Z86.718 Personal history of other venous thrombosis and embolism; Z79.01 Long term (current) use of anticoagulants; Z95.5 Presence of coronary angioplasty implant and graft

== ENCOUNTER → 2018-08-22 | Outpatient (CLI) | payer MEDICARE ==
[~2018-08-22] MED LIST changes: +ALLOPURINOL 10100 M3 PO; +ELIQUIS2.5 MG PO; +NAMENDA 5 MG TAB5 M1 PO; +OMEGA-31000 M1 PO; +PROLOPRIM100 MG PO
== END ==
LOC: M.ULTRA 11:32
DX: N13.30 Unspecified hydronephrosis (principal); N28.1 Cyst of kidney, acquired; N40.0 Benign prostatic hyperplasia without lower urinary tract symptoms; N13.5 Crossing vessel and stricture of ureter without hydronephrosis

== ENCOUNTER 2018-09-02 11:38 | Inpatient (IN) | payer MEDICARE ==
[~2018-09-02] VITALS: Ht 180.3 cm; Wt 91.3 kg
[2018-09-02 11:46] VITALS: BP 109/74
[2018-09-02] MEDS ORDERED: PEPCID20 MG PO (11:54)
[2018-09-02] MEDS ORDERED: PROTONIX 20 MG20 M1 PO (11:58)
[2018-09-02 11:59] LABS: ABSOLUTE BASOPHILS 0.1 thou/uL (0.0-0.2); ABSOLUTE EOSINOPHILS 0.2 thou/uL (0.0-0.7); ABSOLUTE LYMPHOCYTES 1.3 thou/uL (0.8-5.3); ABSOLUTE MONOCYTES 0.7 thou/uL (0.0-1.2); ABSOLUTE NEUTROPHILS 5.8 thou/uL (1.6-8.1); BASOPHILS 1.2 %; EOSINOPHILS 1.9 %; HEMATOCRIT 32.2 % (42.0-52.0); HEMOGLOBIN 10.5 gm/dL (14.0-18.0); LYMPHOCYTES 16.1 %; MCH 28.3 pg (26.0-34.0); MCHC 32.8 g/dL (28.0-37.0); MCV 86.3 fL (80.0-100.0); MONOCYTES 9.2 %; MPV 8.6 fl. (7.2-11.1); NUCLEATED RBCS 0 /100WBC; PLATELET COUNT* 202 thou/uL (150-400); POLYS 71.6 %; RBC 3.73 mil/uL (4.50-6.00); RDW-CV 15.2 % (10.5-14.5); WBC 8.1 thou/uL (4.0-11.0)
[2018-09-02 12:05] LABS: ANION GAP 11 mmol/L (7-16); BUN 35 mg/dL (7-18); CALCIUM 8.4 mg/dL (8.5-10.1); CHLORIDE 109 mmol/L (98-107); CO2 20 mmol/L (21-32); CREATININE 2.1 mg/dL (0.6-1.3); GLUCOSE 96 mg/dL (70-99); POTASSIUM 4.6 mmol/L (3.5-5.1); PROTIME 10.1 Seconds (9.20-11.50); SODIUM 140 mmol/L (136-145)
[2018-09-02 12:14] LABS: ALBUMIN 2.8 g/dL (3.4-5.0); ALKALINE PHOSPHATASE 101 U/L (46-116); SGOT 49 U/L (15-37); SGPT 60 U/L (30-65); TOTAL BILIRUBIN 0.4 mg/dL (<0.1-1.0); TROPONIN-I LEVEL <0.06 ng/mL (<0.06)
[2018-09-02 15:13] VITALS: BP 121/48
[2018-09-02 15:45] VITALS: BP 132/44
[2018-09-02 16:39] LABS: CALCIUM 8.5 mg/dL (8.5-10.1); CREATININE 2.1 mg/dL (0.6-1.3); MAGNESIUM 1.9 mg/dL (1.8-2.4); POTASSIUM 4.2 mmol/L (3.5-5.1)
--- NOTE | 2018-09-02 19:08 | NUR ---
09/02 Days: New admit. Patient passed bedside swallow, took pills well. NPO status ordered though, may need clarification. Stroke workout, plan for MRI tomorrow. PRN tylenol given for his elbow/shoulder discomfort
[2018-09-02 20:00] VITALS: BP 114/46
[2018-09-03] VITALS: BP 124/35
[2018-09-03 04:00] VITALS: BP 122/49
--- NOTE | 2018-09-03 05:35 | NUR ---
ASSUMED CARE OF PT AFTER REPORT AT 1930. PT A&OX4. FORGETFUL. VSS. PHYSICAL ASSESSMENT COMPLETED AND CHARTED. PT ON RA. PT TRACING SR ON TELE. PT UPSTANDBY. PT COMPLAINED OF LEFT ARM PAIN- PAIN MEDS GIVEN PER MAY. HEATING PAD PROVIDED. NIH CHARTED. HOURLY ROUNDING OBSERVED. CALL LIGHT WITHIN REACH.
[2018-09-03 05:43] LABS: ALBUMIN 2.6 g/dL (3.4-5.0); ALKALINE PHOSPHATASE 90 U/L (46-116); ANION GAP 12 mmol/L (7-16); BUN 34 mg/dL (7-18); CALCIUM 8.6 mg/dL (8.5-10.1); CHLORIDE 107 mmol/L (98-107); CO2 23 mmol/L (21-32); CREATININE 2.1 mg/dL (0.6-1.3); GLUCOSE 88 mg/dL (70-99); POTASSIUM 4.1 mmol/L (3.5-5.1); SGOT 21 U/L (15-37); SGPT 42 U/L (30-65); SODIUM 142 mmol/L (136-145); TOTAL BILIRUBIN 0.5 mg/dL (<0.1-1.0); TOTAL PROTEIN 6.7 g/dL (6.4-8.2)
[2018-09-03 05:56] LABS: CHOLESTEROL 109 mg/dL (<200); HDL CHOLESTEROL 33 mg/dL (>40); LDL CHOLESTEROL 56 mg/dL (<100); TC:HDL 3.3 Ratio (Not establshd); TRIGLYCERIDE 100 mg/dL (<150); VLDL 20 mg/dL (<40)
[2018-09-03 05:58] LABS: SERUM ASSESSMENT Clear
[2018-09-03 08:11] VITALS: BP 103/45
--- NOTE | 2018-09-03 11:30 | NUR ---
MET WITH PT TO DISCUSS HOME SITUATION/DC PLANNING. IN ROOM ALSO. PT STATES HE IS NORMALLY FAIRLY INDEPENDENT. USES CANE. DOES OWN ADLS, HAS OSTOMY. ASSISTS NEEDED. PT HAS BEEN TO SNF IN PAST TO [facility] AND HAS HAD HH WITH [facility]. THEY ARE OPEN TO OPTIONS, NOT SURE OF PT'S NEEDS AT THIS TIME. PT HOPES TO RETURN HOME AT DC. IS DPOA. WILL FOLLOW
[2018-09-03 12:27] VITALS: BP 100/37
--- NOTE | 2018-09-03 12:42 | NUR ---
VSS, ASSUMED CARE IN THE AM, ASSESSMENT PERFORMED AND CHARTED, FALL PRECAUTIONS IN PLACE AND CALL LIGHT IN REACH, PT IS A&O4 AND UP WITH STAND BY, PT STATES PAIN IN LEFT ELBOW, HE IS TRACING SR ON THE MONITOR, ON RA AND A&O4 PT GOAL IS TO COMPLETE MRI AND LOWER PAIN, WILL FOLLOW WITH PLAN OF CARE,
--- NOTE | 2018-09-03 15:35 | EKG ---
[place] [address] ELECTROCARDIOGRAM REPORT Name: VICTORIA SANTIZO Room: [address] ADM IN .R.#: [id number] Admission: 09/02/18 Attend Phys: Bora Ortega Discharge: Date of : 31 Report #: [id number] THIS REPORT FOR: //name// [facility] ED Test Date: 2018-09-02 Test Time: 11:43:14 Pat Name: VICTORIA SANTIZO Department: Room: [facility] Gender: M Manager Trade Marketing: Owen MIRAMONTES : 1930 Requested By: Eb Wells Order Number: [id number] MD: Benjamin Barksdale Measurements Intervals [place] Rate: 79 P: -26 RI: 136 QRS: -9 QRSD: 99 T: -5 QT: 364 QTc: 418 Interpretive Statements Sinus rhythm Atrial premature complex Inferior infarct, old Compared to ECG 07/31/2018 10:22:26 Atrial premature complex(es) now present Myocardial infarct finding still present Electronically Signed On 09-03-2018 15:34:54 CDT by Benjamin Barksdale [email or web address] <ELECTRONICALLY SIGNED> By: Benjamin Barksdale MD, [facility] 09/03/18 1534 1143 1143 Benjamin Barksdale MD, [facility] /EPI
--- NOTE | 2018-09-03 15:57 | 2DMMODE ---
[place] [address] 2 D/M-MODE ECHOCARDIOGRAM Name: DARLYNVICTORIA Rose Room: [address] IN [facility]#: [id number] Admission: 09/02/18 Attend Phys: Eric Rosenberg Discharge: Date of : 32 Date of Service: 09/03/18 1557 Report #: [id number] THIS REPORT FOR: //name// APPROVED REPORT Study performed: 09/03/2018 14:45:03 EXAM: Comprehensive 2D, Doppler, and color-flow Echocardiogram Patient Location: In-Patient Room #: [facility] Status: routine BSA: 2.06 HR: 69 bpm BP: 103/45 mmHg Rhythm: NSR Other Information Study Quality: Good Indications CVA/TIA Echo Enhancing Agent Indication: Rule out Shunt Agent(s) / Amount(s) Used: Agitated Saline 10 cc 2D Dimensions IVSd: 13.76 (7-11mm) LVOT Diam: 20.45 (18-24mm) LVDd: 47.33 mm PWd: 14.01 (7-11mm) Ascending Ao: 28.52 (22-36mm) LVDs: 37.12 (25-40mm) Aortic Root: 32.35 mm Volumes Left Atrial Volume (Systole) LA ESV Index: 32.00 mL/m2 Aortic Valve AoV Peak Chuckie.: 1.63 m/s AO Peak Gr.: 10.57 mmHg LVOT Max P.36 mmHg AO Mean Gr.: 4.93 mmHg LVOT Mean P.31 mmHg LVOT Max V: 1.26 m/s AO V2 VTI: 33.02 cm LVOT Mean V: 0.84 m/s NATY (VTI): 2.80 cm2 LVOT V1 VTI: 28.19 cm AI Bremer: 1.98 m/s2 [place] [address] 2 D/M-MODE ECHOCARDIOGRAM Name: CLAUDIOENRIQUEVICTORIA Rose Room: [address] IN .R.#: [id number] Admission: 09/02/18 Attend Phys: Eric Rosenberg Discharge: Date of : 32 Date of Service: 09/03/18 1557 Report #: [id number] AI PHT: 457.01 ms Mitral Valve E/A Ratio: 0.82 MV Decel. Time: 207.19 ms MV E Max Chuckie.: 0.91 m/s MV PHT: 60.09 ms MVA (PHT): 3.66 cm2 TDI E/Lateral E': 10.11 E/Medial E': 10.11 Medial E' Chuckie.: 0.09 m/s Lateral E' Chuckie.: 0.09 m/s Pulmonary Valve PV Peak Chuckie.: 1.04 m/s PV Peak Gr.: 4.35 mmHg Tricuspid Valve RAP Estimate: 5.00 mmHg TR Peak Gr.: 31.15 mmHg RVSP: 36.00 mmHg PA Pressure: 36.00 mmHg Left Ventricle The left ventricle is normal size. There is normal LV segmental wall motion. There is normal left ventricular wall thickness. Left ventricular systolic function is normal. The left ventricular ejection fraction is within the normal range. LVEF is 60-65%. Grade I - abnormal relaxation pattern. Right Ventricle The right ventricle is normal size. The right ventricular systolic function is normal. Atria The left atrium size is normal. Interatrial septum is intact without evidence of ASD or PFO. The right atrium size is normal. Aortic Valve Mild aortic valve sclerosis. Mild aortic regurgitation. There is no aortic valvular stenosis. Mitral Valve The mitral valve is normal in structure. There is no mitral valve regurgitation noted. No evidence of mitral valve stenosis[place] [address] 2 D/M-MODE ECHOCARDIOGRAM Name: VICTORIA SANTIZO Room: [address] IN [facility].#: [id number] Admission: 09/02/18 Attend Phys: Eric Rosenberg Discharge: Date of : 32 Date of Service: 09/03/18 1557 Report #: [id number] The tricuspid valve is normal in structure. Trace tricuspid regurgitation. Mild pulmonary hypertension. Pulmonic Valve The pulmonary valve is normal in structure. There is no pulmonic valvular regurgitation. Great Vessels The aortic root is normal in size. IVC is normal in size and collapses >50% with inspiration. Pericardium There is no pericardial effusion. <Conclusion> The left ventricle is normal size. There is normal left ventricular wall thickness. Left ventricular systolic function is normal. The left ventricular ejection fraction is within the normal range. LVEF is 60-65%. Grade I - abnormal relaxation pattern. The right ventricle is normal size. The left atrium size is normal. Mild aortic valve sclerosis. Mild aortic regurgitation. There is no aortic valvular stenosis. The mitral valve is normal in structure. The tricuspid valve is normal in structure. IVC is normal in size and collapses >50% with inspiration. There is no pericardial effusion. There is normal LV segmental wall motion. <ELECTRONICALLY SIGNED> By: Benjamin Barksdale MD, FACC 09/03/18 1557 1557 1557 Benjamin Barksdale MD, [facility]ACC /INF
[2018-09-03 16:44] VITALS: BP 146/56
[2018-09-03 20:00] VITALS: BP 141/51
[2018-09-04] VITALS: BP 119/43
[2018-09-04 04:00] VITALS: BP 108/51
--- NOTE | 2018-09-04 05:45 | NUR ---
ASSUMED CARE OF PT AFTER REPORT AT 1930. PT A&OX4. FORGETFUL AT TIMES. VSS. PHSYICAL ASSESSMENT COMPLETED AND CHARTED. PT ON RA. PT TRACING SR ON TELE. PT COMPLAINED OF LEFT ARM PAIN- MEDS GIVEN PER MAY. ILEOSTOMY BAG CHANGED. PT RESTED WELL ON BED. HOURLY ROUNDING OBSERVED. CALL LIGHT WITHIN REACH.
[2018-09-04 08:00] VITALS: BP 1120/46; BP 120/46
--- NOTE | 2018-09-04 11:15 | NUR ---
1483 ASSUMED CARE OF PATIENT. PLEASE SEE DOCUMENTED ASSESSMENT AND NIH CHARTING. PATIENT STILL HAS LEFT SHOULDER PAIN WITH LIMITED MOTION
[2018-09-04 11:30] VITALS: BP 108/53
--- NOTE | 2018-09-04 12:00 | NUR ---
SPOKE WITH DR ESCOBAR, HE IS WAITING ON THERAPY EVALS AND WILL DECIDE BUT FELT PT MAY BE A GOOD REHAB CANDIDATE. WILL FOLLOW
[2018-09-04 12:05] LABS: GLYCOHEMOGLOBIN (HGB A1C) 5.3 % (4.8-5.6)
[2018-09-04 16:00] VITALS: BP 114/48
--- NOTE | 2018-09-04 16:19 | NUR ---
PATIENT CLEARED TO GO TO REHAB
--- NOTE | 2018-09-04 16:34 | NUR ---
PATIENT AND SPOUSE INFORMED OF PLAN TO GO TO 322 AFTER SHIFT CHANGE TODAY.
[2018-09-04] MEDS ORDERED: ASPIRIN325 PO (17:23)
[2018-09-04] MEDS ORDERED: COLCHICINE0.6 MG PO (17:33)
[2018-09-04] MEDS ORDERED: GABAPENTIN 100100 MG PO (17:35)
[2018-09-04] MEDS ORDERED: MINOCIN50 MG PO (17:36)
[2018-09-04] MEDS ORDERED: OXYCODONE HCL 55 MG PO (17:38)
[2018-09-04 17:43] VITALS: BP 114/48
[2018-09-04] MEDS ORDERED: ASPIRIN81 M2 PO (18:13)
[2018-09-04] MEDS ORDERED: FOLBIC RF TABL1 EACH PO (18:16)
[2018-09-04] MEDS ORDERED: OMEGA-31000 M1 PO (18:18)
--- NOTE | 2018-09-04 18:36 | NUR ---
PATIENT PROGRESSING TOWARDS GOALS. LESS LEFT ARM PAIN. WALKED IN [place] AND WORKED WITH PT USING CANE. TO DISCHARGE TO ACUTE REHAB THIS EVENING. PT CARES FOR ILEOSTOMY. SPOUSE PRESENT ALL DAY
--- NOTE | 2018-09-04 18:56 | NUR ---
REPORT TO [facility] ON REHAB
[2018-09-04] MEDS ORDERED: ALLEGRA ALLERG180 MG PO (19:20)
--- NOTE | 2018-09-05 18:00 | CON ---
[address] [address] CONSULTATION Name: DARLYNVICTORIA Rose Room: [address] IN M.R.#: [id number] Admission: 09/02/18 Attend Phys: Bora Ortega Discharge: 09/04/18 Date of : 31 Report #: [id number] THIS REPORT FOR: //name// CC: Emely Rosenberg DATE OF SERVICE: 09/03/2018 HISTORY OF PRESENT ILLNESS: This is an 87-year-old male patient who was seen by me for a very poor history. He is complaining of weakness and numbness on the left side. He says the problem is with the left shoulder area. It started some time ago. His and him does not agree when it started, but it is definitely of a few days' duration and probably longer than that. He is also complaining of weakness in both lower extremities, more on the left side as compared to the right side. As I said the history is very poorly defined. He had pain in the hip, hyponatremia, bradycardia, renal failure, and a question of stroke in the past. Some of the records indicate that he also has dementia. He has a history of hypertension, myocardial infarction, high cholesterol, syncope, obesity, ileostomy. He denies any change in his vision or any ENT, cardiac, respiratory, GI, , musculoskeletal, constitutional, dermatological, hematological, psychiatric, throat, allergic symptom associated with present symptomatology. PAST MEDICAL HISTORY: Very poorly defined. He has trouble with the right shoulder, which he indicates is because of the rotator cuff. FAMILY HISTORY: Negative for any early age stroke. SOCIAL HISTORY: He is a former smoker. PHYSICAL EXAMINATION: The patient's examination is pretty limited. He is alert. He could tell me what month it is, but his memory is poor. His speech and concentration looks intact. Cranial nerve examination 2-12 indicated that it was difficult to carry out. He is pretty weak in the left upper extremity, more so in the shoulder area. I do not know what the duration is. He is also weak in the left lower extremity. I do not know what the duration is. His position sense appeared to be intact. He does not appear to have any cerebellar sign. He could not cooperate with the fundus examination. Pulses are somewhat difficult to feel. Cardiac examinations appear unremarkable. No respiratory difficulty or rhonchi was noticed. His blood pressure is 100/37 and a pulse is 69, and temperature is 98.3. LABORATORY DATA: White count is 8.1. Sodium is 134. His sed rate is up and is 72. He had an MRI of the brain, which appear unremarkable. IMPRESSION: This is a very unusual patient. I do [place] [address] CONSULTATION Name: VICTORIA SANTIZO Room: [address] IN [facility]#: [id number] Admission: 09/02/18 Attend Phys: Bora Ortega Discharge: 09/04/18 Date of : 31 Report #: [id number]. He needs further workup. We will start the workup with MRI of the thoracic spine. Hopefully and the localizer images will give us some indication about the cervical spine also. I would like to get an MRI of the left shoulder because his deficit appeared to be there. His sed rate is very high that may have to be addressed. In the absence of any good history, I think we need an extensive workup to see if we can find some treatable pathology and I discussed that aspect with it. He wants to proceed with that workup and we will set it up and follow up this patient with you. Thank you very much for this referral and if you have any questions, please feel free to contact me. <ELECTRONICALLY SIGNED> By: Elpidio Houser MD 09/05/18 1800 1440 [id number] Houser MD /nt
== END 2018-09-04 19:00 | DRG 65 ==
LOC: M.ERS 11:38 → M.TBA-ER 13:44 → M.2W 13:44
PROVIDERS: Emergency Medicine Emergency Medical Services; ADMIT Internal Medicine
DX: I63.9 Cerebral infarction, unspecified (principal); E44.0 Moderate protein-calorie malnutrition; G81.94 Hemiplegia, unspecified affecting left nondominant side; I25.10 Atherosclerotic heart disease of native coronary artery without angina pectoris; E78.00 Pure hypercholesterolemia, unspecified; N40.0 Benign prostatic hyperplasia without lower urinary tract symptoms; F03.90 Unspecified dementia, unspecified severity, without behavioral disturbance, psychotic disturbance, mood disturbance, and anxiety; N18.3 Chronic kidney disease, stage 3 (moderate); I12.9 Hypertensive chronic kidney disease with stage 1 through stage 4 chronic kidney disease, or unspecified chronic kidney disease; G62.9 Polyneuropathy, unspecified; I25.2 Old myocardial infarction; Z85.038 Personal history of other malignant neoplasm of large intestine; Z93.2 Ileostomy status; Z79.899 Other long term (current) drug therapy; Z88.0 Allergy status to penicillin; Z88.2 Allergy status to sulfonamides; Z91.012 Allergy to eggs; Z87.891 Personal history of nicotine dependence; Z95.5 Presence of coronary angioplasty implant and graft; Z82.49 Family history of ischemic heart disease and other diseases of the circulatory system; Z68.28 Body mass index [BMI] 28.0-28.9, adult

== ENCOUNTER 2018-09-04 17:17 | Inpatient (IN) | payer MEDICARE ==
[~2018-09-04] VITALS: Ht 180.3 cm; Wt 84.8 kg
[~2018-09-04 17:17] MED LIST changes: +PEPCID20 MG PO; +PROTONIX 20 MG20 M1 PO
[2018-09-04] MEDS ORDERED: ASPIRIN325 PO (17:23)
[2018-09-04] MEDS ORDERED: COLCHICINE0.6 MG PO (17:33)
[2018-09-04] MEDS ORDERED: GABAPENTIN 100100 MG PO (17:35)
[2018-09-04] MEDS ORDERED: MINOCIN50 MG PO (17:36)
[2018-09-04] MEDS ORDERED: OXYCODONE HCL 55 MG PO (17:38)
[2018-09-04] MEDS ORDERED: ASPIRIN81 M2 PO (18:13)
[2018-09-04] MEDS ORDERED: FOLBIC RF TABL1 EACH PO (18:16)
[2018-09-04] MEDS ORDERED: OMEGA-31000 M1 PO (18:18)
[2018-09-04] MEDS ORDERED: ALLEGRA ALLERG180 MG PO (19:20)
[2018-09-04 20:30] VITALS: BP 133/49
--- NOTE | 2018-09-05 00:45 | NUR ---
PATIENT ARRIVED FROM TELEMETRY PER WHEELCHAIR AT 1910. ACCOMPANIED BY AND ONE STAFF MEMBER. NO BED IN THE ROOM. STAFF MEMBER WENT BACK TO FORMER ROOM AND RETRIEVED PATIENT'S BED AND ALSO THE FOLD UP COT THAT HAS BEEN USING. WENT HOME FOR AWHILE AND THEN CAME BACK. LINH SLEEPS ON THE COT IN PATIENT'S ROOM ALL NIGHT. REHAB ADMISSION TOOL COMPLETED. PATIENT DOESN'T ALWAYS ANSWER QUESTIONS APPROPRIATELY AND HAS AN INAPPROPRIATE LAUGH AT TIMES. PATIENT STATES IS HARD OF HEARING. PATIENT KNEW THE DAY AND MONTH BUT THOUGHT THE YEAR WAS WAS 2010. PATIENT DOES HAVE DEMENTIA LISTED IN HIS HISTORY. PATIENT HAS AN ILEOSTOMY THAT HE IS ABLE TO DUMP AND RINSE OUT WITH SET UP. LINH CHANGED THE APPLIANCE YESTERDAY MORNING. PATIENT WAS PROVIDED WITH A STOOL RISER PER REQUEST BUT WAS UNABLE TO USE IT DUE TO IT MAKING IT TOO DIFFICULT TO DUMP HIS ILEOSTOMY. ORIENTED TO ROOM AND USE OF CALL LIGHT AND TV CONTROLLER. PATIENT INFORMED NOT TO GET UP WITHOUT CALLING FOR ASSIST. FIRST. AMULATES WITH SBA AND CANE.
[2018-09-05 02:21] LABS: URINE BILIRUBIN NEGATIVE (Negative); URINE BLOOD 3+ (Negative); URINE CLARITY CLEAR; URINE COLOR YELLOW; URINE GLUCOSE-RANDOM NEGATIVE (Negative); URINE KETONES NEGATIVE (Negative); URINE LEUKOCYTES-REFLEX 1+ (Negative); URINE NITRITE-REFLEX NEGATIVE (Negative); URINE PROTEIN NEGATIVE (Negative); URINE SPECIFIC GRAVITY 1.015 (1.005-1.030); URINE UROBILINOGEN 0.2 E.U./dl (0.2-1.0)
[2018-09-05 05:33] LABS: FINE GRANULAR CASTS 0-3 Few /LPF (None Seen); SQUAMOUS 4-10 Moderate /LPF (0-3); URINE RBC >20 Many /HPF (0-2)
[2018-09-05 05:34] LABS: CRYSTALS None Seen /LPF (None Seen)
--- NOTE | 2018-09-05 05:35 | NUR ---
UP X ONE DURING THE NIGHT TO DUMP ILEOSTOMY AGAIN. UP X TWO MORE TIMES AND USED THE URINAL. HOURLY ROUNDING IN PROGRESS.
[2018-09-05 05:41] LABS: HEMATOCRIT 30.8 % (42.0-52.0); HEMOGLOBIN 10.3 gm/dL (14.0-18.0); MCH 28.9 pg (26.0-34.0); MCHC 33.5 g/dL (28.0-37.0); MCV 86.3 fL (80.0-100.0); MPV 8.6 fl. (7.2-11.1); RBC 3.57 mil/uL (4.50-6.00); RDW-CV 14.9 % (10.5-14.5); WBC 6.3 thou/uL (4.0-11.0)
[2018-09-05 06:10] LABS: CALCIUM 8.6 mg/dL (8.5-10.1); CREATININE 2.2 mg/dL (0.6-1.3); POTASSIUM 4.6 mmol/L (3.5-5.1)
[2018-09-05 10:04] VITALS: BP 124/55
--- NOTE | 2018-09-05 13:32 | NUR ---
PATIENT HAS BEEN ALERT AND ORIENTED X 3-4. STANDS WITH MIN ASSIST USING HIS CANE. C/O PAIN IN LT ELBOW. TYLENOL GIVEN. UP WITH THERAPIES. NO SIGN OF DISTRESS OR DISCOMFORT. CONT. WITH PLAN OF CARE.
--- NOTE | 2018-09-05 15:33 | NUR ---
SW completed initial assessment on inpt rehab unit. Pt alert, oriented, working with PT. Pt met with pt and son and dtr(in law possibly) as well. Pt lives at home with . Pt has hx of [facility] inpt rehab, [facility], [facility] . Pt has cane, RW, ileostomy. SW and Dr Palomo met with pt and pt to review team conference summary and plan for pt to remain on ARU to continue therapies for at least another week with team to reassess pt length of stay during team conference next Monday. Pt and pt in agreement with plan. SW to continue to follow to assist with safe dc planning.
[2018-09-05 20:15] VITALS: BP 121/56
--- NOTE | 2018-09-06 01:18 | NUR ---
ASSUMED CARE @ 1914-09/05-MON.APPEARS SLEEPING IN BED W/ HOB UP 30 DEGREES. ILEOSTOMY BAG INTACT.GAUZE DRESSING INTACT MUCUS PLUG LEFT UPPER ABDOMEN.BED ALARM PUT ON @ 1914.WANTS SIDERAILS X2 UP ONLY. STAYING ALL NIGHT.BED ARTIST AGENT PLACED ON PT'S BED @ 0.TURNS SELF @ NIGHT.ON HOURLY ROUNDS.
--- NOTE | 2018-09-06 05:41 | NUR ---
SLEEPING SINCE 191 BUT AWAKE FROM 1999 TO 2199.AWAKE Q 2 [id number], 2200,0000 & 0200-TO EMPTY ILEOSTOMY BAG BY SELF X4.TWICE BED ALARM SOUNDED BUT NEXT 2X CALLED FOR SBA TO TOILET W/ CANE. STAYING ALL NIGHT.TOOK ALL ONE PACKAGE ROSEY CRACKERS & VANILLA ICE CREAM HS SNACKS.
[2018-09-06 08:04] VITALS: BP 112/44
--- NOTE | 2018-09-06 10:14 | NUR ---
PATIENT ALERT AND ORIENTED X 4, UP AMBULATING IN [place] WITH THERAPY. USES A CANE, SUPERVISION TO LIMITED ASSIST WITH TRANSFERS. DENIES COMPLAINTS OF PAIN OR DISCOMFORT. NO SIGN OF DISTRESS. CONT. WITH CURRENT PLAN OF CARE.
[2018-09-06 19:40] VITALS: BP 125/47
--- NOTE | 2018-09-06 19:40 | NUR ---
SITTING UP IN RECLINER WATCHING TV. SITTING NEXT TO PATIENT. DENIES DISCOMFORT. CALL LIGHT WITHIN REACH. SNACK PROVIDED.
--- NOTE | 2018-09-07 05:21 | NUR ---
SLEPT SOUNDLY UNTIL ABOUT 0200. SET THE BED ALARM OFF STARTING TO GET UP WITHOUT ASSISTANCE TO THE BATHROOM. ILEOSTOMY BAG WAS SO FULL IT WAS LEAKING STOOL ONTO PATIENT'S CLOTHING AND THE FLOOR. NEW ILEOSTOMY BAG PLACED. DRESSING OVER MUCOUS STOMA ON LLQ OF ABD CAME LOOSE. NEW 4X4 PLACED. USED CALL LIGHT APPROPRIATELY LATER TO GET UP TO THE TOILET TO VOID. HOURLY ROUNDING IN PROGRESS.
[2018-09-07 08:25] VITALS: BP 121/57
--- NOTE | 2018-09-07 16:11 | NUR ---
ASSUMED CARE AT 0730. ALERT ORIENTED PLEASANT COOPERATIVE. HX OF POSSIBLE CVA L SIDE WEAKNESS. TRANSFERS WITH SBA G BELT AND CANE AND AMBULATES TO BR TO VOID ALSO EMPTIED HIS ILEOSTOMY INDEPENDENTLY INTO TOILET. PARTICIPATED IN THERAPIES THROUGHOUT THE DAY. DENIES PAIN OR REQUESTS. FEEDS SELF AND TAKES MEDS WITHOUT DIFFICULTY ONE AT A TIME WITH WATER. USES CALL LIGHT APPROPRIATELY FOR ASSIST. SITTING UP IN RECLINER AT BEDSIDE WHEN NOT IN THERAPIES. HERE AND BROUGHT HIS ILEOSTOMY SUPPLIES FROM HOME.
[2018-09-07 21:14] VITALS: BP 121/58
--- NOTE | 2018-09-08 01:39 | NUR ---
ASSUMED CARE 2 1929-09/07-MONDAY.SITS IN RECLINER WATCHING TV.GAUZE DRSG INTACT MUCUS PLUG LEFT UPPER ABD.ILEOSTOMY BAG IN PLACE.SBA FOR ALL TOILETING & TRANSFERS.USES CANE.BED ALARM PUT ON @ 2210 WHILE IN BED. STAYING ALL NIGHT.ON HOURLY ROUNDS.
--- NOTE | 2018-09-08 05:21 | NUR ---
SLEPT LATE & SLEEPING SINCE 0.EMPTIED COLOSTOMY X2 IND.USED URINAL X2. STANDS TO VOID.NURSE JUST EMPTIES URINAL.TOOK ALL VANILLA ICE CREAM & ONE PACKAGE ROSEY CRACKERS HS SNACKS.
[2018-09-08 07:30] VITALS: BP 119/65
--- NOTE | 2018-09-08 18:07 | NUR ---
PATIENT ALERT AND ORIENTED X 4, FORGETFUL AT TIMES. AMBULATES WITH A CANE. TO MDR FOR MEALS. HERE MOST OF THE DAY. EMPTIES IEOSTOMY SELF WITH SUPERVISION. DENIES COMPLAINTS OF PAIN OR DISCOMFORT. CONT. WITH PLAN OF CARE AT THIS TIME.
[2018-09-08 20:06] VITALS: BP 128/86
--- NOTE | 2018-09-09 01:51 | NUR ---
ASSUMED CARE @ -SAT.SITS IN RECLINER DOING CROSSWORD PUZZLES. ILEOSTOMY BAG INTACT.DRESSING OVER MUCUS PLUG LEFT UPPER ABD-DRY & INTACT.SEE PAIN MANAGEMENT @ 2013. STAYING ALL NIGHT.BED ALARM PUT ON @ 2200.HOB UP.ON HOURLY ROUNDS.
--- NOTE | 2018-09-09 05:22 | NUR ---
SLEPT LATE @ 0000-09/09-MONDAY & SLEPT GOOD ALL NIGHT.BRP X2.ONCE -TO VOID & 2X TO EMPTY ILEOSTOMY BAG.TOOK ALL ANN ICE CREAM & ONE PACKAGE ROSEY CRACKERS HS SNACKS.
[2018-09-09 10:11] VITALS: BP 122/48
--- NOTE | 2018-09-09 14:45 | NUR ---
PATIENT HAS BEEN ALERT AND ORIENTED X 4. CONT. TO BE SBA ASSIST WITH TRANSFERS AND AMBULATION. TYLENOL AND VOLTRAN TO RT KNEE. NO FURTHER COMPLAINTS OF PAIN, CONT. WITH CURRENT PLAN OF CARE AT THIS TIME.
[2018-09-09 20:05] VITALS: BP 131/65
--- NOTE | 2018-09-10 01:22 | NUR ---
ASSUMED CARE @ -SUN.SITS IN RECLINER.ILEOSTOMY BAG IN PLACE.DRSG ON MUCUS PLUG INTACT LEFT UPPER ABD. STAYING ALL NIGHT.FOUND ALREADY IN BED @ 2139. SBA PATIENT TO BED.BED ALARM PUT ON @ 2139.TURNS SELF @ NIGHT.ON HOURLY ROUNDS.
[2018-09-10 04:25] LABS: HEMATOCRIT 31.4 % (42.0-52.0); MCH 27.8 pg (26.0-34.0); MCV 86.9 fL (80.0-100.0); RBC 3.61 mil/uL (4.50-6.00); RDW-CV 14.8 % (10.5-14.5); WBC 6.3 thou/uL (4.0-11.0)
[2018-09-10 04:36] LABS: CALCIUM 8.5 mg/dL (8.5-10.1); CREATININE 2.2 mg/dL (0.6-1.3); MAGNESIUM 1.8 mg/dL (1.8-2.4); POTASSIUM 5.3 mmol/L (3.5-5.1)
--- NOTE | 2018-09-10 05:27 | NUR ---
SLEPT LATE SINCE 2300 & SLEPT GOOD ALL NIGHT.BRP W/ SBA X5.TWICE TO EMPTY ILEOSTOMY BAG.3X TO VOID.VOIDING PATTERN USUALLY VOIDS THEN STOP & SAME PATTERN.TOOK ALL ORANGE SHERBET & ONE PACKAGE ROSEY CRACKERS HS SNACKS.
[2018-09-10 08:27] VITALS: BP 92/30
[2018-09-10 09:00] VITALS: BP 117/47
[2018-09-10 12:40] LABS: URINE BILIRUBIN NEGATIVE (Negative); URINE BLOOD 2+ (Negative); URINE CLARITY CLEAR; URINE COLOR YELLOW; URINE GLUCOSE-RANDOM NEGATIVE (Negative); URINE KETONES NEGATIVE (Negative); URINE LEUKOCYTES TRACE (Negative); URINE NITRITE NEGATIVE (Negative); URINE PROTEIN NEGATIVE (Negative); URINE UROBILINOGEN 0.2 E.U./dl (0.2-1.0)
[2018-09-10 13:01] LABS: BACTERIA 1-9 Few /HPF (None Seen); CASTS None Seen /LPF (None Seen); CRYSTALS None Seen /LPF (None Seen); MUCUS None Seen strn/LPF (None Seen); SQUAMOUS 0-3 Few /LPF (0-3); URINE WBC 0-5 Rare /HPF (0-5)
--- NOTE | 2018-09-10 14:00 | NUR ---
ASSUMED CARE AT 0730. ALERT ORIENTED PLEASANT COOPERATIVE. HX OF CVA L SIDE WEAKNESS. TRANSFERS WITH SBA G BELT AND CANE AMBULATES TO BR TO VOID AND EMPTY ILEOSTOMY AT INTERVALS. DOES C/O RT. KNEE AND SHOULDER PAIN. VOLTAREN APPLIED. FEEDS SELF AND TAKES MEDS WITHOUT DIFFICULTY. PARTICIPATING WITH THERAPIES. U/A SENT PER DR. MORRELL ORDER. HERE WITH PT.
[2018-09-10 18:58] VITALS: BP 117/47
[2018-09-10 20:12] VITALS: BP 134/48
--- NOTE | 2018-09-11 05:01 | NUR ---
ASSUMED CARES AT 1920. ALERT AND ORIENTED. PLEASANT. AT BEDSIDE. SBA WITH GAIT BELT AND CANE. UP TO BATHROOM. PT EMPTIES OWN ILEOSTOMY BAG. NO ISSUES OVERNIGHT. SLEPT OFF AND ON. CALL LIGHT IN REACH.
[2018-09-11 07:45] VITALS: BP 119/51
--- NOTE | 2018-09-11 14:28 | NUR ---
ASSUMED CARE AT 0730. ALERT ORIENTED PLEASANT COOPERATIVE. HX OF L SIDE WEAKNESS CVA. TRANSFERS SBA G BELT CANE AMBULATES TO BR TO VOID AND EMPTY ILEOSOTOMY . DOES HAVE C/O RT. KNEE AND SHOULDER PAIN VOLTAREN GEL APPLIED. PARTICIPATING IN THERAPIES. STAYS WITH PT. FEEDS SELF AND TAKES MEDS WITHOUT DIFFICULTY. SITTING UP IN RECLINER AT BEDSIDE.
[2018-09-11 20:00] VITALS: BP 105/42
--- NOTE | 2018-09-12 05:13 | NUR ---
ASSUMED CARE AT 1920. ALERT AND ORIENTED. PLEASANT. DENIED ANY NEED FOR PAIN MEDS. SBA WITH GAIT BELT AND CANE. UP TO BATHROOM. ILEOSTOMY INTACT WHICH PT EMPTIES HIMSELF. DRSG TO MUCOUS FISTULA CHANGED. SLEPT SOME OFF AND ON. CALL LIGHT IN REACH.
[2018-09-12 08:58] VITALS: BP 99/38
--- NOTE | 2018-09-12 15:20 | NUR ---
RAQUEL and Dr Palomo met with pt and pt to review team conference summary and plan for pt to dc home on Sunday 09/17. Pt and pt okay with plan. SW to continue to follow to assist with safe dc planning. No new needs expressed at this time.
[2018-09-12 19:30] VITALS: BP 93/58
--- NOTE | 2018-09-13 00:40 | NUR ---
ASSUMED CARE @ 1916-.FOUND IN BATHROOM VOIDING.ILEOSTOMY BAG INTACT.DRSG ON MUCUS PLUG INTACT LEFT UPPER ABD. MIXED BENEPROTEIN IN ONE GLASS H20 & PATIENT DRANK ALL. STAYING ALL NIGHT.FOUND IN BED @ 2199.BED ALARM PUT ON @ 2199.HOB UP.WANTS ONLY SIDERAILS X2 UP.TURNS SELF @ NIGHT.ON HOURLY ROUNDS.
--- NOTE | 2018-09-13 05:26 | NUR ---
SLEEPING SINCE 2300.AWAKE @ INTERVALS DURING NIGHT FOR BRP W/ SBA X6.VOIDED- -3X.EMPTIED ILEOSTOMY BAG-3X ALSO.TOOK ALL ORANGE SHERBET & ONE PACKAGE ROSEY CRACKERS HJS SNACKS.2X WENT TO TOILET W/OUT CALLING.
[2018-09-13 07:40] VITALS: BP 134/58
--- NOTE | 2018-09-13 16:22 | NUR ---
PATIENT WORKED WITH THERAPY TODAY ORDERED. PATIENT NOW MOD-I. UP AD ANGEL WITH CANE. PATIENT MANAGING OWN ILEOSTOMY. NO COMPLAINTS OF PAIN.
[2018-09-13 20:04] VITALS: BP 148/54
--- NOTE | 2018-09-14 02:16 | NUR ---
ASSUMED CARE @ 1919-09/13-.SITS IN RECLINER DOING CROSSWORD PUZZLES.DRSG ON MUCUS PLUG-DRY & INTACT.ILEOSTOMY BAG INTACT.MODIFIED IND NOW. STAYING ALL NIGHT.CHAIR & BED ALARMS-TAKEN OFF.TURNS SELF @ NIGHT.ON HOURLY ROUNDS.
--- NOTE | 2018-09-14 05:12 | NUR ---
SLEPT LATE @ 2300 & SLEEPING GOOD ALL NIGHT.EMPTIES ILEOSTOMY BAG BY SELF. TOOK ALL ROSEY CRACKERS ONE PACKAGE W/ ANN.ICE CREAM HS SNACKS.
[2018-09-14 08:00] VITALS: BP 125/55
[2018-09-14 14:57] LABS: URINE BILIRUBIN NEGATIVE (Negative); URINE BLOOD 2+ (Negative); URINE CLARITY CLEAR; URINE COLOR YELLOW; URINE GLUCOSE-RANDOM NEGATIVE (Negative); URINE KETONES NEGATIVE (Negative); URINE LEUKOCYTES TRACE (Negative); URINE NITRITE NEGATIVE (Negative); URINE PROTEIN NEGATIVE (Negative); URINE UROBILINOGEN 0.2 E.U./dl (0.2-1.0)
[2018-09-14 15:06] LABS: HYALINE CASTS 4-10 Moderate /LPF (None Seen); SQUAMOUS 4-10 Moderate /LPF (0-3)
[2018-09-14 15:07] LABS: BACTERIA 1-9 Few /HPF (None Seen); CRYSTALS None Seen /LPF (None Seen); MUCUS None Seen strn/LPF (None Seen)
--- NOTE | 2018-09-14 15:28 | NUR ---
SW continuing to follow to assist with safe dc planning. RAQUEL called and provided referral to pt preference of [facility]; pt to dc home with on Sunday 09/17. SW to fax final dc orders/med list on Monday. No other known needs at this time.
--- NOTE | 2018-09-14 16:06 | NUR ---
PATIENT WORKED WITH THERAPY ORDERED. C/O RIGHT KNEE PAIN THIS EVENING, PRN TYLENOL GIVEN PER MAY ORDERS. PATIENT REMAINS MOD-I IN ROOM. DR. AMARAL FROM ID CONSULTED FOR URINE CULTURE RESULTS, ORDERS FOR NEW UA AND CULTURE TO BE SENT. URINE SENT ORDERED.
--- NOTE | 2018-09-14 20:30 | NUR ---
SITTING UP IN ROOM VISITING WITH . PATIENT IS MOD-I IN ROOM WITH A CANE. STAYS ALL NIGHT WITH PATIENT. STATES HAS DISCOMFORT IN RIGHT SHOULDER AND RIGHT KNEE BUT DOESN'T WANT TO TAKE TYLENOL UNTIL LATER. HAS AN ILEOSTOMY THAT HE DUMPS HIMSELF.
[2018-09-14 21:30] VITALS: BP 135/41
--- NOTE | 2018-09-15 05:45 | NUR ---
RESTED QUIETLY. NO FURTHER COMPLAINT OF PAIN. HOURLY ROUNDING IN PROGRESS.
[2018-09-15 08:06] VITALS: BP 138/46
--- NOTE | 2018-09-15 14:57 | NUR ---
ASSUMED CARE AT 0730. ALERT ORIENTED PLEASANT COOPERATIVE. HX OF L SIDE WEAKNESS POSSIBLE CVA. MODIFIED INDEPENDENT IN ROOM.
--- NOTE | 2018-09-15 15:19 | NUR ---
HERE MOST OF THE DAY. PT. PARTICIPATED IN THERAPIES. AMBULATES WITH CANE IN ROOM EMPTIES ILEOSTOMY BAG INDEPENDENTLY IN TOILET PRN. DENIES PAIN OR REQUESTS. TO FOR MEALS.
--- NOTE | 2018-09-15 20:00 | NUR ---
SITTING UP IN CHAIR WORKING ON CROSSWORD PUZZLES IN NEWSPAPER. IN GOOD SPIRITS. MODIFIED INDEPENDENT IN ROOM WITH A CANE. LEFT FOR AWHILE TO TAKE CARE OF DTR'S DOG. CALL LIGHT WITHIN REACH.
[2018-09-15 20:03] VITALS: BP 138/47
--- NOTE | 2018-09-16 05:26 | NUR ---
RESTED QUIETLY. NO COMPLAINTS VOICED. HOURLY ROUNDING IN PROGRESS.
[2018-09-16 08:24] VITALS: BP 116/51
--- NOTE | 2018-09-16 15:25 | NUR ---
ASSUMED CARE AT 0730. ALERT ORIENTED PLEASANT COOPERATIVE. HX OF POSSIBLE CVA L SIDED WEAKNESS. MOD I IN HIS ROOM UP WITH CANE. AMBULATES TO BR VOIDS AND CARES FOR ILEOSTOMY INDEPENDENTLY. HERE WITH PT. DENIES PAIN OR CONCERNS TO DR FOR MEALS. APPETITE GOOD AND TAKES MEDS WITHOUT DIFFICULTY.
[2018-09-16 19:55] VITALS: BP 154/54
--- NOTE | 2018-09-17 01:49 | NUR ---
ASSUMED CARE @ 45783-2/23-MONDAY.SITS IN RECLINER WATCHING TV W/ ILEOSTOMY BAG INTACT. STAYING ALL NIGHT.MOD.IND W/ CANE.TURNS @ NIGHT.AWAKE BOTH PATIENT & @ 0100.ILEOSTOMY BAG LEAKED.BOWEL ACCIDENT X1. CHANGED BOTH APPLIANCES @ 0100.RN CHANGED DRSG ON MUCUS PLUG. APPLIED VASELINE ON MUCUS PLUG SITE BEFORE RN PLACED DRSG @ 0120.ON HOURLY ROUNDS.
[2018-09-17] MEDS ORDERED: VOLTAREN GEL 1100 G2 TOP (04:08)
--- NOTE | 2018-09-17 05:15 | NUR ---
SLEPT LATE SINCE 2300 & SLEEPING GOOD ALL NIGHT.AWAKE ONCE @ 0100 DUE TO LEAKING ILEOSTOMY W/C REPLACED.TOOK ALL ANN.ICE CREAM W/ ONE PACKAGE ROSEY CRACKERS HS SNACKS.FOR DISCHARGE TODAY 09/17-MONDAY.
--- NOTE | 2018-09-17 07:56 | CON ---
[address] [address] CONSULTATION Name: DARLYNVICTORIA M Room: [address] IN .R.#: [id number] Admission: 09/04/18 Attend Phys: Og Palomo MD Discharge: Date of : 31 Report #: [id number] THIS REPORT FOR: //name// CC: Og Wilson DATE OF SERVICE: 09/14/2018 INFECTIOUS DISEASE CONSULTATION ATTENDING PHYSICIAN: Vic Hernandez M.D. REASON FOR EVALUATION: Complicated urinary tract infection due to multiple resistant organisms. HISTORY OF PRESENT ILLNESS: Chart reviewed, patient examined. This is an 87-year-old gentleman with extensive medical history, whom I saw back a year ago, had diagnosed with peritonitis, complicated by colonic perforation. He had an extended period of time in the hospital and was readmitted with concern about stroke. He had left-sided weakness, numbness. He was subsequently admitted to rehab, did undergo physical therapy. In the interim since his last hospitalization apparently, he has been followed as an outpatient, received several courses of antibiotics including most recently parenteral carbapenem, specifically meropenem for Escherichia coli. Spouse was unable to identify the particular site of the culture. We did note his indwelling ureteral stent on the right. Urinalysis collected on the showed no white cells; however, urine culture collected on the showed Enterococcus faecium that was multiple resistant including penicillins. It was susceptible in vitro to vancomycin. He had been on several days of minocycline. On questioning, he denies any particular systemic illness. His appetite has been good. No fevers. No pulmonary or gastrointestinal related complaints other than some frequency. ALLERGIES: LISTED TO PENICILLIN, SULFA. CURRENT MEDICATIONS: Include diclofenac, colchicine, memantine, fish oil, finasteride, ferrous sulfate, aspirin, donepezil, pantoprazole, levothyroxine, tamsulosin, gabapentin, apixaban, atorvastatin, zolpidem. PAST MEDICAL HISTORY: The patient has known vasculopathy with coronary artery disease, previous acute myocardial infarctions, has coronary artery stents, high cholesterol, hypertension, obesity, history of colon cancer, does have an ileostomy, got some dementia, and chronic renal disease. SOCIAL HISTORY: Former smoker. No ethanol, no illicit drug use. FAMILY HISTORY: [place] [address] CONSULTATION Name: VICTORIA SANTIZO Room: [address]#: [id number] Admission: 09/04/18 Attend Phys: Og Palomo MD Discharge: Date of : 31 Report #: [id number] REVIEW OF SYSTEMS: Otherwise unremarkable. Ten-point review of system otherwise noted above in history of present illness. PHYSICAL EXAMINATION: GENERAL: He is alert, cooperative, appropriate. He is not evidently distressed, appears to be reasonably well nourished. VITAL SIGNS: Temperature 97.7, pulse 76, respirations 16, blood pressure 125/55. SKIN: Warm, dry. HEENT: Normocephalic. Extraocular muscles are intact. NECK: Supple. LUNGS: Generally clear to auscultation. HEART: Regular rate. I do not appreciate any murmur. ABDOMEN: Soft, nontender, nondistended. There is no right-sided CVA tenderness, no peritoneal signs. GENITOURINARY AND RECTAL: Deferred. LABORATORY DATA: Recent culture as noted above. Most recent creatinine was 2.2. White count of 6.3, H and H 10.0 and 31.4, platelets 265. Urine culture from 09/05 showed Enterococcus faecium susceptible only in vitro based on the panel to vancomycin. ASSESSMENT: Suspect asymptomatic bacteriuria. PLAN: We will repeat a urinalysis with culture. At this point, we would hold any antibiotics. Did discuss with the patient and his spouse, they were agreeable. We will monitor expectantly and encourage to use incentive spirometer. We will check early next week. <ELECTRONICALLY SIGNED> By: Sergio Adkins MD 09/17/18 0756 [id number] [id number] Adkisn MD /nt
[2018-09-17 09:09] VITALS: BP 109/38
[2018-09-17 10:36] VITALS: BP 109/38
[2018-09-17 11:30] VITALS: BP 109/38
--- NOTE | 2018-09-17 11:31 | NUR ---
Pt to dc home with today. RAQUEL met with pt and pt and discussed dc plan for today and HH services to follow. Pt and pt preference for [facility] HH; pt say she doesn't think pt will need HH for very long this time. RAQUEL faxed final orders and med list to [facility]. [phone] fax [phone]. Pt signed IMM. No other dc needs expressed.
[2018-09-17 13:00] VITALS: BP 109/38
--- NOTE | 2018-09-17 15:33 | NUR ---
ASSUMED CARE AT 0730. ALERT ORIENTED PLEASANT COOPERATIVE HX OF POSSIBLE CVA WITH L SIDE WEAKNESS. PT. IS MOD I IN HIS ROOM UP WITH CANE. DENIES PAIN OR CONCERNS. UP AND ABOUT TO BATHROOM CARES FOR ILEOSTOMY INDEPENDENTLY. PARTICIPATING IN THERAPIES. STAYS HERE WITH PT. DISCHARGED AT 1300 WITH BELONGINGS D/C INSTRUCTIONS 2 SCRIPTS CALLED IN TO [facility]. DISCHARGE INSTRUCTIONS GIVEN TO PT. AND VERBALIZED UNDERSTANDING ALLOWED TIME FOR QUESTIONS. DISMISSED TO HOME PER PRIVATE CAR WITH BELONGINGS WITH HOME HEALTH.
== END 2018-09-17 13:00 | disposition home health service (06) | DRG 56 ==
LOC: M.REH 17:17
PROVIDERS: Internal Medicine; Specialist; ADMIT Physical Medicine & Rehabilitation
DX: I69.354 Hemiplegia and hemiparesis following cerebral infarction affecting left non-dominant side (principal); I63.9 Cerebral infarction, unspecified; E44.0 Moderate protein-calorie malnutrition; N18.3 Chronic kidney disease, stage 3 (moderate); I25.10 Atherosclerotic heart disease of native coronary artery without angina pectoris; I12.9 Hypertensive chronic kidney disease with stage 1 through stage 4 chronic kidney disease, or unspecified chronic kidney disease; E78.5 Hyperlipidemia, unspecified; E78.00 Pure hypercholesterolemia, unspecified; F03.90 Unspecified dementia, unspecified severity, without behavioral disturbance, psychotic disturbance, mood disturbance, and anxiety; N40.0 Benign prostatic hyperplasia without lower urinary tract symptoms; E66.9 Obesity, unspecified; G62.9 Polyneuropathy, unspecified; M75.91 Shoulder lesion, unspecified, right shoulder; Z85.038 Personal history of other malignant neoplasm of large intestine; Z95.5 Presence of coronary angioplasty implant and graft; Z93.2 Ileostomy status; Z68.26 Body mass index [BMI] 26.0-26.9, adult; Z88.0 Allergy status to penicillin; Z88.2 Allergy status to sulfonamides; Z79.1 Long term (current) use of non-steroidal anti-inflammatories (NSAID); Z79.899 Other long term (current) drug therapy; I25.2 Old myocardial infarction; Z87.891 Personal history of nicotine dependence; Z91.012 Allergy to eggs

== ENCOUNTER → 2018-10-25 | Day surgery (SDC) | payer MEDICARE ==
--- NOTE | 2018-10-19 14:53 | EKG ---
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: [facility] : 1930 Requested By: Juan Mathews Order Number: [id number] Reading MD: Nick Maldonado Measurements Intervals Morrison Rate: 60 P: -10 NH: 158 QRS: 10 QRSD: 104 T: -7 QT: 396 QTc: 396 Interpretive Statements Sinus rhythm Inferior infarct, old Compared to ECG 09/02/2018 11:43:14 Atrial premature complex(es) no longer present Myocardial infarct finding still present Electronically Signed On 10-19-2018 14:53:20 CDT by Nick Maldonado [email or web address] <ELECTRONICALLY SIGNED> By: Nick Maldonado MD, [facility] 10/19/18 1453 1416 141 Nick Maldonado MD, FACC /EPI
[2018-10-19 15:18] LABS: ABSOLUTE BASOPHILS 0.1 thou/uL (0.0-0.2); ABSOLUTE EOSINOPHILS 0.2 thou/uL (0.0-0.7); ABSOLUTE LYMPHOCYTES 1.8 thou/uL (0.8-5.3); ABSOLUTE MONOCYTES 0.5 thou/uL (0.0-1.2); ABSOLUTE NEUTROPHILS 3.7 thou/uL (1.6-8.1); BASOPHILS 1.2 %; EOSINOPHILS 2.9 %; HEMATOCRIT 35.3 % (42.0-52.0); HEMOGLOBIN 11.5 gm/dL (14.0-18.0); LYMPHOCYTES 28.7 %; MCHC 32.7 g/dL (28.0-37.0); MCV 85.7 fL (80.0-100.0); MONOCYTES 8.1 %; MPV 8.4 fl. (7.2-11.1); NUCLEATED RBCS 0 /100WBC; PLATELET COUNT* 194 thou/uL (150-400); POLYS 59.1 %; RBC 4.12 mil/uL (4.50-6.00); RDW-CV 16.1 % (10.5-14.5); WBC 6.2 thou/uL (4.0-11.0)
[2018-10-19 15:26] LABS: CALCIUM 9.2 mg/dL (8.5-10.1); CREATININE 2.2 mg/dL (0.6-1.3); POTASSIUM 5.1 mmol/L (3.5-5.1)
[~2018-10-25] MED LIST changes: +ASPIRIN325 PO; +ASPIRIN81 M2 PO; +COLCHICINE0.6 MG PO; +MINOCIN50 MG PO; +OXYCODONE HCL 55 MG PO; +VOLTAREN GEL 1100 G2 TOP
--- NOTE | ~2018-10-25 | OP ---
[facility] [address] [place] [address] OPERATIVE REPORT Name: DARLYNVICTORIA MATHEWS Room: [facility]#: [id number] Admission: 10/25/18 Attend Phys: Juan Mathews MD Discharge: Date of : 31 Report #: [id number] THIS REPORT FOR: //name// CC: Emely Mathews DATE OF SERVICE: 10/25/2018 PREOPERATIVE DIAGNOSIS: Right hydronephrosis secondary to right ureteropelvic junction obstruction. POSTOPERATIVE DIAGNOSIS: Right hydronephrosis secondary to right ureteropelvic junction obstruction. PROCEDURES PERFORMED: 1. Cystoscopy with right retrograde pyelogram. 2. Right ureteral stent exchange. SURGEON: Juan Mathews M.D. ANESTHESIA: Laryngeal mask airway. 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 He presents today for cystoscopy with right ureteral stent exchange. The risks of the procedure including the risks of bleeding, infection, damage to surrounding structures, need for additional procedures, and anesthetic risks were discussed with the patient and he wished to proceed. PROCEDURE IN DETAIL: The risks and benefits of surgery were discussed with the patient and he wished to proceed. Informed consent was obtained and the patient was transferred to the operating room where he was laid supine on the operating room table. After the induction of adequate general endotracheal anesthesia and the administration of appropriate preoperative antibiotics, the patient's legs were placed in a modified dorsal lithotomy position, taking care to pad all pressure points and avoid any hyperextension or hyperflexion of his joints. The patient's genitalia were prepped and draped in the usual sterile fashion. A timeout was then performed to ensure correct patient and procedure. At this time, a 22-Singaporean cystoscope sheath with a 30-degree lens was lubricated and advanced under direct vision and irrigation into the anterior urethra. There were no anterior urethral abnormalities identified. As the prostatic urethra was approached, there was noted to be bilobar hyperplasia with occlusion in the midline. The cystoscope was advanced to the bladder where urine specimen was obtained and was passed off the [place] [address] OPERATIVE REPORT Name: VICTORIA SANTIZO Room: [facility]#: [id number] Admission: 10/25/18 Attend Phys: Juan Mathews MD Discharge: Date of : 31 Report #: [id number] cystoscope was disarticulated and the bladder was drained. Cystoscopy was performed under direct vision and irrigation and revealed a stent emanating from his right ureteral orifice. Systematic panendoscopy revealed moderate to severe bladder wall trabeculations with scattered cellules/diverticula. There were no papillary tumors or suspicious mucosal lesions identified. At this time, the patient's existing stent was grasped and pulled through the urethral meatus. A 0.038 ZIPwire was advanced through the lumen of the stent until it was seen to coil within the right collecting system under fluoroscopy. The stent was removed and inspected. It was found to be completely intact. At this time, a 10-Singaporean dual lumen catheter was advanced over the wire and into the right ureteral orifice. A right retrograde pyelogram was performed. Contrast could be seen filling the distal, mid, and proximal right ureter as well as a moderately dilated right collecting system. There were no filling defects on retrograde pyelogram. At this time, a 10-Singaporean dual lumen catheter was removed and a 6 x 22 applied silhouette double-J ureteral stent was advanced over the wire and into position using a metal tipped pusher. The wire was withdrawn, deploying the stent. A good coil of the stent was identified within the right renal pelvis under fluoroscopy and a good coil of the stent was identified within the bladder under direct vision with the cystoscope. The bladder was irrigated several times through the cystoscope and then drained. The cystoscope was removed. The patient was returned to a supine position, awakened from anesthesia, and transferred to the postoperative care unit in stable condition. The patient tolerated the procedure well. COMPLICATIONS: None. ESTIMATED BLOOD LOSS: None. IV FLUIDS: Crystalloid. DRAINS: Right 6 x 22 applied silhouette double-J ureteral stent. SPECIMENS: Urine for culture and sensitivity. FINDINGS: 1. Normal anterior urethra. 2. Bilobar prostatic hyperplasia. 3. Moderate to severe bladder wall trabeculations with scattered cellules. 4. Existing right ureteral stent removed and intact. 5. Right retrograde pyelogram demonstrating chronic [place] [address] OPERATIVE REPORT Name: VICTORIA SANTIZO Room: [facility].#: [id number] Admission: 10/25/18 Attend Phys: Juan Mathews MD Discharge: Date of : 31 Report #: [id number] 6. Right 6 x 22 applied silhouette double-J ureteral stent in good position by fluoroscopy under direct vision. By: [id number] Mathews MD /nt
[2018-10-25 06:47] LABS: HEMATOCRIT 36.5 % (42.0-52.0); MCHC 32.8 g/dL (28.0-37.0); MCV 85.3 fL (80.0-100.0); MPV 8.2 fl. (7.2-11.1); RBC 4.29 mil/uL (4.50-6.00); RDW-CV 16.4 % (10.5-14.5); WBC 6.9 thou/uL (4.0-11.0)
[2018-10-25 06:51] LABS: CALCIUM 9.3 mg/dL (8.5-10.1); CREATININE 2.4 mg/dL (0.6-1.3)
[2018-10-25 06:56] LABS: ALBUMIN 3.3 g/dL (3.4-5.0); TOTAL BILIRUBIN 0.3 mg/dL (<0.1-1.0); TOTAL PROTEIN 7.5 g/dL (6.4-8.2)
== END | disposition home or self-care (01) ==
LOC: M.SUR 06:06
PROVIDERS: Radiology Diagnostic Radiology; Urology
DX: N13.1 Hydronephrosis with ureteral stricture, not elsewhere classified (principal); N32.89 Other specified disorders of bladder; N40.0 Benign prostatic hyperplasia without lower urinary tract symptoms; Z88.0 Allergy status to penicillin; Z88.2 Allergy status to sulfonamides; Z79.899 Other long term (current) drug therapy; Z79.82 Long term (current) use of aspirin

== ENCOUNTER 2019-03-31 02:29 | Inpatient (IN) | payer MEDICARE ==
[~2019-03-31] VITALS: Ht 180.3 cm; Wt 91.2 kg
[2019-03-31 02:31] VITALS: BP 137/49
[2019-03-31 02:54] LABS: URINE BILIRUBIN NEGATIVE (Negative); URINE BLOOD 3+ (Negative); URINE CLARITY SL CLOUDY; URINE COLOR YELLOW; URINE GLUCOSE-RANDOM NEGATIVE (Negative); URINE KETONES NEGATIVE (Negative); URINE NITRITE-REFLEX NEGATIVE (Negative); URINE PROTEIN 1+ (Negative); URINE SPECIFIC GRAVITY 1.025 (1.005-1.030); URINE UROBILINOGEN 0.2 E.U./dl (0.2-1.0)
[2019-03-31 02:55] LABS: URINE LEUKOCYTES-REFLEX 3+ (Negative)
[2019-03-31 03:06] LABS: ABSOLUTE EOSINOPHILS 0.1 thou/uL (0.0-0.7); ABSOLUTE LYMPHOCYTES 1.2 thou/uL (0.8-5.3); ABSOLUTE MONOCYTES 0.4 thou/uL (0.0-1.2); ABSOLUTE NEUTROPHILS 4.4 thou/uL (1.6-8.1); BASOPHILS 0.4 %; EOSINOPHILS 2.1 %; HEMATOCRIT 32.1 % (42.0-52.0); HEMOGLOBIN 10.5 gm/dL (14.0-18.0); MCH 29.9 pg (26.0-34.0); MCHC 32.8 g/dL (28.0-37.0); MCV 91.1 fL (80.0-100.0); MONOCYTES 6.3 %; MPV 8.7 fl. (7.2-11.1); NUCLEATED RBCS 0 /100WBC; PLATELET COUNT* 153 thou/uL (150-400); POLYS 71.2 %; RBC 3.52 mil/uL (4.50-6.00); RDW-CV 16.5 % (10.5-14.5); WBC 6.2 thou/uL (4.0-11.0)
[2019-03-31 03:07] LABS: INFLUENZA A ANTIGEN Negative (Negative); INFLUENZA B ANTIGEN Negative (Negative)
[2019-03-31 03:17] LABS: CALCIUM 8.1 mg/dL (8.5-10.1); CREATININE 3.5 mg/dL (0.6-1.3)
[2019-03-31 03:19] LABS: POTASSIUM 6.3 mmol/L (3.5-5.1)
[2019-03-31 03:21] LABS: ALBUMIN 2.9 g/dL (3.4-5.0); TOTAL BILIRUBIN 0.2 mg/dL (<0.1-1.0); TOTAL PROTEIN 7.1 g/dL (6.4-8.2)
[2019-03-31 03:27] LABS: CASTS None Seen /LPF (None Seen); SQUAMOUS 4-10 Moderate /LPF (0-3)
[2019-03-31 03:28] LABS: CRYSTALS None Seen /LPF (None Seen); URINE RBC >20 Many /HPF (0-2); URINE WBC-REFLEX >25 Many /HPF (0-5)
[2019-03-31 06:14] VITALS: BP 122/48
[2019-03-31 06:30] VITALS: BP 118/49
[2019-03-31 08:00] VITALS: BP 105/66
--- NOTE | 2019-03-31 08:32 | NUR ---
REPORT RECIEVED FROM ER. PT ORIENTED TO ROOM, CALL LIGHT SHOWN, FALL AGREEMENT GONE OVER, PT STATED UNDERSTANDING. IV PATENT. AT BEDSIDE. ADMISSION DOCUMENTED, MEDS GIVEN PER E-MAR. REPORT GIVEN TO ONCOMING NURSE. WILL CONTINUE WITH PLAN OF CARE.
--- NOTE | 2019-03-31 10:08 | EKG ---
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: [place] : 1930 Requested By: Eb Wells Order Number: [id number] MD: Nick Maldonado Measurements Intervals [place] Rate: 68 P: 5 IN: 190 QRS: 9 QRSD: 112 T: -22 QT: 408 QTc: 434 Interpretive Statements Sinus rhythm Inferior infarct, old Compared to ECG 10/19/2018 14:16:43 No significant changes Electronically Signed On 03-31-2019 10:07:37 SUMMER SESSIONS DIRECTOR by Nick Maldonado [email or web address] <ELECTRONICALLY SIGNED> By: Nick Maldonado MD, [facility] 03/31/19 1007 [id number] 0235 Nick Maldonado MD, FACC /EPI
[2019-03-31 10:30] LABS: CALCIUM 7.7 mg/dL (8.5-10.1); CREATININE 3.1 mg/dL (0.6-1.3); PHOSPHORUS* 4.8 mg/dL (2.5-4.9)
[2019-03-31 10:36] LABS: POTASSIUM 6.2 mmol/L (3.5-5.1)
[2019-03-31 16:45] VITALS: BP 169/58
[2019-03-31 20:00] VITALS: BP 137/48
--- NOTE | 2019-03-31 20:00 | NUR ---
PT VSS, A&O4, NSR ON TELE, SBA- PATIENT REPORTS BAD KNEES, ILEOSTOMY- ABD FISTULA WITH DRESSING. HOURLY ROUNDING PERFORMED, POSSESSIONS AND CALL LIGHT WITHIN REACH. SPOUSE AT BEDSIDE
[2019-03-31] MEDS ORDERED: REFRESH CELLUVI1 APP OPHTHALMIC (21:15)
[2019-04-01] VITALS: BP 121/59
[2019-04-01 04:00] VITALS: BP 109/51
[2019-04-01 04:41] LABS: HEMATOCRIT 26.9 % (42.0-52.0); HEMOGLOBIN 9.3 gm/dL (14.0-18.0); MCH 30.6 pg (26.0-34.0); MCHC 34.4 g/dL (28.0-37.0); MPV 8.8 fl. (7.2-11.1); RBC 3.03 mil/uL (4.50-6.00); RDW-CV 16.1 % (10.5-14.5); WBC 6.2 thou/uL (4.0-11.0)
--- NOTE | 2019-04-01 04:53 | NUR ---
PT SLEPT MOST OF SHIFT. ASSESSMENT DOCUMENTED. MEDS GIVEN PER E-MAR. IV PATENT, FLUIDS INFUSING. NO REPORTS OF PAIN. PT VOIDED PER URINAL, HELPING PATIENT MOST OF TIME. ILLIOSTOMY CARE GIVEN. FALL PRECAUTIONS IN PLACE. WILL CONTINUE WITH PLAN OF CARE.
[2019-04-01 05:20] LABS: CALCIUM 7.5 mg/dL (8.5-10.1); MAGNESIUM 1.7 mg/dL (1.8-2.4); POTASSIUM 5.7 mmol/L (3.5-5.1)
[2019-04-01 08:00] VITALS: BP 131/60
[2019-04-01 14:00] VITALS: BP 106/48
[2019-04-01 14:18] LABS: CREATININE 2.8 mg/dL (0.6-1.3)
[2019-04-01 14:21] LABS: POTASSIUM 4.7 mmol/L (3.5-5.1)
--- NOTE | 2019-04-01 16:44 | NUR ---
Pt is A&O. Resides at home with . Independent. assists with changing his ileostomy. Pt uses a cane PRN, also has a walker. Hx of [facility]. Hx of [facility]. Hx of acute rehab. Goal is home at hi, unsure if Pt will have any needs. Following.
--- NOTE | 2019-04-01 18:00 | NUR ---
VSS, NSR ON TELE, A&OX4, PATIENT DROWSY AND SLEPT SOME OF THE DAY. ELEVATED POTASSIUM, ILEOSTOMY AND ABD FISTULA THAT IS PART OF INTERVENTION. HOURLY ROUNDING PERFORMED, POSSESSIONS AND CALL LIGHT WITHIN REACH.
[2019-04-01 19:45] VITALS: BP 117/50
[2019-04-02] VITALS: BP 97/49
[2019-04-02 04:00] VITALS: BP 148/50
--- NOTE | 2019-04-02 04:54 | NUR ---
PT SLEPT MOST OF SHIFT. ASSESSMENT DOCUMENTED. MEDS GIVEN PER E-MAR. IV PATENT, FLUIDS INFUSING. NO REPORTS OF PAIN. AT BEDSIDE. FALL PRECAUTIONS IN PLACE. WILL CONTINUE WITH PLAN OF CARE.
[2019-04-02 06:02] LABS: HEMATOCRIT 27.2 % (42.0-52.0); HEMOGLOBIN 9.1 gm/dL (14.0-18.0); MCH 30.3 pg (26.0-34.0); MCHC 33.5 g/dL (28.0-37.0); MCV 90.5 fL (80.0-100.0); MPV 9.1 fl. (7.2-11.1); RBC 3.01 mil/uL (4.50-6.00); RDW-CV 16.3 % (10.5-14.5); WBC 5.5 thou/uL (4.0-11.0)
[2019-04-02 06:16] LABS: ALBUMIN 2.4 g/dL (3.4-5.0); CALCIUM 7.7 mg/dL (8.5-10.1); CREATININE 2.8 mg/dL (0.6-1.3); MAGNESIUM 1.5 mg/dL (1.8-2.4); TOTAL BILIRUBIN 0.2 mg/dL (<0.1-1.0); TOTAL PROTEIN 5.9 g/dL (6.4-8.2)
[2019-04-02 06:26] LABS: POTASSIUM 5.8 mmol/L (3.5-5.1)
[2019-04-02 08:00] VITALS: BP 109/46
[2019-04-02 11:30] VITALS: BP 125/43
--- NOTE | 2019-04-02 13:52 | CON ---
[address] [address] CONSULTATION Name: VICTORIA SANTIZO Room: [address] IN M.R.#: [id number] Admission: 03/31/19 Attend Phys: Giuseppe Coburn MD Discharge: Date of : 31 Report #: [id number] THIS REPORT FOR: //name// CC: Ryan Coburn DATE OF SERVICE: 04/01/2019 CONSULTING PHYSICIAN: Dr. Coburn. HISTORY OF PRESENT ILLNESS: An 88-year-old gentleman who was admitted with weakness and dysuria. 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 He was due to have that exchanged later this month by Dr. Mathews and has been seen by Urology. There is no urgent indication for it to be exchanged now. He is felt to have urinary tract infection and has been started on antibiotics. He follows Dr. Witt as an outpatient and has an appointment to see her next month. His creatinine on admission was 3.5; it is down to 3 today. He did have some hyperkalemia as well and did earlier had some reduced output from his ostomy. Both of these are doing better now. He currently does not have any complaints. REVIEW OF SYSTEMS: Constitutional, psych, heme, eyes, ENT, respiratory, cardiac, GI, , endocrine, all negative except as documented above. 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 There is a history of gout. There is mention of a history of dementia. SOCIAL HISTORY: No tobacco. FAMILY HISTORY: Not pertinent in this 88-year-old gentleman. CURRENT MEDICATIONS: Reviewed. PHYSICAL EXAMINATION: VITAL SIGNS: Blood pressure 131/60, pulse 75, respirations 16, temperature 36.4. GENERAL: No acute distress. EYES: Open. EARS: Externally normal. NECK: Supple. CARDIOVASCULAR: Regular rate. LUNGS: No crackles. ABDOMEN: Soft. MUSCULOSKELETAL: [place] [address] CONSULTATION Name: VICTORIA SANTIZO Room: [address] IN [facility]#: [id number] Admission: 03/31/19 Attend Phys: Giuseppe Coburn MD Discharge: Date of : 31 Report #: [id number] PSYCHIATRIC: Awake, alert. LABORATORY DATA: White cell count 6.2, hemoglobin 9.3, platelets 134. Sodium 145, potassium 5.7, chloride 116, bicarbonate 20, BUN 56, creatinine 3, glucose 61, calcium 7.5, magnesium 1.7. ASSESSMENT: 1. Acute kidney injury with admission creatinine of 3.5 in the setting of a urinary tract infection. CT scan noted. 2. Right ureteropelvic junction obstruction with stent, which is exchanged every 6 months. 3. Urinary tract infection, complicated. 4. Benign prostatic hypertrophy. 5. Chronic kidney disease, stage 4, followed by Dr. Witt as an outpatient. Baseline creatinine appears to be around 2.2-2.4 and was 2.4 on 10/25/2018. 6. History of colon cancer with mucous fistula, ileostomy, coronary artery disease, diabetes, history of dementia, history of gout, history of deep venous thrombosis. PLAN: Creatinine is better. Potassium is better. Repeat lab has been ordered. Urology is following. He is on antibiotics. Potassium elevated, but improved and is to be repeated, on a Renal diet. Making urine. He does have followup with Dr. Witt as an outpatient on 05/22/2019. We will check lab again in the a.m. Thank you for requesting my opinion in the care and management of this patient. <ELECTRONICALLY SIGNED> By: Mark Solorio MD 04/02/19 1352 1357 [id number] Solorio MD /nt
[2019-04-02 14:53] LABS: CALCIUM 7.7 mg/dL (8.5-10.1); CREATININE 2.9 mg/dL (0.6-1.3); POTASSIUM 5.5 mmol/L (3.5-5.1)
[2019-04-02 16:19] VITALS: BP 128/57
[2019-04-02 20:00] VITALS: BP 98/42
--- NOTE | 2019-04-02 20:16 | NUR ---
PT VSS, NSR TO SB ON TELE, PATIENT A&OX4, AGITATED ABOUT BEING AT HOSPITAL AND PREVENTED FROM GOOD NIGHT OF REST. ILEOSTOMY URQ, FISTULA ULQ WITH DRESSING- PART OF SURGICAL INTERVENTION. MAY NEED TO BE CLEANED OF STOOL. HOURLY ROUNDING PERFORMED, POSSESSIONS AND CALL LIGHT WITHIN REACH.
[2019-04-03] VITALS: BP 133/52
[2019-04-03 03:57] VITALS: BP 137/64
--- NOTE | 2019-04-03 05:45 | NUR ---
PT A&0 THIS SHIFT, NO CONFUSION NOTED. ILLOSOTOMY REPLACED AT START OF SHIFT. PT HAD NO C/O PAIN OR DISCOMFORT NOTED. AT BEDSIDE. PT DOING WELL WITH TRANSFERS AND AMBULATION WITH WALKER AND STAND BY ASSIST. CURRENTLY ASLEEP IN BED WITH CALL LIGHT WITHIN REACH AND BED ALARM IS ON.
[2019-04-03 06:32] LABS: HEMATOCRIT 29.2 % (42.0-52.0); HEMOGLOBIN 9.8 gm/dL (14.0-18.0); MCH 30.4 pg (26.0-34.0); MCHC 33.5 g/dL (28.0-37.0); MCV 90.7 fL (80.0-100.0); RBC 3.22 mil/uL (4.50-6.00); RDW-CV 16.5 % (10.5-14.5); WBC 5.2 thou/uL (4.0-11.0)
[2019-04-03 06:46] LABS: CALCIUM 8.1 mg/dL (8.5-10.1); CREATININE 2.6 mg/dL (0.6-1.3); MAGNESIUM 1.6 mg/dL (1.8-2.4); POTASSIUM 5.5 mmol/L (3.5-5.1)
[2019-04-03 08:06] VITALS: BP 133/61
[2019-04-03 12:00] VITALS: BP 112/55
--- NOTE | 2019-04-03 12:47 | NUR ---
Spoke with , anticipate that Pt will need to remain in the hospital for a few more days. Following.
[2019-04-03 16:00] VITALS: BP 105/44
--- NOTE | 2019-04-03 18:24 | NUR ---
PT IS PLEASANT AND HAS HAD NO COMPLAINTS ON HOULRY ROUNDING. PT HAS HAD 2 ILEOSTOMY CHANGES OVER SHIFT. VSS ON RA. DRESSING IS CDI TO LUQ. SR ON MONITOR
[2019-04-03 20:00] VITALS: BP 125/56
[2019-04-04] VITALS: BP 149/61
[2019-04-04 04:00] VITALS: BP 133/61
[2019-04-04 05:14] LABS: HEMATOCRIT 29.1 % (42.0-52.0); HEMOGLOBIN 9.7 gm/dL (14.0-18.0); MCH 30.1 pg (26.0-34.0); MCHC 33.3 g/dL (28.0-37.0); MCV 90.3 fL (80.0-100.0); MPV 8.8 fl. (7.2-11.1); RBC 3.22 mil/uL (4.50-6.00); RDW-CV 16.5 % (10.5-14.5); WBC 5.8 thou/uL (4.0-11.0)
[2019-04-04 05:28] LABS: ALBUMIN 2.6 g/dL (3.4-5.0); CREATININE 2.4 mg/dL (0.6-1.3); MAGNESIUM 1.5 mg/dL (1.8-2.4); POTASSIUM 5.2 mmol/L (3.5-5.1); TOTAL BILIRUBIN 0.2 mg/dL (<0.1-1.0); TOTAL PROTEIN 6.4 g/dL (6.4-8.2)
--- NOTE | 2019-04-04 05:30 | NUR ---
PT CONTIUNES TO SHOW IMPROVEMENT WITH AMBULATION AND STRENGTH. PT HAS HAD NO C/O PAIN OR DISCOMFORT NOTED THROUGH OUT SHIFT. IS AT BEDSIDE. PT IS CURRENTLY ASLEEP WITH CALL LIGHT WITHIN REACH AND BED ALARM IS ON.
[2019-04-04 08:13] VITALS: BP 125/62
[2019-04-04 11:56] VITALS: BP 130/45
[2019-04-04 16:41] VITALS: BP 114/51
[2019-04-04 20:00] VITALS: BP 139/52
[2019-04-05] VITALS (8 sets, daily range): BP systolic 112–135; BP diastolic 42–68
--- NOTE | 2019-04-05 05:19 | NUR ---
PT CONTIUNES TO SHOW IMPROVEMENT WITH SELF TRANSFER AND AMBULATION WITH STB ASSIST. STRENGTH IS IMPROVING AND PT STATES HE IS FEELING GOOD. NO CONCERNS NOTED BY PT, CURRENTLY ASLEEP WITH CALL LIGHT WITHIN REACH AND BED ALARM ON.
[2019-04-05 05:22] LABS: HEMATOCRIT 28.5 % (42.0-52.0); HEMOGLOBIN 9.5 gm/dL (14.0-18.0); MCH 30.3 pg (26.0-34.0); MCHC 33.4 g/dL (28.0-37.0); MCV 90.7 fL (80.0-100.0); MPV 8.9 fl. (7.2-11.1); RBC 3.15 mil/uL (4.50-6.00); RDW-CV 16.1 % (10.5-14.5); WBC 5.4 thou/uL (4.0-11.0)
[2019-04-05 05:37] LABS: ALBUMIN 2.6 g/dL (3.4-5.0); CALCIUM 8.2 mg/dL (8.5-10.1); CREATININE 2.5 mg/dL (0.6-1.3); MAGNESIUM 1.7 mg/dL (1.8-2.4); POTASSIUM 5.9 mmol/L (3.5-5.1); TOTAL BILIRUBIN 0.2 mg/dL (<0.1-1.0); TOTAL PROTEIN 6.4 g/dL (6.4-8.2)
--- NOTE | 2019-04-05 09:50 | NUR ---
WAS ASKED TO CHECK COST OF VELTASSA. CALLED INTO [employer], COST IS $350/53/MONTH. UPDATED DR REYES AND OBTAINED ASSISTANCE INFO FORM. UPDATE TO CM TO DISCUSS WITH DR REYES
[2019-04-05] MEDS ORDERED: VELTASSA8.4 GM PO (10:56)
--- NOTE | 2019-04-05 12:41 | NUR ---
[facility] from [facility] to initiate referral. PRINCESS informed Janelle that per , Pt needs BMP drawn tomorrow. Pt needing [facility] medication, PRINCESS faxed prescription assistance divine to [facility] at [phone]. Updated [address] that Jessychristopher will contact Pt to inform that his divine has been approved and ship out the 20 samples and initiate working on the getting the permenent prescription filled. Updated Dr and Pt/. in room and will transport home.
--- NOTE | 2019-04-05 13:44 | NUR ---
ASSUMED CARE OF PATIENT THIS AM AT 0730. PATIENT IS ALERT AND ORIENTED X 4. HE DENIES PAIN AND DISCOMFORT THIS AM. TELE SHOWS SR WITH A 1DAVB. PATIENT HAS BEEN UP IN THE ROOM WITH THE WALKER. DR IN TO ROUND AND PLANS TO DISCHARGE PATIENT TO HOME TODAY.
== END 2019-04-05 18:07 | disposition home health service (06) | DRG 682 ==
LOC: M.ERS 02:29 → M.2W 03:55 → M.TBA-ER 03:55 → M.2W 06:29
PROVIDERS: Emergency Medicine Emergency Medical Services; Internal Medicine; ADMIT Internal Medicine
DX: N17.0 Acute kidney failure with tubular necrosis (principal); G92 Toxic encephalopathy; D68.59 Other primary thrombophilia; N18.4 Chronic kidney disease, stage 4 (severe); N13.2 Hydronephrosis with renal and ureteral calculous obstruction; F03.90 Unspecified dementia, unspecified severity, without behavioral disturbance, psychotic disturbance, mood disturbance, and anxiety; M10.9 Gout, unspecified; N40.0 Benign prostatic hyperplasia without lower urinary tract symptoms; D64.9 Anemia, unspecified; Z96.0 Presence of urogenital implants; E11.22 Type 2 diabetes mellitus with diabetic chronic kidney disease; I12.9 Hypertensive chronic kidney disease with stage 1 through stage 4 chronic kidney disease, or unspecified chronic kidney disease; I25.10 Atherosclerotic heart disease of native coronary artery without angina pectoris; E78.00 Pure hypercholesterolemia, unspecified; E11.649 Type 2 diabetes mellitus with hypoglycemia without coma; E87.5 Hyperkalemia; E78.5 Hyperlipidemia, unspecified; E66.9 Obesity, unspecified; Z68.28 Body mass index [BMI] 28.0-28.9, adult; Z85.038 Personal history of other malignant neoplasm of large intestine; Z79.82 Long term (current) use of aspirin; Z79.899 Other long term (current) drug therapy; I25.2 Old myocardial infarction; Z95.5 Presence of coronary angioplasty implant and graft; Z88.1 Allergy status to other antibiotic agents; Z88.0 Allergy status to penicillin; Z86.718 Personal history of other venous thrombosis and embolism; Z91.012 Allergy to eggs; Z87.440 Personal history of urinary (tract) infections; Z87.891 Personal history of nicotine dependence; Z90.49 Acquired absence of other specified parts of digestive tract; Z82.49 Family history of ischemic heart disease and other diseases of the circulatory system; Z93.2 Ileostomy status

== ENCOUNTER 2019-04-10 09:20 | Inpatient (IN) | payer MEDICARE ==
[2019-04-10] VITALS (16 sets, daily range): BP systolic 63–149; BP diastolic 29–106
[~2019-04-10] VITALS: Ht 182.9 cm; Wt 104.1 kg
[~2019-04-10 09:20] MED LIST changes: +REFRESH CELLUVI1 APP OPHTHALMIC; +VELTASSA8.4 GM PO
[2019-04-10] MEDS ORDERED: VELTASSA8.4 GM PO (09:38)
[2019-04-10 09:57] LABS: ABSOLUTE BASOPHILS 0.1 thou/uL (0.0-0.2); ABSOLUTE EOSINOPHILS 0.1 thou/uL (0.0-0.7); ABSOLUTE LYMPHOCYTES 1.6 thou/uL (0.8-5.3); ABSOLUTE MONOCYTES 0.5 thou/uL (0.0-1.2); ABSOLUTE NEUTROPHILS 5.6 thou/uL (1.6-8.1); BASOPHILS 0.6 %; EOSINOPHILS 1.8 %; HEMATOCRIT 32.4 % (42.0-52.0); HEMOGLOBIN 10.8 gm/dL (14.0-18.0); LYMPHOCYTES 20.7 %; MCHC 33.3 g/dL (28.0-37.0); MCV 90.2 fL (80.0-100.0); MONOCYTES 5.9 %; MPV 10.1 fl. (7.2-11.1); NUCLEATED RBCS 0 /100WBC; PLATELET COUNT* 140 thou/uL (150-400); RBC 3.59 mil/uL (4.50-6.00); RDW-CV 16.3 % (10.5-14.5)
[2019-04-10 10:09] LABS: APTT 33.3 Seconds (25.0-31.3); PROTIME 10.3 Seconds (9.20-11.50)
[2019-04-10 11:07] LABS: CALCIUM 8.6 mg/dL (8.5-10.1); CREATININE 3.8 mg/dL (0.6-1.3)
[2019-04-10 11:10] LABS: POTASSIUM 7.7 mmol/L (3.5-5.1)
[2019-04-10 11:12] LABS: ALBUMIN 3.1 g/dL (3.4-5.0); TOTAL BILIRUBIN 0.3 mg/dL (<0.1-1.0)
--- NOTE | 2019-04-10 15:05 | EKG ---
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: : 1930 Requested By: Melanie Mercedes Order Number: [id number] MD: Benjamin Barksdale Measurements Intervals [place] Rate: 28 P: SC: QRS: 48 QRSD: 168 T: -16 QT: 480 QTc: 328 Interpretive Statements Junctional rhythm or Idioventricular escape Right bundle branch block Compared to ECG 03/31/2019 02:35:00 Junctional rhythm now present Right bundle-branch block now present Sinus rhythm no longer present Myocardial infarct finding no longer present Electronically Signed On 04-10-2019 15:04:44 OFF TRACK BETTING MANAGER by Benjamin Barksdale [email or web address] <ELECTRONICALLY SIGNED> By: Benjamin aBrksdale MD, [facility] 04/10/19 1504 0935 0935 Benjamin Barksdale MD, [facility] /EPI
[2019-04-10 15:58] LABS: CALCIUM 8.5 mg/dL (8.5-10.1); CREATININE 3.5 mg/dL (0.6-1.3); POTASSIUM 5.8 mmol/L (3.5-5.1)
[2019-04-10] MEDS ORDERED: ALLOPURINOL 10100 M3 PO (20:46)
[2019-04-11] VITALS (16 sets, daily range): BP systolic 76–126; BP diastolic 37–59
[2019-04-11 04:04] LABS: ABSOLUTE EOSINOPHILS 0.1 thou/uL (0.0-0.7); ABSOLUTE LYMPHOCYTES 0.7 thou/uL (0.8-5.3); ABSOLUTE MONOCYTES 0.5 thou/uL (0.0-1.2); ABSOLUTE NEUTROPHILS 4.2 thou/uL (1.6-8.1); BASOPHILS 0.5 %; EOSINOPHILS 1.8 %; HEMATOCRIT 29.8 % (42.0-52.0); HEMOGLOBIN 10.2 gm/dL (14.0-18.0); LYMPHOCYTES 11.9 %; MCH 30.6 pg (26.0-34.0); MCHC 34.1 g/dL (28.0-37.0); MCV 89.8 fL (80.0-100.0); MONOCYTES 8.2 %; MPV 9.5 fl. (7.2-11.1); NUCLEATED RBCS 0 /100WBC; PLATELET COUNT* 122 thou/uL (150-400); POLYS 77.6 %; RBC 3.32 mil/uL (4.50-6.00); RDW-CV 16.3 % (10.5-14.5); WBC 5.5 thou/uL (4.0-11.0)
[2019-04-11 04:14] LABS: CREATININE 3.4 mg/dL (0.6-1.3); POTASSIUM 5.8 mmol/L (3.5-5.1)
[2019-04-12] VITALS (7 sets, daily range): BP systolic 110–163; BP diastolic 36–90
[2019-04-12 03:04] LABS: HEMATOCRIT 27.4 % (42.0-52.0); HEMOGLOBIN 9.3 gm/dL (14.0-18.0); MCH 30.2 pg (26.0-34.0); MCHC 34.1 g/dL (28.0-37.0); MCV 88.6 fL (80.0-100.0); MPV 8.9 fl. (7.2-11.1); RBC 3.09 mil/uL (4.50-6.00); RDW-CV 15.9 % (10.5-14.5)
[2019-04-12 03:19] LABS: ALBUMIN 2.4 g/dL (3.4-5.0); CALCIUM 7.4 mg/dL (8.5-10.1); CREATININE 3.2 mg/dL (0.6-1.3); MAGNESIUM 1.6 mg/dL (1.8-2.4); PHOSPHORUS* 5.3 mg/dL (2.5-4.9); POTASSIUM 4.6 mmol/L (3.5-5.1)
--- NOTE | 2019-04-12 10:54 | CON ---
[address] [address] CONSULTATION Name: DARLYNVICTORIA WILCOX Room: [address] IN M.R.#: [id number] Admission: 04/10/19 Attend Phys: Vic Hernandez MD Discharge: Date of : 31 Report #: [id number] THIS REPORT FOR: //name// CC: Ryan Barcenas Karen Navarro Daren DATE OF SERVICE: 04/11/2019 REQUESTING PHYSICIAN: Vic Hernandez MD REASON FOR CONSULTATION: Acute kidney injury. HISTORY OF PRESENT ILLNESS: The patient is an 88-year-old gentleman with medical history significant for chronic kidney disease. He has been followed by my partner, Dr. Witt in the office. Baseline creatinine is around 2.5. So, he has chronic kidney disease stage 4 with GFR around 25, also he has a history of recurrent hyperkalemia, history of colon cancer, status post partial colectomy, history of perforated bowel, UTI, DVT, coronary artery disease, follows with Dr. Hooker. He also has history of chronic ureteral obstruction with the placement of the stent in the past. The patient was found to be bradycardic and hyperkalemic. The patient has presented to regular blood drawn and then when the nurse discovered that his bradycardia, was sent to the Emergency Room, he had a junctional rhythm with rate of 25. His potassium on admission was 7.7, he was given some treatment and potassium came down to 5.8. His creatinine yesterday was 3.8, serum sodium was 119. This morning his creatinine is 3.4, potassium 5.8, serum sodium is 131, and carbon dioxide is 18. PAST MEDICAL HISTORY: As I mentioned earlier. SOCIAL HISTORY: No current tobacco or alcohol abuse. FAMILY HISTORY: Noncontributory. MEDICATIONS: Prior to admission reviewed. From my standpoint, he was on colchicine 0.6 mg once a day and diclofenac gel. He is also on ____, Crestor, and Flomax. Here in the hospital, he was given dose of Kayexalate and receiving bicarbonate drip. REVIEW OF SYSTEMS: Positive for weakness, but states that he feels better. PHYSICAL EXAMINATION: [place] [address] CONSULTATION Name: VICTORIA SANTIZO Room: [address]#: [id number] Admission: 04/10/19 Attend Phys: Vic Hernandez MD Discharge: Date of : 31 Report #: [id number] GENERAL: Awake, alert, and oriented. VITAL SIGNS: Reviewed. HEENT: Pupils are round. NECK: Supple. LUNGS: Clear. CARDIOVASCULAR: Paced rhythm. ABDOMEN: Soft. His ostomy is in place. EXTREMITIES: Without edema. SKIN: Dry. ASSESSMENT: 1. Acute kidney injury likely due to volume depletion due to high ostomy output. 2. Hyponatremia due to volume depletion due to high ostomy output. 3. Hyperkalemia due to acute kidney injury. 4. Bradycardia, likely multifactorial, but certainly hyperkalemia plays important role in that. 5. Metabolic acidosis. PLAN: 1. Continue with IV fluids, ____ increased sodium bicarbonate. 2. Make sure he is on very low potassium diet. We will need to make sure the patient does not getting dehydrated due to high ostomy output, so that is the plan. Low potassium diet, fluid replacement, and IV bicarbonate. Following his labs. Thank you very much for asking my opinion on hyponatremia, hyperkalemia, and acute kidney injury of the patient's. <ELECTRONICALLY SIGNED> By: Stew Ortiz MD 04/12/19 1054 0947 1302Alexmomo Ortiz MD /[facility] [place]
--- NOTE | 2019-04-12 13:05 | EKG ---
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: : 1930 Requested By: Narinder Jones Order Number: [id number] Juan MD: Benjamin Barksdale Measurements Intervals [place] Rate: 70 P: -33 PA: 152 QRS: -3 QRSD: 115 T: -3 QT: 425 QTc: 459 Interpretive Statements Sinus rhythm Nonspecific intraventricular conduction delay Inferior infarct, old Anterior infarct, old Compared to ECG 04/10/2019 09:35:00 Intraventricular conduction delay now present Myocardial infarct finding now present Junctional rhythm no longer present Right bundle-branch block no longer present Electronically Signed On 04-12-2019 13:04:20 RAG WASHER by Benjamin Barksdale [email or web address] <ELECTRONICALLY SIGNED> By: Benjamin Barksdale MD, [facility] 04/12/19 1304 0910 0910 Benjamin Barksdale MD, [facility] /EPI
--- NOTE | 2019-04-12 13:05 | EKG ---
[place] [address] ELECTROCARDIOGRAM REPORT Name: VICTORIA SANTIZO Room: [address] ADM IN M.R.#: [id number] Admission: 04/10/19 Attend Phys: Vic Hernandez MD Discharge: Date of : 31 Report #: [id number] THIS REPORT FOR: //name// [facility] Test Date: 2019-04-12 Test Time: 09:12:29 Pat Name: VICTORIA SANTIZO Department: Room: [address] Gender: M Venture Capitalist: : 1930 Requested By: Narinder Jones Order Number: [id number] Reading MD: Benjamin Barksdale Measurements Intervals [place] Rate: 69 P: -14 IA: 154 QRS: -4 QRSD: 114 T: -4 QT: 425 QTc: 456 Interpretive Statements Sinus rhythm Inferior infarct, old Anterior infarct, old Compared to ECG 04/10/2019 09:35:00 Myocardial infarct finding now present Junctional rhythm no longer present Right bundle-branch block no longer present Electronically Signed On 04-12-2019 13:04:33 PRECISION AIRCRAFT SYSTEMS ASSEMBLER by Benjamin Barksdale [email or web address] <ELECTRONICALLY SIGNED> By: Benjamin Barksdale MD, [facility] 04/12/19 1304 0912 Benjamin Barksdale MD, [facility] /EPI
[2019-04-13 03:22] VITALS: BP 134/55
[2019-04-13 04:35] LABS: ALBUMIN 2.6 g/dL (3.4-5.0); CREATININE 2.9 mg/dL (0.6-1.3); MAGNESIUM 1.9 mg/dL (1.8-2.4); POTASSIUM 5.3 mmol/L (3.5-5.1); TOTAL BILIRUBIN 0.3 mg/dL (<0.1-1.0); TOTAL PROTEIN 6.1 g/dL (6.4-8.2)
[2019-04-13 08:55] VITALS: BP 106/45
[2019-04-13 11:36] VITALS: BP 144/50
--- NOTE | 2019-04-13 12:00 | CARD ---
[address] [address] CARDIAC CATH REPORT Name: VICTORIA SANTIZO Room: [address] IN .R.#: [id number] Admission: 04/10/19 Attend Phys: Vic Hernandez MD Discharge: Date of : 31 Report #: [id number] THIS REPORT FOR: //name// APPROVED REPORT Study performed: 04/10/2019 10:15:01 Patient Status: ED Room #: Event Personnel: Narinder Jones Adult Literacy Teacher, Mary Ellen Mcneill RN RN, Dale Calderon RTR Scrub, Kimber Maldonado RTR Monitor Exam: Temporary Pacemaker Placement The patient is a 88 year-old male with a history of second-degree heart block and symptomatic bradycardia.. Conscious Sedation No sedation was given. Case start time was 11:07 AM and case end time was 11:17 AM. Vitals were as follows: Blood Pressure was 149/90 after procedure, Heart Rate was 38 before procedure and 68 after procedure. Procedure The patient underwent informed consent. We discussed the details of the procedure including the risks, which include, but not limited to bleeding, infection, vascular damage, cardiac perforation, and pneumothorax. During this case, Fluoroscopy and no contrast were used for imaging. Right groin was prepped and draped in sterile fashion. 2% lidocaine was infiltrated into right groin. Right femoral vein was accessed without difficulty and 5 Fr sheath was inserted. Temporary pacing wire was inserted into the right ventricle and was connected to the temporary pacemaker. Sensitivity and thresholds were tested and temporary pacemaker was sutured to skin and secured with sterile dressing. Pacemaker settings are as follows: Rate was 68 and MA was 10. Patient was sent to ICU according to appropriate protocol. There were no complications observed during this case. Complications The patient tolerated the procedure well and there were no complications associated with the procedure. Findings Specimens Removed: [place] [address] CARDIAC CATH REPORT Name: VICTORIA SANTIZO Room: [address] IN ..#: [id number] Admission: 04/10/19 Attend Phys: Vic Hernandez MD Discharge: Date of : 31 Report #: [id number] Estimated Blood Loss: <5ml Conclusion 1. Symptomatically bradycardia with second degree heart block. 2. Successful temporary pacemaker insertion. Recommendations 1. Consider permanent pacemaker placement. <ELECTRONICALLY SIGNED> By: Narinder Jones MD, FACC 04/13/19 1159 1159 1159Micsander Jones MD, FACC /INF
[2019-04-13 16:00] VITALS: BP 137/55
[2019-04-13 19:40] VITALS: BP 133/57
[2019-04-14] VITALS (7 sets, daily range): BP systolic 132–168; BP diastolic 50–68
[2019-04-14 10:56] LABS: CALCIUM 7.8 mg/dL (8.5-10.1); CREATININE 2.7 mg/dL (0.6-1.3); POTASSIUM 5.7 mmol/L (3.5-5.1)
[2019-04-14 11:48] LABS: CALCIUM 7.8 mg/dL (8.5-10.1); CREATININE 2.6 mg/dL (0.6-1.3); POTASSIUM 5.8 mmol/L (3.5-5.1)
[2019-04-15] VITALS (7 sets, daily range): BP systolic 118–149; BP diastolic 46–60
[2019-04-15 05:59] LABS: HEMATOCRIT 27.4 % (42.0-52.0); HEMOGLOBIN 9.2 gm/dL (14.0-18.0); MCH 30.2 pg (26.0-34.0); MCHC 33.4 g/dL (28.0-37.0); MCV 90.4 fL (80.0-100.0); MPV 8.9 fl. (7.2-11.1); RBC 3.03 mil/uL (4.50-6.00); RDW-CV 16.4 % (10.5-14.5); WBC 7.3 thou/uL (4.0-11.0)
[2019-04-15 06:41] LABS: CREATININE 2.7 mg/dL (0.6-1.3); POTASSIUM 5.6 mmol/L (3.5-5.1)
[2019-04-15 09:03] LABS: URINE BILIRUBIN NEGATIVE (Negative); URINE BLOOD 3+ (Negative); URINE CLARITY CLEAR; URINE COLOR YELLOW; URINE GLUCOSE-RANDOM NEGATIVE (Negative); URINE KETONES NEGATIVE (Negative); URINE NITRITE-REFLEX NEGATIVE (Negative); URINE PROTEIN TRACE (Negative); URINE SPECIFIC GRAVITY <= 1.005 (1.005-1.030); URINE UROBILINOGEN 0.2 E.U./dl (0.2-1.0)
[2019-04-15 09:04] LABS: URINE LEUKOCYTES-REFLEX 2+ (Negative)
[2019-04-15 09:10] LABS: SQUAMOUS 0-3 Few /LPF (0-3)
[2019-04-15 09:11] LABS: BACTERIA-REFLEX 1-9 Few /HPF (None Seen); CASTS None Seen /LPF (None Seen); CRYSTALS None Seen /LPF (None Seen); MUCUS 0-3 Light strn/LPF (None Seen)
[2019-04-16 04:00] VITALS: BP 152/60
[2019-04-16 05:51] LABS: ALBUMIN 2.5 g/dL (3.4-5.0); CREATININE 2.4 mg/dL (0.6-1.3); PHOSPHORUS* 2.7 mg/dL (2.5-4.9); POTASSIUM 5.4 mmol/L (3.5-5.1)
[2019-04-16 05:56] LABS: CALCIUM 8.3 mg/dL (8.5-10.1)
[2019-04-16 08:00] VITALS: BP 122/77
[2019-04-16 12:30] VITALS: BP 138/53
[2019-04-16 17:09] VITALS: BP 156/64
[2019-04-16 20:00] VITALS: BP 134/54
[2019-04-17] VITALS: BP 167/72
[2019-04-17 04:00] VITALS: BP 147/58
[2019-04-17 05:54] LABS: ABSOLUTE EOSINOPHILS 0.3 thou/uL (0.0-0.7); ABSOLUTE LYMPHOCYTES 1.6 thou/uL (0.8-5.3); ABSOLUTE MONOCYTES 0.5 thou/uL (0.0-1.2); ABSOLUTE NEUTROPHILS 4.7 thou/uL (1.6-8.1); BASOPHILS 0.7 %; EOSINOPHILS 3.9 %; HEMATOCRIT 27.1 % (42.0-52.0); HEMOGLOBIN 9.1 gm/dL (14.0-18.0); LYMPHOCYTES 22.6 %; MCH 30.4 pg (26.0-34.0); MCHC 33.7 g/dL (28.0-37.0); MCV 90.2 fL (80.0-100.0); MONOCYTES 6.7 %; NUCLEATED RBCS 0 /100WBC; PLATELET COUNT* 137 thou/uL (150-400); POLYS 66.1 %; RBC 3.01 mil/uL (4.50-6.00); RDW-CV 16.1 % (10.5-14.5)
[2019-04-17 06:02] LABS: CALCIUM 8.1 mg/dL (8.5-10.1); CREATININE 2.2 mg/dL (0.6-1.3); POTASSIUM 5.2 mmol/L (3.5-5.1)
[2019-04-17 07:46] VITALS: BP 139/75
[2019-04-17 10:34] VITALS: BP 139/75
[2019-04-17 12:00] VITALS: BP 120/50
--- NOTE | 2019-04-24 17:41 | CARD ---
[address] [address] CARDIAC CATH REPORT Name: DARLYNVICTORIA WILCOX Room: [address] IN [facility]#: [id number] Admission: 04/10/19 Attend Phys: Vic Hernandez MD Discharge: 04/17/19 Date of : 31 Report #: [id number] THIS REPORT FOR: //name// APPROVED REPORT Study performed: 04/11/2019 12:29:08 Patient Status: In-Patient Room #: Exam: Insertion of Dual Chamber Permanent Pacemaker Indications: heart block and symptomatic bradycardia. The patient is a 88 year-old male with a history of heart block and symptomatically bradycardia. Conscious Sedation Start time: 1324 End Time: [address] Jones Implanted Devices: Biotronik Eluna 8 DRT pro-MRI, model #193167, serial #[id number] dual-chamber pulse generator. Biotronik Solia S, model #227509, serial #[id number] ventricular lead. Biotronik Solia S 53, model #467977, serial #[id number] atrial lead. Procedure The patient underwent informed consent. We discussed the details of the procedure including the risks, which include, but not limited to bleeding, infection, vascular damage, cardiac perforation, and pneumothorax. After informed consent was obtained the patient was brought to the interventional radiology lab. The area of the left chest was prepped and draped in sterile fashion. Local anesthesia was achieved with 1% lidocaine. Next after an initial incision was made a pacemaker pocket was formed over the left pectoralis muscle using electrocautery and blunt dissection. Next using a micropuncture kit the left subclavian vein was accessed. A safety J guidewire was advanced to the area of the right atrium under fluoroscopic guidance. The guidewire was externally fixed with a Edna forcep. The micropuncture was utilized a second time to access the left subclavian vein and a second safety J guidewire advanced to the area of the right atrium under fluoroscopic guidance. Next a 7 Nigerian tear-away introducer was advanced over the free guidewire. The dilator and guidewire were removed and a ventricular lead advanced [place] [address] CARDIAC CATH REPORT Name: VICTORIA SANTIZO Room: [address]#: [id number] Admission: 04/10/19 Attend Phys: Vic Hernandez MD Discharge: 04/17/19 Date of : 31 Report #: [id number] the right ventricle under fluoroscopic guidance. The lead was actively fixed. Thresholds were checked and deemed to be satisfactory. There was no diaphragmatic stimulation with maximum output pacing. Pacing impedances were stable. The tear-away introducer was then removed. Next a second 7 Nigerian tear-away introducer was advanced over the remaining guidewire. The dilator and guidewire were removed as an atrial lead was advanced to a secure position within the right atrial appendage. The lead was actively fixed. Thresholds were checked and deemed to be satisfactory. There was no phrenic nerve stimulation at maximum output pacing. Right atrial lead impedances were stable. Next after ensuring adequate slack in the atrial and ventricular leads the leads were then secured within the device pocket using the designated cuffs and interrupted stitches of 0 silk suture. The device pocket was then flushed with antibody solution. Next a dual-chamber pulse generator was attached to the atrial and ventricular leads. The redundant leads and device were placed within the device pocket. The deep tissues were closed using interrupted stitches of 2-0 Vicryl. The skin incision was then closed with a single subcuticular stitch of 4-0 Vicryl. Several Steri-Strips were placed across the incision. A sterile Telfa dressing was then covered with a Tegaderm. The patient tolerated the procedure well and without complication. Electrode Parameters P Wave: 3.0 mV R Wave: 10.0 mV Atrial Threshold: 0.5 V at 0.40 ms. Ventricular Threshold: 0.5 V at 0.40 ms. Atrial Resistance: 500 ohms Ventricular Resistance: 620 ohms Conclusion 1. Symptomatically bradycardia and heart block. 2. Successful placement of a dual-chamber pacemaker with atrial and ventricular lead placement. Recommendations 1. Follow-up site check in one week. 2. Follow-up device check in one to 2 months. <ELECTRONICALLY SIGNED> By: Narinder Jones MD, FACC 04/24/191739 39 39[facility] Jessi Jones MD, FACC /INF
== END 2019-04-17 14:41 | disposition home health service (06) | DRG 242 ==
LOC: M.CL 09:20 → M.ERS 09:20 → M.INT 09:20 → M.ICU 10:45 → M.TBA-CV 10:45 → M.CL 10:50 → M.ICU 11:28 → M.2W 04-13 09:26
PROVIDERS: Family Medicine; Internal Medicine; Internal Medicine Nephrology; Nurse Practitioner Adult Health; Personal Emergency Response Attendant; Urology; ADMIT Internal Medicine
PROC: 0JH606Z Insertion of Pacemaker, Dual Chamber into Chest Subcutaneous Tissue and Fascia, Open Approach (ICD-10-PCS; principal; 2019-04-10)
PROC: 5A1223Z Performance of Cardiac Pacing, Continuous (ICD-10-PCS; principal; 2019-04-10)
PROC: 02HK3JZ Insertion of Pacemaker Lead into Right Ventricle, Percutaneous Approach (ICD-10-PCS; principal; 2019-04-10)
PROC: 02H63JZ Insertion of Pacemaker Lead into Right Atrium, Percutaneous Approach (ICD-10-PCS; principal; 2019-04-10)
DX: I44.1 Atrioventricular block, second degree (principal); N17.0 Acute kidney failure with tubular necrosis; N18.4 Chronic kidney disease, stage 4 (severe); J98.11 Atelectasis; N13.0 Hydronephrosis with ureteropelvic junction obstruction; E87.1 Hypo-osmolality and hyponatremia; E87.2 Acidosis; E87.5 Hyperkalemia; R00.1 Bradycardia, unspecified; I25.10 Atherosclerotic heart disease of native coronary artery without angina pectoris; N13.5 Crossing vessel and stricture of ureter without hydronephrosis; Z96.0 Presence of urogenital implants; E86.9 Volume depletion, unspecified; E78.00 Pure hypercholesterolemia, unspecified; N40.0 Benign prostatic hyperplasia without lower urinary tract symptoms; E66.9 Obesity, unspecified; F03.90 Unspecified dementia, unspecified severity, without behavioral disturbance, psychotic disturbance, mood disturbance, and anxiety; M10.9 Gout, unspecified; E83.39 Other disorders of phosphorus metabolism; E83.42 Hypomagnesemia; Z88.0 Allergy status to penicillin; Z88.2 Allergy status to sulfonamides; Z86.718 Personal history of other venous thrombosis and embolism; Z79.01 Long term (current) use of anticoagulants; Z91.018 Allergy to other foods; Z79.82 Long term (current) use of aspirin; Z93.3 Colostomy status; Z79.899 Other long term (current) drug therapy; Z90.49 Acquired absence of other specified parts of digestive tract; Z90.89 Acquired absence of other organs; Z82.49 Family history of ischemic heart disease and other diseases of the circulatory system; Z93.2 Ileostomy status; I25.2 Old myocardial infarction; Z87.440 Personal history of urinary (tract) infections; Z68.31 Body mass index [BMI] 31.0-31.9, adult; Z95.5 Presence of coronary angioplasty implant and graft; I95.9 Hypotension, unspecified; Z85.038 Personal history of other malignant neoplasm of large intestine

== ENCOUNTER 2019-04-25 10:29 | Inpatient (IN) | payer MEDICARE ==
[~2019-04-25] VITALS: Ht 185.4 cm; Wt 88.8 kg
--- NOTE | ~2019-04-25 | EKG ---
[place] [address] ELECTROCARDIOGRAM REPORT Name: VICTORIA SANTIZO Room: [facility]#: [id number] Admission: 04/25/19 Attend Phys: Juan Mathews MD Discharge: Date of : 31 Date of Service: 04/25/19 1247 Report #: [id number] THIS REPORT FOR: cc: Ryan Renee MD, Dean L. MD Epiphany, Epiphany MD ~ THIS REPORT FOR: //name// 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
[2019-04-25 11:19] LABS: PROTIME 9.9 Seconds (9.20-11.50)
[2019-04-25 11:21] LABS: CALCIUM 8.7 mg/dL (8.5-10.1); CREATININE 2.3 mg/dL (0.6-1.3)
[2019-04-25 12:49] LABS: CALCIUM 8.2 mg/dL (8.5-10.1); CREATININE 2.4 mg/dL (0.6-1.3)
[2019-04-25 12:51] LABS: POTASSIUM 6.2 mmol/L (3.5-5.1)
[2019-04-25 13:06] LABS: URINE BILIRUBIN NEGATIVE (Negative); URINE BLOOD 2+ (Negative); URINE COLOR YELLOW; URINE GLUCOSE-RANDOM NEGATIVE (Negative); URINE KETONES NEGATIVE (Negative); URINE NITRITE-REFLEX NEGATIVE (Negative); URINE PROTEIN NEGATIVE (Negative); URINE SPECIFIC GRAVITY <= 1.005 (1.005-1.030); URINE UROBILINOGEN 0.2 E.U./dl (0.2-1.0)
[2019-04-25 13:07] LABS: URINE CLARITY CLOUDY; URINE LEUKOCYTES-REFLEX 3+ (Negative)
[2019-04-25 13:21] LABS: BACTERIA-REFLEX 1-9 Few /HPF (None Seen); CASTS None Seen /LPF (None Seen); CRYSTALS None Seen /LPF (None Seen); MUCUS 0-3 Light strn/LPF (None Seen); SQUAMOUS 0-3 Few /LPF (0-3); URINE RBC 3-10 Few /HPF (0-2)
[2019-04-25 14:40] VITALS: BP 100/52
[2019-04-25 16:00] VITALS: BP 117/53
[2019-04-25 20:00] VITALS: BP 109/48
--- NOTE | 2019-04-25 21:57 | OP ---
[facility] [address] [place] [address] OPERATIVE REPORT Name: VICTORIA SANTIZO Room: [address] IN .R.#: [id number] Admission: 04/25/19 Attend Phys: Bora Ortega Discharge: Date of : 31 Report #: [id number] THIS REPORT FOR: //name// CC: Cyn White Ryan Víctor Mathews DATE OF SERVICE: 04/25/2019 PREOPERATIVE DIAGNOSIS: Right ureteropelvic junction obstruction. POSTOPERATIVE DIAGNOSIS: Right ureteropelvic junction obstruction. PROCEDURES PERFORMED: 1. Cystoscopy with right retrograde pyelogram. 2. Right ureteral stent exchange. SURGEON: Juan Mathews MD ANESTHESIA: General endotracheal. BRIEF HISTORY: The patient is an 88-year-old male with a history of right ureteropelvic junction obstruction, managed with a right indwelling stent and serial stent exchanges. The patient is due for his 6-month stent exchange. Recent urine culture on 04/15/2019 was negative. The risks of the procedure including the risks of bleeding, infection, damage to surrounding structures, need for additional procedures, and anesthetic risks were discussed with the patient and he wished to proceed. PROCEDURE IN DETAIL: The risks and benefits of surgery were discussed with the patient and he wished to proceed. Informed consent was obtained and the patient was transferred to the operating room where he was laid supine on the operating room table. After the induction of adequate general endotracheal anesthesia and the administration of appropriate preoperative antibiotics, the patient's legs were placed in a modified dorsal lithotomy position taking care to pad all pressure points and avoid any hyperextension or hyperflexion of his joints. The patient's existing Valdez catheter was removed and his genitalia were prepped and draped in usual sterile fashion. A time-out was then performed to ensure correct patient and procedure. At this time, a 22-Bruneian cystoscope sheath with a 30-degree lens was lubricated and advanced under direct vision and irrigation into the anterior urethra. There were no anterior urethral abnormalities identified. As the prostatic urethra was approached, there was once again noted to be bilobar hyperplasia with occlusion in the midline. Interestingly, there was a small synechia of tissue between the 2 lobes right at the bladder neck. The cystoscope was advanced into the bladder where [place] [address] OPERATIVE REPORT Name: CLAUDIOENRIQUEVICTORIA Room: [address]#: [id number] Admission: 04/25/19 Attend Phys: Bora Ortega Discharge: Date of : 31 Report #: [id number] and was passed off the table for culture and sensitivity. The cystoscope was disarticulated and the bladder was drained. Cystoscopy was performed under direct vision and irrigation and revealed a mildly encrusted stent emanating from his right ureteral orifice. Systematic panendoscopy revealed moderate to severe bladder wall trabeculations without additional gross bladder wall pathology. At this time, the stent was grasped and pulled to the patient's urethral meatus. A 0.035 sensor wire was advanced through the lumen of the stent until it was seen to coil within the right collecting system under fluoroscopy. The stent was removed and inspected. It was found to be completely intact. A 10-Bruneian dual lumen catheter was then advanced over the wire and into the right distal ureter. A retrograde pyelogram was performed by gently injecting contrast through the dual lumen catheter. This delineated a moderately dilated right collecting system. The dual lumen catheter was removed. A new 6 x 22 variable length Applied Silhouette extended interval stent was advanced over the wire and into position using a metal tipped pusher. The wire was withdrawn deploying the stent. A good coil of the stent was identified within the right renal pelvis under fluoroscopy and a good coil of the stent was identified within the bladder under direct vision with the cystoscope. The small synechia of tissue was able to be broken down manually with the cystoscope. There was minimal oozing, but the decision was made to replace his Valdez catheter at the end of the case. A 16-Bruneian Valdez catheter was lubricated and advanced into the bladder without difficulty. The catheter balloon was inflated with 10 mL of sterile water. The catheter was placed to gravity drainage system. The patient was returned to a supine position, awakened from anesthesia, and transferred to the Postoperative Care Unit in stable condition. The patient tolerated the procedure well. COMPLICATIONS: None. ESTIMATED BLOOD LOSS: None. INTRAVENOUS FLUIDS: Crystalloid. DRAINS: 1. Right 6 x 22 variable length Applied Silhouette extended interval stent. 2. A 16-Bruneian Valdez catheter. SPECIMENS: Urine for culture and sensitivity. FINDINGS: 1. Existing stent mildly encrusted but removed intact. 2. Right retrograde pyelogram demonstrating a moderately dilated right collecting system consistent with his history of known chronic right ureteropelvic junction obstruction. 3. New right 6 x 22 Applied Silhouette extended interval stent in good position by fluoroscopy and direct vision at the conclusion of the procedure. [address] [address] OPERATIVE REPORT Name: VICTORIA SANTIZO Room: [facility] IN .R.#: [id number] Admission: 04/25/19 Attend Phys: Bora Ortega Discharge: Date of : 31 Report #: [id number] 4. Small synechia of tissue between the lateral prostate lobes at the bladder neck; mechanically released with the cystoscope. <ELECTRONICALLY SIGNED> By: Juan Mathews MD 04/25/19 2157 1211 1244Ralessandro Mathews MD /nt
[2019-04-26] VITALS: BP 116/47
[2019-04-26 04:00] VITALS: BP 105/50
[2019-04-26 05:28] LABS: CALCIUM 8.8 mg/dL (8.5-10.1); CREATININE 2.8 mg/dL (0.6-1.3); MAGNESIUM 1.8 mg/dL (1.8-2.4); POTASSIUM 5.5 mmol/L (3.5-5.1)
[2019-04-26 08:00] VITALS: BP 103/48
[2019-04-26 11:45] VITALS: BP 93/44
[2019-04-26 16:01] VITALS: BP 132/54
[2019-04-26 20:00] VITALS: BP 125/65
[2019-04-27] VITALS: BP 107/38
[2019-04-27 04:00] VITALS: BP 111/45
[2019-04-27 05:12] LABS: ALBUMIN 2.9 g/dL (3.4-5.0); CALCIUM 8.2 mg/dL (8.5-10.1); CREATININE 3.2 mg/dL (0.6-1.3); POTASSIUM 5.1 mmol/L (3.5-5.1); TOTAL BILIRUBIN 0.3 mg/dL (<0.1-1.0); TOTAL PROTEIN 7.1 g/dL (6.4-8.2)
[2019-04-27 08:00] VITALS: BP 99/33
[2019-04-27 12:00] VITALS: BP 99/41
[2019-04-27 16:00] VITALS: BP 102/45
[2019-04-27 20:07] VITALS: BP 138/51
[2019-04-28] VITALS: BP 96/48
[2019-04-28 04:00] VITALS: BP 100/53
[2019-04-28 05:42] LABS: CALCIUM 7.9 mg/dL (8.5-10.1); CREATININE 2.8 mg/dL (0.6-1.3); POTASSIUM 4.8 mmol/L (3.5-5.1)
[2019-04-28 08:00] VITALS: BP 102/36
[2019-04-28 12:00] VITALS: BP 105/43
[2019-04-28 16:00] VITALS: BP 105/43
[2019-04-28 19:50] VITALS: BP 128/39
[2019-04-29] VITALS (7 sets, daily range): BP systolic 107–128; BP diastolic 40–61
[2019-04-29 11:09] LABS: CALCIUM 8.3 mg/dL (8.5-10.1); CREATININE 2.5 mg/dL (0.6-1.3); POTASSIUM 4.8 mmol/L (3.5-5.1)
[2019-04-30] VITALS: BP 135/42
[2019-04-30 04:00] VITALS: BP 112/53
[2019-04-30 07:50] VITALS: BP 119/50
[2019-04-30 08:24] LABS: CALCIUM 8.2 mg/dL (8.5-10.1); CREATININE 2.3 mg/dL (0.6-1.3); POTASSIUM 4.6 mmol/L (3.5-5.1)
[2019-04-30 11:16] VITALS: BP 110/43
[2019-04-30] MEDS ORDERED: KEFLEX500 M1 PO (12:43)
--- NOTE | 2019-05-05 10:11 | CON ---
[address] [address] CONSULTATION Name: VICTORIA SANTIZO Room: [address] IN M.R.#: [id number] Admission: 04/25/19 Attend Phys: Bora Ortega Discharge: 04/30/19 Date of : 31 Report #: [id number] THIS REPORT FOR: //name// cc: Ryan Renee MD, Dean L. MD ~ THIS REPORT FOR: //name// CC: Cyn White Ryanondina Rosenberg DATE OF SERVICE: 04/26/2019 REQUESTING PHYSICIAN: Eric Rosenberg DO REASON FOR CONSULTATION: Acute kidney injury, hyperkalemia. HISTORY OF PRESENT ILLNESS: The patient is a very pleasant 88-year-old gentleman who follows with us and he had seen Dr. Witt's office. He has a history of chronic kidney disease stage 4, baseline creatinine around 2.5, history of recurrent hyperkalemia, history of colon cancer status post partial colectomy with ileostomy and frequently in the past he had high output from ileostomy. He has history of perforated bowel, history of UTI, history of DVT, history of coronary artery disease followed by Dr. Hooker. Also he has history of chronic ureteral obstruction and frequent exchange of his stents. He presented for stent exchange of his right JJ stent. The stent was exchanged on 04/25/2019. After exchange, he was admitted with a diagnosis of acute kidney injury and hyperkalemia. PAST MEDICAL HISTORY: As I mentioned earlier. SOCIAL HISTORY: No tobacco, no alcohol abuse. FAMILY HISTORY: Noncontributory, but has a very supportive . MEDICATIONS: Prior to admission reviewed. REVIEW OF SYSTEMS: Positive for some dysuria. Denies any shortness of breath, no chest pain, no fever, no chills. Now he did have some dysuria. PHYSICAL EXAMINATION: GENERAL: Awake, alert, oriented, no acute distress. VITAL SIGNS: His blood pressure is 105/50, heart rate is 66, afebrile. HEENT: Pupils are round. NECK: Supple. LUNGS: Clear. CARDIOVASCULAR: Regular rate. ABDOMEN: Soft. Ileostomy bag is in place. EXTREMITIES: Lower extremities without edema. LABORATORY DATA: Report revealed serum sodium 134, potassium 5.5, chloride 104, carbon dioxide 23, BUN 46, creatinine 2.8, baseline creatinine is around 2.4-2.5 with GFR around 26. Hemoglobin is 9.1. ASSESSMENT: 1. Acute kidney injury, may be multifactorial, could be due to some urinary obstruction. A stent was exchanged. 2. Mild hyperkalemia likely due to urinary obstruction. 3. Chronic kidney disease, stage 4. 4. History of colon cancer. 5. History of coronary artery disease. PLAN: Get oral hydration, follow labs and we will make sure the blood pressure is not low. Discussed in detail with the patient and the patient's . <ELECTRONICALLY SIGNED> By: Stew Ortiz MD 05/05/19 1011 1218 0131Alexmomo Ortiz MD /nt
== END 2019-04-30 18:58 | disposition home health service (06) | DRG 660 ==
LOC: M.SUR 10:29 → M.2W 13:34
PROVIDERS: Anesthesiology; Internal Medicine; Internal Medicine Nephrology; Urology; ADMIT Internal Medicine
DX: T83.193A Other mechanical complication of other urinary stent, initial encounter (principal); N17.9 Acute kidney failure, unspecified; E87.1 Hypo-osmolality and hyponatremia; N18.4 Chronic kidney disease, stage 4 (severe); N13.30 Unspecified hydronephrosis; N39.0 Urinary tract infection, site not specified; N13.5 Crossing vessel and stricture of ureter without hydronephrosis; E87.5 Hyperkalemia; I25.10 Atherosclerotic heart disease of native coronary artery without angina pectoris; I12.9 Hypertensive chronic kidney disease with stage 1 through stage 4 chronic kidney disease, or unspecified chronic kidney disease; E78.00 Pure hypercholesterolemia, unspecified; N40.0 Benign prostatic hyperplasia without lower urinary tract symptoms; F03.90 Unspecified dementia, unspecified severity, without behavioral disturbance, psychotic disturbance, mood disturbance, and anxiety; M10.9 Gout, unspecified; Z96.0 Presence of urogenital implants; E03.9 Hypothyroidism, unspecified; B96.20 Unspecified Escherichia coli [E. coli] as the cause of diseases classified elsewhere; Z82.49 Family history of ischemic heart disease and other diseases of the circulatory system; Z90.49 Acquired absence of other specified parts of digestive tract; Z93.2 Ileostomy status; Z87.440 Personal history of urinary (tract) infections; Z86.718 Personal history of other venous thrombosis and embolism; Z79.01 Long term (current) use of anticoagulants; I25.2 Old myocardial infarction; Z95.5 Presence of coronary angioplasty implant and graft; Z86.73 Personal history of transient ischemic attack (TIA), and cerebral infarction without residual deficits; Z93.3 Colostomy status; Z88.0 Allergy status to penicillin; Z88.2 Allergy status to sulfonamides; Z79.2 Long term (current) use of antibiotics; Z79.82 Long term (current) use of aspirin; Z79.899 Other long term (current) drug therapy

== ENCOUNTER 2019-05-28 15:32 | Inpatient (IN) | payer MEDICARE ==
[~2019-05-28] VITALS: Ht 182.9 cm; Wt 109.8 kg
[~2019-05-28 15:32] MED LIST changes: +KEFLEX500 M1 PO
[2019-05-28 15:34] VITALS: BP 118/39
[2019-05-28 16:15] LABS: HEMATOCRIT 26.4 % (42.0-52.0); MCH 30.2 pg (26.0-34.0); MCHC 34.1 g/dL (28.0-37.0); MCV 88.5 fL (80.0-100.0); MPV 8.4 fl. (7.2-11.1); NUCLEATED RBCS 0 /100WBC; PLATELET COUNT* 112 thou/uL (150-400); RBC 2.99 mil/uL (4.50-6.00); RDW-CV 15.9 % (10.5-14.5); WBC 6.9 thou/uL (4.0-11.0)
[2019-05-28 16:24] LABS: CALCIUM 8.7 mg/dL (8.5-10.1); CREATININE 2.9 mg/dL (0.6-1.3)
[2019-05-28 16:25] LABS: PROTIME 10.5 Seconds (9.20-11.50)
[2019-05-28 16:35] LABS: ALBUMIN 2.5 g/dL (3.4-5.0); TOTAL BILIRUBIN 0.3 mg/dL (<0.1-1.0); TOTAL PROTEIN 6.8 g/dL (6.4-8.2)
[2019-05-28 16:47] LABS: INFLUENZA A ANTIGEN Negative (Negative); INFLUENZA B ANTIGEN Negative (Negative)
[2019-05-28 16:57] LABS: ABSOLUTE LYMPHOCYTES 0.4 thou/uL (0.8-5.3); ABSOLUTE MONOCYTES 0.3 thou/uL (0.0-1.2); ABSOLUTE NEUTROPHILS 6.1 thou/uL (1.6-8.1); ANISOCYTOSIS Occasional; PLATELET ESTIMATE ADEQUATE
[2019-05-28 17:03] LABS: URINE BILIRUBIN NEGATIVE (Negative); URINE BLOOD 3+ (Negative); URINE CLARITY CLOUDY; URINE COLOR YELLOW; URINE GLUCOSE-RANDOM NEGATIVE (Negative); URINE KETONES NEGATIVE (Negative); URINE NITRITE-REFLEX NEGATIVE (Negative); URINE PROTEIN 2+ (Negative); URINE SPECIFIC GRAVITY 1.015 (1.005-1.030); URINE UROBILINOGEN 0.2 E.U./dl (0.2-1.0)
[2019-05-28 17:08] LABS: URINE LEUKOCYTES-REFLEX 3+ (Negative)
[2019-05-28 17:14] LABS: BACTERIA-REFLEX >30 Many /HPF (None Seen); SQUAMOUS 0-3 Few /LPF (0-3); URINE WBC-REFLEX >25 Many /HPF (0-5)
[2019-05-28 17:15] LABS: CASTS None Seen /LPF (None Seen); CRYSTALS None Seen /LPF (None Seen)
[2019-05-28 17:17] LABS: MUCUS None Seen strn/LPF (None Seen); URINE RBC 3-10 Few /HPF (0-2)
[2019-05-28 20:15] VITALS: BP 120/64
[2019-05-28 20:37] VITALS: BP 102/51
[2019-05-28 23:00] VITALS: BP 108/46
--- NOTE | 2019-05-28 23:00 | NUR ---
RECEIVED REPORT AND ASSUMED CARE OF PT AT 2200. ASSESSMENT COMPLETED. FREQ URINATION PER URINAL AND ASSISTANCE. PT ABLE TO REPOSITION SELF IN BED. TELEMETRY ON SHOWING A-PACED WITH SINCE BEATS, BBB. STAYING AT BEDSIDE. WILL CONT TO MONITOR AND ASSIST NEEDED.
[2019-05-29 04:00] VITALS: BP 121/45
--- NOTE | 2019-05-29 06:51 | NUR ---
SLEPT WELL TONIGHT. TURNS SELF IN BED FOR COMFORT. ASSISTED WITH URINAL TO KEEP FROM SPILLING. ILEOSTOMY BAG EMPTIED OF FLATUS. TELEMETRY CONT TO SHOW SR WITH BBB AND OCC A-PACED BEATS. HS GOALS OF REST AND SAFETY ACHIEVED. HOURLY ROUNDING OBSERVED. STAYED AT BEDSIDE.
[2019-05-29 08:45] VITALS: BP 112/53
--- NOTE | 2019-05-29 10:29 | EKG ---
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[facility] : 1930 Requested By: Louis Santos Order Number: [id number] MD: Nick Maldonado Measurements Intervals [place] Rate: 68 P: MS: 78 QRS: 4 QRSD: 141 T: 9 QT: 403 QTc: 429 Interpretive Statements Atrial-paced complexes nonspecific intraventricular conduction defect Baseline wander in lead(s) V3 Compared to ECG 04/25/2019 12:47:36 ventricular paced beats no longer noted Electronically Signed On 05-29-2019 10:28:04 [employer] by Nick Maldonado [email or web address] <ELECTRONICALLY SIGNED> By: Nick Maldonado MD, [facility] 05/29/19 1028 1638 1638 Nick Maldonado MD, [facility] /EPI
--- NOTE | 2019-05-29 10:45 | NUR ---
Pt is A&O. Known to this CM from previous hospital stays. Resides at home with . Independent. Pt has a walker and cane that he can use for mobility. Pt is current with [facility] p:[phone] f:[phone], plans to resume at [facility]. Hx of acute rehab. Hx of skilled at [facility]. Following.
[2019-05-29 11:51] VITALS: BP 98/43
--- NOTE | 2019-05-29 12:16 | NUR ---
ASSUMED CARE APPROX 0730. REASSESSMENT COMPLETED CHARTED. MEDICATIONS GIVEN CHARTED. PLAN OF CARE DISCUSSED WITH PT AND SPOUSE. VERBALIZED UNDERSTANDING. SAFTEY PRECAUTIONS IN PLACE, HOURLY ROUNDING.
[2019-05-29 20:00] VITALS: BP 117/56
[2019-05-30 00:18] VITALS: BP 119/45
[2019-05-30 04:45] VITALS: BP 94/43
[2019-05-30 04:57] LABS: ABSOLUTE LYMPHOCYTES 0.7 thou/uL (0.8-5.3); ABSOLUTE MONOCYTES 0.5 thou/uL (0.0-1.2); ABSOLUTE NEUTROPHILS 3.3 thou/uL (1.6-8.1); BASOPHILS 0.1 %; EOSINOPHILS 0.7 %; HEMATOCRIT 25.9 % (42.0-52.0); HEMOGLOBIN 8.9 gm/dL (14.0-18.0); LYMPHOCYTES 15.1 %; MCH 30.4 pg (26.0-34.0); MCHC 34.1 g/dL (28.0-37.0); MONOCYTES 11.4 %; NUCLEATED RBCS 0 /100WBC; PLATELET COUNT* 99 thou/uL (150-400); POLYS 72.7 %; RBC 2.91 mil/uL (4.50-6.00); RDW-CV 15.9 % (10.5-14.5); WBC 4.5 thou/uL (4.0-11.0)
--- NOTE | 2019-05-30 05:33 | NUR ---
ASSUMED CARE OF PT AFTER REPORT [id number]. PT A&OX4. VSS. PHYSICAL ASSESSMENT COMPLETED AND CHARTED. PT ON RA. PT TRACING APACED/SR/BBB ON TELE. PT DENIES ANY PAIN OR DISCOMFORT. PT ON ONGOING 24 HOUR URINE COLLECTION. FALL PRECAUTIONS IN PLACE. FAMILY AT BS. CALL LIGHT WITHIN REACH.
--- NOTE | 2019-05-30 05:37 | NUR ---
RECEIVED REPORT FROM ED RN. PT TANSFERRED TO RM 213. PT A&OX4. VSS. MEDICAL RECORD LIBRARIAN IN PLACE. ADMISSION HISTORY & PHYSICAL ASSESSMENT COMPLETED AND CHARTED. ORIENTED TO ROOM & CALL LIGHT. PT ON RA. PT TRACING SR/BBB ON TELE. PT UPSTANDBY TO RESTROOM. INSTRUCTED ON NPO POST MIDNIGHT FOR CARDIO CONSULT. COMMUNICATES UNDERSTANDING. PT DENIES ANY PAIN. FALL PRECAUTIONS IN PLACE. CALL LIGHT WITHIN REACH.
[2019-05-30 05:47] LABS: ALBUMIN 2.1 g/dL (3.4-5.0); CALCIUM 8.8 mg/dL (8.5-10.1); CREATININE 2.9 mg/dL (0.6-1.3); MAGNESIUM 1.5 mg/dL (1.8-2.4); POTASSIUM 5.4 mmol/L (3.5-5.1); TOTAL BILIRUBIN 0.3 mg/dL (<0.1-1.0); TOTAL PROTEIN 6.3 g/dL (6.4-8.2)
[2019-05-30 08:00] VITALS: BP 121/49
[2019-05-30 12:06] VITALS: BP 105/43
[2019-05-30 12:34] LABS: BE -11.2 mmol/L (-2 to +3); PCO2 30.8 mmHg (35.0-45.0); PO2 98.2 mmHg (75.0-100.0)
--- NOTE | 2019-05-30 12:34 | CON ---
[address] [address] CONSULTATION Name: VICTORIA SANTIZO Room: [address] IN M.R.#: [id number] Admission: 05/28/19 Attend Phys: Bora Ortega Discharge: Date of : 31 Report #: [id number] THIS REPORT FOR: //name// cc: Ryan Renee MD, Dean L. MD ~ THIS REPORT FOR: //name// CC: Ryan Rosenberg DATE OF SERVICE: 05/29/2019 ATTENDING PHYSICIAN: Eric Rosenberg DO. REASON FOR EVALUATION: Complicated urinary tract infection, recurrent nature. HISTORY OF PRESENT ILLNESS: Chart reviewed, the patient examined. This is an 88-year-old known to myself previous, although I had seen him in most recent hospitalization, does have a known history of complicated urinary tract infection, has an ileostomy most recently in March and multi-resistant Escherichia coli, seemingly had responded treatment only to have what appeared to be a relapse certainly thereafter completing a prescribed course of therapy. Most of the information obtained from the spouse. He is at least moderately encephalopathic. He is somnolent as well. Denies any significant pain. Does have some increased respiratory effort, started empirically on meropenem. Urinalysis suggested pyuria. Cultures pending. ALLERGIES: PENICILLIN, SULFA. CURRENT MEDICATIONS: Include gabapentin, apixaban, ferrous sulfate, tamsulosin. meropenem, allopurinol, finasteride, levothyroxine, pantoprazole, memantine, aspirin, donepezil. PAST MEDICAL HISTORY: History of hypertension, has known coronary artery disease with previous stenting, high cholesterol, benign prostatic hypertrophy, obesity, colon cancer, ileostomy, dementia, gout, history of DVT, renal failure, hypothyroidism, stroke. SOCIAL HISTORY: Former smoker. No ethanol. No illicit drug use. FAMILY HISTORY: Noncontributory. REVIEW OF SYSTEMS: Unreliable obtained. PHYSICAL EXAMINATION: GENERAL: He is lying supine. He arouses, makes eye contact, [place] [address] CONSULTATION Name: VICTORIA SANTIZO Room: [address] IN [facility]#: [id number] Admission: 05/28/19 Attend Phys: Bora Ortega Discharge: Date of : 31 Report #: [id number] yes/no questions, appears to be in ocgx-pz-cfksrjjy distress. He has got some retained tracheal secretions with a weak cough. HEENT: Normocephalic. Extraocular muscles are intact. NECK: Supple. VITAL SIGNS: Temperature 97.9, pulse 76, respirations 16, blood pressure 98/43. SKIN: Warm and dry. LUNGS: Transmitted sounds, otherwise generally clear at the bases. HEART: Regular, occasional ectopy, soft systolic murmur. ABDOMEN: Soft, no apparent tenderness. There are no peritoneal signs. GENITOURINARY AND RECTAL: Deferred. LABORATORY DATA: Prealbumin of 14.6. Troponin less than 0.06. Urinalysis greater than 25 white cells, greater than 30 bacteria. CBC: White count of 6.9, hemoglobin and hematocrit 9.0 and 26.4, platelets of 112. Influenza antigen was negative. ASSESSMENT: Complicated urinary tract infection appears to be recurrent it is likely functional issue with his genitourinary tract. We will continue empiric therapy with meropenem. At this point, we will await culture results. Certainly, can exclude a different organism. At this point, he is not being instrumented, discussed with the spouse. <ELECTRONICALLY SIGNED> By: Sergio Adkins MD 05/30/19 1234 1633 0135Jonavarro Adkins MD /nt
[2019-05-30 12:39] LABS: pH 7.283 (7.340-7.450)
[2019-05-30 16:08] VITALS: BP 117/50
--- NOTE | 2019-05-30 19:51 | NUR ---
Assumed pt care at 0730. Assessment completed as charted. Able to make some needs known with help of at bedside. No c/o pain or discomfort. Resting in bed most of the day. IV fluids started per Dr order. Call light within reach. Will continue to monitor.
[2019-05-30 20:49] VITALS: BP 153/58
[2019-05-31] VITALS: BP 138/63
[2019-05-31 04:00] VITALS: BP 162/65
[2019-05-31 05:08] LABS: HEMATOCRIT 26.8 % (42.0-52.0); HEMOGLOBIN 9.1 gm/dL (14.0-18.0); MCHC 33.9 g/dL (28.0-37.0); MCV 88.4 fL (80.0-100.0); MPV 8.2 fl. (7.2-11.1); NUCLEATED RBCS 0 /100WBC; PLATELET COUNT* 116 thou/uL (150-400); RBC 3.03 mil/uL (4.50-6.00)
[2019-05-31 05:13] LABS: ALBUMIN 2.1 g/dL (3.4-5.0); CALCIUM 8.9 mg/dL (8.5-10.1); CREATININE 2.8 mg/dL (0.6-1.3); MAGNESIUM 1.5 mg/dL (1.8-2.4); POTASSIUM 5.1 mmol/L (3.5-5.1); TOTAL BILIRUBIN 0.3 mg/dL (<0.1-1.0); TOTAL PROTEIN 6.5 g/dL (6.4-8.2)
[2019-05-31 06:00] LABS: ABSOLUTE EOSINOPHILS 0.1 thou/uL (0.0-0.7); ABSOLUTE LYMPHOCYTES 1.1 thou/uL (0.8-5.3); ABSOLUTE MONOCYTES 0.2 thou/uL (0.0-1.2); ABSOLUTE NEUTROPHILS 4.6 thou/uL (1.6-8.1)
[2019-05-31 06:01] LABS: ANISOCYTOSIS 1+; PLATELET ESTIMATE DECREASED; POIKILOCYTOSIS 1+
--- NOTE | 2019-05-31 07:29 | NUR ---
PT IS ABLE TO COMMUNICATE HIS NEEDS TO STAFF WITH MINOR DIFFICULTY; HE CAN BE CONFUSED AT TIMES. HE HAS DENIED THE NEED FOR PAIN MEDICATION UP TO THIS TIME. ILEOSTOMY BAG CHANGED OVERNIGHT AND REMAINS PATENT.
[2019-05-31 09:02] VITALS: BP 127/65
--- NOTE | 2019-05-31 11:01 | CON ---
[address] [address] CONSULTATION Name: VICTORIA SANTIZO Room: [address] M.R.#: [id number] Admission: 05/28/19 Attend Phys: Bora Ortega Discharge: Date of : 31 Report #: [id number] THIS REPORT FOR: //name// cc: Ryan Renee MD, Dean L. MD ~ THIS REPORT FOR: //name// CC: Ryan Rosenberg REASON FOR CONSULTATION: This is a consultation obtained by Dr. Rodriguez for hyponatremia and acute kidney injury. HISTORY OF PRESENT ILLNESS: The patient is 88 years old. He is well known to us. He follows my partner, Dr. Cyn Witt, in fact saw her just 2 months ago. His baseline creatinine is between 2.2-2.5. He has stage 4 chronic kidney disease. He has a chronic hydronephrosis and has a stent in place on the right side. Left kidney has previously also shown clear cortical thinning, but no hydronephrosis. He also has an ileostomy in place. Previously has had episode of acute kidney injury, hyponatremia secondary to worsening hydronephrosis and high ileostomy outputs. Most recently, the patient's creatinine was 2.2 just a few weeks ago. His potassium is generally on the higher side, hence he is on Veltassa for the same. The patient's is at bedside who gives most of the history. She reports that he has not been feeling well for the past 2 or 3 days only. He has been more lethargic and tired and has required much more effort to do simple things of his daily activities. No fevers have been reported. No chills. In spite of the fatigue, tiredness and lethargy, he has been able to maintain his intake just during awake enough to eat and drink. He does go through a lot of fluids every day. Recently, he had a UTI and he got a course of cephalexin followed by a course of nitrofurantoin. After staying clear for just 2 or 3 days, the UTI came back. His showed me a urine culture report, which is positive for E. coli with multiple resistant antibiotics, but sensitive to meropenem, tetracycline, sulfamethoxazole, nitrofurantoin, amongst others. During my interview, the patient is arousable, but drifts off to sleep fairly easily and is seen snoring heavily and having episodes of rapid breathing and almost behaving like sleep apnea. On admission, he was found to be in acute kidney injury with a creatinine of 2.9 and hyponatremia with sodium of 123. The tells me he did not receive any IV fluids since admission. This morning, his sodium has improved to 128. His creatinine remains at 2.9. PAST MEDICAL HISTORY: Significant for hypertension; coronary artery disease; stage 4 chronic kidney disease, baseline creatinine between 2.2-2.5; dyslipidemia; BPH; obesity; right-sided chronic hydronephrosis with a stent in place, which is changed every few months; history of dementia; gout; history of DVT; ileostomy in place; history of colon cancer. [address] [address] CONSULTATION Name: VICTORIA SANTIZO Room: [address] M.R.#: [id number] Admission: 05/28/19 Attend Phys: Bora Ortega Discharge: Date of : 31 Report #: [id number] PERSONAL, SOCIAL AND FAMILY HISTORY: Reviewed. No smoking, no alcohol reported. No illicit drug abuse reported. HOME MEDICATIONS: Gabapentin, apixaban, ferrous sulfate, tamsulosin, meropenem, presently allopurinol, finasteride, levothyroxine, Protonix, memantine, aspirin and donepezil. ALLERGIES: TO PENICILLIN AND SULFA. REVIEW OF SYSTEMS: Very fatigued, very tired, drifts off to sleep fairly easily. No fevers have been reported. No chills have been reported. Urine has been cloudy with recent treatments for infection. PHYSICAL EXAMINATION: GENERAL: On my examination, he is as mentioned above arousable, but drifts off to sleep fairly easily. VITAL SIGNS: Blood pressure 121/49, pulse rate 94, temperature 36.3. HEENT: Mucous membranes are dry. He is mouth breathing, though. LUNGS: Diminished bilaterally, but relatively clear. HEART: Regular S1, S2. ABDOMEN: Soft. Ileostomy is noted. EXTREMITIES: Show no edema. SKIN: Warm and dry. LABORATORY DATA: Hemoglobin 8.9, white count 4.5, platelets 99,000. Metabolic panel: Sodium on admission was 123, 128 this morning; potassium 5.4, down from 6; bicarbonate is 16; BUN 49; creatinine 2.9; magnesium 1.5. AST, ALT normal. Alkaline phosphatase 139; albumin 2.1, down from 2.5 yesterday. Urinalysis is suggestive of proteinuria, blood in the urine, leukocyte esterase, many rbc's, many wbc's, many bacteria. Urine culture has been sent. IMAGING STUDIES: Renal ultrasound was done, which shows chronic right-sided hydronephrosis with a stent in place, ending in the bladder. Left kidney shows a cortical thinning. Bladder is not distended. The prostate is enlarged. Chest x-ray does not show any evidence of pneumonia or pneumothorax. CT of the head shows atrophy and chronic microvascular disease without change from prior studies. ASSESSMENT: 1. Nonoliguric acute kidney injury. The patient appears volume depleted by clinical exam. I did not identify any nephrotoxic medications. This could be secondary to urinary tract infection and sepsis. He does have a stage 4 chronic kidney disease at baseline and has had recurrent episodes of urinary tract infection with possible element of sepsis. 2. Recurrent urinary tract infections, most recent one Escherichia coli, resistant to multiple antibiotics, [place] [id number] CONSULTATION Name: VICTORIA SANTIZO Room: [address] IN [facility]#: [id number] Admission: 05/28/19 Attend Phys: Bora Ortega Discharge: Date of : 31 Report #: [id number] Jah. 3. History of dementia. 4. Admission for altered mental status. 5. Acute kidney injury and hyponatremia based on labs. 6. Hyponatremia in all likelihood secondary to volume depletion. We will send urine sodium levels also. 7. Chronic right-sided hydronephrosis with a stent in place, a stent exchange every 6 months. 8. Underlying dementia. PLAN: 1. Acute kidney injury. The patient appears volume depleted. There is contribution of sepsis also. His renal function is at stage 4 baseline anyways. 2. I recommend giving intravenous volume resuscitation today. 3. The patient has metabolic acidosis too. We will give him half NS with 75 mEq of bicarbonate in it at 75 mL an hour. 4. Chronic hyperkalemia. He has been on Veltassa also as an outpatient, may need to reinitiate that in the hospital if the potassium levels do not improve after correction of metabolic acidosis. 5. Hyponatremia in all likelihood secondary to volume depletion. Anticipate improvement with volume resuscitation. Check urine sodium levels. 6. Recurrent urinary tract infections. Infectious Disease Service is on board. He might need chronic suppressive prophylaxis. 7. Altered mental status and concern about sleep apnea/hypercapnia. We will check a blood gas level also for a pCO2 levels. 8. Renal diet. 9. Please avoid all nephrotoxic medications. Thank you for the consultation. We will continue to follow and provide necessary support during the hospital stay. <ELECTRONICALLY SIGNED> By: Jed Ortega MD 05/31/19 1101 [id number] Ortega MD /nt
[2019-05-31 12:37] VITALS: BP 98/46
[2019-05-31 17:35] VITALS: BP 100/45
--- NOTE | 2019-05-31 20:52 | NUR ---
ASSUMED PT CARE AT 0730. ASSESSMENT COMPLETED CHARTED. ABLE TO MAKE NEEDS KNOWN WITH HELP OF AT BEDSIDE. NO C/O PAIN OR DISCOMFORT. UP TO RECLINER TODAY WITH 2 PEOPLE. IV FLUIDS RUNNING PER EMAR. WILL CONTINUE TO MONITOR.
[2019-05-31 20:59] VITALS: BP 114/54
[2019-05-31 21:11] LABS: URINE SODIUM-mEq/L 34 mmol/L (Not Estab.)
[2019-06-01] VITALS: BP 92/39
[2019-06-01 04:32] VITALS: BP 119/59
[2019-06-01 05:20] LABS: ABSOLUTE EOSINOPHILS 0.2 thou/uL (0.0-0.7); ABSOLUTE MONOCYTES 0.5 thou/uL (0.0-1.2); ABSOLUTE NEUTROPHILS 3.6 thou/uL (1.6-8.1); BASOPHILS 0.3 %; EOSINOPHILS 3.2 %; HEMATOCRIT 25.2 % (42.0-52.0); HEMOGLOBIN 8.5 gm/dL (14.0-18.0); LYMPHOCYTES 19.2 %; MCH 29.6 pg (26.0-34.0); MCHC 33.7 g/dL (28.0-37.0); MPV 7.9 fl. (7.2-11.1); NUCLEATED RBCS 0 /100WBC; PLATELET COUNT* 109 thou/uL (150-400); POLYS 68.3 %; RBC 2.86 mil/uL (4.50-6.00); WBC 5.3 thou/uL (4.0-11.0)
[2019-06-01 05:26] LABS: ALBUMIN 1.9 g/dL (3.4-5.0); CALCIUM 8.8 mg/dL (8.5-10.1); CREATININE 2.7 mg/dL (0.6-1.3); TOTAL BILIRUBIN 0.2 mg/dL (<0.1-1.0); TOTAL PROTEIN 6.1 g/dL (6.4-8.2)
--- NOTE | 2019-06-01 07:02 | NUR ---
PT IS ABLE TO COMMUNICATE HIS NEEDS TO STAFF WITH MINOR DIFFICULTY; HE CAN BE FORGETFUL AT TIMES. HE HAS DENIED THE NEED FOR PAIN MEDICATION UP TO THIS TIME. ILEOSTOMY HAS BEEN PATENT UP TO THIS TIME.
[2019-06-01 08:00] VITALS: BP 118/75
--- NOTE | 2019-06-01 09:56 | NUR ---
1169 ASSUMED CARE OF PATIENT. PLEASE SEE DOCUMENTED ASSESSMENT. PT IS ON 2LPM NASAL CANNULA AT THIS TIME. SPOUSE PRESENT
[2019-06-01 12:12] VITALS: BP 97/39
[2019-06-01 16:13] VITALS: BP 101/46
[2019-06-01 16:39] LABS: URINE BILIRUBIN NEGATIVE (Negative); URINE BLOOD 3+ (Negative); URINE CLARITY CLEAR; URINE COLOR YELLOW; URINE GLUCOSE-RANDOM NEGATIVE (Negative); URINE KETONES NEGATIVE (Negative); URINE LEUKOCYTES-REFLEX 3+ (Negative); URINE NITRITE-REFLEX NEGATIVE (Negative); URINE PROTEIN NEGATIVE (Negative); URINE UROBILINOGEN 0.2 E.U./dl (0.2-1.0)
[2019-06-01 16:47] LABS: BACTERIA-REFLEX 1-9 Few /HPF (None Seen); CRYSTALS None Seen /LPF (None Seen); MUCUS None Seen strn/LPF (None Seen); SQUAMOUS 0-3 Few /LPF (0-3); URINE WBC-REFLEX >25 Many /HPF (0-5)
[2019-06-01 16:48] LABS: CASTS None Seen /LPF (None Seen)
--- NOTE | 2019-06-01 18:13 | NUR ---
PATIENT PROGRESSING TOWARDS GOALS. OFF OF SUPPLEMENTAL OXYGEN THIS AFTERNOON. TOLERATING DIET. UA RESULTS NOTED. MAINTAINED ON BICARB DRIP. WORKED WITH THERAPIES. HEART RHYTHM CHARTED. SPOUSE PRESENT ALL DAY
[2019-06-01 20:53] VITALS: BP 116/52
[2019-06-02] VITALS: BP 117/56
[2019-06-02 04:15] VITALS: BP 132/82
--- NOTE | 2019-06-02 06:01 | NUR ---
PT IS ABLE TO COMMUNICATE HIS NEEDS TO STAFF WITH MINOR DIFFICULTIES; HE IS CONFUSED AT TIMES. HE HAS DENIED THE NEED FOR PAIN MEDICATION UP TO THIS TIME. ILEOSTOMY PATENT AT THIS TIME; EMPTIED SEVERAL TIMES THIS SHIFT; STOMA LOOKS HEALTHY.
[2019-06-02 07:59] VITALS: BP 120/48
[2019-06-02 09:54] LABS: CALCIUM 8.7 mg/dL (8.5-10.1); CREATININE 2.4 mg/dL (0.6-1.3)
[2019-06-02 12:40] VITALS: BP 111/42
--- NOTE | 2019-06-02 13:02 | NUR ---
ASSUMED PT CARE REPORT RECEIVED FROM NURSE PT IS AOX4. ON 2 L NC. O2 SATURATION 96%. TRACING AV PACED ON WHITE METAL CASTER. UP TO CHAIR. IV FLUID INFUSING ORDERD. IV ANTIBIOTICS ADMINISTERED. VSS. ILEOSTOMY CARE. Q2TURN . CALL LIGHT WITHIN REACH. WILL CONTINUE TO MONITOR
--- NOTE | 2019-06-02 16:33 | NUR ---
IV FLUID DISCONTINUED ORDERED
[2019-06-02 17:05] VITALS: BP 119/51
[2019-06-02 20:33] VITALS: BP 118/52
[2019-06-03 00:28] VITALS: BP 109/65
[2019-06-03 04:00] VITALS: BP 103/50
[2019-06-03 04:25] LABS: ALBUMIN 1.8 g/dL (3.4-5.0); CALCIUM 8.5 mg/dL (8.5-10.1); CREATININE 2.4 mg/dL (0.6-1.3); PHOSPHORUS* 3.1 mg/dL (2.5-4.9); POTASSIUM 5.3 mmol/L (3.5-5.1)
[2019-06-03 08:00] VITALS: BP 125/47
--- NOTE | 2019-06-03 08:15 | NUR ---
PT IS ABLE TO COMMUNICATE HIS NEEDS TO STAFF EFFECTIVELY. HE HAS DENIED THE NEED FOR PAIN MEDICATION UP TO THIS TIME. ILEOSTOMY HAS BEEN PATENT DURING WEATHER FORCASTER. PT/OT AND NEPHROLOGY FOLLOWING. PT TO BE UP IN CHAIR FOR MEALS.
[2019-06-03 12:12] VITALS: BP 107/39
[2019-06-03 16:00] VITALS: BP 109/40
--- NOTE | 2019-06-03 17:02 | NUR ---
ASSUMED PATIENT CARE AT 0700. ASSESSMENT COMPLETED CHARTED. PATIENT IS A-PACED AND V-PACED ON THE MONITOR. HOURLY ROUNDING IN PLACE FOR PATIENT SAFETY. CLWR.
[2019-06-03 19:50] VITALS: BP 132/44
[2019-06-04] VITALS (7 sets, daily range): BP systolic 115–132; BP diastolic 36–66
--- NOTE | 2019-06-04 02:06 | NUR ---
ASSUMED CARE OF PT AT 1900. PT IS ALERT AND ORIENTED. VSS. PERRLA. NO COMPLAINTS OF PAIN. PT IS VPACED ON THE TELEMETRY. PT IS RESTING COMFORTABLY IN BED. RESPIRATIONS ARE EVEN AND NONLABORED. WILL CONTINUE TO MONITOR PT.
[2019-06-04 04:36] LABS: HEMATOCRIT 23.2 % (42.0-52.0); HEMOGLOBIN 7.8 gm/dL (14.0-18.0); MCH 29.7 pg (26.0-34.0); MCHC 33.6 g/dL (28.0-37.0); MCV 88.4 fL (80.0-100.0); MPV 7.5 fl. (7.2-11.1); NUCLEATED RBCS 0 /100WBC; PLATELET COUNT* 140 thou/uL (150-400); RBC 2.62 mil/uL (4.50-6.00); RDW-CV 16.3 % (10.5-14.5); WBC 6.9 thou/uL (4.0-11.0)
[2019-06-04 05:09] LABS: CALCIUM 8.5 mg/dL (8.5-10.1); CREATININE 2.5 mg/dL (0.6-1.3); MAGNESIUM 2.1 mg/dL (1.8-2.4); PHOSPHORUS* 3.3 mg/dL (2.5-4.9); POTASSIUM 5.2 mmol/L (3.5-5.1); TOTAL BILIRUBIN 0.2 mg/dL (<0.1-1.0)
[2019-06-04 06:05] LABS: ABSOLUTE EOSINOPHILS 0.3 thou/uL (0.0-0.7); ABSOLUTE LYMPHOCYTES 1.2 thou/uL (0.8-5.3); ABSOLUTE MONOCYTES 0.2 thou/uL (0.0-1.2); ABSOLUTE NEUTROPHILS 5.2 thou/uL (1.6-8.1); ANISOCYTOSIS 1+; PLATELET ESTIMATE DECREASED; POIKILOCYTOSIS 1+
[2019-06-04 06:31] LABS: CALCIUM 8.6 mg/dL (8.5-10.1); CREATININE 2.5 mg/dL (0.6-1.3); PHOSPHORUS* 3.4 mg/dL (2.5-4.9); POTASSIUM 5.2 mmol/L (3.5-5.1)
[2019-06-04 12:27] LABS: URINE BILIRUBIN NEGATIVE (Negative); URINE BLOOD 3+ (Negative); URINE CLARITY CLEAR; URINE COLOR YELLOW; URINE GLUCOSE-RANDOM NEGATIVE (Negative); URINE KETONES NEGATIVE (Negative); URINE LEUKOCYTES-REFLEX 2+ (Negative); URINE NITRITE-REFLEX NEGATIVE (Negative); URINE PROTEIN NEGATIVE (Negative); URINE SPECIFIC GRAVITY <= 1.005 (1.005-1.030); URINE UROBILINOGEN 0.2 E.U./dl (0.2-1.0)
[2019-06-04 12:46] LABS: SQUAMOUS 0-3 Few /LPF (0-3); URINE RBC 3-10 Few /HPF (0-2)
[2019-06-04 12:47] LABS: CASTS None Seen /LPF (None Seen); CRYSTALS None Seen /LPF (None Seen); MUCUS 0-3 Light strn/LPF (None Seen)
--- NOTE | 2019-06-04 16:09 | NUR ---
ASSUMED PT CARE REPORT RECEIVED FROM NURSE. PT IS AOX4. ON 2 L NC. O2 SATURATION IS 99%. vss. pt out of bed to chair for breakfast. meds given by nurse student along with nurse instructor. pt complains of pain in left upper quadrantof abdomen after lunch time. tlenol given. xray of abdomen ordered per dr. ya recommendaded CT scan of abdomen . pt left for ct of abdomen at 1608 on wheelchair. in room. awaiting fot pt to come back. will continue to monitor pt
--- NOTE | 2019-06-04 18:56 | NUR ---
AFTER DINER PT DD NOT COMPLAIN OF PAIN ANYMORE.
[2019-06-05] VITALS (8 sets, daily range): BP systolic 104–152; BP diastolic 35–52
--- NOTE | 2019-06-05 04:06 | NUR ---
ASSUMED CARE OF PT AT 1900. PT IS LERT AND ORIENTED. VSS. JAYRO. PT REPORTS MILD ONGOING PAIN IN HIS LEFT ABDOMAN. PT IS IN SINUS RYTHM ON THE TELEMETRY. PT IS RESTING COMFORTABLY IN BED. RESPIRATIONS ARE EVEN AND NONLABORED. WILL CONTINUE TO MONITOR PT.
[2019-06-05 04:20] LABS: ABSOLUTE EOSINOPHILS 0.4 thou/uL (0.0-0.7); ABSOLUTE LYMPHOCYTES 1.2 thou/uL (0.8-5.3); ABSOLUTE MONOCYTES 0.4 thou/uL (0.0-1.2); ABSOLUTE NEUTROPHILS 6.2 thou/uL (1.6-8.1); BASOPHILS 0.4 %; EOSINOPHILS 4.4 %; HEMATOCRIT 22.2 % (42.0-52.0); HEMOGLOBIN 7.6 gm/dL (14.0-18.0); LYMPHOCYTES 14.8 %; MCH 30.2 pg (26.0-34.0); MCV 88.6 fL (80.0-100.0); MONOCYTES 4.7 %; MPV 7.5 fl. (7.2-11.1); NUCLEATED RBCS 0 /100WBC; PLATELET COUNT* 140 thou/uL (150-400); POLYS 75.7 %; RDW-CV 16.1 % (10.5-14.5); WBC 8.1 thou/uL (4.0-11.0)
[2019-06-05 04:39] LABS: CALCIUM 8.7 mg/dL (8.5-10.1); CREATININE 2.4 mg/dL (0.6-1.3); POTASSIUM 5.9 mmol/L (3.5-5.1); TOTAL BILIRUBIN 0.2 mg/dL (<0.1-1.0)
--- NOTE | 2019-06-05 10:01 | NUR ---
ASSUMED PT CARE REPORT RECEIVED FROM NURSE. PT IS AOX4, ON RA. O2 SATURATION IS 95%. DENIES ANY PAIN. PT ASSISTED OUT OF BED TO THE CHAIR WITH THIS NURSE'S HELP. PT IS COMPLIANT WITH CARE. NO FURTHER COMPLAINT. IV ANTIBIOTICS GIVEN ORDERED. WILL CONTINUE TO MONITOR PT.
--- NOTE | 2019-06-05 12:26 | NUR ---
PT ADVOCATED THT PATIENT NEEDS MORE ACUTE REHABILITATION. MADE AWARE BY THIS NURSE. REHAB CONSULT ORDERED. THIS NURSE CALLED CONSULT TO DR ESCOBAR. MESSAGE LEFT TO DESTINY ( TIMBER HAND). PT WALKED WITH PHYSICAL THERAPIST IN HALLWAY WITH A GAITBELT AND STAND BY ASSIST. PT IS GETTING STRONGER BUT NEEDS MORE REHABILITATION TIME BEFORE GOING BACK HOME. PT DENIES PAIN FOR THIS SHIFT. KYLIE CONTINUE TO MONITOR LABS AND PAIN.
--- NOTE | 2019-06-05 18:12 | NUR ---
IVF STARTED ORDERED. PT HAD AN UNEVENTFUL SHIFT. NO COMPLAINT OF PAIN AT ALL. DENIES NAUSEA AND VOMITING. PT ATE ALL MEALS. ILEOSTOMY CARE PROVIDED. MUCOUS FISTULA DRESSING IS INTACT. CALL LIGHT AT REACH. FALL PRECAUTION IN PLACE. WILL CONTINUE TO MONITOR
--- NOTE | 2019-06-05 19:26 | NUR ---
PT COMPLAINS OF PAIN AT 0700 PM AFTER DINER IN RIGHT UPPER QUADRANT. .TYLENOL GIVEN. DR MADE AWARE TO ORDER GI CONSULT FOR PT. REPORT GIVEN TO NIGHT NURSE
[2019-06-06] VITALS: BP 132/54
--- NOTE | 2019-06-06 02:00 | NUR ---
ASSUMED CARE OF PT AT 1900. PT IS ALERT AND ORIENTED. VSS. JAYRO. PT COMPLAINING OF ONGOING PAIN IN HIS ABDOMAN. PTS STOOL FROM ILEOSTOMY IS DECREASED. CT OF THE ABDOMAN SHOWS POSSIBLE OBSTRUCTION. AWARE OF SITUATION. PT IS IN SINUS RYTHM ON THE TELEMETRY. PT IS RESTING COMFORTABLY IN BED. RESPIRATIONS ARE EVEN AND NONLABORED. WILL CONTINUE TO MONITOR PT.
[2019-06-06 06:01] LABS: ALBUMIN 2.1 g/dL (3.4-5.0); CALCIUM 8.7 mg/dL (8.5-10.1); CREATININE 2.2 mg/dL (0.6-1.3); PHOSPHORUS* 3.4 mg/dL (2.5-4.9)
[2019-06-06 06:02] LABS: POTASSIUM 5.8 mmol/L (3.5-5.1)
[2019-06-06 06:34] LABS: CALCIUM 8.4 mg/dL (8.5-10.1); CREATININE 2.2 mg/dL (0.6-1.3)
[2019-06-06 06:35] LABS: POTASSIUM 5.9 mmol/L (3.5-5.1)
[2019-06-06 08:30] VITALS: BP 136/52
--- NOTE | 2019-06-06 10:15 | NUR ---
Dr Palomo evaluated Pt for acute rehab today, Pt does medically qualify. Therapies to see Pt today. Pt will also need to be off the IV Fentanyl for 24 hours prior to dc. Updated Dr and nurse.
[2019-06-06 11:53] VITALS: BP 128/44
[2019-06-06 19:40] VITALS: BP 143/52
--- NOTE | 2019-06-06 20:17 | NUR ---
PT VSS, A&OX4, PT A-AV-V PACED ON TELE, ILEOSTOMY IN RUQ, SURGICAL FISTULA IN LUQ-DRESSING CLEAN, DRY AND INTACT. UP WITH ONE AND WALKER, HYPERNATREMIC-5.9- HOURLY ROUNDING PERFORMED, POSSESSIONS AND CALL LIGHT WITHIN REACH. SPOUSE AT BEDSIDE, PLANNED DISCHARGE TO INPATIENT REHAB 06/07/19 ON THIRD FLOOR
[2019-06-06 23:40] VITALS: BP 127/48
[2019-06-07 04:00] VITALS: BP 132/38
[2019-06-07 08:00] VITALS: BP 148/52
[2019-06-07 11:43] LABS: ABSOLUTE BASOPHILS 0.1 thou/uL (0.0-0.2); ABSOLUTE EOSINOPHILS 0.2 thou/uL (0.0-0.7); ABSOLUTE LYMPHOCYTES 1.3 thou/uL (0.8-5.3); ABSOLUTE MONOCYTES 0.3 thou/uL (0.0-1.2); ABSOLUTE NEUTROPHILS 7.9 thou/uL (1.6-8.1); BASOPHILS 0.5 %; EOSINOPHILS 2.4 %; HEMATOCRIT 22.4 % (42.0-52.0); HEMOGLOBIN 7.6 gm/dL (14.0-18.0); LYMPHOCYTES 13.1 %; MCH 30.1 pg (26.0-34.0); MCHC 33.7 g/dL (28.0-37.0); MCV 89.2 fL (80.0-100.0); MPV 8.6 fl. (7.2-11.1); NUCLEATED RBCS 0 /100WBC; PLATELET COUNT* 177 thou/uL (150-400); RBC 2.51 mil/uL (4.50-6.00); RDW-CV 15.8 % (10.5-14.5); WBC 9.7 thou/uL (4.0-11.0)
[2019-06-07 12:10] LABS: CALCIUM 8.5 mg/dL (8.5-10.1); CREATININE 2.1 mg/dL (0.6-1.3); MAGNESIUM 2.1 mg/dL (1.8-2.4); PHOSPHORUS* 3.5 mg/dL (2.5-4.9)
[2019-06-07 12:13] LABS: POTASSIUM 6.4 mmol/L (3.5-5.1)
--- NOTE | 2019-06-07 12:18 | NUR ---
Spoke with Pt not medically stable to dc today, to have a small bowel follow through. Updated acute rehab and let them know that there is a potential for a weekend dc, pending testing today. ID continues to follow.
[2019-06-07 13:58] VITALS: BP 143/52
--- NOTE | 2019-06-07 17:06 | NUR ---
RESUMED CARE. REMAINS A&OX4. RESPIRATIONS EVEN AND UNLABORED ON ROOM AIR. DENIES PAIN. VSS. REMAINS AT BEDSIDE. UP WITH WALKER AND ASSISTANCE. NSG WILL CONTINUE TO ASSESS.
--- NOTE | 2019-06-07 18:18 | NUR ---
PT TRANSFERRED TO 309 VIA REPORT. PRIOR TO TRANSFER PT HAD ABDOMINAL SERIES.NEPHROLOGY ROUNDED ON PT AND REQUESTED CALL WITH POTASSIUM LEVELS. POTASSIUM LEVEL CALLED, ORDERS OBTAINED TO D/C CURRENT IVF AND BEGIN NS AT 100, GIVE 1X DOSE OF IV LASIX,RECHECK POTASSIUM AND SCAN BLADDER WITH PARAMETERS FOR CATH.BLADDER SCAN DOCUMENTED. RESULTS OF IMAGING CALLED TO PHYSICIAN.PT MADE NPO, GI/SURGERY CONSULTED.DR. CALL ROUNDED ON PT AND SPOKE WITH PT ABOUT FINDINGS.
--- NOTE | 2019-06-07 19:04 | NUR ---
REMAINS A&OX4. REPSIRATIONS EVEN AND UNLABORED ON ROOM AIR. RESTING WITH EYES CLOSED. NPO EXCEPT MEDICATIONS AND SIPS. NO S/SX OF PAIN. MORPHINE GIVEN WITH RELIEF NOTED. REMAINS AT BEDSIDE. BED ALARM SET ON EXITING MODE. CALL JEFF WITHIN REACH. NSG WILL CONTINUE TO ASSESS.
[2019-06-08] VITALS: BP 104/48
--- NOTE | 2019-06-08 05:11 | NUR ---
PATIENT SLEPT WELL DURING THIS SHIFT. PT WITH FLUIDS INFUSING PER DR ORDER. PT DENIES PAIN/NAUSEA. PT WITH LIQUID STOOL OUT OF HIS COLOSTOMY. PT WITH CLEAR YELLOW URINE PER URINAL. PT TURNED Q2H PER PROTOCAL. FREQUENTLY USED ITEMS AND CALL LIGHT WITHIN REACH. SIDERAILS UPX3. AT BEDSIDE. WILL CONTINUE TO MONITOR.
[2019-06-08 07:40] VITALS: BP 128/54
[2019-06-08 12:29] LABS: CALCIUM 8.8 mg/dL (8.5-10.1); CREATININE 2.3 mg/dL (0.6-1.3); POTASSIUM 5.9 mmol/L (3.5-5.1)
[2019-06-08 15:59] VITALS: BP 134/45
--- NOTE | 2019-06-08 16:20 | NUR ---
PATIENT SEEN BY NEPH AND SURGERY THIS AM. PATIENT HAD ABD XRAY AND OK TO HAVE CLEAR LIQUID DIET WITH FULL LIQUIDS TONIGHT THEN RENAL TOMORROW. IVF AND SCHED ABX REMAIN INFUSING. ILEOSTOMY OUTPUT NOTED, PATIENT STOOL STARTING TO HAVE LOOSE PIECES IN IT. PATIENT WORKING WITH THERAPY TODAY. DR. MAGALLANES WAS NOTIFIED OF POTASSIUM LEVEL THIS AM, NO NEW ORDERS RECEIVED. PATIENT WAS RESTARTED ON VALTRESSA PER NEPHROLOGY ORDERS.
[2019-06-08 20:00] VITALS: BP 123/47
[2019-06-09 04:57] LABS: HEMATOCRIT 20.8 % (42.0-52.0); MCH 30.2 pg (26.0-34.0); MCHC 33.5 g/dL (28.0-37.0); MCV 90.2 fL (80.0-100.0); RBC 2.31 mil/uL (4.50-6.00); RDW-CV 15.6 % (10.5-14.5); WBC 6.8 thou/uL (4.0-11.0)
[2019-06-09 05:25] LABS: CALCIUM 8.2 mg/dL (8.5-10.1); PHOSPHORUS* 4.1 mg/dL (2.5-4.9)
--- NOTE | 2019-06-09 06:37 | NUR ---
ASSUMED PATEINT CARE AT 1900. PATIENT ALERT AND ORIENTED TIMES FOUR. SPOUSE AT BEDSIDE. NO COMPLAINTS OF PAIN OR DISCOMFORT NOTED. ILEOSTOMY DRAINING WELL. HOURLY ROUNDING AND RN ASSESSMNET COMPLETED. FALL RISK PRECAUTIONS IN PLACE
[2019-06-09 07:30] VITALS: BP 144/42
--- NOTE | 2019-06-09 13:38 | NUR ---
SPOKE WITH DR. MAGALLANES THIS AM, ORDERS RECEIVED FOR IV SL AND INCREASE VALTRESSA TO TO BID. ILEOSTOMY CONTINUES DRAINING, VOIDING PER URINAL. TOLERATING RENAL DIET. AT BEDSIDE. IV SL, SCHED ABX INFUSED ORDERED.
--- NOTE | 2019-06-09 15:30 | NUR ---
ASSUMED CARE OF PATIENT AT THIS TIME. CALL LIGHT WITHIN REACH.
[2019-06-09 19:43] VITALS: BP 143/58
[2019-06-10 04:41] LABS: HEMATOCRIT 20.8 % (42.0-52.0); MCH 29.5 pg (26.0-34.0); MCV 89.5 fL (80.0-100.0); RBC 2.33 mil/uL (4.50-6.00); RDW-CV 15.5 % (10.5-14.5); WBC 7.1 thou/uL (4.0-11.0)
[2019-06-10 04:48] LABS: CALCIUM 7.8 mg/dL (8.5-10.1); CREATININE 2.2 mg/dL (0.6-1.3); MAGNESIUM 1.8 mg/dL (1.8-2.4)
--- NOTE | 2019-06-10 04:53 | NUR ---
ASSUMED PT'S CARE AT MIDNIGHT. PT SLEEPING WELL IN BED. AT BEDSIDE THIS SHIFT. PT CALLS OUT APPROPRIATELY FOR BATHROOM. CIRCULAR KNITTER HELPER MEDS TO BE GIVEN THIS AM. ILLEOSTOMY INTACT. HOURLY ROUNDINGS MADE. WILL CONTINUE TO MONITOR.
[2019-06-10 05:25] LABS: POTASSIUM 6.2 mmol/L (3.5-5.1)
[2019-06-10 05:26] LABS: HEMOGLOBIN 6.9 gm/dL (14.0-18.0)
[2019-06-10 08:30] VITALS: BP 128/44
--- NOTE | 2019-06-10 15:55 | NUR ---
NO SUCCESS TO CONTACT [facility] AFTER SEVERAL ATTEMPTS FOR CONSENT FOR BLOOD TRANSFUSION. WILL CONTINUE TO REACH. NO S/SX OF ACUTE BLOOD LOSS NOTED. NSG WILL CONITINUE TO ASSESS.
[2019-06-10 16:00] VITALS: BP 116/52
[2019-06-10 19:41] VITALS: BP 119/42; BP 125/51; BP 126/52
[2019-06-10 21:30] VITALS: BP 135/59
--- NOTE | 2019-06-11 05:27 | NUR ---
PATIENT SLEPT WELL DURING THIS SHIFT. PT WITH LIQUID STOOL WITH FOOD PARTICLES PRESENT. PT TURNED Q2H PER PROTOCAL. PT DENIES PAIN ON THIS SHIFT. PT WITH SALINE LOCK TO RT FOREARM; PATENT. PT RECEIVED 1 UNIT OF PRBC THAT ENDED JUST PRIOR TO SHIFT CHANGE. PT TOLERATED WELL. PT VOIDS YELLOW URINE PER URINAL. FREQUENTLY USED ITEMS AND CALL LIGHT WITHIN REACH. SIDERAILS UPX3 AND BED ALARM ON. WILL CONTINUE TO MONITOR.
[2019-06-11 08:34] VITALS: BP 145/47
[2019-06-11 16:00] VITALS: BP 160/55
--- NOTE | 2019-06-11 17:36 | NUR ---
CM SPOKE TO THE PHYSICIAN IN CHARGE OF THE PT AND THEY INFORM THAT THE PT MAY BE READY TO D/C TO INPATIENT REHAB TOMORROW. CM WILL REMAIN AVAILABLE TO ASSIST AND FOLLOW NEEDED.
[2019-06-11 20:30] VITALS: BP 136/53
--- NOTE | 2019-06-12 00:11 | NUR ---
INITAL ASSESMENT COMPLETED AT 2029. PT PLEASANT AND COOPERATIVE. DENIED PAIN OR DISCOMFORT AT THAT TIME. HS MEDS GIVEN PER EMAR. CALL LIGHT IN REACH, PT DEMONSTRATES PROPER USE.
[2019-06-12 08:00] VITALS: BP 141/49
[2019-06-12 09:18] LABS: HEMATOCRIT 26.3 % (42.0-52.0); HEMOGLOBIN 8.7 gm/dL (14.0-18.0); MCH 29.4 pg (26.0-34.0); MCV 89.1 fL (80.0-100.0); MPV 8.8 fl. (7.2-11.1); RBC 2.95 mil/uL (4.50-6.00); RDW-CV 15.4 % (10.5-14.5)
[2019-06-12 09:26] LABS: CALCIUM 8.6 mg/dL (8.5-10.1); CREATININE 2.1 mg/dL (0.6-1.3)
[2019-06-12 09:29] LABS: POTASSIUM 6.4 mmol/L (3.5-5.1)
[2019-06-12] MEDS ORDERED: MACROBID 100 M100 M1 PO (10:58)
[2019-06-12] MEDS ORDERED: BENTYL 20 MG TA20 M1 PO (10:58)
[2019-06-12] MEDS ORDERED: ACETAMINOPHEN325 M1 PO (10:58)
[2019-06-12] MEDS ORDERED: VELTASSA8.4 GM PO (10:58)
[2019-06-12] MEDS ORDERED: MSL20MG/ML PO (10:58)
[2019-06-12 14:30] LABS: CALCIUM 8.1 mg/dL (8.5-10.1); CREATININE 2.2 mg/dL (0.6-1.3); POTASSIUM 5.3 mmol/L (3.5-5.1)
== END 2019-06-12 19:10 | DRG 682 ==
LOC: M.ERS 15:32 → M.TBA-ER 18:37 → M.2W 18:37 → M.3W 06-07 16:32
PROVIDERS: Family Medicine; Internal Medicine; Internal Medicine Nephrology; Specialist; Surgery; ADMIT Internal Medicine
PROC: 30233N1 Transfusion of Nonautologous Red Blood Cells into Peripheral Vein, Percutaneous Approach (ICD-10-PCS; principal; 2019-06-10)
DX: N17.0 Acute kidney failure with tubular necrosis (principal); E43 Unspecified severe protein-calorie malnutrition; G93.41 Metabolic encephalopathy; N39.0 Urinary tract infection, site not specified; E87.1 Hypo-osmolality and hyponatremia; N13.8 Other obstructive and reflux uropathy; E78.00 Pure hypercholesterolemia, unspecified; E66.9 Obesity, unspecified; I25.10 Atherosclerotic heart disease of native coronary artery without angina pectoris; N40.1 Benign prostatic hyperplasia with lower urinary tract symptoms; B96.20 Unspecified Escherichia coli [E. coli] as the cause of diseases classified elsewhere; F03.90 Unspecified dementia, unspecified severity, without behavioral disturbance, psychotic disturbance, mood disturbance, and anxiety; I12.9 Hypertensive chronic kidney disease with stage 1 through stage 4 chronic kidney disease, or unspecified chronic kidney disease; M10.9 Gout, unspecified; E87.5 Hyperkalemia; E03.9 Hypothyroidism, unspecified; E78.5 Hyperlipidemia, unspecified; E11.22 Type 2 diabetes mellitus with diabetic chronic kidney disease; N13.30 Unspecified hydronephrosis; N18.4 Chronic kidney disease, stage 4 (severe); Z96.0 Presence of urogenital implants; Z87.440 Personal history of urinary (tract) infections; Z86.718 Personal history of other venous thrombosis and embolism; I25.2 Old myocardial infarction; Z95.5 Presence of coronary angioplasty implant and graft; Z68.32 Body mass index [BMI] 32.0-32.9, adult; Z93.2 Ileostomy status; Z86.73 Personal history of transient ischemic attack (TIA), and cerebral infarction without residual deficits; Z79.01 Long term (current) use of anticoagulants; Z79.899 Other long term (current) drug therapy; Z79.82 Long term (current) use of aspirin; Z88.0 Allergy status to penicillin; Z88.2 Allergy status to sulfonamides; Z88.1 Allergy status to other antibiotic agents; Z91.012 Allergy to eggs; Z87.891 Personal history of nicotine dependence; Z85.038 Personal history of other malignant neoplasm of large intestine; Z90.49 Acquired absence of other specified parts of digestive tract

== ENCOUNTER 2019-06-12 14:41 | Inpatient (IN) | payer MEDICARE ==
[~2019-06-12] VITALS: Ht 185.4 cm; Wt 87.5 kg
[~2019-06-12 14:41] MED LIST changes: +ACETAMINOPHEN325 M1 PO; +BENTYL 20 MG TA20 M1 PO; +MACROBID 100 M100 M1 PO; +MSL20MG/ML PO
[2019-06-12 21:00] VITALS: BP 137/53
--- NOTE | 2019-06-13 01:03 | NUR ---
TRANSFERED FROM [facility] PER BED @ 1948-06/11-MON.ASSUMED CARE @ 1953-AWAKE IN BED W/ HOB UP, @ BEDSIDE,WATCHING TV & ILEOSTOMY BAG INTACT.BED ALARM PUT ON @ 2223.NO BLOOD RETURN FROM SALINE LOCK RIGH FOREARM @ 2329 BUT FLUSHED GOOD.REFUSED IS @ 233.TURNS SELF @ NIGHT.SELAWIK-LEFT EAR.NO HEARING AID. STAYING ALL NIGHT.ADMITTED AN 88 YEAR OLD MALE W/ ENCEPHALOPATHY. ON HOURLY ROUNDS.
--- NOTE | 2019-06-13 05:07 | NUR ---
/NURSE PUTS,REMOVES & EMPTIES URINAL @ NIGHT.PATIENT HOLDS URINAL WHILE VOIDING.USED URINAL X2.ILEOSTOMY EMPTIED X2.SLEPT SINCE 2229 & SLEEPING GOOD ALL NIGHT.TOOK ALL [employer] SHERBET HS SNACK.
[2019-06-13 08:00] VITALS: BP 130/53
[2019-06-13 09:10] LABS: HEMATOCRIT 24.7 % (42.0-52.0); HEMOGLOBIN 8.4 gm/dL (14.0-18.0); MCH 30.2 pg (26.0-34.0); MCHC 33.8 g/dL (28.0-37.0); MCV 89.2 fL (80.0-100.0); MPV 7.6 fl. (7.2-11.1); RBC 2.77 mil/uL (4.50-6.00); RDW-CV 15.1 % (10.5-14.5); WBC 4.8 thou/uL (4.0-11.0)
[2019-06-13 09:17] LABS: CREATININE 2.1 mg/dL (0.6-1.3); POTASSIUM 5.9 mmol/L (3.5-5.1)
--- NOTE | 2019-06-13 12:15 | NUR ---
Nutrition: RD familiar with pt. We recently discussed food otions for ileostomy with renal diet and egg allergy. RD gave pt's some recipes and food ideas. She is very knowledgable about pt's conditions. Pt likes Caden castillo - RD will order. Alb 2.1, prealb 25. REnal diet. Wt: 234#. Will follow weekly on rehab unit. Mild risk.
--- NOTE | 2019-06-13 16:21 | NUR ---
Initial assessment: Pt known to CM from previous admissions. Pt sleeping. Pt has hx of [facility] and SNF at [facility]. Pt is currently on services with [facility]. Pt has a RW and a cane. Pt lives at home with . SW to continue to follow to assist with safe dc planning.
--- NOTE | 2019-06-13 17:34 | NUR ---
I ASSUMED CARE OF THE PATIENT AT 0700. HE IS ALERT AND ORIENTED X4 AND IS UP WITH ASSIST OF 1 AND A WALKER TO THE RESTROOM . WAS AT THE BEDSIDE AND WAS INFORMED THAT SHE WOULD NEED TO GO HOME BECAUSE OF OUR CURRENT VISITOR POLICY. BED IS IN THE LOW LOCKED POSITION AND CALL LIGHT IS IN REACH. HOURLY ROUNDING IS COMPLETED AND PATIENT NEEDS ARE MET. PAIN IS DENIED. PAPERWORK WAS SIGNED AND PUT INTO THE CHART. DIET WAS ALTERED TO REFLECT HIS ALLERGIES AND NEEDS TO ACCOMODATE HIS ILLEOSTOMY. NYSTATIN WAS ORDERED, BUT DIDN'T ARRIVE UNTIL LATE IN THE SHIFT. WILL CONTINUE TO MONITOR.
[2019-06-13 19:59] VITALS: BP 155/59
--- NOTE | 2019-06-14 01:20 | NUR ---
ASSUMED CARE @ 1909-.AWAKE IN BED W/ HOB UP.BED ALARM PUT ON @ 1909.ILEOSTOMY BAG INTACT.REFUSED TO DO IS.NO BLOOD RETURN FROM SALINE LOCK BUT FLUSHES GOOD @ 2199.CALLS FOR ASSIST TO USE URINAL-STANDING.TURNS SELF @ NIGHT.ON HOURLY ROUNDS.LINUX SERVER ADMINISTRATOR DOING ODD HOUR ROUNDS.
--- NOTE | 2019-06-14 05:17 | NUR ---
SLEPT LATE @ 0000-06/13-MON.SLEEPING GOOD ALL NIGHT.USED URINAL X4.BRP X1 TO VOID.REFUSED HS SNACK.COMMUNICABLE DISEASE SPECIALIST EMPTIED ILEOSTOMY X2.
[2019-06-14 09:20] VITALS: BP 137/54
--- NOTE | 2019-06-14 14:37 | NUR ---
SW followed up with pt and discussed welcome folder and pt signed irf neil consent form. No questions or concerns presented at this time. SW to continue to follow to assist with safe dc planning.
--- NOTE | 2019-06-14 16:46 | NUR ---
ALERT AND ORIENTED X4 WITH FORGETFULNESS. UP WITH GAIT BELT AND WALKER. DENIED NEED FOR PAIN MEDICATION. HAS ILEOSTOMY WITH LARGE LOOSE DARK GREEN STOOL TODAY. VOIDING WITHOUT DIFFICULTY. NO C/O COUGH OR SOA. USES CALL LIGHT WITHIN REACH. FALL PRECAUTIONS IN PLACE.
--- NOTE | 2019-06-14 20:00 | NUR ---
PATIENT WAS BLADDER SCANNED AFTER VOIDING AND BLADDER SCAN SHOWED 142ML STILL LEFT IN BLADDER. WILL CONTINUE TO MONITOR.
[2019-06-14 20:04] VITALS: BP 126/56
--- NOTE | 2019-06-14 21:45 | NUR ---
AWAKENED FOR HS REASSESSMENT AND MEDICATION PASS. DENIES PAIN. TOOK MEDICATIONS WHOLE ONE AT A TIME WITH WATER. ILEOSTOMY INTACT. PATIENT EMPTIED WITH SET UP. HAD ABOUT 100 CC BROWN AND GREEN LOOSE STOOL. STANDS AT BEDSIDE TO VOID PER URINAL. CALL LIGHT WITHIN REACH.
[2019-06-15 04:12] LABS: HEMATOCRIT 25.4 % (42.0-52.0); HEMOGLOBIN 8.3 gm/dL (14.0-18.0); MCH 29.3 pg (26.0-34.0); MCHC 32.8 g/dL (28.0-37.0); MCV 89.2 fL (80.0-100.0); MPV 8.3 fl. (7.2-11.1); RBC 2.85 mil/uL (4.50-6.00); RDW-CV 15.2 % (10.5-14.5); WBC 4.7 thou/uL (4.0-11.0)
[2019-06-15 04:37] LABS: ALBUMIN 2.4 g/dL (3.4-5.0); CALCIUM 8.9 mg/dL (8.5-10.1); CREATININE 2.3 mg/dL (0.6-1.3); MAGNESIUM 1.7 mg/dL (1.8-2.4); PHOSPHORUS* 4.2 mg/dL (2.5-4.9); POTASSIUM 5.9 mmol/L (3.5-5.1)
--- NOTE | 2019-06-15 05:22 | NUR ---
RECEIVED A 500 ML BOLUS OF LACTATED RINGER'S PER ORDER DURING THE NIGHT. VOIDED ABOUT 150 ML PER URINAL AT BEDTIME AND ABOUT 300 ML IN THE NIGHT. EMPTIED A LARGE AMOUNT OF STOOL AFTER VOIDING. HOURLY ROUNDING IN PROGRESS.
--- NOTE | 2019-06-15 05:43 | NUR ---
PATIENT VOIDED 100ML PER URINAL. POST VOID RESIDUAL 304 ML. PATIENT IS REFUSING TO BE STRAIGHT CATHED. STATES WILL TRY TO VOID MORE WHEN MORE AWAKE.
[2019-06-15 09:00] VITALS: BP 134/93
--- NOTE | 2019-06-15 16:41 | NUR ---
pt has been plesant and in good spirits today and has talked on phone to .pt denies need for pain medication and has worked with therapies. pt has emptied ostomy with min assist of setting up supplies and empting container.pt voids well per urinal and feels he is empting bladder well.pt remains alert and orientated.pt ambulates with gaitbelt and walker with min assist and has been up to recliner.
[2019-06-15 19:50] VITALS: BP 132/44
--- NOTE | 2019-06-15 20:10 | NUR ---
SITTING UP IN RECLINER WATCHING TV. IN GOOD SPIRITS. STOOD UP TO USE THE URINAL AT SHIFT CHANGE. ILEOSTOMY INTACT. DENIES PAIN. TOOK MEDICATIONS WHOLE WITH WATER. AMBULATED TO BED WITH SBA, GAITBELT, WALKER. CALL LIGHT WITHIN REACH.
[2019-06-16 04:51] LABS: ALBUMIN 2.7 g/dL (3.4-5.0); CALCIUM 9.1 mg/dL (8.5-10.1); CREATININE 2.5 mg/dL (0.6-1.3); POTASSIUM 5.6 mmol/L (3.5-5.1)
--- NOTE | 2019-06-16 05:52 | NUR ---
RESTED SOUNDLY UNTIL AWAKENED DUE TO ILEOSTOMY OVERFLOWING. PATIENT RECEIVED KAEXAYLATE EARLIER IN SHIFT. PATIENT ASSISTED WITH REMOVING SOILED CLOTHES AND GETTING CLEANED UP. CLEAN GOWN PLACED AND PATIENT COVERED WITH A BLANKET FROM THE WARMER SHORTLY AFTER A NEW ILEOSTOMY BAG APPLIED. PATIENT CONTINUED TO HAVE LARGE AMOUNTS OF GREEN LIQUID STOOL. HOURLY ROUNDING IN PROGRESS.
[2019-06-16 08:39] VITALS: BP 129/51
--- NOTE | 2019-06-16 18:08 | NUR ---
pt has been up to chair with min assist of 1 walker and gaitbelt. pt uses urinal and is continent. ileostomy intact with large loose soft bm today. pt able to empty ostomy with min assist of holding container. pt was given medication to promote bm to decrease K+ LEVEL WITH NO FURTHER BM YET. PT IS ALERT AND ORIENTATED AND CALLS FOR ASSIST NEEDED. PT IN GOOD SPIRITS AND HAS TALKED TO ON PHONE.
--- NOTE | 2019-06-16 19:30 | NUR ---
SITTING UP IN BED WATCHING TV. DENIES PAIN. ILEOSTOMY INTACT. URINAL AND CALL LIGHT WITHIN REACH. ARGUMENTATIVE AND CONDESCENDING TOWARDS STAFF AT AT TIMES. CALL LIGHT AND URINAL WITHIN REACH.
[2019-06-16 20:15] VITALS: BP 121/52
[2019-06-17 05:09] LABS: ALBUMIN 2.8 g/dL (3.4-5.0); CALCIUM 8.5 mg/dL (8.5-10.1); CREATININE 2.6 mg/dL (0.6-1.3); MAGNESIUM 1.9 mg/dL (1.8-2.4); PHOSPHORUS* 4.6 mg/dL (2.5-4.9); POTASSIUM 5.3 mmol/L (3.5-5.1)
--- NOTE | 2019-06-17 06:06 | NUR ---
RESTED ON/OFF. ASSISTED WITH EMPTYING ILEOSTOMY SEVERAL TIME. RECEIVED KAYEXELATE YESTERDAY AFTERNOON. HOURLY ROUNDING IN PROGRESS.
[2019-06-17 07:58] VITALS: BP 92/38
[2019-06-17 11:30] VITALS: BP 118/55
[2019-06-17 12:00] VITALS: BP 118/55
--- NOTE | 2019-06-17 14:31 | NUR ---
ASSUMED CARE AT 0730. ALERT ORIENTED PLEASANT COOPERATIVE. HX OF WEAKNESS HYPONATREMIA. TRANSFERS WITH SBA G BELT WALKER AMBULATES TO BR TO VOID, EMPTIED ILEOSTOMY X 2 LIQUID BROWN/GREEN BM. PARTICIPATING IN THERAPIES THROUGHOUT THE DAY. USES CALL LIGHT APPROPRIATELY FOR ASSIST. BUN /CR ARE ELEVATED K 5.3 PT. IS ON MED TO DECREASE K+ LEVEL. BP WAS LOW X 2 EARLY A.M. RECHECKED 118/55 BEFORE LUNCH. DENIES DIZZINESS FLUIDS ENCOURAGED.
[2019-06-17 19:30] VITALS: BP 114/48
--- NOTE | 2019-06-18 05:02 | NUR ---
ASSUMED CARES AT 1920. ALERT AND ORIENTED. PLEASANT. DENIED ANY NEED FOR PAIN MEDS. ENCOURGAGED FLUIDS. SALINE LOCK TO RIGHT HAND. MIN ASSIST WITH GAIT BELT AND WALKER. USED URINAL. ILEOSTOMY BAG CHANGED DUE TO LEAKAGE. SLEPT OFF AND ON. CALL LIGHT IN REACH AND BED ALARM ON.
[2019-06-18 08:00] VITALS: BP 111/43
--- NOTE | 2019-06-18 13:28 | NUR ---
SW called pt in preparation for team conference on Monday. Pt talkative and just wondering about when pt might be ready to dc. SW explained that SW will call pt to provide update/review of team conference tomorrow afternoon. Pt talkative about being his caregiver and feeling confident in pt ability to return home safely. SW to continue to follow to assist with safe dc planning.
--- NOTE | 2019-06-18 15:22 | NUR ---
ASSUMED CARE AT 0730. ALERT ORIENTED PLEASANT COOPERATIVE. HX OF WEAKNESS HYPONATREMIA. TRANSFERS WITH SBA G BELT WALKER VOIDED PER URINAL EMPTIED ILEOSTOMY X 2 THIS A.M. LIQUID GREEN STOOL PT. DOES THIS. DENIES PAIN OR CONCERNS HE JUST SEEMS TIRED. UP IN RECLINER AT BEDSIDE. PARTICIPATING IN THERAPIES THROUGHOUT THE DAY. SENT OSTOMY SUPPLIES THIS AFTERNOON.
[2019-06-18 19:10] VITALS: BP 115/53
--- NOTE | 2019-06-19 00:51 | NUR ---
ASSUMED CARE @ 1911-06/07-.SITS IN RECLINER WATCHING TV.ILEOSTOMY BAG INTACT.CHAIR ALARM ON ALREADY @ 1911.HOB UP IN BED.URINAl w/in reach.wants sink light ON ALL NIGHT.BED ALARM PUT ON @ 1999.SALINE LOCK RIGHT HAND-NO BLOOD RETURN @ 2149-BUT FLUSHES GOOD.TURNS SELF @ NIGHT.REQUESTED MYLANTA FOR UPSET STOMACH.PRN MYLANTA 30 ML ORAL GIVEN @ 0036.TURNS SELF @ NIGHT.ON HOURLY ROUNDS.DISABILITY BENEFITS SPECIALIST DOING ODD HOUR ROUNDS.
[2019-06-19 04:52] LABS: ALBUMIN 2.6 g/dL (3.4-5.0); CALCIUM 8.6 mg/dL (8.5-10.1); CREATININE 2.9 mg/dL (0.6-1.3); MAGNESIUM 1.9 mg/dL (1.8-2.4); PHOSPHORUS* 4.5 mg/dL (2.5-4.9); POTASSIUM 5.3 mmol/L (3.5-5.1)
--- NOTE | 2019-06-19 05:10 | NUR ---
SLEEPING @ 2200 & SLEPT GOOD ALL NIGHT.USED URINAL X2 W/ ASSIST.EMPTIED ILEOSTOMY BY PATIENT X1 W/ RN SBA.TOOK ALL ANN.ICE CREAM HS SNACKS. TURNS SELF @ NIGHT.
[2019-06-19 08:21] VITALS: BP 106/49
--- NOTE | 2019-06-19 15:42 | NUR ---
ASSUMMED CARE OF PT AT 0730, PT ALERT, FORGETFUL, UPSET THIS MORNING SAYING HE WAS SICK ALL NIGHT, HAVING EMESIS BUT PT WAS NOT ILL DURING NIGHT, EXPLAINED TO PT AND HE WAS ADAMENT HE WAS SICK ALL NIGHT, WAS AGREEABLE TO WORK WITH THERAPIES AND DID ADMIT HE WAS NOT SICK DURING NIGHT HE WAS JUST TIRED, PT DENIES PAIN, SALINE LOCK PATENT, PT UP WITH 1, GB WALKER, PT HAS GOOD APETITE, ENCOURAGED TO INCREASE HIS FLUID INTAKE, ILEOSTOMY EMPTIED X 1 PER PT, PT C/O MILD PAIN IN RIGHT KNEE, OINTMENT APPLIED, PARTICIPATED IN ALL THERAPIES, HOURLY ROUNDING COMPLETED, ASSESSMENT COMPLETE, WILL CONTINUE TO MONITOR.
--- NOTE | 2019-06-19 17:17 | NUR ---
SW called and spoke with pt Varsha to review team conference summary and discuss plan for pt to dc home with and resume HH services at [facility]. Pt in agreement with plan and said her only concern at this time was about pt potassium; SW recommended speaking with pt nurse and/or doctor about that concern. Pt hopeful pt able to walk as much as he wants; SW explained pt doing well with mobility in therapies. SW to continue to follow to assist with safe dc planning.
--- NOTE | 2019-06-19 19:35 | NUR ---
SITTING UP IN RECLINER WATCHING TV. DENIES PAIN. IN GOOD SPIRITS. SMILING. ILEOSTOMY INTACT WITH MODERATE AMOUNT OF LOOSE BROWN STOOL. EMPTIES WITH SET UP AND SOME ASSISTANCE WITH HOLDING CYCLINDER WHILE HE EMPTIES AND CLEANS THE END OF THE OSTOMY BAG. TOOK MEDICATIONS WHOLE ONE AT A TIME WITH WATER. CALL LIGHT WITHIN REACH.
[2019-06-19 20:00] VITALS: BP 113/46
[2019-06-20 04:37] LABS: CALCIUM 8.3 mg/dL (8.5-10.1); CREATININE 2.7 mg/dL (0.6-1.3); POTASSIUM 4.9 mmol/L (3.5-5.1)
--- NOTE | 2019-06-20 04:54 | NUR ---
RESTED QUIETLY. USED URINAL X ONE DURING THE NIGHT WITH ASSISTANCE. EMPTIED OSTOMY BAG X ONE DURING THE NIGHT WITH ASSISTANCE. HOURLY ROUNDING IN PROGRESS.
[2019-06-20 08:00] VITALS: BP 96/37
[2019-06-20 11:00] VITALS: BP 114/58
--- NOTE | 2019-06-20 16:23 | NUR ---
ASSUMMED CARE OF PT AT 0730, PT ALERT, FROGETFUL, TRANSFERS WITH SBA, GB WALKER, UP IN CHAIR, VOIDS PER URINAL, ILEOSTOMY DRAINING LARGE AMOUNT OF GREENISH BROWN STOOL,PATIENT ABLE TO EMPTY ILEOSTOMY WITH MINIMAL HELP,PT BP 96/37 THIS AM, PT DID C/O SLIGHT DIZZINESS WITH THERAPY, RECHECKED AND BP 109/52, PT C/O INDIGESTION THIS PM, GIVEN MAALOX X 1, PHYSICIAN INFORMED OF LABS, IV STARTED IN LEFT FOEARM, OLD SALINE LOCK REMOVED FROM RIGHT HAND, DENIES PAIN, TAKING FOOD AND FLUIDS WELL, PT INFORMED OF NEED FOR URINE SPECIMEN, PT SEEMS MORE CONFUSED AFTERNOON PROGRESSES, REORIENTED, PARTICIPATED IN ALL THERAPIES, HOURLY ROUNDING COMPLETED, ASSESSMENT COMPLETE, WILL CONTINUE TO MONITOR.
--- NOTE | 2019-06-20 19:50 | NUR ---
SITTING UP IN RECLINER WATCHING TV. IV FLUIDS INFUSING WITHOUT DIFFICULTY. #20 IN LEFT FOREARM INTACT WITHOUT S/S OF INFECTION OR EDEMA. DENIES PAIN. ILEOSTOMY INTACT. SNACK PROVIDED. CALL LIGHT WITHIN REACH.
[2019-06-20 20:00] VITALS: BP 112/41; BP 122/65
[2019-06-21 04:36] LABS: CALCIUM 8.2 mg/dL (8.5-10.1); CREATININE 2.4 mg/dL (0.6-1.3); POTASSIUM 5.1 mmol/L (3.5-5.1)
--- NOTE | 2019-06-21 04:57 | NUR ---
UP X 2 DURING THE NIGHT TO VOID AND EMPTY ILEOSTOMY WITH MINIMAL ASSIST. IV FLUIDS INFUSING. HOURLY ROUNDING IN PROGRESS.
[2019-06-21 08:29] VITALS: BP 118/51
--- NOTE | 2019-06-21 18:02 | NUR ---
ALERT AND ORIENTED X4 WITH PERIODS OF CONFUSION/FORGETFULNESS. UP WITH CANE GAIT BELT AND STAND BY ASSIST. DENIES NEED FOR PAIN MEDICATION. HAS PATENT ILEOSTOMY WITH LIQUID SOFT DARK GREEN STOOL. CONTINUES TO HAVE IVF INFUSING WITHOUT DIFFICULTY. DR NOTIFIED OF ABNORMAL LABS. PATIENT USES CALL LIGHT WITHIN REACH. FALL PRECAUTIONS IN PLACE. BED ALARM AND CHAIR ALARM USED.
[2019-06-21 19:30] VITALS: BP 148/46
--- NOTE | 2019-06-22 00:33 | NUR ---
ASSUMED CARE AT 1930. PATIENT RESTING IN BED. TAKES PILLS WHOLE WITH WATER. IVF INFUSING TO LT FOREARM. VOIDS PER URINAL, DOES BETTER TO STAND TO VOID. ILEOSTOMY INTACT, HAS BEEN DRAINED TWICE THUS FAR THIS SHIFT. EMPTIES OWN APPLIANCE. DECLINED COLACE. NO C/O PAIN. HOURLY ROUNDS CONTINUE. BED ALARM ON. CALL LITE IN REACH.
--- NOTE | 2019-06-22 05:55 | NUR ---
DID NOT SLEEP WELL THIS SHIFT. C/O ABDOMINAL CRAMPING. ILEOSTOMY DRAINING MOD TO LARGE AMOUNT OF SOFT STOOL AND GAS. EMPTIED TWICE THUS FAR THIS SHIFT. PATIENT EMPTIES THIS HIMSELF. GIVEN BENTYL AT 2349. AT 0145 GIVEN MYLANTA. PATIENT CALLED (WITH NURSE ASSIST) AND THEY SPOKE FOR A WHILE. CALLED BACK AROUND 0300. PATIENT HAD IN THE MEANTIME VOIDED AGAIN, AND WAS RESTING. GIVEN REASSURANCE THAT PATIENT IS HAVING GOOD AMOUNT OUT OF OSTOMY. HE DENIED PAIN AT 0300 (INSTRUCTOR PROGRAMMABLE CONTROLLERS GOT PATIENT UP WHILE WAS ON PHONE) AT 0500 DID NOT C/O PAIN. TURNS SELF. HOURLY ROUNDS CONTINUE. USES CALL LITE APPROPRIATELY AND IT IS IN REACH.
[2019-06-22 07:58] VITALS: BP 119/53
[2019-06-22 10:36] LABS: ALBUMIN 2.5 g/dL (3.4-5.0); CALCIUM 8.1 mg/dL (8.5-10.1); CREATININE 2.3 mg/dL (0.6-1.3); MAGNESIUM 1.7 mg/dL (1.8-2.4); POTASSIUM 5.4 mmol/L (3.5-5.1)
--- NOTE | 2019-06-22 16:27 | NUR ---
ALERT WITH PERIODS OF CONFUSION AND FORGETFULNESS. USES CALL LIGHT AT TIMES WHEN NEEDING ASSIST. PATIENT WAS FOUND THIS AFTERNOON PULLING IV ACROSS ROOM TO CLOSET. ALARM HAD BEEN SHUT OFF. PATIENT INSTRUCTED TO CALL FOR ASSIST BEFORE GETTING UP. PATIENT SAID OK. PATIENT PUT BACK IN RECLINER AND CHAIR ALARM SET. BEFORE LEAVING ROOM PATIENT WAS SEEN TURNING CHAIR ALARM OFF. PATIENT INSTRUCTED TO NOT TURN CHAIR ALARM OFF. PATIENT UP WITH STAND BY ASSIST, GAIT BELT AND CANE. OINTMENT APPLIED TO RIGHT KNEE FOR PAIN AND HELPFUL. ILEOSTOMY PATIENT WITH SOFT STOOL. IVF INFUSING WITHOUT DIFFICULTY.
[2019-06-22 19:53] VITALS: BP 145/51
--- NOTE | 2019-06-22 21:42 | NUR ---
ASSUMED CARE AT 1930. PATIENT IN RECLINER WATCHING TV. IVF INFUSING TO LT FOREARM. CHAIR ALARM IN USE, BUT PATIENT HAS FIGURED OUT HOW TO TURN IT OFF. RE-EDUCATED ABOUT SAFETY CONCERNS AND NEEDING TO BE UP ONLY WITH ASSIST. WANTS TO AVOID "BOTHERING" STAFF, BUT REINFORCED HIS SAFETY IS OUR TOP CONCERN. FORGETFUL AT TIMES, EDUCATION REINFORCED MANY TIMES. TAKES PILLS A COUPLE AT A TIME. ILEOSTOMY INTACT, DRAINING SOFT STOOL. DENIES PAIN. HOURLY ROUNDS CONTINUE. BED ALARM ON. CALL LITE IN REACH.
--- NOTE | 2019-06-23 04:52 | NUR ---
SLEPT WELL FOR A FEW HOURS, THEN AWOKE TO FIND HIS APPLIANCE HAD STARTED LEAKING. ASSISTED PATIENT WITH SKIN CARE, CHANGED CLOTHES INTO HOSPITAL GOWN, AND APPLIANCE CHANGED BY Claudio AMARO RN. ALSO CHANGED MIPILEX TO LT MUCUS STOMA. IVF INFUSING TO LT FOREARM. NO C/O PAIN. NO C/O N/V. HOURLY ROUNDS CONTINUE. BED ALARM ON. CALL LITE IN REACH,
[2019-06-23 05:19] LABS: ALBUMIN 2.4 g/dL (3.4-5.0); CALCIUM 7.9 mg/dL (8.5-10.1); CREATININE 2.1 mg/dL (0.6-1.3); MAGNESIUM 1.7 mg/dL (1.8-2.4); PHOSPHORUS* 3.4 mg/dL (2.5-4.9); POTASSIUM 5.1 mmol/L (3.5-5.1)
[2019-06-23 08:30] VITALS: BP 111/54
[2019-06-23 13:21] LABS: CALCIUM 7.8 mg/dL (8.5-10.1); CREATININE 2.1 mg/dL (0.6-1.3); MAGNESIUM 1.7 mg/dL (1.8-2.4); POTASSIUM 5.2 mmol/L (3.5-5.1)
--- NOTE | 2019-06-23 16:40 | NUR ---
ALERT WITH PERIODS OF FORGETFULNESS AND CONFUSION. UP WITH STAND BY ASSIST, CANE AND GAIT BELT. DENIED NEED FOR PAIN PILLS. DRESSING ON ABDOMEN DRY AND INTACT. HAD LARGE AMOUNT OF SOFT DARK BROWN STOOL FROM ILEOSTOMY. IVF INFUSING WITHOUT DIFFICULTY. NO C/O N/V. CALL LIGHT WITHIN REACH. FALL PRECAUTIONS IN PLACE. BED ALARM AND CHAIR ALARM USED.
[2019-06-23 19:50] VITALS: BP 139/49
--- NOTE | 2019-06-23 23:01 | NUR ---
ASSUMED CARE AT 1930. PATIENT IN RECLINER UNTIL HS. BED AND CHAIR ALARMS IN USE. IVF TO LT FOREARM. ILEOSTOMY APPLIANCE INTACT, DRAINING BROWN STOOL AND GAS. LT SIDED MIPILEX OVER MUCUS FISTULA C/D/I. VOIDS PER URINAL, SOMETIMES STANDS, BUT SOMETIMES VOIDS IN BED WITH URINAL. TURNS SELF. UP WITH SBA, GAIT BELT, WALKER. TAKES PILLS WHOLE WITH WATER. FORGETFUL AT TIMES. MG REPLACED AT HS. NO C/O PAIN. DENIES N/V. HOURLY ROUNDS CONTINUE. CALL LITE IN REACH AND HE USES IT WELL.
[2019-06-24 05:11] LABS: HEMATOCRIT 22.3 % (42.0-52.0); HEMOGLOBIN 7.7 gm/dL (14.0-18.0); MCH 30.4 pg (26.0-34.0); MCHC 34.5 g/dL (28.0-37.0); MPV 7.8 fl. (7.2-11.1); RBC 2.54 mil/uL (4.50-6.00); RDW-CV 15.5 % (10.5-14.5); WBC 4.7 thou/uL (4.0-11.0)
--- NOTE | 2019-06-24 05:21 | NUR ---
SLEPT AT TIMES, BETTER LATER IN THE SHIFT. VOIDED PER URINAL, SOMETIMES STANDING, OTHER TIMES WHILE IN BED. IVF INFUSING TO LT FOREARM. BED ALARM ON. USES CALL LITE AT TIMES, OTHER TIMES JUST CALLS OUT. HE ASSISTED WITH EMPTYING HIS OWN OSTOMY BAG ONCE. TURNS SELF. HOURLY ROUNDS CONTINUE. BED ALARM ON. CALL LITE IN REACH.
[2019-06-24 05:28] LABS: ALBUMIN 2.3 g/dL (3.4-5.0); CALCIUM 7.8 mg/dL (8.5-10.1); CREATININE 2.3 mg/dL (0.6-1.3); MAGNESIUM 1.7 mg/dL (1.8-2.4); POTASSIUM 5.4 mmol/L (3.5-5.1)
[2019-06-24 07:50] VITALS: BP 97/40
[2019-06-24 14:00] VITALS: BP 138/41
--- NOTE | 2019-06-24 19:05 | NUR ---
ASSUMED CARE AT 0730. ALERT AND ORIENTED BUT CONVERSATION IS CONFUSED AT TIMES HE KNOWS WHERE HE IS WHO HE IS DROWSY SLEEPY THIS A.M. AND A LITTLE AGITATED. HE WOKE UP AND TOOK HIS MEDS AND BREAKFAST THEN PARTICIPATED IN THERAPIES. C/O NOT FEELING WELL TIRED TODAY. BP WAS LOW THIS A.M. WAS RECHECKED IN THERAPY THIS AFTERNOON WNL. TOOK MEDS WITHOUT DIFFICULTY. DID C/O L SHOULDER NECK PAIN MEDICATED WITH TYLENOL 2 TABS PO. APPETITE GOOD BREAKFAST LUNCH BUT NO SUPPER TAKEN. VOIDS PER URINAL. RESTED IN BED AFTER THERAPIES COMPLETED. ILEOSTOMY PATENT WITH SOFT STOOL. CONTINUE TO MONITOR.
[2019-06-24 20:00] VITALS: BP 122/46
[2019-06-25 05:28] LABS: ALBUMIN 2.2 g/dL (3.4-5.0); CALCIUM 8.2 mg/dL (8.5-10.1); MAGNESIUM 1.8 mg/dL (1.8-2.4); PHOSPHORUS* 3.5 mg/dL (2.5-4.9); POTASSIUM 5.2 mmol/L (3.5-5.1)
--- NOTE | 2019-06-25 06:30 | NUR ---
PATIENT SLEPT MOST OF THE NIGHT. PATIENT WAS SICK TO HIS STOMACH BEGINNING OF THE SHIFT. DR WAS CALLED AND ZOFRAN WAS ORDERED. PATIENT FELT BETTER AFTER THAT BUT NIGHT TIME MEDS WERE STILL HELD FOR NAUSEA. IV FLUIDS CONTINUE TO INFUSE AT 80 ML/HR. WILL CONTINUE TO MONITOR.
[2019-06-25 08:00] VITALS: BP 138/58
--- NOTE | 2019-06-25 15:30 | NUR ---
ASSUMMED CARE OF PT AT 0730, PT ALERT, CONFUSED, FORGETFUL AT TIMES, TRANSFERS WITH GB AND CANE, ALARMS FOR SAFETY, C/O ABDOMINAL PAIN IN MID ABDOMEN,ABDOMEN SOFT, PT STATES HE FEELS A LITTLE BLOATED, DENIES NAUSEA, NO EMESIS, TOOK PILLS WITHOUT DIFFICULTY, TAKING SMALL AMOUNTS OF FOOD, TAKING FLUIDS WELL, ILEOSTOMY HAS MODERATE AMOUNT OF LIQUID BROWN/GREENISH STOOL, IV INFILTRATED IN LEFT ARM, RESTARTED IN RIGHT ARM, IV FLUIDS INFUSING, VOIDS CLEAR YELLOW URINE PER URINAL, ABD X/R COMPLETED, PHYSICIAN AWARE OF RESULTS, SURGERY CONSULT HERE TO SEE PT AND NO FURTHER ORDERS, UPDATED, PARTICIPATED IN ALL THERAPIES, HOURLY ROUNDING COMPLETED, ASSESSMENT CONPLETE, WILL CONTINUE TO MONITOR.
--- NOTE | 2019-06-25 16:25 | NUR ---
DC held for today; possible dc home with and HH on Monday. SW to assist with final safe dc plan and referral/orders to pt/family preference of [facility].
--- NOTE | 2019-06-25 17:11 | NUR ---
BIMS COMPLETED ON 06/12/2019, BUT NOT ENTERED UNTIL 06/25/19. DISCUSSED THIS WITH [facility] GOMES WHO INDICATED THAT ENTERING A NOTE WITH THE CORRECT DATE WAS SUFFICIENT.
--- NOTE | 2019-06-25 20:00 | NUR ---
ORAL MORPHINE GIVEN FOR COMPLAINT OF ABDOMINAL PAIN RATED "10". ANXIOUS AND IRRITABLE. WARM BLANKET APPLIED TO ABD FOR COMFORT. REFUSED TO TALK TO WHEN SHE CALLED. DRIFTING OFF TO SLEEP. IV FLUIDS INFUSING PER ORDER. CALL LIGHT AND URINAL WITHIN REACH. ILEOSTOMY INTACT.
[2019-06-26 04:26] LABS: HEMATOCRIT 23.7 % (42.0-52.0); MCH 29.9 pg (26.0-34.0); MCHC 33.8 g/dL (28.0-37.0); MCV 88.6 fL (80.0-100.0); MPV 7.9 fl. (7.2-11.1); RBC 2.67 mil/uL (4.50-6.00); RDW-CV 15.9 % (10.5-14.5); WBC 5.2 thou/uL (4.0-11.0)
[2019-06-26 04:46] LABS: CALCIUM 7.7 mg/dL (8.5-10.1); MAGNESIUM 1.6 mg/dL (1.8-2.4); PHOSPHORUS* 2.9 mg/dL (2.5-4.9); POTASSIUM 4.6 mmol/L (3.5-5.1)
--- NOTE | 2019-06-26 05:06 | NUR ---
RESTED QUIETLY. USED URINAL DURING THE NIGHT. NO FURTHER COMPLAINT OF PAIN. HOURLY ROUNDING IN PROGRESS.
[2019-06-26 08:32] VITALS: BP 128/50
[2019-06-26] MEDS ORDERED: SENOKOT-S TABL1 EACH PO (11:13)
[2019-06-26] MEDS ORDERED: CLARITIN10 MG PO (11:13)
--- NOTE | 2019-06-26 13:55 | NUR ---
Team conference held today; pt cleared to be able to dc today. Home with and [facility] care services to resume care.
--- NOTE | 2019-06-26 15:24 | NUR ---
FAXED REFERRAL TO [facility]. NOTIFIED INTAKE THAT PATIENT WILL DISCHARGE TODAY, 06/26/19 AND THAT THEY HAVE A PREVIOUS HISTORY WITH [facility]. [facility] [phone]; [phone]
[2019-06-26 16:27] VITALS: BP 128/50
[2019-06-26 16:47] VITALS: BP 128/50
--- NOTE | 2019-06-26 18:47 | NUR ---
PT HAS MET HIS DISCHARGE GOALS. DISCHARGE INSTRUCTIONS PROVIDED. PT AND BELONGINGS TRANSPORTED TO EXIT, ASSISTED INTO CAR, DISCHARGED HOME IN STABLE CONDITION.
== END 2019-06-26 19:05 | disposition home health service (06) | DRG 70 ==
LOC: M.REH 14:41
PROVIDERS: Family Medicine; Internal Medicine; Surgery; ADMIT Physical Medicine & Rehabilitation
DX: G93.41 Metabolic encephalopathy (principal); E43 Unspecified severe protein-calorie malnutrition; N39.0 Urinary tract infection, site not specified; N17.9 Acute kidney failure, unspecified; N13.30 Unspecified hydronephrosis; N18.4 Chronic kidney disease, stage 4 (severe); E87.1 Hypo-osmolality and hyponatremia; I12.9 Hypertensive chronic kidney disease with stage 1 through stage 4 chronic kidney disease, or unspecified chronic kidney disease; I25.10 Atherosclerotic heart disease of native coronary artery without angina pectoris; E78.5 Hyperlipidemia, unspecified; Z93.2 Ileostomy status; Z88.0 Allergy status to penicillin; Z88.2 Allergy status to sulfonamides; Z91.012 Allergy to eggs; I25.2 Old myocardial infarction; N40.0 Benign prostatic hyperplasia without lower urinary tract symptoms; E66.9 Obesity, unspecified; Z85.038 Personal history of other malignant neoplasm of large intestine; Z95.5 Presence of coronary angioplasty implant and graft; F03.90 Unspecified dementia, unspecified severity, without behavioral disturbance, psychotic disturbance, mood disturbance, and anxiety; M10.9 Gout, unspecified; Z87.891 Personal history of nicotine dependence; N13.9 Obstructive and reflux uropathy, unspecified; E87.5 Hyperkalemia; Z68.25 Body mass index [BMI] 25.0-25.9, adult

== ENCOUNTER 2019-06-29 17:16 | Inpatient (IN) | payer MEDICARE ==
[~2019-06-29] VITALS: Ht 185.4 cm; Wt 88.9 kg
[~2019-06-29 17:16] MED LIST changes: +CLARITIN10 MG PO; +SENOKOT-S TABL1 EACH PO
[2019-06-29 17:20] VITALS: BP 96/53
[2019-06-29 17:40] LABS: HEMATOCRIT 26.9 % (42.0-52.0); HEMOGLOBIN 9.2 gm/dL (14.0-18.0); MCH 29.8 pg (26.0-34.0); MCHC 34.1 g/dL (28.0-37.0); MCV 87.3 fL (80.0-100.0); MPV 7.9 fl. (7.2-11.1); NUCLEATED RBCS 2 /100WBC; PLATELET COUNT* 181 thou/uL (150-400); RBC 3.08 mil/uL (4.50-6.00); RDW-CV 16.3 % (10.5-14.5); WBC 5.9 thou/uL (4.0-11.0)
[2019-06-29 17:51] LABS: URINE BILIRUBIN NEGATIVE (Negative); URINE BLOOD 3+ (Negative); URINE CLARITY SL CLOUDY; URINE COLOR YELLOW; URINE GLUCOSE-RANDOM NEGATIVE (Negative); URINE KETONES NEGATIVE (Negative); URINE LEUKOCYTES-REFLEX 1+ (Negative); URINE NITRITE-REFLEX NEGATIVE (Negative); URINE PROTEIN 1+ (Negative); URINE UROBILINOGEN 0.2 E.U./dl (0.2-1.0)
[2019-06-29 17:51] LABS: APTT 40.1 Seconds (25.0-31.3); INR 1.1
[2019-06-29 18:03] LABS: CALCIUM 9.5 mg/dL (8.5-10.1); CREATININE 4.3 mg/dL (0.6-1.3); POTASSIUM 5.3 mmol/L (3.5-5.1)
[2019-06-29 18:08] LABS: AMORPHOUS URATES Few /LPF (None Seen); CASTS None Seen /LPF (None Seen); SQUAMOUS 0-3 Few /LPF (0-3); URINE RBC 3-10 Few /HPF (0-2); URINE WBC-REFLEX 6-15 Few /HPF (0-5)
[2019-06-29 18:13] LABS: ALBUMIN 1.9 g/dL (3.4-5.0); TOTAL BILIRUBIN 0.7 mg/dL (<0.1-1.0); TOTAL PROTEIN 5.6 g/dL (6.4-8.2)
[2019-06-29 18:50] LABS: ABSOLUTE LYMPHOCYTES 0.9 thou/uL (0.8-5.3); ABSOLUTE MONOCYTES 0.1 thou/uL (0.0-1.2); ABSOLUTE NEUTROPHILS 4.9 thou/uL (1.6-8.1); METAMYELOCYTES 2 %; MYELOCYTES 6 %; PLATELET ESTIMATE ADEQUATE
[2019-06-29 18:51] LABS: ANISOCYTOSIS 1+; POIKILOCYTOSIS Occasional; POLYCHROMASIA 1+; TOXIC GRANULATION 2+
[2019-06-29 21:10] VITALS: BP 88/44
[2019-06-29 21:16] VITALS: BP 99/46
--- NOTE | 2019-06-29 21:41 | NUR ---
CALLED PTS TO UPDATE HER ON PT LOCATION.
[2019-06-30] VITALS: BP 97/45
[2019-06-30 04:00] VITALS: BP 96/49
--- NOTE | 2019-06-30 05:15 | NUR ---
RECEIVED PATIENT REPORT FROM ER. PATIENT TO THE UNIT AT 2110. PATIENT ORIENTED TO UNIT, ROOM, BED, CALL-LIGHT, AND HOSPITAL POLICY. ASSESSMENT COMPLETED CHARTED. PATIENT IS AV-PACED ON THE MONITOR AND RUNS SR/ST. FALL PRECAUTIONS IN PLACE FOR PATIENT SAFETY. HOURLY ROUNDING IN PLACE FOR PATIENT SAFETY. CLWR.
[2019-06-30 08:29] LABS: ABSOLUTE LYMPHOCYTES 0.5 thou/uL (0.8-5.3); ABSOLUTE MONOCYTES 0.2 thou/uL (0.0-1.2); ABSOLUTE NEUTROPHILS 4.8 thou/uL (1.6-8.1); BASOPHILS 0.1 %; EOSINOPHILS 0.1 %; HEMATOCRIT 24.9 % (42.0-52.0); HEMOGLOBIN 8.3 gm/dL (14.0-18.0); LYMPHOCYTES 8.9 %; MCH 29.5 pg (26.0-34.0); MCHC 33.4 g/dL (28.0-37.0); MCV 88.5 fL (80.0-100.0); MONOCYTES 3.9 %; MPV 8.4 fl. (7.2-11.1); NUCLEATED RBCS 2 /100WBC; PLATELET COUNT* 165 thou/uL (150-400); RBC 2.81 mil/uL (4.50-6.00); RDW-CV 16.5 % (10.5-14.5); WBC 5.5 thou/uL (4.0-11.0)
[2019-06-30 08:31] LABS: CALCIUM 9.1 mg/dL (8.5-10.1); POTASSIUM 5.5 mmol/L (3.5-5.1)
--- NOTE | 2019-06-30 10:45 | NUR ---
PT IS OX3,LETHARGIC,DROWSY. PT VOMITING THICK,BILE COLORED EMESIS. ZOFRAN IV DID NOT RELIEVE. PT COLOSTOMY EMPTIED AND CHANGED. DARK GREEN IN COLOR. URINE APPEARS YELLOW,GREENISH.
[2019-06-30 12:00] VITALS: BP 90/52
--- NOTE | 2019-06-30 14:54 | EKG ---
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: : [id number] Requested By: Louis Santos Order Number: [id number] MD: Narinder Jones Measurements Intervals [place] Rate: 113 P: 13 MA: 48 QRS: -16 QRSD: 116 T: QT: 338 QTc: 464 Interpretive Statements Atrial tachycardia with ventricular pacing No further analysis attempted due to paced rhythm Compared to ECG 05/28/2019 16:38:36 Atrial-paced complex(es) or rhythm no longer present Electronically Signed On 06-30-2019 14:53:09 CDT by Narinder Jones [email or web address] <ELECTRONICALLY SIGNED> By: Narinder Jones MD, FACC 06/30/19 1453 1726 1726 Narinder Jones MD, FACC /EPI
[2019-06-30 17:31] VITALS: BP 101/52
--- NOTE | 2019-06-30 18:20 | NUR ---
PT TRANSFERRED TO [facility] IN STABLE CONDITION. REPORT CALLED TO [facility] WHO ACCEPTED PT WITHOUT FURTHER QUESTIONS.PT TAKEN BY EMS VIA [facility] WITH ALL OF BELONGINGS. FAMILY ABLE TO SPEAK WITH PT PRIOR AND I CALLED EMS WAS TRANSFERRING TO [facility] WITH INFORMATION
== END 2019-06-30 18:25 | disposition short-term general hospital (02) | DRG 871 ==
LOC: M.ERS 17:16 → M.TBA-ER 18:06 → M.ORTHSURG 21:31
PROVIDERS: Family Medicine; ADMIT Internal Medicine
DX: A41.50 Gram-negative sepsis, unspecified (principal); J18.9 Pneumonia, unspecified organism; G92 Toxic encephalopathy; N39.0 Urinary tract infection, site not specified; R65.20 Severe sepsis without septic shock; I25.10 Atherosclerotic heart disease of native coronary artery without angina pectoris; E78.00 Pure hypercholesterolemia, unspecified; N40.0 Benign prostatic hyperplasia without lower urinary tract symptoms; E66.9 Obesity, unspecified; F03.90 Unspecified dementia, unspecified severity, without behavioral disturbance, psychotic disturbance, mood disturbance, and anxiety; N18.3 Chronic kidney disease, stage 3 (moderate); M10.9 Gout, unspecified; E03.9 Hypothyroidism, unspecified; E86.0 Dehydration; E87.5 Hyperkalemia; I12.9 Hypertensive chronic kidney disease with stage 1 through stage 4 chronic kidney disease, or unspecified chronic kidney disease; N32.89 Other specified disorders of bladder; Z95.5 Presence of coronary angioplasty implant and graft; Z68.25 Body mass index [BMI] 25.0-25.9, adult; I25.2 Old myocardial infarction; Z88.2 Allergy status to sulfonamides; Z85.038 Personal history of other malignant neoplasm of large intestine; Z91.012 Allergy to eggs; Z93.2 Ileostomy status; Z09 Encounter for follow-up examination after completed treatment for conditions other than malignant neoplasm; Z86.718 Personal history of other venous thrombosis and embolism; Z86.73 Personal history of transient ischemic attack (TIA), and cerebral infarction without residual deficits; Z88.0 Allergy status to penicillin; Z87.891 Personal history of nicotine dependence; Z79.82 Long term (current) use of aspirin; Z79.899 Other long term (current) drug therapy; Z20.828 Contact with and (suspected) exposure to other viral communicable diseases